=== PATIENT | male | born 1950 | race Caucasian/White ===

== ENCOUNTER 2016-11-28 13:10 | Outpatient (CLI) | payer BC ==
--- NOTE | 2016-11-28 19:12 | Ultrasound Report ---
RIGHT UPPER QUADRANT ULTRASOUND: 11/28/2016 CLINICAL INDICATION: Hepatic fibrosis. TECHNIQUE: Real-time scanning was performed with player services representative static images obtained. FINDINGS: The liver measures 15.4 cm. Hepatic echotexture appears unremarkable. No focal parenchym al lesion or intrahepatic biliary dilatation is seen. The common bile duct measures 4 mm. The gallb ladder is normal. The right kidney measures 10.1 cm, and demonstrates no hydronephrosis. No free fl uid is present. IMPRESSION: NORMAL RIGHT UPPER QUADRANT ULTRASOUND. JOB #: [id number] EXT JOB #:[id number]
== END 2016-11-28 13:11 | disposition home or self-care (01) ==
LOC: DI 13:10
PROVIDERS: ATTEND Internal Medicine
DX: K74.0 Hepatic fibrosis (principal)
CPT/HCPCS: 76705

== ENCOUNTER 2017-05-21 18:55 | Outpatient (CLI) | payer BC ==
--- NOTE | 2017-05-22 12:12 | Ultrasound Report ---
DATE OF SERVICE: 05/21/2017 COMPLETE ABDOMEN ULTRASOUND: 05/21/2017 COMPARISON: Abdomen ultrasound of 11/23/2015. INDICATION: Hepatic fibrosis. TECHNIQUE: Sonographic evaluation of the abdomen. FINDINGS: The liver has a coarse echotexture. There is a stable 1 cm left hepatic cyst. No parenchymal hepatic lesions are demonstrated: Normal contour. No abdominal ascites. Portal venous flow is directed toward the liver. The liver measures 15 cm. The gallbladder is unremarkable without stones, wall thickening or adjacent fluid. No ductal dilation. Common duct 4 mm. The pancreas is poorly evaluated due to overlying bowel gas. The kidneys appear unremarkable. The right measures 9.2 cm. The left measures 10.0 cm. There is an 1.4 cm simple appearing splenic cyst. The spleen appears otherwise unremarkable, measuring 10 cm. The aorta and IVC appear grossly unremarkable. IMPRESSION: STABLE FINDINGS. NO EVIDENCE OF HEPATIC LESIONS APART FROM A STABLE SIMPLE APPEARING CYST. TD: 05/22/2017 12:57 MTDD
== END 2017-05-21 18:56 | disposition home or self-care (01) ==
LOC: DI 18:55
PROVIDERS: ATTEND Internal Medicine
DX: K74.0 Hepatic fibrosis (principal); K76.89 Other specified diseases of liver
CPT/HCPCS: 76700

== ENCOUNTER 2017-06-25 16:23 | Outpatient (CLI) | payer BC ==
[2017-06-25] MEDS ORDERED: IOPAMIDOL-300 50 ML VIAL ONE (16:34)
[2017-06-25] MEDS ORDERED: IOPAMIDOL-300 100 ML VIAL ONE (16:34)
[2017-06-25 16:52] LABS: CREATININE 0.9 mg/dL (0.6-1.2)
[2017-06-25] MEDS ORDERED: IOPAMIDOL-300 50 ML VIAL PO ONE (18:02)
[2017-06-25] MEDS ORDERED: IOPAMIDOL-300 100 ML VIAL IVP ONE (18:03)
--- NOTE | 2017-06-26 12:18 | CT Report ---
CT OF THE ABDOMEN WITH CONTRAST: 06/25/2017 CLINICAL INDICATION: Abdominal pain. TECHNIQUE: Axial CT images of the abdomen were obtained with 100 mL Isovue 300 intravenously as well as oral contrast. COMPARISON: 05/17/2015. FINDINGS: Limited evaluation of the lung bases is unremarkable. ABDOMEN: There is a small cyst in the left lobe of the liver. The spleen, pancreas, kidneys and adrenal glands are unremarkable. The gallbladder is not dilated. No bowel dilatation, free gas, or free fluid is present. No abdominal adenopathy is seen. Osseous structures demonstrate mild degenerative changes. IMPRESSION: NO EVIDENT ETIOLOGY FOR THE PATIENT'S ABDOMINAL PAIN. NO SIGNIFICANT INTERVAL CHANGE FROM 05/17/2015. In accordance with CT protocol optimization, one or more of the following dose reduction techniques were utilized for this exam: automated exposure control, adjustment of mA and/or KV based on patient size, or use of iterative reconstructive technique. TD: 06/26/2017 12:17
== END 2017-06-25 16:24 | disposition home or self-care (01) ==
LOC: LAB 16:23
PROVIDERS: ATTEND Internal Medicine
DX: R10.9 Unspecified abdominal pain (principal); K74.0 Hepatic fibrosis
CPT/HCPCS: 36415; 74160; 82565; Q9967

== ENCOUNTER 2018-04-30 21:02 | Outpatient (CLI) | payer BC ==
--- NOTE | 2018-05-02 07:24 | Ultrasound Report ---
Reason: RIGHT UPPER QUADRANT ABDOMINAL PAIN Procedure Date: 04/30/2018 Accession Number: [id number] / [id number] Procedure: US - Abdomen Complete CPT Code: FULL RESULT: EXAM: ABDOMEN ULTRASOUND EXAM DATE: 04/30/2018 09:50 PM. CLINICAL HISTORY: Right upper quadrant abdominal pain. COMPARISON: ABDOMEN COMPLETE 05/21/2017 8:28 PM ABDOMEN W/ 06/25/2017 5:39 PM. TECHNIQUE: Real-time scanning was performed with static images obtained. FINDINGS: Liver: Mildly coarse and echogenic. No suspicious mass seen with incidental left liver 1 cm cyst again noted. 14.8 cm. Main portal vein flow: Hepatopetal. Gallbladder: Normal. No stones, wall thickening, or sonographic Lara's sign. Biliary System: Common bile duct measures 3 mm. No intrahepatic or extrahepatic ductal dilatation. Pancreas: Visualized portion is unremarkable. Kidneys: Right: 9.7 cm longitudinally. Normal. No contour-deforming mass, stones, or hydronephrosis. Left: 10.5 cm longitudinally. Normal. No contour-deforming mass, stones, or hydronephrosis. Spleen: 9.8 x 3.6 x 8.1 cm. Normal in size and echotexture. Aorta and Inferior Vena Cava: Unremarkable. Other: None. IMPRESSION: 1. No etiology for abdominal pain seen. 2. Mildly coarse echotexture to the liver, consistent with chronic liver disease. No focal solid mass identified. RADIA
== END 2018-04-30 21:03 | disposition home or self-care (01) ==
LOC: DI 21:02
PROVIDERS: ATTEND Internal Medicine
DX: R10.11 Right upper quadrant pain (principal)
CPT/HCPCS: 76700

== ENCOUNTER 2018-11-13 15:42 | Outpatient (CLI) | payer BC ==
--- NOTE | 2018-11-14 13:30 | Ultrasound Report ---
Reason: HISTORY OF HEPATITIS C Procedure Date: 11/13/2018 Accession Number: [id number] / [id number] Procedure: US - Abdomen Complete CPT Code: FULL RESULT: EXAM: ABDOMEN ULTRASOUND EXAM DATE: 11/13/2018 05:09 PM. CLINICAL HISTORY: Hepatitis C, follow-up. COMPARISON: ABDOMEN COMPLETE 04/30/2018 9:25 PM. TECHNIQUE: Real-time scanning was performed with static images obtained. FINDINGS: Liver: The liver parenchyma is moderately echogenic and possibly mildly coarsened diffusely as before. No focal solid masses or enlargement. A left hepatic simple cyst measures 1.2 cm. The right lobe measures 14.1 cm. Main portal vein flow: Hepatopetal. Gallbladder: Normal. No stones, wall thickening, or sonographic Lara's sign. Biliary System: Common bile duct measures 5 mm. No intrahepatic or extrahepatic ductal dilatation. Pancreas: Visualized portion is unremarkable. Kidneys: Right: 10.1 cm longitudinally. Normal. No contour-deforming mass, stones, or hydronephrosis. Left: 11.0 cm longitudinally. Normal. No contour-deforming mass, stones, or hydronephrosis. Spleen: 10.6 cm. Normal in size and echotexture. An accessory splenule is noted. Aorta and Inferior Vena Cava: Unremarkable. Other: None. IMPRESSION: 1. Moderately fatty infiltrated liver. 2. Possible early changes of liver cirrhosis unchanged. No solid mass lesion identified. RADIA
== END 2018-11-13 15:43 | disposition home or self-care (01) ==
LOC: DI 15:42
PROVIDERS: ATTEND Internal Medicine
DX: K76.0 Fatty (change of) liver, not elsewhere classified (principal); Z86.19 Personal history of other infectious and parasitic diseases
CPT/HCPCS: 76700

== ENCOUNTER 2018-11-19 17:00 | Outpatient (CLI) | payer BC ==
[2018-11-19 17:34] LABS: ALBUMIN 4.5 g/dL (3.2-5.5); ALBUMIN/GLOBULIN RATIO 1.3 (1.0-2.2); BILIRUBIN,TOTAL 0.9 mg/dL (0.2-1.0); CALCIUM 9.2 mg/dL (8.5-10.3); CREATININE 0.9 mg/dL (0.6-1.2); TOTAL PROTEIN 7.9 g/dL (6.7-8.2)
[2018-11-19 17:49] LABS: INR 1.2 (0.8-1.2); PT - PROTHROMBIN TIME 13.3 secs (9.9-12.6)
== END 2018-11-19 17:01 | disposition home or self-care (01) ==
LOC: LAB 17:00
PROVIDERS: ATTEND Internal Medicine
DX: K74.0 Hepatic fibrosis (principal)
CPT/HCPCS: 80053; 82105; 85610

== ENCOUNTER 2019-05-15 08:00 | Outpatient (CLI) | payer BC ==
[2019-05-15 10:14] LABS: ALBUMIN 4.2 g/dL (3.2-5.5); ALBUMIN/GLOBULIN RATIO 1.2 (1.0-2.2); BILIRUBIN,TOTAL 0.6 mg/dL (0.2-1.0); CREATININE 0.7 mg/dL (0.6-1.2); TOTAL PROTEIN 7.6 g/dL (6.7-8.2)
[2019-05-15 10:17] LABS: INR 1.1 (0.8-1.2); PT - PROTHROMBIN TIME 12.6 secs (9.9-12.6)
--- NOTE | 2019-05-15 12:07 | Ultrasound Report ---
Reason: ADVANCED FIBROSIS, RUQ ABD PAIN Procedure Date: 05/15/2019 Accession Number: [id number] / [id number] Procedure: US - Abdomen Complete CPT Code: Final Report FULL RESULT: EXAM: ABDOMEN ULTRASOUND EXAM DATE: 05/15/2019 11:12 AM. CLINICAL HISTORY: Advanced fibrosis, right upper quadrant abdominal pain. COMPARISON: ABDOMEN COMPLETE 11/13/2018 4:24 PM ABDOMEN W/ 06/25/2017 5:39 PM. TECHNIQUE: Real-time scanning was performed with static images obtained. FINDINGS: Liver: 1.1 x 0.9 x 1.2 cm anechoic left liver cyst. No mural nodules or thickened septation. Liver parenchyma is heterogeneous and mildly to moderately hyperechoic. No discrete liver masses or intrahepatic bile duct dilation. However, evaluation for masses is limited secondary to the echogenicity. Right liver measures 16.2 cm. Capsule is mildly irregular. Main portal vein flow: Hepatopetal. Gallbladder: Normal. No stones, wall thickening, or sonographic Lara's sign. Biliary System: Common bile duct measures 5 mm. No intrahepatic or extrahepatic ductal dilatation. Pancreas: Limited visualization and evaluations, overlying bowel gas and coarse heterogeneous liver parenchyma. Given the limitations, no acute abnormality is noted. Kidneys: Right: 9.9 cm longitudinally. Small avascular 0.4 cm mid right renal echogenic focus best seen on the transverse images. No right hydronephrosis or renal stones. Left: 11.1 cm longitudinally. Normal. No contour-deforming mass, stones, or hydronephrosis. Spleen: 9.6 x 3.1 x 9.9 cm. Normal in size and echotexture. Accessory spleen measures 1.2 cm. Aorta and Inferior Vena Cava: Atheromatous plaques noted in the non-aneurysmal abdominal aorta. Normal IVC. Other: None. IMPRESSION: 1. Coarse liver parenchyma consistent with fatty infiltration and with possible superimposed chronic liver parenchymal disease. No solid liver mass or intrahepatic bile duct dilation. 1.2 cm left liver cyst. No concerning features. Possible cirrhosis. 2. Normal gallbladder and common bile duct. Limited visualization of the pancreas due to overlying bowel gas. RADIA
== END 2019-05-15 08:01 | disposition home or self-care (01) ==
LOC: DI 08:00
PROVIDERS: ATTEND Internal Medicine
DX: R10.11 Right upper quadrant pain (principal); K74.0 Hepatic fibrosis; K76.89 Other specified diseases of liver
CPT/HCPCS: 36415; 76700; 80053; 82105; 85610

== ENCOUNTER 2019-11-30 11:40 | Outpatient (CLI) | payer MEDICARE ==
[2019-11-30 12:06] LABS: ALBUMIN 4.4 g/dL (3.2-5.5); ALBUMIN/GLOBULIN RATIO 1.3 (1.0-2.2); BILIRUBIN,TOTAL 0.8 mg/dL (0.2-1.0); CREATININE 0.9 mg/dL (0.6-1.2); TOTAL PROTEIN 7.7 g/dL (6.7-8.2)
== END 2019-11-30 11:41 | disposition home or self-care (01) ==
LOC: LAB 11:40
PROVIDERS: ATTEND Internal Medicine
DX: K74.0 Hepatic fibrosis (principal)
CPT/HCPCS: 36415; 80053; 82105

== ENCOUNTER 2019-12-04 14:43 | Outpatient (CLI) | payer MEDICARE ==
--- NOTE | 2019-12-04 16:29 | Ultrasound Report ---
PROCEDURE: Abdomen Complete INDICATIONS: LIVER FIBROSIS TECHNIQUE: Real-time scanning was performed of the abdominal and retroperitoneal organs, with image documentatio n. COMPARISON: Prior abdomen ultrasounds 05/15/2019, 11/13/2018, 04/30/2018. Correlation is also made wi abdomen CT 06/25/2017. FINDINGS: Liver: The liver demonstrates a coarse, heterogeneous echotexture and minimal increased echogenicity. No suspicious mass lesions are identified. There is a benign-appearing cyst seen on the left measuri ng up to 1 cm, as previously demonstrated. Gallbladder: No gallstones or significant sludge can be seen. The gallbladder wall does not appear t hickened. There is no specific pericholecystic fluid. The sonographic Lara's sign is negative. Biliary ducts: Intrahepatic bile ducts are non-dilated. Extrahepatic bile duct caliber measures 2 m m. Normal is 6-7 mm or less in diameter, or 10 mm or less post-cholecystectomy. Pancreas: Visualized portions of the pancreas are sonographically normal. Spleen: Spleen is normal in size and homogeneous in echotexture. Incidental note is made of partial ly seen presumed accessory splenules. Kidneys: Kidneys are normal in size and echotexture. Right kidney measures 9.9 cm long; left kidney measures 10.9 cm long. No hydronephrosis or nephrolithiasis. No solid masses. Aorta: Visualized aorta is normal in caliber at less than 3 cm. Iliacs: Proximal common iliac arteries are normal in caliber at less than 2.5 cm. IVC: Intrahepatic inferior vena cava is patent. Miscellaneous: No free abdominal fluid. IMPRESSION: Coarse liver echotexture with minimally increased liver echogenicity, which is consistent with the gi mery history of liver fibrosis. No suspicious mass lesions are seen by ultrasound. If there is strong clinical concern for a liver mass, then please consider a dedicated liver protocol MRI (without and with contrast) for further ev aluation (assuming that there is no contraindication). Incidental note is made of: Liver cyst Apparent accessory splenules Reviewed by: Rashawn Valenzuela MD on 12/04/2019 3:28 PM [facility] Approved by: Rashawn Valenzuela MD on 12/04/2019 3:28 PM [facility] Station ID: [id number]
== END 2019-12-04 14:44 | disposition home or self-care (01) ==
LOC: DI 14:43
PROVIDERS: ATTEND Internal Medicine
DX: K74.0 Hepatic fibrosis (principal)
CPT/HCPCS: 76700

== ENCOUNTER 2020-05-06 08:56 | Emergency (ER) | payer BC, MEDICARE ==
[2020-05-06 09:25] LABS: BASOPHILS # (AUTO) 0.1 10^3/uL (0.0-0.1); BASOPHILS % (AUTO) 0.7 %; EOSINOPHILS # (AUTO) 0.1 10^3/uL (0.0-0.7); EOSINOPHILS % (AUTO) 1.6 %; HGB - HEMOGLOBIN 15.3 g/dL (14.0-18.0); LYMPHOCYTES # (AUTO) 2.1 10^3/uL (1.5-3.5); LYMPHOCYTES % (AUTO) 23.5 %; MEAN CORPUSCULAR HEMOGLOBIN 30.4 pg (27.0-31.0); MEAN CORPUSCULAR HGB CONC 33.3 g/dL (32.0-36.0); MEAN CORPUSCULAR VOLUME 91.3 fL (80.0-94.0); MEAN PLATELET VOLUME 10.2 fL (7.4-11.4); MONOCYTES # (AUTO) 0.9 10^3/uL (0.0-1.0); MONOCYTES % (AUTO) 10.5 %; NEUTROPHILS # (AUTO) 5.7 10^3/uL (1.5-6.6); NEUTROPHILS % (AUTO) 63.3 %; PLT - PLATELET COUNT 260 10^3/uL (130-450); RED BLOOD COUNT 5.04 10^6/uL (4.70-6.10)
[2020-05-06 09:35] LABS: BILIRUBIN,URINE NEGATIVE (NEGATIVE); GLUCOSE, URINE (UA) NEGATIVE (NEGATIVE); KETONES,URINE (UA) NEGATIVE (NEGATIVE); LEUKOCYTE ESTERASE, URINE NEGATIVE (NEGATIVE); NITRITE,URINE NEGATIVE (NEGATIVE); OCCULT BLOOD,URINE TRACE-INTA (NEGATIVE); PH,URINE 5.5 PH (5.0-7.5); PROTEIN,URINE NEGATIVE (NEGATIVE); UROBILINOGEN,URINE 0.2 (NORMAL) E.U./dL (NORMAL)
[2020-05-06 09:38] LABS: CLARITY,URINE CLEAR (CLEAR)
[2020-05-06 09:39] LABS: ALBUMIN 4.3 g/dL (3.2-5.5); ALBUMIN/GLOBULIN RATIO 1.2 (1.0-2.2); CALCIUM 9.2 mg/dL (8.5-10.3); CREATININE 0.9 mg/dL (0.6-1.2)
[2020-05-06] MEDS ORDERED: LIDOCAINE VISCOUS 2% 15 ML UDC MM STA (09:49)
[2020-05-06] MEDS ORDERED: MAG HYDROX/AL HYDROX/SIMETH 30 ML UDC PO STA (09:49)
--- NOTE | 2020-05-06 09:52 | ED Physician Documentation ---
PD HPI ABD PAIN - Stated complaint Stated Complaint: ABD PAIN - Chief complaint Chief Complaint: Abd Pain - History obtained from History obtained from: Patient - History of Present Illness Timing - onset: How many years ago (10+) Timing - duration: Years Timing - details: Gradual onset, Still present, Waxing and waning Quality: Cramping, Aching, Pain Location: RUQ, LUQ, RLQ Improved by: Eating Associated symptoms: No: Nausea, Vomiting, Diarrhea, Constipation Similar symptoms before: No diagnosis, Work up / diagnostics (extensive) Recently seen: Not recently seen - Additional information Additional information: 69-year-old male presents to the emergency department today with abdominal pain that he has had for more than 10 years. He indicates a history that he had hepatitis C unsuccessfully treated with interferon and subsequently treated with an oral medication successfully. He states that during this entire time he has had continuous abdominal pain in the right upper quadrant left upper quadrant and right lower quadrant. He is periodically having exacerbation of his pain to where it is interfering with his life and he is being short with his family. He states that despite the treatment of the hepatitis C his pain never resolved and he has no specific explanation of why he has this pain. He is finally today become irritated with pain enough to come to the emergency department for evaluation. He has not tried to treat this with much of anything for pain other than occasionally taking Ibuprofen or Tylenol and having cannabis at night. Review of Systems Constitutional: denies: Fever, Chills, Myalgias Eyes: denies: Decreased vision Ears: denies: Ear pain Nose: denies: Rhinorrhea / runny nose, Congestion Throat: denies: Sore throat Cardiac: denies: Chest pain / pressure, Palpitations Respiratory: denies: Dyspnea, Cough GI: reports: Abdominal Pain. denies: Nausea, Vomiting, Constipation, Diarrhea : denies: Dysuria, Frequency Skin: denies: Rash Musculoskeletal: denies: Neck pain, Back pain, Extremity pain Neurologic: denies: Generalized weakness, Focal weakness, Numbness PD PAST MEDICAL HISTORY - Past Medical History Past Medical History: Yes GI: Hepatitis - Past Surgical History Past Surgical History: Yes Ortho: Arthroscopic surgery - Allergies Allergies/Adverse Reactions: Allergies Allergy/AdvReac Type Severity Reaction Status Date / Time No Known Drug Allergies Allergy Verified 05/06/20 09:00 - Social History Does the pt smoke?: No Smoking Status: Never smoker Does the pt drink ETOH?: No Does the pt have substance abuse?: No Substance Use and Type: Marijuana - Immunizations Immunizations are current?: Yes - POLST Patient has POLST: No PD ED PE NORMAL - Vitals Vital signs reviewed: Yes (hypertensive ) - General General: Alert and oriented X 3, No acute distress, Well developed/nourished - HEENT HEENT: Atraumatic, PERRL, EOMI - Neck Neck: Supple, no meningeal sign, No bony TTP - Cardiac Cardiac: RRR, No murmur - Respiratory Respiratory: No respiratory distress, Clear bilaterally - Abdomen Abdomen: Normal bowel sounds, Soft, Non distended, No organomegaly, Other (mild tenderness without garding or rebound tenderness ) - Back Back: No CVA TTP, No spinal TTP - Derm Derm: Normal color, Warm and dry, No rash - Extremities Extremities: No deformity, No edema - Neuro Neuro: Alert and oriented X 3, ecological modeler 2-12 intact, No motor deficit, No sensory deficit, Normal speech Eye Opening: Spontaneous Motor: Obeys Commands Verbal: Oriented GCS Score: 15 - Psych Psych: Normal mood, Normal affect Results - Vitals Vitals: Vital Signs - 24 hr 05/06/20 05/06/20 05/06/20 09:00 09:27 10:24 Temperature 36.9 C Heart Rate 87 78 73 Respiratory 18 16 16 Rate Blood Pressure 145/94 H 169/112 H 149/99 H O2 Saturation 98 99 96 05/06/20 05/06/20 05/06/20 11:17 13:23 14:31 Temperature 36.5 C Heart Rate 63 72 81 Respiratory 16 16 18 Rate Blood Pressure 150/96 H 142/97 H 197/109 H O2 Saturation 100 98 97 05/06/20 15:12 Temperature Heart Rate 90 Respiratory 15 Rate Blood Pressure 168/113 H O2 Saturation 97 Oxygen O2 Source Room air - Labs Labs: Laboratory Tests 05/06/20 05/06/20 05/06/20 09:15 09:20 09:20 WBC 9.0 RBC 5.04 Hgb 15.3 Hct 46.0 MCV 91.3 MCH 30.4 MCHC 33.3 RDW 12.0 Plt Count 260 MPV 10.2 Neut # (Auto) 5.7 Lymph # (Auto) 2.1 [place] # (Auto) 0.9 Eos # (Auto) 0.1 Baso # (Auto) 0.1 Absolute Nucleated RBC 0.00 Nucleated RBC % 0.0 Sodium 141 Potassium 3.5 Chloride 105 Carbon Dioxide 27 Anion Gap 9.0 BUN 18 Creatinine 0.9 Estimated GFR (MDRD) 84 L Glucose 63 L Calcium 9.2 Total Bilirubin 1.0 AST 19 ALT 19 Alkaline Phosphatase 72 Total Protein 8.0 Albumin 4.3 Globulin 3.7 Albumin/Globulin Ratio 1.2 Lipase 26 Urine Color DARK YELLOW Urine Clarity CLEAR Urine pH 5.5 Ur Specific [place] >=1.030 H Urine Protein NEGATIVE Urine Glucose (UA) NEGATIVE Urine Ketones NEGATIVE Urine Occult Blood TRACE-INTA Urine Nitrite NEGATIVE Urine Bilirubin NEGATIVE Urine Urobilinogen 0.2 (NORMAL) Ur Leukocyte Esterase NEGATIVE Ur Microscopic Review NOT INDICATED Urine Culture Comments NOT INDICATED - Rads (name of study) CT ab/pel w Radiology: Prelim report reviewed (Impression: 1. No acute inflammatory process is identified. No free fluid. 2. Diverticulosis without diverticulitis. Normal appendix. 3. Suspect small fat-containing left inguinal hernia.), EMP read indepedently, See rad report PD MEDICAL DECISION MAKING - ED course Complexity details: reviewed old records, reviewed results, re-evaluated patient, considered differential, d/w patient ED course: 69 y/o male with more than 10 years of abdominal pain has become irritated with the pain and it has caused some strife in his family life. I do not feel that I am likely to solve the problem with his abdominal pain but I was able to offer the patient the trial of a ketamine infusion which he readily accepted. He has asked the nurse about a social work consult and he would prefer not to do this in a public setting and would like referral to someone to talk to. He is given an infusion of ketamine 40mg over 40minutes. This is done in a room with another individual having sutures placed and was not an appropriate setting for this infusion. The patient did feel it may have some benefit. He did ask for resources for counselling. He indicates he has become passionate about the bill of rights and has done a 1st amendment audit --took his phone out and began filming in the lobby of the court house -- a public place-- and he was handcuffed for this. He is concerned that his passion is causing some trouble with his family and he requests resources for counselling. Departure - Departure Disposition: 01 Home, Self Care Clinical Impression: Adjustment reaction with anxiety Abdominal pain Qualifiers: Abdominal location: unspecified location Qualified Code(s): R10.9 - Unspecified abdominal pain Condition: Stable Instructions: ED Adjustment Disorder, ED Abdominal Pain Unkn Cause Male Follow-Up: [facility] [Provider Group] Comments: follow up with counselling resources as provided by social work. If you felt that the ketamine infusion helped there are clinics in [place] and [place]. The usual treatment requires a series of 12-13 treatments.
[2020-05-06] MEDS ORDERED: IOVERSOL 320 100 ML VIAL IVP ONE ×2 (10:02→10:30)
--- NOTE | 2020-05-06 11:13 | CT Report ---
PROCEDURE: Abdomen/Pelvis W INDICATIONS: 3 quadrant abdominal pain, chronic CONTRAST: IV CONTRAST: Optiray 320: 100 mL TECHNIQUE: After the administration of intravenous contrast, 5 mm thick sections acquired from the diaphragms to the symphysis. 5 mm thick coronal and sagittal reformats were acquired. For radiation dose reducti on, the following was used: automated exposure control, adjustment of mA and/or kV according to erna ent size. COMPARISON: Abdominal ultrasound 12/04/2019. CT abdomen 06/26/2017.. FINDINGS: Image quality: Excellent. ABDOMEN: Lung bases: Lung bases are clear. Heart size is normal. Solid organs: Liver is normal in size. Question of hepatic steatosis. Small cyst in the left lobe li kimber, unchanged. Gallbladder is unremarkable. Biliary system is non dilated. Pancreas enhances norm ally. No splenomegaly. Small splenule. No adrenal nodules. Kidneys demonstrate normal size and enhan cement, without hydronephrosis. Peritoneum and bowel: Bowel loops demonstrate normal wall thickness and caliber. A few colonic diver ticuli. No diverticulitis. Normal retrocecal appendix. No free fluid or air. Nodes and vessels: No retroperitoneal or mesenteric adenopathy by size criteria. Aorta and inferior vena cava are normal in size. Moderate calcified arthroscopic plaque. Miscellaneous: Small fat-containing periumbilical hernia. PELVIS: Genitourinary: Bladder is within normal limits. Suspect trace right hydrocele. No free fluid in the pelvis. Miscellaneous: Suspect fat-containing left inguinal hernia. No adenopathy. Bones: No suspicious bony lesions. No vertebral body compression fractures. IMPRESSION: 1. No acute inflammatory process is identified. No free fluid. 2. Diverticulosis without diverticulitis. Normal appendix. 3. Suspect small fat-containing left inguinal hernia. Reviewed by: Eliot Garcia MD on 05/06/2020 10:11 AM [facility] Approved by: Eliot Garcia MD on 05/06/2020 10:11 AM [facility] Station ID: [id number]
[2020-05-06] MEDS ORDERED: KETAMINE 40 MG in SODIUM CHLORIDE 0.9% 100ML 100 ML IVP STA (11:16)
[2020-05-06] MEDS ORDERED: SODIUM CHLORIDE 0.9% IVP STA (11:30)
[2020-05-06] MEDS ORDERED: KETAMINE IVP STA (11:30)
[2020-05-06 15:15] VITALS: BP 168/113
== END 2020-05-06 15:49 | disposition home or self-care (01) ==
LOC: ED 08:56
DX: R10.11 Right upper quadrant pain (principal); R10.12 Left upper quadrant pain; R10.31 Right lower quadrant pain; G89.29 Other chronic pain; F43.22 Adjustment disorder with anxiety; B19.20 Unspecified viral hepatitis C without hepatic coma
CPT/HCPCS: 36415; 74177; 80053; 81003; 83690; 85025; 96374; 99284; A9270; Q9967; 81001; 87086

== ENCOUNTER 2020-09-19 11:06 | Outpatient (CLI) | payer MEDICARE, OTHER ==
[2020-09-19 11:20] LABS: HCT - HEMATOCRIT 43.5 % (42.0-52.0); HGB - HEMOGLOBIN 14.6 g/dL (14.0-18.0); MEAN CORPUSCULAR HGB CONC 33.6 g/dL (32.0-36.0); MEAN CORPUSCULAR VOLUME 89.5 fL (80.0-94.0); MEAN PLATELET VOLUME 10.2 fL (7.4-11.4); RED BLOOD COUNT 4.86 10^6/uL (4.70-6.10); RED CELL DISTRIBUTION WIDTH 12.7 % (12.0-15.0)
[2020-09-19 11:40] LABS: ALBUMIN 4.3 g/dL (3.2-5.5); ALBUMIN/GLOBULIN RATIO 1.2 (1.0-2.2); BILIRUBIN,TOTAL 0.7 mg/dL (0.2-1.0); CALCIUM 9.2 mg/dL (8.5-10.3); POTASSIUM 4.1 mmol/L (3.5-5.0); TOTAL PROTEIN 7.8 g/dL (6.7-8.2)
== END 2020-09-19 11:07 | disposition home or self-care (01) ==
LOC: LAB 11:06
PROVIDERS: ATTEND Internal Medicine
DX: Z86.19 Personal history of other infectious and parasitic diseases (principal)
CPT/HCPCS: 36415; 80053; 82105; 85027

== ENCOUNTER 2020-09-23 09:21 | Outpatient (CLI) | payer MEDICARE, OTHER ==
--- NOTE | 2020-09-23 12:50 | Ultrasound Report ---
PROCEDURE: Abdomen Complete INDICATIONS: LIVER FIBROSIS TECHNIQUE: Real-time scanning was performed of the abdominal and retroperitoneal organs, with image documentatio n. COMPARISON: Prior ultrasounds, including 12/04/2019, 05/15/2019, and 11/13/2018. FINDINGS: Overall scan quality is limited, secondary to increased bowel gas and body habitus. Liver: The liver again demonstrates a coarse echotexture, with increased echogenicity. There is a 13 mm cyst within the left lobe of the liver. The liver demonstrates normal size. Gallbladder: No gallstones or significant sludge can be seen. The gallbladder wall does not appear th ickened. There is no specific pericholecystic fluid. The sonographic Lara's sign is negative. Biliary ducts: Intrahepatic bile ducts are non-dilated. Extrahepatic bile duct caliber measures 3 m m. Normal is 6-7 mm or less in diameter, or 10 mm or less post-cholecystectomy. Pancreas: Visualized portions of the pancreas are sonographically normal. Spleen: Spleen is normal in size and homogeneous in echotexture. An accessory splenule can be seen measuring up to 1.2 cm. Kidneys: Kidneys are normal in size and echotexture. Right kidney measures 10.6 cm long; left kidne y measures 10.1 cm long. No hydronephrosis or nephrolithiasis. No solid masses. Aorta: Visualized aorta is normal in caliber at less than 3 cm. Atherosclerotic plaque can be seen. Iliacs: Proximal common iliac arteries are normal in caliber at less than 2.5 cm. IVC: Intrahepatic inferior vena cava is patent. Miscellaneous: No free abdominal fluid. IMPRESSION: Coarse liver echotexture, without discrete masses. The imaging appearance is consistent with the give n clinical history of liver fibrosis. Incidental note is made of: Left liver cyst Accessory splenule Atherosclerotic plaque Reviewed by: Rashawn Valenzuela MD on 09/23/2020 11:49 AM [facility] Approved by: Rashawn Valenzuela MD on 09/23/2020 11:49 AM [facility] Station ID: [id number]
== END 2020-09-23 09:22 | disposition home or self-care (01) ==
LOC: DI 09:21
PROVIDERS: ATTEND Internal Medicine
DX: K74.00 Hepatic fibrosis, unspecified (principal)

== ENCOUNTER 2021-02-20 10:32 | Outpatient (CLI) | payer MEDICARE, OTHER ==
[2021-02-20] MEDS ORDERED: SINCALIDE 1.6 MCG in SODIUM CHLORIDE 0.9% 50 ML IV ONE (13:28)
--- NOTE | 2021-02-20 13:29 | Nuclear Medicine Report ---
PROCEDURE: Hepatobiliary HIDA w/ Rx INDICATIONS: CHRONIC ABDOMINAL PAIN RADIOPHARMACEUTICAL: 9.36 mCi Tc-99m meprofenin i.v. and 0.6 g sincalide i.v. TECHNIQUE: Following intravenous administration of Tc-99m meprofenin, sequential anterior abdominal images were obtained through 60 minutes. To evaluate the contractile response of the gallbladder in response to Cholecystokinin (CCK), 1.6 microgram sincalide (0.02 g/kg) was administered by slow intr avenous infusion approximately 60 minutes after the administration of the radiopharmaceutical. Seque ntial imaging was continued for 30 minutes after the start of CCK infusion. Gallbladder ejection fra ction was calculated. COMPARISON: None. FINDINGS: Biliary scan: There is normal tracer uptake and excretion by the liver. There is normal visualizati on of the intrahepatic ducts, common bile duct, and gallbladder. There is normal tracer transit into the duodenum. CCK stimulation: There is abnormally low contractile response of the gallbladder to CCK infusion. T he calculated gallbladder ejection fraction is 18%; normal values are above 35%. IMPRESSION: No findings of biliary tract obstruction. Abnormally low gallbladder ejection fraction of 18%. Normal greater than 35%). Findings are not entir miguel angel specific but are frequently seen in the setting of gallbladder hypokinesia/dyskinesia and represe nt a potential source of pain. Reviewed by: Herman Du MD on 02/20/2021 1:27 PM PDT Approved by: Herman Du MD on 02/20/2021 1:27 PM PDT Station ID: [id number]
== END 2021-02-20 10:33 | disposition home or self-care (01) ==
LOC: DI 10:32
PROVIDERS: ATTEND Physician Assistant Medical
DX: R10.9 Unspecified abdominal pain (principal); G89.29 Other chronic pain
CPT/HCPCS: 78227; J7040

== ENCOUNTER 2021-03-18 06:59 | Day surgery (SDC) | payer MEDICARE, OTHER ==
[2021-03-18] MEDS ORDERED: ONDANSETRON 4 MG/2 ML VIAL ONE (07:05)
[2021-03-18] MEDS ORDERED: SCOPOLAMINE PATCH TOP ONE (07:11)
--- NOTE | 2021-03-18 07:31 | ANESTHESIA ---
Pre-Anesthesia VS, & Labs - Diagnosis abdominal pain - Procedure colonoscopy, EGD Vital Signs: Temp Pulse Resp BP Pulse Ox 36.5 C 98 20 172/117 H 99 03/18/21 06:59 03/18/21 06:59 03/18/21 06:59 03/18/21 06:59 03/18/21 06:59 Height: 6 ft Weight (kg): 79.38 kg Body Mass Index: 23.7 BMI Classification: Healthy weight - NPO >8 hours - Lab Results Lab results reviewed: Yes Home Medications and Allergies Home Medications: Ambulatory Orders Gabapentin [Gralise] 300 mg PO TID 03/18/21 Hyoscyamine Sulfate 0.125 mg PO Q4HR 03/18/21 Active Medications Scopolamine HBr (Scopolamine Patch) 1 patch TOP Q3D BENI Stop: 03/18/21 08:01 Last Admin: 03/18/21 07:19 Dose: 1 patch Documented by: Gabapentin [Gralise] 300 mg PO TID 03/18/21 Hyoscyamine Sulfate 0.125 mg PO Q4HR 03/18/21 Allergies/Adverse Reactions: Allergies Allergy/AdvReac Type Severity Reaction Status Date / Time No Known Drug Allergies Allergy Verified 05/06/20 09:00 Anes History & Medical History - Anesthetic History Anesthesia Complications: reports: No previous complications Family history of Anesthesia Complications: Denies Family history of Malignant Hyperthermia: Denies - Medical History Cardiovascular: reports: None Pulmonary: reports: None Gastrointestinal: reports: Hepatitis Urinary: reports: None Musculoskeletal: reports: None Endocrine/Autoimmune: reports: None Skin: reports: None Smoking Status: Never smoker Other Past Medical History: chronic abdominal pain - Surgical History Orthopedic: reports: Arthroscopic surgery Exam General: Alert, Oriented x3, Cooperative, No acute distress Dental: WNL Mouth Openin Fingerbreadth Neck Mobility: Normal Mallampati classification: II Respiratory: Lungs clear, Normal breath sounds, No respiratory distress, No accessory muscle use Cardiovascular: Regular rate, Normal S1, Normal S2, No murmurs Plan Anesthesia Type: General, Total IV Consent for Procedure(s) Verified and Reviewed: Yes Code Status: Attempt Resuscitation ASA classification: 3-Severe systemic disease Is this case an emergency?: No
[2021-03-18] MEDS ORDERED: SCOPOLAMINE PATCH TOP SCH (08:00)
[2021-03-18] MEDS ORDERED: MIDAZOLAM 2 MG/2 ML VIAL ONE (09:21)
[2021-03-18] MEDS ORDERED: fentaNYL 100 MCG/2 ML VIAL ONE (09:21)
[2021-03-18] MEDS ORDERED: PROPOFOL 500 MG/50 ML 500 MG/50 ML VIAL ONE (09:21)
[2021-03-18] MEDS ORDERED: LACTATED RINGERS 1,000 ML IV ONE (10:09)
[2021-03-18 11:08] VITALS: BP 136/80
--- NOTE | 2021-03-18 15:06 | ANESTHESIA POST OP EVALUATION ---
Anesthesia Post Eval - Post Anesthesia Eval Vitals: Last Vital Signs Temp 36.4 C L 03/18/21 11:08 Pulse 74 03/18/21 11:08 Resp 15 03/18/21 11:08 BP 136/80 H 03/18/21 11:08 Pulse Ox 96 03/18/21 11:08 CV Function Including HR & BP: Stable Pain Control: Satisfactory Nausea & Vomiting: Negative Mental Status: Baseline Respiratory Status: Airway Patent Hydration Status: Satisfactory Anesthesia Complications: None
== END 2021-03-18 07:00 | disposition home or self-care (01) ==
LOC: SDS 06:59
PROVIDERS: ATTEND Surgery
PROC: 0DB98ZX Excision of Duodenum, Via Natural or Artificial Opening Endoscopic, Diagnostic (ICD-10-PCS; 2021-03-18)
PROC: 0DB68ZX Excision of Stomach, Via Natural or Artificial Opening Endoscopic, Diagnostic (ICD-10-PCS; 2021-03-18)
PROC: 0DB58ZX Excision of Esophagus, Via Natural or Artificial Opening Endoscopic, Diagnostic (ICD-10-PCS; 2021-03-18)
PROC: 0DBH8ZZ Excision of Cecum, Via Natural or Artificial Opening Endoscopic (ICD-10-PCS; principal; 2021-03-18 08:15)
PROC: 0DBL8ZZ Excision of Transverse Colon, Via Natural or Artificial Opening Endoscopic (ICD-10-PCS; 2021-03-18 08:15)
DX: R10.11 Right upper quadrant pain (principal); R10.31 Right lower quadrant pain; D12.3 Benign neoplasm of transverse colon; D12.0 Benign neoplasm of cecum; K57.30 Diverticulosis of large intestine without perforation or abscess without bleeding; K64.8 Other hemorrhoids; K64.4 Residual hemorrhoidal skin tags; F32.9 Major depressive disorder, single episode, unspecified; Z87.891 Personal history of nicotine dependence
CPT/HCPCS: 43239; 45380; 45385; 83630; 87015; 87177; 87209; 87272; 87329; 87493; J3490; J7120

== ENCOUNTER 2021-03-21 19:38 | Outpatient (CLI) | payer MEDICARE, OTHER | END 2021-03-21 19:39 | disposition critical access hospital (66) | LOC: EMS 19:38 | DX: R10.9 Unspecified abdominal pain (principal); R11.10 Vomiting, unspecified | CPT/HCPCS: A0425; A0427 ==

== ENCOUNTER 2021-03-21 20:02 | Emergency (ER) | payer MEDICARE, OTHER ==
[2021-03-21] MEDS ORDERED: HYDROmorphone 1 MG/ML CARPUJECT IVP STA ×2 (20:10→21:19)
[2021-03-21] MEDS ORDERED: SODIUM CHLORIDE 0.9% 1,000 ML IV STA ×2 (20:10)
[2021-03-21] MEDS ORDERED: KETOROLAC 15 MG/ML VIAL IVP STA (20:10)
[2021-03-21] MEDS ORDERED: DROPERIDOL 5 MG/2 ML VIAL IVP STA ×2 (20:10→21:21)
--- NOTE | 2021-03-21 20:14 | ED Physician Documentation ---
PD HPI ABD PAIN - Stated complaint Stated Complaint: ABD PAIN N/V - History obtained from History obtained from: Patient, EMS - History of Present Illness Timing - onset: How many days ago (has chronic recurrent abd pain episodes with workup previous, and had upper/lower endoscopies [address] Reese. Rx Flagyl for C.Diff. Patient having worse abd pain with oral prep for the scope and since the scope. Much worse pain with vomiting this evening (past 1-2 hours).) Timing - details: Gradual onset, Still present Quality: Cramping, Aching, Pain Location: Epigastric, Other (mostly upper abd.) Radiation: Upper back Improved by: No: Vomiting Worsened by: Eating, Moving, Palpation (of upper abdomen). No: Breathing Associated symptoms: Nausea, Vomiting, Loss of appetite. No: Fever, Hematemesis, Constipation Similar symptoms before: No diagnosis (has had workup with scopes and GI consults. Dr. Reese relates that the patient had an abnormal HIDA scan with symptoms during it, so she feels is biliary colic episodes. Patient not wanting gallbladder surgery as yet though, as he does not believe that is the cause.) Recently seen: Surgery (had upper and lower endoscopies 3 days ago with biopsies.) Review of Systems Constitutional: denies: Fever, Chills Nose: denies: Rhinorrhea / runny nose, Congestion Throat: denies: Sore throat Cardiac: denies: Chest pain / pressure Respiratory: denies: Cough GI: reports: Abdominal Pain, Nausea, Vomiting. denies: Constipation, Diarrhea, Bloody / black stool : denies: Dysuria, Frequency Skin: denies: Rash, Lesions Neurologic: denies: Near syncope, Headache PD PAST MEDICAL HISTORY - Past Medical History Cardiovascular: None Respiratory: None Endocrine/Autoimmune: None GI: Hepatitis : None HEENT: None Psych: Anxiety Musculoskeletal: None Derm: None - Past Surgical History Past Surgical History: Yes Ortho: Arthroscopic surgery - Present Medications Home Medications: Ambulatory Orders Medication Instructions Recorded Confirmed Gabapentin [Gralise] 300 mg PO TID 03/18/21 03/21/21 metroNIDAZOLE [Flagyl] 500 mg PO Q6H 14 Days #56 tablet 03/19/21 03/21/21 Ondansetron Odt [Zofran] 4 mg TL Q6H PRN #10 tablet 03/21/21 Oxycodone HCl/Acetaminophen 1 each PO Q6H PRN #14 tablet 03/21/21 [Percocet 5-325 mg Tablet] Vancomycin [Vancocin] 125 mg PO QID 10 Days #40 cap 03/21/21 - Allergies Allergies/Adverse Reactions: Allergies Allergy/AdvReac Type Severity Reaction Status Date / Time No Known Drug Allergies Allergy Verified 03/21/21 20:12 - Living Situation Living Situation: reports: With spouse/s.o. Living Arrangement: reports: At home - Social History Does the pt smoke?: No Smoking Status: Never smoker Does the pt drink ETOH?: No Does the pt have substance abuse?: No - Immunizations Immunizations are current?: Yes - POLST Patient has POLST: No PD ED PE NORMAL - Vitals Vital signs reviewed: Yes - General General: Alert and oriented X 3, Well developed/nourished, Other (appears in considerable pain. Moaning loudly. Repetitive dry heaving and holding emesis bag. ) - HEENT HEENT: PERRL (nonicteric), Pharynx benign - Neck Neck: Supple, no meningeal sign, No adenopathy - Cardiac Cardiac: RRR (mild tachycardic), No murmur - Respiratory Respiratory: No respiratory distress, Clear bilaterally - Abdomen Abdomen: Soft, Non distended, No organomegaly, Other (markedly tender in upper abdomen, mostly epigastric area with guarding, but also RUQ area. No percussion tenderness. Lower abd not tender. ). No: Normal bowel sounds (diminished) - Male Male : Deferred - Rectal Rectal: Deferred - Back Back: No CVA TTP - Derm Derm: Warm and dry. No: Normal color (somewhat pale and sweaty. ) - Extremities Extremities: No tenderness to palpate, Normal ROM s pain, No edema, No calf tenderness / cord - Neuro Neuro: Alert and oriented X 3, No motor deficit, Normal speech Results - Vitals Vitals: Vital Signs - 24 hr 03/21/21 03/21/21 03/21/21 20:12 20:32 21:45 Temperature 36.2 C L Heart Rate 103 H 71 Respiratory 27 H Rate Blood Pressure 213/165 H 169/97 H O2 Saturation 97 96 03/21/21 23:06 Temperature 36.7 C Heart Rate 81 Respiratory 12 Rate Blood Pressure 163/112 H O2 Saturation 98 Oxygen O2 Source Room air Oxygen Flow Rate 4 - Labs Labs: Laboratory Tests 03/21/21 03/21/21 03/21/21 20:15 20:15 20:15 WBC 17.9 H RBC 5.13 Hgb 15.2 Hct 45.1 MCV 87.9 MCH 29.6 MCHC 33.7 RDW 12.4 Plt Count 302 MPV 10.8 Neut # (Auto) 12.1 H Lymph # (Auto) 3.9 H Gaston # (Auto) 1.6 H Eos # (Auto) 0.2 Baso # (Auto) 0.1 Absolute Nucleated RBC 0.00 Band Neuts % (Manual) Not Reportable Abnorm Lymph % (Manual) Not Reportable Nucleated RBC % 0.0 Neutrophils # (Manual) Not Reportable Lymphocytes # (Manual) Not Reportable Monocytes # (Manual) Not Reportable Eosinophils # (Manual) Not Reportable Basophils # (Manual) Not Reportable Differential Comment MANUAL=AUTO DIFF Manual Slide Review Indicated Platelet Estimate NORMAL (130-450,000) Platelet Morphology NORMAL APPEARANCE RBC Morph Micro Appear NORMAL APPEARANCE Sodium 139 Potassium 3.3 L Chloride 103 Carbon Dioxide 19 L Anion Gap 17.0 H BUN 16 Creatinine 0.8 Estimated GFR (MDRD) 96 Glucose 168 H Lactic Acid 4.1 H* Calcium 9.4 Total Bilirubin 1.3 H AST 35 ALT 26 Alkaline Phosphatase 62 Total Protein 8.2 Albumin 4.9 Globulin 3.3 Albumin/Globulin Ratio 1.5 Lipase 50 Urine Color Urine Clarity Urine pH Ur Specific [place] Urine Protein Urine Glucose (UA) Urine Ketones Urine Occult Blood Urine Nitrite Urine Bilirubin Urine Urobilinogen Ur Leukocyte Esterase Ur Microscopic Review Urine Culture Comments Ethyl Alcohol < 5.0 03/21/21 03/21/21 21:52 22:00 WBC RBC Hgb Hct MCV MCH MCHC RDW Plt Count MPV Neut # (Auto) Lymph # (Auto) Gaston # (Auto) Eos # (Auto) Baso # (Auto) Absolute Nucleated RBC Band Neuts % (Manual) Abnorm Lymph % (Manual) Nucleated RBC % Neutrophils # (Manual) Lymphocytes # (Manual) Monocytes # (Manual) Eosinophils # (Manual) Basophils # (Manual) Differential Comment Manual Slide Review Platelet Estimate Platelet Morphology RBC Morph Micro Appear Sodium Potassium Chloride Carbon Dioxide Anion Gap BUN Creatinine Estimated GFR (MDRD) Glucose Lactic Acid 2.4 H Calcium Total Bilirubin AST ALT Alkaline Phosphatase Total Protein Albumin Globulin Albumin/Globulin Ratio Lipase Urine Color YELLOW Urine Clarity CLEAR Urine pH 5.5 Ur Specific [place] 1.010 Urine Protein NEGATIVE Urine Glucose (UA) NEGATIVE Urine Ketones 40 H Urine Occult Blood NEGATIVE Urine Nitrite NEGATIVE Urine Bilirubin NEGATIVE Urine Urobilinogen 0.2 (NORMAL) Ur Leukocyte Esterase NEGATIVE Ur Microscopic Review NOT INDICATED Urine Culture Comments NOT INDICATED Ethyl Alcohol - Rads (name of study) abd/pelvic CT Radiology: Prelim report reviewed (no signs of perforation/complication of the scopes. No acute process. ), See rad report PD MEDICAL DECISION MAKING - ED course Complexity details: reviewed results, re-evaluated patient (he is improved with IV meds for pain and nausea. Feeling okay now. With normal labs and CT, presume biliary colic. Reportedly some cannibis use. Rx for Flagyl for 3 days, so possible side effects of it. ), d/w public relations consultant (Dr. Reese, to update her on patient symptoms. No findings to suggest complication of scopes. She feels he has biliary colic and has had abnormal HIDA test, but has declined CCY thus far. Can change Flagyl to PO Vanco if possible GI side effects from that. ) Departure - Departure Disposition: 01 Home, Self Care Clinical Impression: Acute upper abdominal pain, Recurrent biliary colic, C. difficile enteritis Nausea and vomiting Qualifiers: Vomiting type: unspecified Vomiting Intractability: intractable Qualified Code(s): R11.2 - Nausea with vomiting, unspecified Condition: Stable Record reviewed to determine appropriate education?: Yes Follow-Up: Sherrie Ruiz ARNP [Primary Care Provider] - Vanessa Reese MD [Provider Admit Priv/Credential] - Prescriptions: Oxycodone HCl/Acetaminophen [Percocet 5-325 mg Tablet] 1 each PO Q6H PRN #14 tablet PRN Reason: pain Vancomycin [Vancocin] 125 mg PO QID 10 Days #40 cap Ondansetron Odt [Zofran] 4 mg TL Q6H PRN #10 tablet PRN Reason: Nausea / Vomiting Comments: Some of the stomach pains and nausea could relate to the metronidazole (Flagyl) antibiotic. It can cause irritation of the stomach. I talked with Dr. Reese and she did suggest we could switch to oral vancomycin to treat the C. difficile colitis. Stop the metronidazole and change to vancomycin. Add ondansetron if needed for nausea. The severity of your pain episode however is likely not just that and so would also consider likely gallbladder spasming. The CT scan did not show any complication related to the colonoscopy. I talked with Dr. Reese to update her on the episode. She still believes you are having gallbladder spasms and suggest you follow-up with her or Dr. Hartman in the surgery office (as Dr. Kelley will be out of town for a week or so) for gallbladder surgery if you decide on that. Use Tylenol or oxycodone if needed for pain episodes in the short-term. Return to the ER if needed for worse pain despite medication. I transmitted your prescriptions to [facility] in [place]. I am prescribing a short course of narcotic pain medication for you. These are potentially dangerous and addictive medications that should be used carefully. These medications may constipate you. Take an [id number] stool softener such as docusate twice daily with plenty of water while taking these medications. If you go 24 hours without a bowel movement, take [id number] MiraLAX, per package instructions. Do not drink or drive while taking these medications. If you received narcotic or sedating medications while in the emergency department do not drive for 24 hours. Store this medication in a safe, secure place and out of reach of children. It is a violation of federal law to give or sell this medication to another person or to use in a manner other than prescribed. The ED will not refill narcotic prescriptions, including prescriptions lost or stolen. You can dispose of unwanted medications at the [facility]'s office or at several pharmacies such as [facility]. Discharge Date/Time: 03/21/21 23:07
[2021-03-21 20:21] LABS: BASOPHILS # (AUTO) 0.1 10^3/uL (0.0-0.1); BASOPHILS % (AUTO) 0.6 %; EOSINOPHILS # (AUTO) 0.2 10^3/uL (0.0-0.7); EOSINOPHILS % (AUTO) 0.8 %; HCT - HEMATOCRIT 45.1 % (42.0-52.0); HGB - HEMOGLOBIN 15.2 g/dL (14.0-18.0); LYMPHOCYTES # (AUTO) 3.9 10^3/uL (1.5-3.5); LYMPHOCYTES % (AUTO) 21.9 %; MEAN CORPUSCULAR HEMOGLOBIN 29.6 pg (27.0-31.0); MEAN CORPUSCULAR HGB CONC 33.7 g/dL (32.0-36.0); MEAN CORPUSCULAR VOLUME 87.9 fL (80.0-94.0); MEAN PLATELET VOLUME 10.8 fL (7.4-11.4); MONOCYTES # (AUTO) 1.6 10^3/uL (0.0-1.0); MONOCYTES % (AUTO) 8.8 %; NEUTROPHILS # (AUTO) 12.1 10^3/uL (1.5-6.6); NEUTROPHILS % (AUTO) 67.3 %; PLT - PLATELET COUNT 302 10^3/uL (130-450); RED BLOOD COUNT 5.13 10^6/uL (4.70-6.10); RED CELL DISTRIBUTION WIDTH 12.4 % (12.0-15.0); WHITE BLOOD COUNT 17.9 x10^3/uL (4.8-10.8)
[2021-03-21 20:26] LABS: SLIDE REVIEW? Indicated
[2021-03-21 20:33] LABS: ALBUMIN 4.9 g/dL (3.2-5.5); ALBUMIN/GLOBULIN RATIO 1.5 (1.0-2.2); ALKALINE PHOSPHATASE 62 IU/L (42-121); ALT ALANINE AMINOTRANSFERASE 26 IU/L (10-60); AST ASPARTATE AMINOTRANSFERASE 35 IU/L (10-42); BILIRUBIN,TOTAL 1.3 mg/dL (0.2-1.0); BUN - BLOOD UREA NITROGEN 16 mg/dL (6-20); CALCIUM 9.4 mg/dL (8.5-10.3); CARBON DIOXIDE - CO2 19 mmol/L (21-32); CHLORIDE 103 mmol/L (101-111); CREATININE 0.8 mg/dL (0.6-1.2); ETOH - ETHANOL < 5.0 mg/dL; GFR - MDRD 96 (>89); GLUCOSE 168 mg/dL (70-100); LIPASE 50 U/L (22-51); POTASSIUM 3.3 mmol/L (3.5-5.0); SODIUM 139 mmol/L (135-145); TOTAL PROTEIN 8.2 g/dL (6.7-8.2)
[2021-03-21 20:42] LABS: PLATELET MORPHOLOGY NORMAL APPEARANCE (NORMAL); RBC MORPHOLOGY (MULTIPLE) NORMAL APPEARANCE (NORMAL)
[2021-03-21 20:43] LABS: DIFFERENTIAL COMMENT MANUAL=AUTO DIFF; PLATELET ESTIMATE, MANUAL NORMAL (130-450,000) (NORMAL)
[2021-03-21] MEDS ORDERED: PIPERACILLIN/TAZOBACTAM 3.375 GM in SODIUM CHLORIDE 0.9% MINIBAG 100 ML IV STA (20:50)
[2021-03-21] MEDS ORDERED: IOVERSOL 320 100 ML VIAL IVP ONE ×2 (21:07→21:33)
--- NOTE | 2021-03-21 21:45 | CT Report ---
PROCEDURE: Abdomen/Pelvis W INDICATIONS: Abdominal pain, acute, nonlocalized CONTRAST: IV CONTRAST: Optiray 320 ml: 100 PO CONTRAST: *NO PO CONTRAST TECHNIQUE: After the administration of intravenous contrast, 5 mm thick sections acquired from the diaphragms to the symphysis. 5 mm thick coronal and sagittal reformats were acquired. For radiation dose reducti on, the following was used: automated exposure control, adjustment of mA and/or kV according to erna ent size. COMPARISON: None. FINDINGS: Image quality: Excellent. ABDOMEN: Lung bases: Lung bases are clear. Heart size is normal. Solid organs: Liver and spleen are normal in size and enhancement. Gallbladder is unremarkable. Bi liary system is non dilated. Pancreas enhances normally. No adrenal nodules. Kidneys demonstrate n ormal size and enhancement, without hydronephrosis. Peritoneum and bowel: Bowel loops demonstrate normal wall thickness and caliber. No free fluid or a ir. Normal appendix. Mild colonic diverticulosis without evidence of diverticulitis. Nodes and vessels: No retroperitoneal or mesenteric adenopathy by size criteria. Aorta and inferior vena cava are normal in size. Miscellaneous: No ventral hernias. PELVIS: Genitourinary: Bladder wall thickness is normal. Miscellaneous: Small fat-containing left inguinal hernia. No inguinal adenopathy. Bones: No suspicious bony lesions. No vertebral body compression fractures. IMPRESSION: 1. No evidence of acute abdominal process. 2. Mild colonic diverticulosis. 3. Small fat-containing left inguinal hernia. Reviewed by: Carlos Neal MD on 03/21/2021 9:43 PM PDT Approved by: Carlos Neal MD on 03/21/2021 9:43 PM PDT Station ID: [id number]
[2021-03-21 22:31] LABS: BILIRUBIN,URINE NEGATIVE (NEGATIVE); GLUCOSE, URINE (UA) NEGATIVE (NEGATIVE); KETONES,URINE (UA) 40 mg/dL (NEGATIVE); LEUKOCYTE ESTERASE, URINE NEGATIVE (NEGATIVE); NITRITE,URINE NEGATIVE (NEGATIVE); OCCULT BLOOD,URINE NEGATIVE (NEGATIVE); PH,URINE 5.5 PH (5.0-7.5); PROTEIN,URINE NEGATIVE (NEGATIVE); UROBILINOGEN,URINE 0.2 (NORMAL) E.U./dL (NORMAL)
[2021-03-21 22:34] LABS: CLARITY,URINE CLEAR (CLEAR)
[2021-03-21] MEDS ORDERED: ONDANSETRON ODT 4 MG Prepack 2 TL PRN (22:41)
[2021-03-21] MEDS ORDERED: oxyCODONE/ACET 5/325 Prepack 4 PO STA (22:41)
[2021-03-21 23:06] VITALS: BP 163/112
== END 2021-03-21 23:07 | disposition home or self-care (01) ==
LOC: EDUNIT# → SUPCPDRO 20:02 → ED 20:02
DX: A04.72 Enterocolitis due to Clostridium difficile, not specified as recurrent (principal); R11.2 Nausea with vomiting, unspecified; K80.50 Calculus of bile duct without cholangitis or cholecystitis without obstruction; K40.90 Unilateral inguinal hernia, without obstruction or gangrene, not specified as recurrent
CPT/HCPCS: 36415; 74177; 80053; 81003; 83605; 83690; 85025; 96365; 96375; 96376; 99284; G0480; J1170; Q9967; 80320; 81001; 87086

== ENCOUNTER 2021-03-22 10:17 | Emergency (ER) | payer MEDICARE, OTHER ==
[2021-03-22] MEDS ORDERED: SODIUM CHLORIDE 0.9% 1,000 ML IV STA (10:56)
[2021-03-22] MEDS ORDERED: ONDANSETRON 4 MG/2 ML VIAL IVP STA (10:57)
--- NOTE | 2021-03-22 11:04 | ED Physician Documentation ---
PD HPI ABD PAIN - Stated complaint Stated Complaint: NAUSEA - Chief complaint Chief Complaint: Abd Pain - History obtained from History obtained from: Patient - History of Present Illness Timing - onset: How many days ago (5) Timing - duration: Days Timing - details: Abrupt onset, Still present, Waxing and waning Quality: Cramping, Sharp, Pain Location: All over / everywhere, RUQ, LUQ Radiation: Upper back Improved by: Meds Associated symptoms: Nausea, Vomiting Similar symptoms before: No diagnosis, Work up / diagnostics (extensive work up to include u/s, CT, endoscopy and HIDA scan. HIDA scan has EF of 18%) Recently seen: Clinic, Emergency Dept, Other (endoscopy) - Additional information Additional information: 70-year-old male with a 10-year history of abdominal pain that has been chronic and has periodically peaked has had extensive work-up and he has had more pain recently and he has been in to see Dr. Kelley in follow-up and he has had endoscopy both upper and lower about 5 days ago. He has had worsening of his symptoms of pain and vomiting since and he was evaluated here yesterday with CT and medications to evaluate potential injury related to his recent endoscopies. He had some improvement with medications given including pain medication and anti-nausea last night. Yesterday he was not interested in CCY and today he is reconsidering. He has developed pain and nausea again with nausea being the worst of his symptoms. He had some zofran from last night and he used it this morning and did not get relief until after arrival to the ED and he reports nausea is some better. He continues to have pain but he indicates the pain is not his main issue this morning. He has not been able to keep anything down since his endoscopies. He indicates that sometimes his pain is worse after eating but not always. Sometimes his pain is worse. He has pain all the time. He is not usually nauseated. He has been started on flagyl and this was changed to vancomycin. He indicates he has BM out this morning almost normal and formed. He denies diarrhea. Review of Systems Constitutional: denies: Fever Eyes: denies: Decreased vision Ears: denies: Ear pain Nose: denies: Rhinorrhea / runny nose, Congestion Throat: denies: Sore throat Cardiac: denies: Chest pain / pressure, Palpitations Respiratory: denies: Dyspnea GI: reports: Abdominal Pain, Nausea, Vomiting : denies: Dysuria, Frequency Skin: denies: Rash Musculoskeletal: reports: Back pain. denies: Neck pain, Extremity pain Neurologic: denies: Generalized weakness, Focal weakness, Numbness PD PAST MEDICAL HISTORY - Past Medical History Cardiovascular: None Respiratory: None Endocrine/Autoimmune: None GI: Hepatitis : None HEENT: None Psych: Anxiety Musculoskeletal: None Derm: None - Past Surgical History Past Surgical History: Yes Ortho: Arthroscopic surgery - Present Medications Home Medications: Ambulatory Orders Medication Instructions Recorded Confirmed Gabapentin [Gralise] 300 mg PO TID 03/18/21 03/21/21 metroNIDAZOLE [Flagyl] 500 mg PO Q6H 14 Days #56 tablet 03/19/21 03/21/21 Ondansetron Odt [Zofran] 4 mg TL Q6H PRN #10 tablet 03/21/21 Oxycodone HCl/Acetaminophen 1 each PO Q6H PRN #14 tablet 03/21/21 [Percocet 5-325 mg Tablet] Vancomycin [Vancocin] 125 mg PO QID 10 Days #40 cap 03/21/21 - Allergies Allergies/Adverse Reactions: Allergies Allergy/AdvReac Type Severity Reaction Status Date / Time No Known Drug Allergies Allergy Verified 03/22/21 10:37 - Social History Does the pt smoke?: No Smoking Status: Never smoker Does the pt drink ETOH?: No Does the pt have substance abuse?: No - Immunizations Immunizations are current?: Yes - POLST Patient has POLST: No PD ED PE NORMAL - Vitals Vital signs reviewed: Yes (tachy tachypneic and hypertensive ) - General General: Alert and oriented X 3, Well developed/nourished, Other (Appears to be in pain with keg varnisher tone and flattened affect the patient appears to have underlying anger.) - HEENT HEENT: Atraumatic, PERRL, EOMI - Neck Neck: Supple, no meningeal sign, No bony TTP - Cardiac Cardiac: RRR, No murmur - Respiratory Respiratory: No respiratory distress, Clear bilaterally - Abdomen Abdomen: Soft, Non distended, No organomegaly, Other (Mild generalized tenderness without guarding or reboundNo specific area of tenderness.) - Back Back: No CVA TTP, No spinal TTP - Derm Derm: Normal color, Warm and dry, No rash - Extremities Extremities: No deformity, No edema - Neuro Neuro: Alert and oriented X 3, informatics manager 2-12 intact, No motor deficit, No sensory deficit, Normal speech Eye Opening: Spontaneous Motor: Obeys Commands Verbal: Oriented GCS Score: 15 - Psych Psych: Other (The mood is grumpy the affect is flat) Results - Vitals Vitals: Vital Signs - 24 hr 03/22/21 03/22/21 10:32 12:00 Temperature 99.1 C H Heart Rate 101 H 84 Respiratory 25 H 15 Rate Blood Pressure 184/119 H 165/90 H O2 Saturation 100 97 Oxygen O2 Source Room air - Labs Labs: Laboratory Tests 03/22/21 03/22/21 03/22/21 11:10 11:10 11:10 WBC 12.9 H RBC 4.75 Hgb 14.3 Hct 42.4 MCV 89.3 MCH 30.1 MCHC 33.7 RDW 12.6 Plt Count 245 MPV 10.4 Neut # (Auto) 10.6 H Lymph # (Auto) 1.2 L [place] # (Auto) 0.9 Eos # (Auto) 0.1 Baso # (Auto) 0.1 Absolute Nucleated RBC 0.00 Nucleated RBC % 0.0 Sodium 141 Potassium 3.5 Chloride 106 Carbon Dioxide 24 Anion Gap 11.0 BUN 15 Creatinine 0.8 Estimated GFR (MDRD) 96 Glucose 127 H Lactic Acid 1.2 Calcium 8.8 Total Bilirubin 1.2 H AST 30 ALT 25 Alkaline Phosphatase 44 Total Protein 7.7 Albumin 4.4 Globulin 3.3 Albumin/Globulin Ratio 1.3 Lipase 30 PD MEDICAL DECISION MAKING - ED course Complexity details: reviewed results, re-evaluated patient, considered differential, d/w patient, d/w family ED course: 70-year-old male with chronic abdominal pain has been placed onto Flagyl for C. difficile he has been taken off the Flagyl and placed onto vancomycin which he has not started. I reviewed the patient's chart and history and I was concerned that there were no signs of inflammation on the colonoscopy or on the CAT scan. The patient has chronic pain I have seen him for this previously about 1 year ago. He does have a low ejection fraction for his gallbladder and this may be contributing to his pain. He wanted to have his gallbladder out today when he came into the emergency department and I turned my attention to alternative explanations for his pain. His symptoms at the time I evaluated him were improved and he declined pain medication he did state that he was nauseous he was given Zofran with some improvement he was given fluid as well. The patient appears frustrated at the lack of findings on work up. He describes his pain with both hands grabbing his flanks and moving his hands down around his abdomen. He has a non-focal exam today similar to prior. I am concerned that he may have pain referred from his back and have asked the patient to consult his PMD about an MRI of the back. He was improved at discharge and went home and began to have symptoms of nausea again. He called his primary who called me in the ED. She is concerned about his gallbladder as he has a low ejection fraction. He does have follow up with the surgeon. Departure - Departure Disposition: 01 Home, Self Care Clinical Impression: Nausea and vomiting Qualifiers: Vomiting type: unspecified Vomiting Intractability: non-intractable Qualified Code(s): R11.2 - Nausea with vomiting, unspecified Condition: Stable Instructions: ED Diet Vomiting Diarrhea, ED Abdominal Pain Unkn Cause Male Follow-Up: Elisabeth Sweeney PA-C [Primary Care Provider] - Comments: Phillip, today we did not find a reason specifically for your chronic abdominal pain. My recommendation is to have an MRI done of your back for the potential of referred pain. Follow-up with your primary doctor to schedule this test. Discharge Date/Time: 03/22/21 12:22
[2021-03-22 11:15] LABS: BASOPHILS # (AUTO) 0.1 10^3/uL (0.0-0.1); BASOPHILS % (AUTO) 0.4 %; EOSINOPHILS # (AUTO) 0.1 10^3/uL (0.0-0.7); EOSINOPHILS % (AUTO) 0.4 %; HCT - HEMATOCRIT 42.4 % (42.0-52.0); HGB - HEMOGLOBIN 14.3 g/dL (14.0-18.0); LYMPHOCYTES # (AUTO) 1.2 10^3/uL (1.5-3.5); LYMPHOCYTES % (AUTO) 9.5 %; MEAN CORPUSCULAR HEMOGLOBIN 30.1 pg (27.0-31.0); MEAN CORPUSCULAR HGB CONC 33.7 g/dL (32.0-36.0); MEAN CORPUSCULAR VOLUME 89.3 fL (80.0-94.0); MEAN PLATELET VOLUME 10.4 fL (7.4-11.4); MONOCYTES # (AUTO) 0.9 10^3/uL (0.0-1.0); MONOCYTES % (AUTO) 6.9 %; NEUTROPHILS # (AUTO) 10.6 10^3/uL (1.5-6.6); NEUTROPHILS % (AUTO) 82.3 %; PLT - PLATELET COUNT 245 10^3/uL (130-450); RED BLOOD COUNT 4.75 10^6/uL (4.70-6.10); RED CELL DISTRIBUTION WIDTH 12.6 % (12.0-15.0); WHITE BLOOD COUNT 12.9 x10^3/uL (4.8-10.8)
[2021-03-22 11:34] LABS: ALBUMIN 4.4 g/dL (3.2-5.5); ALBUMIN/GLOBULIN RATIO 1.3 (1.0-2.2); BILIRUBIN,TOTAL 1.2 mg/dL (0.2-1.0); CALCIUM 8.8 mg/dL (8.5-10.3); CREATININE 0.8 mg/dL (0.6-1.2); POTASSIUM 3.5 mmol/L (3.5-5.0); TOTAL PROTEIN 7.7 g/dL (6.7-8.2)
[2021-03-22 12:22] VITALS: BP 165/90
== END 2021-03-22 12:22 | disposition home or self-care (01) ==
LOC: ED 10:17
DX: R10.84 Generalized abdominal pain (principal); G89.29 Other chronic pain; R11.2 Nausea with vomiting, unspecified
CPT/HCPCS: 36415; 80053; 83605; 83690; 85025; 96374; 99284

== ENCOUNTER 2021-04-22 08:43 | Day surgery (SDC) | payer MEDICARE, OTHER ==
[~2021-04-22 08:43] MED LIST: BUPIVACAINE 0.5% PF 10 ML VIAL ONE; CEFAZOLIN SODIUM IN 0.9 % NACL 2 GM/100 ML BAG IV ONE; LIDOCAINE MPF 2%-EPI 1:200000 20 ML VIAL ONE
[2021-04-22] MEDS ORDERED: LACTATED RINGERS 1,000 ML IV ONE ×3 (08:52→12:20)
--- NOTE | 2021-04-22 09:56 | ANESTHESIA ---
Pre-Anesthesia VS, & Labs - Diagnosis chronic cholecystitis - Procedure laparoscopic cholecystectomy Vital Signs: Temp Pulse Resp BP Pulse Ox 36.0 C L 66 18 147/91 H 100 04/22/21 08:52 04/22/21 08:52 04/22/21 08:52 04/22/21 08:52 04/22/21 08:52 Height: 6 ft Weight (kg): 82.6 kg Body Mass Index: 24.7 BMI Classification: Healthy weight - NPO >8 hours - Lab Results Lab results reviewed: Yes Home Medications and Allergies No Known Home Medications 04/16/21 Allergies/Adverse Reactions: Allergies Allergy/AdvReac Type Severity Reaction Status Date / Time No Known Drug Allergies Allergy Verified 03/22/21 10:37 Anes History & Medical History - Anesthetic History Anesthesia Complications: reports: No previous complications Family history of Anesthesia Complications: Denies Family history of Malignant Hyperthermia: Denies - Medical History Cardiovascular: reports: None Pulmonary: reports: None Gastrointestinal: reports: C.difficile, Hepatitis Urinary: reports: None Musculoskeletal: reports: None Endocrine/Autoimmune: reports: None Skin: reports: None Smoking Status: Never smoker - Surgical History General: reports: Colonoscopy Orthopedic: reports: Arthroscopic surgery Exam General: Alert, Oriented x3, Cooperative Dental: WNL Mouth Opening: Greater than 4 Fingerbreadths Neck Mobility: Normal Mallampati classification: I Thyromental Distance: 4-6 cm Respiratory: Lungs clear, Normal breath sounds, No respiratory distress Cardiovascular: Regular rate Neurological: Normal speech Mental/Cognitive Status: Alert/Oriented X3, Normal for patient Cognitive Status: Within normal limits Plan Anesthesia Type: General Consent for Procedure(s) Verified and Reviewed: Yes Code Status: Attempt Resuscitation ASA classification: 2-Mild systemic disease Is this case an emergency?: No
[2021-04-22] MEDS ORDERED: METOCLOPRAMIDE 10 MG/2 ML VIAL IVP PRN (09:57)
[2021-04-22] MEDS ORDERED: ePHEDrine 50 MG/ML VIAL IVP PRN (09:57)
[2021-04-22] MEDS ORDERED: ONDANSETRON 4 MG/2 ML VIAL IVP PRN ×2 (09:57→12:08)
[2021-04-22] MEDS ORDERED: MORPHINE 2 MG/ML CARPUJECT IVP PRN (09:57)
[2021-04-22] MEDS ORDERED: ATROPINE ABBOJECT 1 MG/10 ML SYRINGE IVP PRN (09:57)
[2021-04-22] MEDS ORDERED: NALOXONE 0.4 MG/ML VIAL IVP PRN (09:57)
[2021-04-22] MEDS ORDERED: LACTATED RINGERS 1,000 ML IV SCH (10:00)
[2021-04-22] MEDS ORDERED: ONDANSETRON 4 MG/2 ML VIAL ONE (10:23)
[2021-04-22] MEDS ORDERED: LIDOCAINE-MPF 2% 5 ML VIAL ONE (10:23)
[2021-04-22] MEDS ORDERED: ROCURONIUM 50 MG/5 ML VIAL ONE (10:23)
[2021-04-22] MEDS ORDERED: PROPOFOL 200 MG/20 ML VIAL IVP ONE (10:23)
[2021-04-22] MEDS ORDERED: fentaNYL 100 MCG/2 ML VIAL ONE ×3 (10:23→12:05)
[2021-04-22] MEDS ORDERED: BUPIVACAINE 0.5% PF 10 ML VIAL SUBQ ONE (10:52)
[2021-04-22] MEDS ORDERED: LIDOCAINE MPF 2%-EPI 1:200000 20 ML VIAL SUBQ ONE (10:52)
[2021-04-22] MEDS ORDERED: IOTHALAMATE MEGLUMINE 50 ML VIAL ONE (11:02)
[2021-04-22] MEDS ORDERED: IOTHALAMATE MEGLUMINE 50 ML VIAL INTRADUCT ONE ×2 (11:05)
[2021-04-22] MEDS ORDERED: SUGAMMADEX 200 MG/2 ML VIAL IVP ONE (11:35)
--- NOTE | 2021-04-22 11:54 | OPERATIVE REPORT ---
Operative Report - General Procedure Date: 04/22/21 Planned Procedure: Laparoscopic cholecystectomy Pre-Op Diagnosis: Choronic cholecystitis with biliary dyskinesia Procedure Performed: Laparoscopic cholecystectomy with intraoperative cholangiogram Umbilical hernia repair Post Op Diagnosis: Chronic cholecystitis with dense intra-abdominal adhesive disease and herni - Procedure Note Primary Surgeon: Mary Ann Anesthesia Provider: Vincent Anesthesia Technique: General ET tube, Local Pathology: Gall bladder to pathology in formalin Estimated Blood Loss (mL): 25 Indications: Chronic, intermittent right upper quadrant pain Findings: 1. Thin walled gall bladder with dense adhesions to the colon, omentum, and duodenum 2. Large healed scar on the internal abdominal wall in the right upper quadrant 3. Incarcerated umbilical hernia Complications: None apparent - Other Other Information/Narrative: After obtaining informed consent the patient is brought to the operating room and placed in the supine position on the operating table. Following successful induction of general endotracheal anesthesia, appropriate padding of all bony prominences, and placement of appropriate monitors, the abdomen was prepped and draped in the standard surgical fashion. A timeout was held per scope protocol. All elements of the surgical safety checklist were followed before, during, and after the procedure. Following infiltration with local anesthetic to create a field block, an incision was created inferior to the umbilicus and carried down through the skin and subcutaneous tissue to reveal the fascia below. 2-0 Vicryl retention sutures were placed on either side of the midline and the abdomen was entered under direct vision using a 15 blade scalpel. A 10 mm blunt Abebe balloon trocar was placed in the abdominal cavity and it was insufflated to 15 mmHg pressure. The patient was placed in reverse Trendelenburg position with the left side rotated toward the floor. A second trocar, 5 mm, was placed in the midepigastrium under direct vision and after anesthetization of the surrounding skin.A third trocar, also 5 mm was placed in the right upper quadrant for retraction of the gallbladder and a fourth 1 just medial to that as a working port as well. We immediately noted a large scar on the internal surface of the abdominal wall in the right upper quadrant. This would be directly over the gallbladder. The gallbladder itself was noted to be grossly abnormal with dense adhesions to the colon, omentum, duodenum, and connective tissue as well as the structures of the dick hepatis. Very careful lysis of adhesions was undertaken to free the adhesions and preserve the structures of the dick. The fundus of the gallbladder was then grasped and elevated up over the liver revealing the cholecysto hepatoduodenal ligament. The neck of the gallbladder was retracted laterally and the cystic duct and artery were carefully identified. The common d uct was visualized but not skeletonized.Due to the extensive dissection and scarring, I elected to perform a cholangiogram. The duct was clipped distally and an opening created to admit a Taut cholangiocath. 10 mls of contrast was injected through the catheter revealing and intact ductal system with no leaks and no gross evidence of obstruction. The cystic duct was clipped 3 times proximally and once distally and divided, the cystic artery was clipped twice proximally, once distally, and divided. The gallbladder was then liberated from its bed in the liver using cautery. It was placed in an Endo Catch bag and removed via the umbilical port with a camera in the epigastric position. The camera was replaced in the umbilical position and the abdomen was checked for hemostasis. It was irrigated with warm saline solution and aspirated free of all fluid and particulate matter. The trochars were then removed under direct vision and the abdomen desufflated. The umbilical hernia hernia was addressed next. The sac was identified and the contents freed from their attachment to the overlying skin. This tissue was placed back into the abdominal cavity and the edges of the fascia cleared. The defect was closed primarly with interrupted 0 prolene suture and buttressed with retention sutures of 0 Vicryl. Monocryl was placed in all of the skin incisions. All sponge, needle, and instrument counts were correct at the conclusion of the case. The patient was allowed awaken from anesthesia without difficulty and taken to the postanesthesia care unit in good condition.
[2021-04-22] MEDS: fentaNYL 100 MCG/2 ML VIAL IVP PRN ×2 (12:01→12:20)
[2021-04-22] MEDS: HYDROmorphone 0.5 MG/0.5 ML SYRINGE IVP PRN ×2 (12:04→12:29)
[2021-04-22] MEDS ORDERED: IBUPROFEN 600 MG TABLET PO PRN (12:08)
[2021-04-22] MEDS ORDERED: oxyCODONE 5 MG TABLET PO PRN (12:08)
[2021-04-22] MEDS ORDERED: ACETAMINOPHEN 325 MG TABLET PO PRN (12:08)
[2021-04-22] MEDS ORDERED: HYDROmorphone 0.5 MG/0.5 ML SYRINGE ONE ×2 (12:10→12:29)
[2021-04-22] MEDS ORDERED: LORazepam 2 MG/ML VIAL IVP PRN (12:26)
--- NOTE | 2021-04-22 12:45 | XRAY Report ---
PROCEDURE: OR C-Arm Procedure INDICATIONS: LAP BESSIE WITH IOC COMPARISON: None. CONTRAST: CONTRAST: CONRAY FINDINGS: Biliary ducts: The surgeon injected contrast into the biliary ducts after cannulation of the cystic duct stump. Visualized intra- and extrahepatic bile ducts are normal in caliber, without strictures. No intraluminal filling defects to suggest retained ductal stones or sludge. No evidence for iatro genic ductal injury. Duodenum: Contrast flows promptly through the sphincter of Oddi into the duodenum, which appears nor mal in caliber. IMPRESSION: Normal intraoperative angiogram. Reviewed by: Esther Villalba MD on 04/22/2021 12:43 PM PST Approved by: Esther Villalba MD on 04/22/2021 12:43 PM PST Station ID: [id number]
[2021-04-22] MEDS ORDERED: IBUPROFEN 600 MG TABLET PO ONE (13:14)
[2021-04-22] MEDS ORDERED: oxyCODONE 5 MG TABLET ONE (13:14)
[2021-04-22 14:08] VITALS: BP 130/84
== END 2021-04-22 08:44 | disposition home or self-care (01) ==
LOC: SDS 08:43
PROVIDERS: ATTEND Surgery
PROC: BF100ZZ Fluoroscopy of Bile Ducts using High Osmolar Contrast (ICD-10-PCS; 2021-04-22)
PROC: 0FT44ZZ Resection of Gallbladder, Percutaneous Endoscopic Approach (ICD-10-PCS; principal; 2021-04-22 09:45)
DX: K81.1 Chronic cholecystitis (principal)
CPT/HCPCS: 47563; A9270; J0690; J1170; J2060; J7120; Q9961

== ENCOUNTER 2021-04-23 15:13 | Outpatient (CLI) | payer MEDICARE, OTHER | END 2021-04-23 15:14 | disposition critical access hospital (66) | LOC: EMS 15:13 | DX: R11.2 Nausea with vomiting, unspecified (principal); R10.9 Unspecified abdominal pain; Z98.890 Other specified postprocedural states | CPT/HCPCS: A0425; A0427 ==

== ENCOUNTER 2021-04-23 15:48 | Inpatient (IN) | payer MEDICARE, OTHER ==
[2021-04-23] MEDS ORDERED: HYDROmorphone 1 MG/ML CARPUJECT IVP STA ×2 (16:14→17:39)
[2021-04-23] MEDS ORDERED: ONDANSETRON 4 MG/2 ML VIAL IVP STA (16:14)
--- NOTE | 2021-04-23 16:20 | ED Physician Documentation ---
PD HPI ABD PAIN - Stated complaint Stated Complaint: ABD PX - Chief complaint Chief Complaint: General - History obtained from History obtained from: Patient - History of Present Illness Timing - onset: Today Timing - duration: Days (1) Pain level max: 9 Pain level now: 9 Quality: Aching, Pain Location: All over / everywhere Radiation: No: Chest, , Lower back, Left flank, Left shoulder, Right flank, Right shoulder, Upper back Improved by: No: Eating, Laying still, Vomiting, BM, Position, Meds Worsened by: Palpation Associated symptoms: Nausea, Vomiting. No: Fever, Hematemesis, Diarrhea, Constipation, Melena, Hematochezia, Dysuria, Hematuria - Treatment prior to arrival Treatment prior to arrival: 70-year-old male who is brought into the emergency department complaining of abdominal pain. He states that he had a laparoscopic cholecystectomy yesterday. States increasing pain and vomiting today. Contacted Dr. Kelley's office and was sent here for evaluation. The pain is diffuse, aching. Nothing seems to make it better. Worse with palpation. He is taking oxycodone at home. Review of Systems Constitutional: denies: Fever, Chills Cardiac: denies: Chest pain / pressure, Palpitations Respiratory: denies: Cough GI: denies: Vomiting, Diarrhea Skin: denies: Rash Musculoskeletal: denies: Neck pain, Back pain Neurologic: denies: Headache PD PAST MEDICAL HISTORY - Past Medical History Cardiovascular: None Respiratory: None Endocrine/Autoimmune: None GI: C.difficile, Hepatitis : None HEENT: None Psych: Anxiety Musculoskeletal: None Derm: None - Past Surgical History Past Surgical History: Yes General: Colonoscopy Ortho: Arthroscopic surgery - Present Medications Home Medications: Ambulatory Orders Medication Instructions Recorded Confirmed Ondansetron Odt [Zofran Odt] 4 mg TL Q6H PRN #10 tablet 04/22/21 oxyCODONE [Roxicodone] 5 mg PO Q4-6H PRN #20 tablet 04/22/21 - Allergies Allergies/Adverse Reactions: Allergies Allergy/AdvReac Type Severity Reaction Status Date / Time No Known Drug Allergies Allergy Verified 04/23/21 15:56 - Social History Does the pt smoke?: No Smoking Status: Never smoker Does the pt drink ETOH?: No Does the pt have substance abuse?: No - Immunizations Immunizations are current?: Yes - POLST Patient has POLST: No PD ED PE NORMAL - Vitals Vital signs reviewed: Yes - General General: Alert and oriented X 3, Well developed/nourished, Other (anxious, in pain) - HEENT HEENT: PERRL, Moist mucous membranes, Pharynx benign - Neck Neck: Supple, no meningeal sign - Cardiac Cardiac: RRR - Respiratory Respiratory: No respiratory distress, Clear bilaterally - Abdomen Abdomen: Soft, Non distended, Other (Incisions are clean, dry, intact. Diffusely tender to palpation on the abdomen) - Back Back: No CVA TTP, No spinal TTP - Derm Derm: Warm and dry - Extremities Extremities: No edema, No calf tenderness / cord - Neuro Neuro: Alert and oriented X 3 - Psych Psych: Normal mood, Normal affect Results - Vitals Vitals: Vital Signs - 24 hr 04/23/21 04/23/21 15:52 18:23 Temperature 36.4 C L Heart Rate 99 116 H Respiratory 16 18 Rate Blood Pressure 185/115 H 229/149 H O2 Saturation 94 95 Oxygen O2 Source Room air - Labs Labs: Laboratory Tests 04/23/21 04/23/21 16:23 16:23 WBC 15.1 H RBC 4.45 L Hgb 13.1 L Hct 40.4 L MCV 90.8 MCH 29.4 MCHC 32.4 RDW 12.8 Plt Count 225 MPV 10.4 Neut # (Auto) 13.5 H Lymph # (Auto) 0.5 L [place] # (Auto) 1.0 Eos # (Auto) 0.0 Baso # (Auto) 0.0 Absolute Nucleated RBC 0.00 Nucleated RBC % 0.0 Sodium 135 Potassium 4.0 Chloride 103 Carbon Dioxide 24 Anion Gap 8.0 BUN 13 Creatinine 0.7 Estimated GFR (MDRD) 111 Glucose 142 H Calcium 8.3 L Total Bilirubin 1.2 H AST 24 ALT 29 Alkaline Phosphatase 55 Total Protein 6.9 Albumin 3.7 Globulin 3.2 Albumin/Globulin Ratio 1.2 Lipase 20 L - Rads (name of study) CT abdomen and pelvis Radiology: Final report received, EMP read contemporaneously, See rad report PD MEDICAL DECISION MAKING - ED course Complexity details: reviewed results, re-evaluated patient, considered differential, d/w patient, d/w senior sales consultant ED course: 70 yo M with postoperative pain. Difficult to control and requires multiple doses of IV pain medication. Discussed the case with Dr. Hartman, general surgery on-call and we will place in observation overnight for pain control and reassessment. This document was made in part using voice recognition software. While efforts are made to proofread this document, sound alike and grammatical errors may occur. IMPRESSION: 1. Interval cholecystectomy with inflammatory changes seen in gallbladder fossa, most likely represent postsurgical changes. No discrete drainable abscess collection or biloma formation is seen. 2. Stable hypodensity involving left hepatic lobe and likely represent hepatic cyst. 3. Wall thickening involving hepatic flexure and first portion of duodenum in right upper quadrant adjacent to gallbladder fossa likely represent reactive inflammatory changes. No other area of abnormal bowel wall thickening. No bowel obstruction or peritoneal free fluid. Tiny pockets of free air seen in gallbladder fossa likely represent iatrogenic air. 4. Post surgical changes in anterior abdominal wall. 5. Dependent atelectasis/small infiltrates in posterior aspect of bilateral lung bases more prominent on the right side. No pleural effusion or pneumothorax. Departure - Departure Disposition: ED Place in Observation Clinical Impression: Postoperative abdominal pain Condition: Stable Discharge Date/Time: 04/23/21 20:48
[2021-04-23 16:27] LABS: BASOPHILS % (AUTO) 0.3 %; EOSINOPHILS % (AUTO) 0.1 %; HCT - HEMATOCRIT 40.4 % (42.0-52.0); HGB - HEMOGLOBIN 13.1 g/dL (14.0-18.0); LYMPHOCYTES # (AUTO) 0.5 10^3/uL (1.5-3.5); LYMPHOCYTES % (AUTO) 3.3 %; MEAN CORPUSCULAR HEMOGLOBIN 29.4 pg (27.0-31.0); MEAN CORPUSCULAR HGB CONC 32.4 g/dL (32.0-36.0); MEAN CORPUSCULAR VOLUME 90.8 fL (80.0-94.0); MEAN PLATELET VOLUME 10.4 fL (7.4-11.4); MONOCYTES % (AUTO) 6.3 %; NEUTROPHILS # (AUTO) 13.5 10^3/uL (1.5-6.6); NEUTROPHILS % (AUTO) 89.5 %; PLT - PLATELET COUNT 225 10^3/uL (130-450); RED BLOOD COUNT 4.45 10^6/uL (4.70-6.10); RED CELL DISTRIBUTION WIDTH 12.8 % (12.0-15.0); WHITE BLOOD COUNT 15.1 x10^3/uL (4.8-10.8)
[2021-04-23 16:40] LABS: ALBUMIN 3.7 g/dL (3.2-5.5); ALBUMIN/GLOBULIN RATIO 1.2 (1.0-2.2); BILIRUBIN,TOTAL 1.2 mg/dL (0.2-1.0); CALCIUM 8.3 mg/dL (8.5-10.3); CREATININE 0.7 mg/dL (0.6-1.2); TOTAL PROTEIN 6.9 g/dL (6.7-8.2)
[2021-04-23] MEDS ORDERED: IOPAMIDOL-300 100 ML VIAL ONE (16:43)
--- NOTE | 2021-04-23 18:01 | CT Report ---
PROCEDURE: Abdomen/Pelvis W INDICATIONS: diffuse abd pain s/p cholecystectomy CONTRAST: IV CONTRAST: Isovue 300 ml: 100 PO CONTRAST: *NO PO CONTRAST TECHNIQUE: After the administration of IV contrast, 5 mm thick sections acquired from the diaphragms to the symp hysis. 5 mm thick coronal and sagittal reformats were acquired. For radiation dose reduction, the f ollowing was used: automated exposure control, adjustment of mA and/or kV according to patient size. COMPARISON: 03/21/2021. FINDINGS: Image quality: Excellent. ABDOMEN: Lung bases: Dependent atelectasis/small infiltrates are seen in posterior aspect of bilateral lung ba ses slightly more prominent on the right side. No pneumothorax. Heart size is normal. Solid organs: Liver is normal in size and show normal contrast enhancement. 1 cm well-circumscribed hypodensity is again seen in left hepatic lobe lateral segment unchanged from prior study. Spleen promise w normal size and enhancement gallbladder is surgically absent with multiple surgical clips in gallbl adder fossa. Small amount of fluid and fat stranding is seen within gallbladder fossa most likely rep resent postsurgical changes. No discrete drainable fluid collection is identified. Biliary system is non dilated. Pancreas enhances normally. No adrenal nodules. Kidneys demonstrate normal size and e nhancement, without hydronephrosis. Peritoneum and bowel: There is mild wall thickening involving first portion of duodenum adjacent to g allbladder fossa. Similar wall thickening involving hepatic flexure is also seen. Mild mesenteric fat stranding in right upper quadrant is also noted. Finding most likely represent reactive inflammatory changes. No other area of abnormal bowel wall thickening or mesenteric fat stranding is seen. No abs cess collection. Mild colonic diverticulosis is seen, no evidence of acute diverticulitis. No periton eal free fluid. Tiny pocket of free air is noted within gallbladder fossa most consistent with postsu rgical iatrogenic air. Nodes and vessels: No retroperitoneal or mesenteric adenopathy by size criteria. Aorta and inferior vena cava are normal in size. Moderate atherosclerotic calcifications throughout abdominal aorta is noted. Miscellaneous: No ventral hernias. Subcutaneous emphysema along right upper abdominal wall is seen consistent with postsurgical changes. PELVIS: Genitourinary: Bladder wall thickness is normal. Miscellaneous: No inguinal hernias or adenopathy. Bones: No suspicious bony lesions. No vertebral body compression fractures. Degenerative disc dise ase throughout lower thoracic and lumbar spine is seen more prominent at L5-S1 level. IMPRESSION: 1. Interval cholecystectomy with inflammatory changes seen in gallbladder fossa, most likely represen t postsurgical changes. No discrete drainable abscess collection or biloma formation is seen. 2. Stable hypodensity involving left hepatic lobe and likely represent hepatic cyst. 3. Wall thickening involving hepatic flexure and first portion of duodenum in right upper quadrant ad jacent to gallbladder fossa likely represent reactive inflammatory changes. No other area of abnormal bowel wall thickening. No bowel obstruction or peritoneal free fluid. Tiny pockets of free air seen in gallbladder fossa likely represent iatrogenic air. 4. Post surgical changes in anterior abdominal wall. 5. Dependent atelectasis/small infiltrates in posterior aspect of bilateral lung bases more prominent on the right side. No pleural effusion or pneumothorax. Reviewed by: Claudio Silva MD on 04/23/2021 5:59 PM PST Approved by: Claudio Silva MD on 04/23/2021 5:59 PM PST Station ID: [id number]
[2021-04-23] MEDS ORDERED: SODIUM CHLORIDE 0.9% 1,000 ML IV STA (18:14)
[2021-04-23] MEDS ORDERED: LORazepam 2 MG/ML VIAL IVP STA (18:14)
[2021-04-23] MEDS ORDERED: IOPAMIDOL-300 100 ML VIAL IVP ONE (18:16)
[2021-04-23] MEDS ORDERED: KETOROLAC 30 MG/ML VIAL IVP STA (18:22)
[2021-04-23] MEDS ORDERED: oxyCODONE 5 MG TABLET PO PRN (20:17)
[2021-04-23] MEDS ORDERED: ONDANSETRON ODT 4 MG TABLET TL PRN (20:17)
[2021-04-23] MEDS ORDERED: PROCHLORPERAZINE 10 MG/2 ML VIAL IVP PRN (20:17)
[2021-04-23] MEDS ORDERED: MAG HYDROX/AL HYDROX/SIMETH 30 ML UDC PO PRN (20:23)
--- NOTE | 2021-04-23 20:26 | HISTORY & PHYSICAL EXAMINATION ---
Chief Complaint - Chief Complaint Chief Complaint: periumbilical pain and nausea History of Present Illness - Admitted From Admitted From:: ed - History Obtained From Records Reviewed: yes History obtained from: pt Exam Limitations: none - History of Present Illness HPI Comment/Other: lap ji and umbilical hernia repair yesterday. poor pain control and poor nausea control at home. History - Past Medical History Cardiovascular: reports: None Respiratory: reports: None Endocrine/Autoimmune: reports: None GI: reports: C.difficile, Hepatitis : reports: None HEENT: reports: None Psych: reports: Anxiety Musculoskeletal: reports: None Derm: reports: None MRSA Hx?: No - Past Surgical History General: reports: Colonoscopy Ortho: reports: Arthroscopic surgery - Family & Social History Living Situation: With spouse/s.o. - POLST Patient has POLST: No Meds/Allgy - Home Medications Home Medications: Ambulatory Orders Medication Instructions Recorded Confirmed Ondansetron Odt [Zofran Odt] 4 mg TL Q6H PRN #10 tablet 04/22/21 oxyCODONE [Roxicodone] 5 mg PO Q4-6H PRN #20 tablet 04/22/21 - Allergies Allergies/Adverse Reactions: Allergies Allergy/AdvReac Type Severity Reaction Status Date / Time No Known Drug Allergies Allergy Verified 04/23/21 15:56 Review of Systems - Other Findings Other Findings: 10 pt ros as above otherwise unremarkable Exam - Vital Signs Reviewed Vital Signs: Yes Vital Signs: Vital Signs x48h Temp Pulse Resp BP Pulse Ox 04/23/21 18:23 116 H 18 229/149 H 95 04/23/21 15:52 36.4 C L 99 16 185/115 H 94 - Physical Exam General Appearance: positive: No acute distress, Alert Eyes Bilateral: positive: PERRL, EOMI, No scleral icterus ENT: positive: No signs of dehydration Neck: positive: No JVD Respiratory: positive: No respiratory distress, Breath sounds nml Cardiovascular: positive: Regular rate & rhythm Abdomen: positive: Non-tender, No distention, Other (mild echymosis. no erythema benign abdomen) Neurologic/Psychiatric: positive: Oriented x3 Conclusion/Plan - Problem List (1) Postoperative abdominal pain Conclusion/Plan: He has a benign abdomen and normal work up. Plan admit observation and treatment pain and nausea - Lab Results Fish Bones: 04/23/21 16:23 04/23/21 16:23
[2021-04-23] MEDS: FAMOTIDINE 20 MG TABLET PO SCH (21:42)
[2021-04-23] MEDS: D5.45NS W/20 MEQ KCL 1,000 ML IV SCH (21:44)
[2021-04-23] MEDS: HEPARIN 5,000 UNIT/ML VIAL SUBQ SCH (21:44)
[2021-04-23 21:45] LABS: B. PARAPERTUSSIS- RESP PCR PAN NOT DETECTED; B. PERTUSSIS- RESP PCR PANEL NOT DETECTED; C. PNEUMONIAE- RESP PCR PANEL NOT DETECTED; CORONAVIRUS 229E-RESP PCR NOT DETECTED; CORONAVIRUS HKU1-RESP PCR NOT DETECTED; CORONAVIRUS NL63-RESP PCR NOT DETECTED; CORONAVIRUS OC43-RESP PCR NOT DETECTED; HUMAN METAPNEUMOVIRUS NOT DETECTED; INFLUENZA A- RESP PCR PANEL NOT DETECTED; INFLUENZA B - RESP PCR PANEL NOT DETECTED; M. PNEUMONIAE- RESP PCR PANEL NOT DETECTED; PARAINFLUENZA VIRUS 1 NOT DETECTED; PARAINFLUENZA VIRUS 2 NOT DETECTED; PARAINFLUENZA VIRUS 3 NOT DETECTED; PARAINFLUENZA VIRUS 4 NOT DETECTED; RHINOVIRUS/ENTEROVIRUS NOT DETECTED; RSV- RESP PCR PANEL NOT DETECTED; SARS-CoV-2 -RESP PCR PANEL NOT DETECTED
[2021-04-23] MEDS: SODIUM CHLORIDE FLUSH 0.9% 10 ML SYRINGE IVP PRN (21:46)
[2021-04-23] MEDS: KETOROLAC 15 MG/ML VIAL IVP SCH (23:43)
[2021-04-24] MEDS: SODIUM CHLORIDE FLUSH 0.9% 10 ML SYRINGE IVP SCH ×3 (01:06→16:47)
[2021-04-24] MEDS: D5.45NS W/20 MEQ KCL 1,000 ML IV SCH ×3 (05:42→20:46)
[2021-04-24] MEDS: ONDANSETRON 4 MG/2 ML VIAL IVP PRN (05:52)
[2021-04-24] MEDS: KETOROLAC 15 MG/ML VIAL IVP SCH ×2 (06:06→11:53)
[2021-04-24] MEDS: HEPARIN 5,000 UNIT/ML VIAL SUBQ SCH ×2 (09:11→20:43)
[2021-04-24] MEDS: FAMOTIDINE 20 MG TABLET PO SCH ×2 (09:12→20:44)
[2021-04-24] MEDS: HYDROmorphone 0.5 MG/0.5 ML SYRINGE IVP PRN ×2 (09:24→12:57)
[2021-04-24 10:43] LABS: ALBUMIN 3.6 g/dL (3.2-5.5); ALBUMIN/GLOBULIN RATIO 1.2 (1.0-2.2); CALCIUM 8.3 mg/dL (8.5-10.3); CREATININE 0.8 mg/dL (0.6-1.2); POTASSIUM 3.7 mmol/L (3.5-5.0); TOTAL PROTEIN 6.7 g/dL (6.7-8.2)
[2021-04-24 10:48] LABS: BASOPHILS % (AUTO) 0.4 %; EOSINOPHILS # (AUTO) 0.1 10^3/uL (0.0-0.7); EOSINOPHILS % (AUTO) 1.1 %; HCT - HEMATOCRIT 38.7 % (42.0-52.0); HGB - HEMOGLOBIN 12.9 g/dL (14.0-18.0); LYMPHOCYTES # (AUTO) 1.3 10^3/uL (1.5-3.5); LYMPHOCYTES % (AUTO) 11.3 %; MEAN CORPUSCULAR HEMOGLOBIN 30.5 pg (27.0-31.0); MEAN CORPUSCULAR HGB CONC 33.3 g/dL (32.0-36.0); MEAN CORPUSCULAR VOLUME 91.5 fL (80.0-94.0); MONOCYTES # (AUTO) 1.2 10^3/uL (0.0-1.0); MONOCYTES % (AUTO) 10.9 %; NEUTROPHILS # (AUTO) 8.6 10^3/uL (1.5-6.6); NEUTROPHILS % (AUTO) 75.9 %; PLT - PLATELET COUNT 215 10^3/uL (130-450); RED BLOOD COUNT 4.23 10^6/uL (4.70-6.10); RED CELL DISTRIBUTION WIDTH 12.8 % (12.0-15.0); WHITE BLOOD COUNT 11.3 x10^3/uL (4.8-10.8)
--- NOTE | 2021-04-24 13:41 | PROVIDER PROGRESS NOTE ---
Subjective - General Admit Date: 04/23/21 Procedure Date: 04/22/21 Post Op Days: 2 Procedure Performed: Laparoscopic cholecystectomy - Review of Systems Wound/Incisions: positive: Healing well General: positive: Fatigue HEENT: positive: No symptoms Pulmonary: positive: No symptoms Cardiovascular: positive: No symptoms Gastrointestinal: positive: Nausea Genitourinary: positive: No symptoms Musculoskeletal: positive: No symptoms Skin: positive: No symptoms - Other Other Information/Narrative: Phillip was admitted again overnight for intractable nausea associated with vomiting and right upper quadrant abdominal pain. He is postop day 2 following cholecystectomy with intraoperative cholangiogram. His work-up including CT has been negative. At admission, his white count was somewhat elevated as was his total bilirubin. This morning those things are normalizing he tells me that it is more the nausea than the pain that is bothering him. He is not currently nauseated but has been receiving nausea medication throughout the night and this morning. He has not vomited since admission. He has received only 0.5 mg of Dilaudid for pain since admission and has not taken any oxycodone. He has been getting acetaminophen and has Toradol ordered as well.He points to his umbilical region as the site of the greatest pain. He said it radiates over to the left side but it is not nearly as big of an issue as the nausea. Objective - Patient Data Reviewed Vital Signs: Yes Vital Signs: Vital Signs x48h Temp Pulse Resp BP Pulse Ox 04/24/21 11:15 36.8 C 81 16 157/87 H 94 04/24/21 07:36 37.1 C 72 16 143/84 H 96 Weight: Weight 04/22/21 04/23/21 04/24/21 23:59 23:59 23:59 Weight (kg) 86 kg Intake & Output: Intake and Output Totals x24h 04/22/21 04/23/21 04/24/21 23:59 23:59 23:59 Intake Total 50 2260.833 Output Total 500 Balance 50 1760.833 - Lab Results Lab Results: 04/24/21 10:25 04/24/21 10:25 Other Lab Results: Lab Results x24hrs 04/24/21 04/24/21 04/23/21 Range/Units 10:25 10:25 20:38 WBC 11.3 H (4.8-10.8) x10^3/uL RBC 4.23 L (4.70-6.10) 10^6/uL Hgb 12.9 L (14.0-18.0) g/dL Hct 38.7 L (42.0-52.0) % MCV 91.5 (80.0-94.0) fL MCH 30.5 (27.0-31.0) pg MCHC 33.3 (32.0-36.0) g/dL RDW 12.8 (12.0-15.0) % Plt Count 215 (130-450) 10^3/uL MPV 11.0 (7.4-11.4) fL Neut # (Auto) 8.6 H (1.5-6.6) 10^3/uL Lymph # (Auto) 1.3 L (1.5-3.5) 10^3/uL [place] # (Auto) 1.2 H (0.0-1.0) 10^3/uL Eos # (Auto) 0.1 (0.0-0.7) 10^3/uL Baso # (Auto) 0.0 (0.0-0.1) 10^3/uL Absolute Nucleated RBC 0.00 x10^3/uL Nucleated RBC % 0.0 /100WBC Sodium 139 (135-145) mmol/L Potassium 3.7 (3.5-5.0) mmol/L Chloride 105 (101-111) mmol/L Carbon Dioxide 27 (21-32) mmol/L Anion Gap 7.0 (6-13) BUN 11 (6-20) mg/dL Creatinine 0.8 (0.6-1.2) mg/dL Estimated GFR (MDRD) 96 (>89) Glucose 125 H (70-100) mg/dL Calcium 8.3 L (8.5-10.3) mg/dL Total Bilirubin 1.0 (0.2-1.0) mg/dL AST 23 (10-42) IU/L ALT 28 (10-60) IU/L Alkaline Phosphatase 53 (42-121) IU/L Total Protein 6.7 (6.7-8.2) g/dL Albumin 3.6 (3.2-5.5) g/dL Globulin 3.1 (2.1-4.2) g/dL Albumin/Globulin Ratio 1.2 (1.0-2.2) Lipase (22-51) U/L Nasal Adenovirus (PCR) NOT DETECTED Nasal B. parapertussis DNA (PCR) NOT DETECTED Nasal Coronavir 229E PCR NOT DETECTED Nasal Coronavir HKU1 PCR NOT DETECTED Nasal Coronavir NL63 PCR NOT DETECTED Nasal Coronavir OC43 PCR NOT DETECTED Nasal Enterovir/Rhinovir PCR NOT DETECTED Nasal Influenza B PCR NOT DETECTED Nasal Influenza A PCR NOT DETECTED Nasal Parainfluen 1 PCR NOT DETECTED Nasal Parainfluen 2 PCR NOT DETECTED Nasal Parainfluen 3 PCR NOT DETECTED Nasal Parainfluen 4 PCR NOT DETECTED Nasal RSV (PCR) NOT DETECTED Nasal B.pertussis DNA PCR NOT DETECTED Nasal C.pneumoniae (PCR) NOT DETECTED Isaac Human Metapneumo PCR NOT DETECTED Nasal M.pneumoniae (PCR) NOT DETECTED Nasal SARS-CoV-2 (PCR) NOT DETECTED 04/23/21 04/23/21 Range/Units 16:23 16:23 WBC 15.1 H (4.8-10.8) x10^3/uL RBC 4.45 L (4.70-6.10) 10^6/uL Hgb 13.1 L (14.0-18.0) g/dL Hct 40.4 L (42.0-52.0) % MCV 90.8 (80.0-94.0) fL MCH 29.4 (27.0-31.0) pg MCHC 32.4 (32.0-36.0) g/dL RDW 12.8 (12.0-15.0) % Plt Count 225 (130-450) 10^3/uL MPV 10.4 (7.4-11.4) fL Neut # (Auto) 13.5 H (1.5-6.6) 10^3/uL Lymph # (Auto) 0.5 L (1.5-3.5) 10^3/uL [place] # (Auto) 1.0 (0.0-1.0) 10^3/uL Eos # (Auto) 0.0 (0.0-0.7) 10^3/uL Baso # (Auto) 0.0 (0.0-0.1) 10^3/uL Absolute Nucleated RBC 0.00 x10^3/uL Nucleated RBC % 0.0 /100WBC Sodium 135 (135-145) mmol/L Potassium 4.0 (3.5-5.0) mmol/L Chloride 103 (101-111) mmol/L Carbon Dioxide 24 (21-32) mmol/L Anion Gap 8.0 (6-13) BUN 13 (6-20) mg/dL Creatinine 0.7 (0.6-1.2) mg/dL Estimated GFR (MDRD) 111 (>89) Glucose 142 H (70-100) mg/dL Calcium 8.3 L (8.5-10.3) mg/dL Total Bilirubin 1.2 H (0.2-1.0) mg/dL AST 24 (10-42) IU/L ALT 29 (10-60) IU/L Alkaline Phosphatase 55 (42-121) IU/L Total Protein 6.9 (6.7-8.2) g/dL Albumin 3.7 (3.2-5.5) g/dL Globulin 3.2 (2.1-4.2) g/dL Albumin/Globulin Ratio 1.2 (1.0-2.2) Lipase 20 L (22-51) U/L Nasal Adenovirus (PCR) Nasal B. parapertussis DNA (PCR) Nasal Coronavir 229E PCR Nasal Coronavir HKU1 PCR Nasal Coronavir NL63 PCR Nasal Coronavir OC43 PCR Nasal Enterovir/Rhinovir PCR Nasal Influenza B PCR Nasal Influenza A PCR Nasal Parainfluen 1 PCR Nasal Parainfluen 2 PCR Nasal Parainfluen 3 PCR Nasal Parainfluen 4 PCR Nasal RSV (PCR) Nasal B.pertussis DNA PCR Nasal C.pneumoniae (PCR) Isaac Human Metapneumo PCR Nasal M.pneumoniae (PCR) Nasal SARS-CoV-2 (PCR) - Imaging Results Radiology Imaging: positive: Final report received - Current Medications Current Medications: Current Medications Generic Name Dose Route Start Last Admin Trade Name Freq PRN Reason Stop Dose Admin Famotidine 20 mg 04/23/21 21:00 04/24/21 09:12 Famotidine 20 Mg Tablet PO 20 mg BID BENI Administration Heparin Sodium (Porcine) 5,000 unit 04/23/21 21:00 04/24/21 09:11 Heparin 5,000 Unit/Ml Vial SUBQ 5,000 unit BID BENI Administration Hydromorphone HCl 0.5 mg 04/23/21 20:17 04/24/21 12:57 Hydromorphone 0.5 Mg/0.5 Ml Syringe IVP 0.5 mg Q2H PRN Administration Pain 8 to 10 Potassium Chloride/Dextrose/Sod Cl 1,000 mls @ 125 mls/hr 04/23/21 21:00 04/24/21 13:30 D5.45ns W/20 Meq Kcl IV 125 mls/hr .Q8H BENI Administration Ketorolac Tromethamine 15 mg 04/24/21 00:00 04/24/21 11:53 Ketorolac 15 Mg/Ml Vial IVP 04/29/21 00:00 15 mg Q6HR BENI Administration Ondansetron HCl 4 mg 04/23/21 20:17 04/24/21 05:52 Ondansetron 4 Mg/2 Ml Vial IVP 4 mg Q6HR PRN Administration Nausea / Vomiting Prochlorperazine Edisylate 10 mg 04/23/21 20:17 04/24/21 09:56 Prochlorperazine 10 Mg/2 Ml Vial IVP 10 mg Q6HR PRN Administration Nausea / Vomiting Sodium Chloride 10 ml 04/23/21 20:17 04/23/21 21:46 Sodium Chloride Flush 0.9% 10 Ml Syringe IVP 10 ml PRN PRN Administration NEEDED PER PROVIDER ORDERS Sodium Chloride 10 ml 04/24/21 01:00 04/24/21 09:12 Sodium Chloride Flush 0.9% 10 Ml Syringe IVP Not Given 0100,0900,1700 REPLACED BY [facility] - Physical Exam Wound/Incisions: positive: Healing well, Other (Significant ecchymosis is noted around the umbilical incision.) General Appearance: positive: No acute distress, Alert Eyes Bilateral: positive: Normal inspection, PERRL, EOMI ENT: positive: ENT inspection nml, Pharynx nml, No signs of dehydration Neck: positive: Nml inspection Respiratory: positive: No respiratory distress Cardiovascular: positive: Regular rate & rhythm Abdomen: positive: Other (Abdomen is appropriately tender to palpation with active bowel sounds.Bruising is noted around each of the incisions but more significantly around the umbilical incision.) Back: positive: Nml inspection Extremities: positive: Non-tender Neurologic/Psychiatric: positive: Oriented x3 ABX Reporting Has patient been on IV antibiotics over the past 48 hours?: No Impression/Plan - Problem List Problem List: Improving with hydration. Nausea is her greatest problem. He has been tolerating clear liquids however. 1. Place a scopolamine patch to help with nausea. 2. Change from oxycodone to tramadol. 3. Try to hold all other narcotics. 4. Advance diet to soft mechanical. 5. He does not feel that he is ready for discharge today but we will plan for discharge in the morning if we are able to control his nausea and his pain ad equately.
[2021-04-24] MEDS: SCOPOLAMINE PATCH TOP SCH (14:13)
[2021-04-24] MEDS: traMADol 50 MG TABLET PO PRN (16:59)
[2021-04-24] MEDS: ACETAMINOPHEN 325 MG TABLET PO PRN (18:24)
[2021-04-25] MEDS: SODIUM CHLORIDE FLUSH 0.9% 10 ML SYRINGE IVP SCH ×4 (02:55→23:17)
[2021-04-25] MEDS: D5.45NS W/20 MEQ KCL 1,000 ML IV SCH ×3 (04:19→22:00)
[2021-04-25 06:11] LABS: BASOPHILS # (AUTO) 0.1 10^3/uL (0.0-0.1); BASOPHILS % (AUTO) 0.4 %; EOSINOPHILS # (AUTO) 0.1 10^3/uL (0.0-0.7); HCT - HEMATOCRIT 35.8 % (42.0-52.0); HGB - HEMOGLOBIN 11.8 g/dL (14.0-18.0); LYMPHOCYTES # (AUTO) 1.1 10^3/uL (1.5-3.5); LYMPHOCYTES % (AUTO) 8.2 %; MEAN CORPUSCULAR HEMOGLOBIN 29.6 pg (27.0-31.0); MEAN CORPUSCULAR VOLUME 89.7 fL (80.0-94.0); MEAN PLATELET VOLUME 11.2 fL (7.4-11.4); MONOCYTES # (AUTO) 1.2 10^3/uL (0.0-1.0); MONOCYTES % (AUTO) 8.9 %; NEUTROPHILS # (AUTO) 10.9 10^3/uL (1.5-6.6); NEUTROPHILS % (AUTO) 81.1 %; PLT - PLATELET COUNT 208 10^3/uL (130-450); RED BLOOD COUNT 3.99 10^6/uL (4.70-6.10); RED CELL DISTRIBUTION WIDTH 12.4 % (12.0-15.0); WHITE BLOOD COUNT 13.5 x10^3/uL (4.8-10.8)
[2021-04-25 06:21] LABS: ALBUMIN 3.1 g/dL (3.2-5.5); BILIRUBIN,TOTAL 1.1 mg/dL (0.2-1.0); CALCIUM 8.1 mg/dL (8.5-10.3); CREATININE 0.9 mg/dL (0.6-1.2); TOTAL PROTEIN 6.1 g/dL (6.7-8.2)
--- NOTE | 2021-04-25 08:55 | PHARMACY PROGRESS NOTE ---
- Best Possible Medication History Admit Date and Time: 04/24/21 1318 Processed by: Pharmacy Medication History completed: Yes Secondary Source(s): Physician records, Insurance records As the person ultimately responsible for medication therapy, providers are able to order a medication from an existing home medication list in [facility] via the "Reconcile Routine" prior to Confirmation of that medication by business support professional. Such practice is discouraged except when the physician, in their clinical judgment, deems that a medical need exists for a medication without regard to previous use.
--- NOTE | 2021-04-25 09:30 | PROVIDER PROGRESS NOTE ---
Subjective - General Admit Date: 04/24/21 Procedure Date: 04/22/21 Post Op Days: 3 Procedure Performed: Laparoscopic cholecystectomy - Review of Systems Wound/Incisions: positive: Healing well, Other (Significant ecchymosis is noted around the umbilical incision.) General: positive: Fatigue HEENT: positive: No symptoms Pulmonary: positive: No symptoms Cardiovascular: positive: No symptoms Gastrointestinal: positive: Nausea Genitourinary: positive: No symptoms Musculoskeletal: positive: No symptoms Skin: positive: No symptoms - Other Other Information/Narrative: The patient remains nauseated today. His pain seems well controlled and he is used very little pain medication but the nausea has been debilitating. He tells me he was only able to eat a few bites last night. He has not thrown up today.He is taking very little p.o. Definitely not enough to sustain him if he were discharged. Objective - Patient Data Vital Signs: Vital Signs x48h Temp Pulse Resp BP Pulse Ox 04/25/21 07:35 36.9 C 79 16 159/91 H 96 Weight: Weight 04/23/21 04/24/21 04/25/21 23:59 23:59 23:59 Weight (kg) 86 kg Intake & Output: Intake and Output Totals x24h 04/23/21 04/24/21 04/25/21 23:59 23:59 23:59 Intake Total 50 3509.166 1043.75 Output Total 650 550 Balance 50 2859.166 493.75 - Lab Results Lab Results: 04/25/21 05:34 04/25/21 05:34 Other Lab Results: Lab Results x24hrs 04/25/21 04/25/21 04/24/21 Range/Units 05:34 05:34 10:25 WBC 13.5 H (4.8-10.8) x10^3/uL RBC 3.99 L (4.70-6.10) 10^6/uL Hgb 11.8 L (14.0-18.0) g/dL Hct 35.8 L (42.0-52.0) % MCV 89.7 (80.0-94.0) fL MCH 29.6 (27.0-31.0) pg MCHC 33.0 (32.0-36.0) g/dL RDW 12.4 (12.0-15.0) % Plt Count 208 (130-450) 10^3/uL MPV 11.2 (7.4-11.4) fL Neut # (Auto) 10.9 H (1.5-6.6) 10^3/uL Lymph # (Auto) 1.1 L (1.5-3.5) 10^3/uL [place] # (Auto) 1.2 H (0.0-1.0) 10^3/uL Eos # (Auto) 0.1 (0.0-0.7) 10^3/uL Baso # (Auto) 0.1 (0.0-0.1) 10^3/uL Absolute Nucleated RBC 0.00 x10^3/uL Nucleated RBC % 0.0 /100WBC Sodium 135 139 (135-145) mmol/L Potassium 4.0 3.7 (3.5-5.0) mmol/L Chloride 102 105 (101-111) mmol/L Carbon Dioxide 24 27 (21-32) mmol/L Anion Gap 9.0 7.0 (6-13) BUN 9 11 (6-20) mg/dL Creatinine 0.9 0.8 (0.6-1.2) mg/dL Estimated GFR (MDRD) 83 L 96 (>89) Glucose 130 H 125 H (70-100) mg/dL Calcium 8.1 L 8.3 L (8.5-10.3) mg/dL Total Bilirubin 1.1 H 1.0 (0.2-1.0) mg/dL AST 15 23 (10-42) IU/L ALT 22 28 (10-60) IU/L Alkaline Phosphatase 50 53 (42-121) IU/L Total Protein 6.1 L 6.7 (6.7-8.2) g/dL Albumin 3.1 L 3.6 (3.2-5.5) g/dL Globulin 3.0 3.1 (2.1-4.2) g/dL Albumin/Globulin Ratio 1.0 1.2 (1.0-2.2) 04/24/21 Range/Units 10:25 WBC 11.3 H (4.8-10.8) x10^3/uL RBC 4.23 L (4.70-6.10) 10^6/uL Hgb 12.9 L (14.0-18.0) g/dL Hct 38.7 L (42.0-52.0) % MCV 91.5 (80.0-94.0) fL MCH 30.5 (27.0-31.0) pg MCHC 33.3 (32.0-36.0) g/dL RDW 12.8 (12.0-15.0) % Plt Count 215 (130-450) 10^3/uL MPV 11.0 (7.4-11.4) fL Neut # (Auto) 8.6 H (1.5-6.6) 10^3/uL Lymph # (Auto) 1.3 L (1.5-3.5) 10^3/uL [place] # (Auto) 1.2 H (0.0-1.0) 10^3/uL Eos # (Auto) 0.1 (0.0-0.7) 10^3/uL Baso # (Auto) 0.0 (0.0-0.1) 10^3/uL Absolute Nucleated RBC 0.00 x10^3/uL Nucleated RBC % 0.0 /100WBC Sodium (135-145) mmol/L Potassium (3.5-5.0) mmol/L Chloride (101-111) mmol/L Carbon Dioxide (21-32) mmol/L Anion Gap (6-13) BUN (6-20) mg/dL Creatinine (0.6-1.2) mg/dL Estimated GFR (MDRD) (>89) Glucose (70-100) mg/dL Calcium (8.5-10.3) mg/dL Total Bilirubin (0.2-1.0) mg/dL AST (10-42) IU/L ALT (10-60) IU/L Alkaline Phosphatase (42-121) IU/L Total Protein (6.7-8.2) g/dL Albumin (3.2-5.5) g/dL Globulin (2.1-4.2) g/dL Albumin/Globulin Ratio (1.0-2.2) - Current Medications Current Medications: Current Medications Generic Name Dose Route Start Last Admin Trade Name Freq PRN Reason Stop Dose Admin Acetaminophen 650 mg 04/23/21 20:17 04/24/21 18:24 Acetaminophen 325 Mg Tablet PO 650 mg Q4HR PRN Administration Pain 1 to 4 Heparin Sodium (Porcine) 5,000 unit 04/23/21 21:00 04/24/21 20:43 Heparin 5,000 Unit/Ml Vial SUBQ 5,000 unit BID BENI Administration Potassium Chloride/Dextrose/Sod Cl 1,000 mls @ 125 mls/hr 04/23/21 21:00 04/25/21 04:19 D5.45ns W/20 Meq Kcl IV 125 mls/hr .Q8H BENI Administration Ondansetron HCl 4 mg 04/23/21 20:17 04/24/21 05:52 Ondansetron 4 Mg/2 Ml Vial IVP 4 mg Q6HR PRN Administration Nausea / Vomiting Scopolamine HBr 1 patch 04/24/21 14:00 04/24/21 14:13 Scopolamine Patch TOP 1 patch Q3D BENI Administration Sodium Chloride 10 ml 04/23/21 20:17 04/23/21 21:46 Sodium Chloride Flush 0.9% 10 Ml Syringe IVP 10 ml PRN PRN Administration NEEDED PER PROVIDER ORDERS Sodium Chloride 10 ml 04/24/21 01:00 04/25/21 02:55 Sodium Chloride Flush 0.9% 10 Ml Syringe IVP Not Given 0100,0900,1700 BENI Tramadol HCl 50 mg 04/24/21 13:46 04/24/21 16:59 Tramadol 50 Mg Tablet PO 50 mg Q4HR PRN Administration PAIN - Physical Exam Wound/Incisions: positive: Healing well, Other (Bruise is evolving) General Appearance: positive: No acute distress, Alert Eyes Bilateral: positive: Normal inspection, PERRL, EOMI Neck: positive: Nml inspection Respiratory: positive: Chest non-tender Cardiovascular: positive: Regular rate & rhythm Abdomen: positive: Tenderness (Appropriately tender to palpation) Back: positive: Nml inspection Skin: positive: Color nml Extremities: positive: Non-tender Neurologic/Psychiatric: positive: Oriented x3 ABX Reporting Has patient been on IV antibiotics over the past 48 hours?: No Impression/Plan - Problem List Problem List: 1. Postop day 3 after laparoscopic cholecystectomy that with intraoperative cholangiogram. The operation was complicated by dense right upper quadrant adhesions. A cholangiogram revealed normal ductal anatomy. Postoperatively Mr. Coker developed significant nausea and vomiting with pain. That has improved today but the nausea is not going away.Reglan and take away prochlorperazine. 2. Labs today show a slight bump in his white count and his differential shows a slight left shift. I will add Zosyn. It is conceivable that he has intra- abdominal contamination though there was no obvious spillage during the procedure. 3. Warm packs to the abdominal wall and encourage ambulation.We will start the bowel protocol.Recheck labs in the morning.
[2021-04-25] MEDS: HEPARIN 5,000 UNIT/ML VIAL SUBQ SCH ×2 (09:34→21:22)
[2021-04-25] MEDS: ONDANSETRON 4 MG/2 ML VIAL IVP PRN ×2 (09:47→16:59)
[2021-04-25] MEDS: traMADol 50 MG TABLET PO PRN ×3 (09:47→21:23)
[2021-04-25] MEDS: PIPERACILLIN/TAZOBACTAM 3.375 GM in SODIUM CHLORIDE 0.9% MINIBAG 100 ML IV SCH ×3 (10:49→21:29)
[2021-04-25] MEDS: PANTOPRAZOLE 40 MG VIAL IVP SCH (10:49)
[2021-04-25] MEDS: ACETAMINOPHEN 325 MG TABLET PO PRN (16:59)
[2021-04-26] MEDS: traMADol 50 MG TABLET PO PRN ×3 (03:34→20:57)
[2021-04-26] MEDS: PIPERACILLIN/TAZOBACTAM 3.375 GM in SODIUM CHLORIDE 0.9% MINIBAG 100 ML IV SCH ×3 (03:34→15:40)
[2021-04-26] MEDS: SODIUM CHLORIDE FLUSH 0.9% 10 ML SYRINGE IVP PRN ×2 (03:34→20:54)
[2021-04-26] MEDS: ONDANSETRON 4 MG/2 ML VIAL IVP PRN ×2 (03:34→20:54)
[2021-04-26 06:14] LABS: BASOPHILS % (AUTO) 0.3 %; EOSINOPHILS % (AUTO) 0.2 %; HCT - HEMATOCRIT 34.6 % (42.0-52.0); HGB - HEMOGLOBIN 11.6 g/dL (14.0-18.0); LYMPHOCYTES % (AUTO) 4.5 %; MEAN CORPUSCULAR HEMOGLOBIN 29.7 pg (27.0-31.0); MEAN CORPUSCULAR HGB CONC 33.5 g/dL (32.0-36.0); MEAN CORPUSCULAR VOLUME 88.7 fL (80.0-94.0); MEAN PLATELET VOLUME 11.3 fL (7.4-11.4); MONOCYTES % (AUTO) 10.2 %; NEUTROPHILS % (AUTO) 84.4 %; PLT - PLATELET COUNT 229 10^3/uL (130-450); RED CELL DISTRIBUTION WIDTH 12.4 % (12.0-15.0); WHITE BLOOD COUNT 16.3 x10^3/uL (4.8-10.8)
[2021-04-26 06:19] LABS: ABNORMAL LYMPHS % (MANUAL) 0 %
[2021-04-26 06:28] LABS: ALBUMIN 2.9 g/dL (3.2-5.5); ALBUMIN/GLOBULIN RATIO 0.9 (1.0-2.2); BILIRUBIN,TOTAL 1.3 mg/dL (0.2-1.0); CALCIUM 8.2 mg/dL (8.5-10.3); CREATININE 0.9 mg/dL (0.6-1.2); POTASSIUM 3.7 mmol/L (3.5-5.0); TOTAL PROTEIN 6.1 g/dL (6.7-8.2)
[2021-04-26 06:35] LABS: BAND NEUTROPHILS % (MANUAL) 1 %; EOSINOPHILS # (MANUAL) 0.2 10^3/uL (0-0.7); LYMPHOCYTES # (MANUAL) 0.8 10^3/uL (1.5-3.5); LYMPHOCYTES % (MANUAL) 5 %; MONOCYTES # (MANUAL) 1.1 10^3/uL (0.0-1.0); NEUTROPHILS # (MANUAL) 14.2 10^3/uL (1.5-6.6)
[2021-04-26] MEDS: D5.45NS W/20 MEQ KCL 1,000 ML IV SCH ×3 (06:35→20:55)
[2021-04-26 06:36] LABS: DIFFERENTIAL COMMENT MANUAL DIFFERENTIAL; PLATELET ESTIMATE, MANUAL NORMAL (130-450,000) (NORMAL); PLATELET MORPHOLOGY NORMAL APPEARANCE (NORMAL); RBC MORPHOLOGY (MULTIPLE) NORMAL APPEARANCE (NORMAL); WBC MORPHOLOGY (MULTIPLE) NORMAL APPEARANCE (NORMAL)
[2021-04-26] MEDS: PANTOPRAZOLE 40 MG VIAL IVP SCH (06:43)
[2021-04-26] MEDS: METOCLOPRAMIDE 10 MG/2 ML VIAL IVP PRN ×2 (08:26→15:41)
[2021-04-26] MEDS: HEPARIN 5,000 UNIT/ML VIAL SUBQ SCH ×2 (08:27→20:59)
[2021-04-26] MEDS: SODIUM CHLORIDE FLUSH 0.9% 10 ML SYRINGE IVP SCH ×2 (08:27→15:40)
[2021-04-26] MEDS: VANCOMYCIN INJ 1 GM in SODIUM CHLORIDE 0.9% 250 ML IV SCH ×2 (12:13→13:56)
--- NOTE | 2021-04-26 13:48 | PROVIDER PROGRESS NOTE ---
Subjective - General Admit Date: 04/24/21 Procedure Date: 04/22/21 Post Op Days: 4 Procedure Performed: Laparoscopic cholecystectomy - Review of Systems Wound/Incisions: positive: Healing well, Other (Bruise is evolving) General: positive: Fatigue HEENT: positive: No symptoms Pulmonary: positive: No symptoms Cardiovascular: positive: No symptoms Gastrointestinal: positive: Nausea, Vomiting, Diarrhea Genitourinary: positive: No symptoms Musculoskeletal: positive: No symptoms Skin: positive: No symptoms All Other Systems: positive: Reviewed and negative - Other Other Information/Narrative: A little less nauseated today. Had diarrhea yesterday and again this AM. No appetite. Pain is well controlled. Objective - Patient Data Reviewed Vital Signs: Yes Vital Signs: Vital Signs x48h Temp Pulse Resp BP Pulse Ox 04/26/21 07:47 36.6 C 73 18 141/78 H 96 Intake & Output: Intake and Output Totals x24h 04/24/21 04/25/21 04/26/21 23:59 23:59 23:59 Intake Total 3509.166 3437.500 1341.666 Output Total 650 1550 300 Balance 2859.166 7661.404 2071.666 - Lab Results Lab Results: 04/26/21 05:42 04/26/21 05:42 Other Lab Results: Lab Results x24hrs 04/26/21 04/26/21 Range/Units 05:42 05:42 WBC 16.3 H (4.8-10.8) x10^3/uL RBC 3.90 L (4.70-6.10) 10^6/uL Hgb 11.6 L (14.0-18.0) g/dL Hct 34.6 L (42.0-52.0) % MCV 88.7 (80.0-94.0) fL MCH 29.7 (27.0-31.0) pg MCHC 33.5 (32.0-36.0) g/dL RDW 12.4 (12.0-15.0) % Plt Count 229 (130-450) 10^3/uL MPV 11.3 (7.4-11.4) fL Neut # (Auto) Not Reportable Lymph # (Auto) Not Reportable [place] # (Auto) Not Reportable Eos # (Auto) Not Reportable Baso # (Auto) Not Reportable Absolute Nucleated RBC Not Reportable Total Counted 100 Band Neuts % (Manual) 1 (0 - 10) % Abnorm Lymph % (Manual) 0 % Nucleated RBC % Not Reportable Neutrophils # (Manual) 14.2 H (1.5-6.6) 10^3/uL Lymphocytes # (Manual) 0.8 L (1.5-3.5) 10^3/uL Monocytes # (Manual) 1.1 H (0.0-1.0) 10^3/uL Eosinophils # (Manual) 0.2 (0-0.7) 10^3/uL Basophils # (Manual) 0.0 (0-0.1) 10^3/uL Differential Comment MANUAL DIFFERENTIAL WBC Morphology NORMAL APPEARANCE (NORMAL) Platelet Estimate NORMAL (130-450,000) (NORMAL) Platelet Morphology NORMAL APPEARANCE (NORMAL) RBC Morph Micro Appear NORMAL APPEARANCE (NORMAL) Sodium 136 (135-145) mmol/L Potassium 3.7 (3.5-5.0) mmol/L Chloride 104 (101-111) mmol/L Carbon Dioxide 23 (21-32) mmol/L Anion Gap 9.0 (6-13) BUN 9 (6-20) mg/dL Creatinine 0.9 (0.6-1.2) mg/dL Estimated GFR (MDRD) 83 L (>89) Glucose 146 H (70-100) mg/dL Calcium 8.2 L (8.5-10.3) mg/dL Total Bilirubin 1.3 H (0.2-1.0) mg/dL AST 16 (10-42) IU/L ALT 18 (10-60) IU/L Alkaline Phosphatase 54 (42-121) IU/L Total Protein 6.1 L (6.7-8.2) g/dL Albumin 2.9 L (3.2-5.5) g/dL Globulin 3.2 (2.1-4.2) g/dL Albumin/Globulin Ratio 0.9 L (1.0-2.2) - Current Medications Current Medications: Current Medications Generic Name Dose Route Start Last Admin Trade Name Freq PRN Reason Stop Dose Admin Acetaminophen 650 mg 04/23/21 20:17 04/25/21 16:59 Acetaminophen 325 Mg Tablet PO 650 mg Q4HR PRN Administration Pain 1 to 4 Heparin Sodium (Porcine) 5,000 unit 04/23/21 21:00 04/26/21 08:27 Heparin 5,000 Unit/Ml Vial SUBQ 5,000 unit BID BENI Administration Potassium Chloride/Dextrose/Sod Cl 1,000 mls @ 125 mls/hr 04/23/21 21:00 04/26/21 06:35 D5.45ns W/20 Meq Kcl IV 125 mls/hr .Q8H BENI Administration Piperacillin Sod/Tazobactam 100 mls @ 200 mls/hr 04/25/21 10:00 04/26/21 12:01 Sod 3.375 gm/ Sodium Chloride IV Infused Q6H BENI Infusion Vancomycin HCl 1 gm/ Sodium 250 mls @ 167 mls/hr 04/26/21 11:00 04/26/21 12:13 Chloride IV 04/26/21 14:30 167 mls/hr Q2H BENI Administration Metoclopramide HCl 5 mg 04/25/21 09:22 04/26/21 08:26 Metoclopramide 10 Mg/2 Ml Vial IVP 5 mg Q6HR PRN Administration Nausea / Vomiting Ondansetron HCl 4 mg 04/23/21 20:17 04/26/21 03:34 Ondansetron 4 Mg/2 Ml Vial IVP 4 mg Q6HR PRN Administration Nausea / Vomiting Pantoprazole Sodium 40 mg 04/25/21 10:00 04/26/21 06:43 Pantoprazole 40 Mg Vial IVP 40 mg QDAC BENI Administration Scopolamine HBr 1 patch 04/24/21 14:00 04/24/21 14:13 Scopolamine Patch TOP 1 patch Q3D BENI Administration Sodium Chloride 10 ml 04/23/21 20:17 04/26/21 03:34 Sodium Chloride Flush 0.9% 10 Ml Syringe IVP 10 ml PRN PRN Administration NEEDED PER PROVIDER ORDERS Sodium Chloride 10 ml 04/24/21 01:00 04/26/21 08:27 Sodium Chloride Flush 0.9% 10 Ml Syringe IVP 10 ml 0100,0900,1700 BENI Administration Tramadol HCl 50 mg 04/24/21 13:46 04/26/21 03:34 Tramadol 50 Mg Tablet PO 50 mg Q4HR PRN Administration PAIN - Physical Exam Wound/Incisions: positive: Healing well General Appearance: positive: No acute distress, Alert Eyes Bilateral: positive: Normal inspection Respiratory: positive: No respiratory distress Cardiovascular: positive: Regular rate & rhythm Abdomen: positive: Nml bowel sounds, Other (Appropriately tender) Back: positive: Nml inspection Skin: positive: Color nml Extremities: positive: Non-tender Neurologic/Psychiatric: positive: Oriented x3 ABX Reporting Has patient been on IV antibiotics over the past 48 hours?: Yes Impression/Plan - Problem List Problem List: Spoke with patient and his this AM concerning rising wbcs etc. Will check c.diff. Could also be enterococcus from chronically infected gall bladder though there was no spillage at surgery. Will start Vanc IV while awaiting results. Other labs are encouraging. Will need to increase po intake or start nutritional support in the next 48 hours.
[2021-04-26] MEDS: ACETAMINOPHEN 325 MG TABLET PO PRN (18:20)
[2021-04-26] MEDS: SACCHAROMYCES BOULARDII 250 MG CAPSULE PO SCH (18:21)
[2021-04-26] MEDS: VANCOMYCIN 125 MG CAPSULE PO SCH ×2 (18:21→20:56)
[2021-04-26] MEDS ORDERED: VANCOMYCIN INJ 1 GM in SODIUM CHLORIDE 0.9% 250 ML IV SCH (23:00)
[2021-04-27] MEDS: METOCLOPRAMIDE 10 MG/2 ML VIAL IVP PRN ×3 (00:59→16:07)
[2021-04-27] MEDS: SODIUM CHLORIDE FLUSH 0.9% 10 ML SYRINGE IVP SCH ×3 (01:02→16:08)
[2021-04-27] MEDS: ACETAMINOPHEN 325 MG TABLET PO PRN (02:23)
[2021-04-27] MEDS: traMADol 50 MG TABLET PO PRN (02:24)
[2021-04-27] MEDS: D5.45NS W/20 MEQ KCL 1,000 ML IV SCH ×3 (05:00→21:23)
[2021-04-27] MEDS: PANTOPRAZOLE 40 MG VIAL IVP SCH (05:03)
[2021-04-27 06:40] LABS: BASOPHILS # (AUTO) 0.1 10^3/uL (0.0-0.1); BASOPHILS % (AUTO) 0.5 %; EOSINOPHILS # (AUTO) 0.4 10^3/uL (0.0-0.7); EOSINOPHILS % (AUTO) 3.9 %; HCT - HEMATOCRIT 33.6 % (42.0-52.0); LYMPHOCYTES # (AUTO) 1.5 10^3/uL (1.5-3.5); LYMPHOCYTES % (AUTO) 12.7 %; MEAN CORPUSCULAR HEMOGLOBIN 29.6 pg (27.0-31.0); MEAN CORPUSCULAR HGB CONC 32.7 g/dL (32.0-36.0); MEAN CORPUSCULAR VOLUME 90.3 fL (80.0-94.0); MEAN PLATELET VOLUME 11.1 fL (7.4-11.4); MONOCYTES # (AUTO) 1.3 10^3/uL (0.0-1.0); MONOCYTES % (AUTO) 11.2 %; NEUTROPHILS # (AUTO) 8.1 10^3/uL (1.5-6.6); NEUTROPHILS % (AUTO) 71.1 %; PLT - PLATELET COUNT 224 10^3/uL (130-450); RED BLOOD COUNT 3.72 10^6/uL (4.70-6.10); RED CELL DISTRIBUTION WIDTH 12.6 % (12.0-15.0); WHITE BLOOD COUNT 11.4 x10^3/uL (4.8-10.8)
[2021-04-27 06:51] LABS: ALBUMIN 2.9 g/dL (3.2-5.5); ALBUMIN/GLOBULIN RATIO 0.9 (1.0-2.2); BILIRUBIN,TOTAL 0.8 mg/dL (0.2-1.0); CREATININE 1.8 mg/dL (0.6-1.2); POTASSIUM 3.8 mmol/L (3.5-5.0)
[2021-04-27] MEDS: HEPARIN 5,000 UNIT/ML VIAL SUBQ SCH ×2 (08:10→21:25)
[2021-04-27] MEDS: VANCOMYCIN 125 MG CAPSULE PO SCH (08:15)
[2021-04-27] MEDS: SACCHAROMYCES BOULARDII 250 MG CAPSULE PO SCH ×2 (08:15→17:50)
--- NOTE | 2021-04-27 09:59 | PROVIDER PROGRESS NOTE ---
Subjective - General Admit Date: 04/24/21 Procedure Date: 04/22/21 Post Op Days: 5 Procedure Performed: Laparoscopic cholecystectomy - Review of Systems Wound/Incisions: positive: Healing well General: positive: Fatigue HEENT: positive: No symptoms Pulmonary: positive: No symptoms Cardiovascular: positive: No symptoms Gastrointestinal: positive: Nausea, Vomiting, Diarrhea Genitourinary: positive: No symptoms Musculoskeletal: positive: No symptoms Skin: positive: No symptoms All Other Systems: positive: Reviewed and negative - Other Other Information/Narrative: Reports dark BM overnight. Not having frequent BMs, but when he has one it is diarrhea (believe has one ~daily). Pain constant 5/10 and in line with his chronic pain. Nausea and vomiting seem worse to him; has difficulty quantifying. Worried he is vomiting up his PO vanco. Reports relatively normal volume of urine and says it is not dark. Volumes have not been recorded lately. Cr did bump to 1.8 this am from 0.9 yesterday, likely related to dose of IV vanco he received. Objective - Patient Data Vital Signs: Vital Signs x48h Temp Pulse Resp BP Pulse Ox 04/27/21 07:48 36.6 C 64 20 145/78 H 96 Intake & Output: Intake and Output Totals x24h 04/25/21 04/26/21 04/27/21 23:59 23:59 23:59 Intake Total 3437.500 3676.666 1120 Output Total 1550 300 Balance 5372.728 0754.666 1120 - Lab Results Lab Results: 04/27/21 06:20 04/27/21 06:20 Other Lab Results: Lab Results x24hrs 04/27/21 04/27/21 04/26/21 Range/Units 06:20 06:20 13:22 WBC 11.4 H (4.8-10.8) x10^3/uL RBC 3.72 L (4.70-6.10) 10^6/uL Hgb 11.0 L (14.0-18.0) g/dL Hct 33.6 L (42.0-52.0) % MCV 90.3 (80.0-94.0) fL MCH 29.6 (27.0-31.0) pg MCHC 32.7 (32.0-36.0) g/dL RDW 12.6 (12.0-15.0) % Plt Count 224 (130-450) 10^3/uL MPV 11.1 (7.4-11.4) fL Neut # (Auto) 8.1 H (1.5-6.6) 10^3/uL Lymph # (Auto) 1.5 (1.5-3.5) 10^3/uL Saline # (Auto) 1.3 H (0.0-1.0) 10^3/uL Eos # (Auto) 0.4 (0.0-0.7) 10^3/uL Baso # (Auto) 0.1 (0.0-0.1) 10^3/uL Absolute Nucleated RBC 0.00 x10^3/uL Nucleated RBC % 0.0 /100WBC Sodium 136 (135-145) mmol/L Potassium 3.8 (3.5-5.0) mmol/L Chloride 104 (101-111) mmol/L Carbon Dioxide 25 (21-32) mmol/L Anion Gap 7.0 (6-13) BUN 12 (6-20) mg/dL Creatinine 1.8 H (0.6-1.2) mg/dL Estimated GFR (MDRD) 37 L (>89) Glucose 130 H (70-100) mg/dL Calcium 8.0 L (8.5-10.3) mg/dL Total Bilirubin 0.8 (0.2-1.0) mg/dL AST 16 (10-42) IU/L ALT 21 (10-60) IU/L Alkaline Phosphatase 53 (42-121) IU/L Total Protein 6.0 L (6.7-8.2) g/dL Albumin 2.9 L (3.2-5.5) g/dL Globulin 3.1 (2.1-4.2) g/dL Albumin/Globulin Ratio 0.9 L (1.0-2.2) Stl C. diff Tox B Gene POSITIVE A* (NEGATIVE) - Current Medications Current Medications: Current Medications Generic Name Dose Route Start Last Admin Trade Name Freq PRN Reason Stop Dose Admin Acetaminophen 650 mg 04/23/21 20:17 04/27/21 02:23 Acetaminophen 325 Mg Tablet PO 650 mg Q4HR PRN Administration Pain 1 to 4 Heparin Sodium (Porcine) 5,000 unit 04/23/21 21:00 04/27/21 08:10 Heparin 5,000 Unit/Ml Vial SUBQ 5,000 unit BID BENI Administration Potassium Chloride/Dextrose/Sod Cl 1,000 mls @ 125 mls/hr 04/23/21 21:00 04/27/21 05:00 D5.45ns W/20 Meq Kcl IV 125 mls/hr .Q8H BENI Administration Metoclopramide HCl 5 mg 04/25/21 09:22 04/27/21 08:06 Metoclopramide 10 Mg/2 Ml Vial IVP 5 mg Q6HR PRN Administration Nausea / Vomiting Ondansetron HCl 4 mg 04/23/21 20:17 04/26/21 20:54 Ondansetron 4 Mg/2 Ml Vial IVP 4 mg Q6HR PRN Administration Nausea / Vomiting Pantoprazole Sodium 40 mg 04/25/21 10:00 04/27/21 05:03 Pantoprazole 40 Mg Vial IVP 40 mg QDAC BENI Administration Saccharomyces Boulardii 500 mg 04/26/21 17:00 04/27/21 08:15 Saccharomyces Boulardii 250 Mg Capsule PO 500 mg BIDWM BENI Administration Scopolamine HBr 1 patch 04/24/21 14:00 04/24/21 14:13 Scopolamine Patch TOP 1 patch Q3D BENI Administration Sodium Chloride 10 ml 04/23/21 20:17 04/26/21 20:54 Sodium Chloride Flush 0.9% 10 Ml Syringe IVP 10 ml PRN PRN Administration NEEDED PER PROVIDER ORDERS Sodium Chloride 10 ml 04/24/21 01:00 04/27/21 08:06 Sodium Chloride Flush 0.9% 10 Ml Syringe IVP 10 ml 0100,0900,1700 BENI Administration Tramadol HCl 50 mg 04/24/21 13:46 04/27/21 02:24 Tramadol 50 Mg Tablet PO 50 mg Q4HR PRN Administration PAIN Vancomycin HCl 125 mg 04/26/21 17:00 04/27/21 08:15 Vancomycin 125 Mg Capsule PO 125 mg QID BENI Administration - Physical Exam Wound/Incisions: positive: Healing well, No drainage, Other (bruising around umbilicus) General Appearance: positive: Anxious Eyes Bilateral: positive: EOMI Respiratory: positive: No respiratory distress Cardiovascular: positive: Regular rate & rhythm Abdomen: positive: Non-tender, Other (soft, reports pain in LUQ, RUQ and RLQ which is chronic but not worse with palpation; no rebound or guarding; Dark green BM in toilet, NOT melena) Skin: positive: Color nml, Warm, Dry Neurologic/Psychiatric: positive: Oriented x3 Impression/Plan - Problem List Problem List: Pt is a 70 yo M with hx chronic abd pain, s/p cholecystectomy, now with c. diff. Patient finds it difficult to quantify his emesis/BMs/urine output. Pain in line with his chronic pain. Per pt and , has responded well to ativan in the past for anxiety related to his medical conditions. Also recently stopped reglan which may have caused his worsened nausea. Medically stable at this time, afebrile, abdominal exam reassuring, HDS, WBC downtrending, Hgb slightly drifting, likely related to volume resuscitation, Cr bumped likely 2/2 single dose of IV vanco which has been stopped. - continue volume resuscitation in light of his BOLIVAR - will re-check CBC abd chemistry in the am - switch to vanco enema - resume reglan and add prn ativan Patient and plan discussed with primary surgeon Dr. Reese. Reyes Albarran MD [phone]
[2021-04-27] MEDS: VANCOMYCIN INJ 500 MG in SODIUM CHLORIDE 0.9% MINIBAG 100 ML PR SCH ×2 (13:12→17:52)
[2021-04-27] MEDS: LORazepam 2 MG/ML VIAL IVP PRN ×2 (13:13→21:30)
[2021-04-27] MEDS: ONDANSETRON 4 MG/2 ML VIAL IVP PRN ×2 (13:13→21:27)
[2021-04-27] MEDS: SCOPOLAMINE PATCH TOP SCH (13:14)
[2021-04-28] MEDS: VANCOMYCIN INJ 500 MG in SODIUM CHLORIDE 0.9% MINIBAG 100 ML PR SCH ×2 (00:40→06:33)
[2021-04-28] MEDS: METOCLOPRAMIDE 10 MG/2 ML VIAL IVP PRN ×2 (00:40→19:21)
[2021-04-28] MEDS: traMADol 50 MG TABLET PO PRN ×3 (00:41→19:22)
[2021-04-28] MEDS: SODIUM CHLORIDE FLUSH 0.9% 10 ML SYRINGE IVP SCH ×3 (00:41→17:33)
[2021-04-28 05:52] LABS: BASOPHILS % (AUTO) 0.3 %; EOSINOPHILS # (AUTO) 0.1 10^3/uL (0.0-0.7); EOSINOPHILS % (AUTO) 0.6 %; HCT - HEMATOCRIT 36.2 % (42.0-52.0); LYMPHOCYTES # (AUTO) 0.8 10^3/uL (1.5-3.5); LYMPHOCYTES % (AUTO) 5.9 %; MEAN CORPUSCULAR HGB CONC 33.1 g/dL (32.0-36.0); MEAN CORPUSCULAR VOLUME 90.5 fL (80.0-94.0); MEAN PLATELET VOLUME 11.5 fL (7.4-11.4); MONOCYTES # (AUTO) 1.3 10^3/uL (0.0-1.0); MONOCYTES % (AUTO) 9.4 %; NEUTROPHILS # (AUTO) 11.3 10^3/uL (1.5-6.6); NEUTROPHILS % (AUTO) 83.4 %; PLT - PLATELET COUNT 253 10^3/uL (130-450); RED CELL DISTRIBUTION WIDTH 12.6 % (12.0-15.0); WHITE BLOOD COUNT 13.6 x10^3/uL (4.8-10.8)
[2021-04-28 06:07] LABS: ALBUMIN 3.2 g/dL (3.2-5.5); ALBUMIN/GLOBULIN RATIO 0.9 (1.0-2.2); BILIRUBIN,TOTAL 0.9 mg/dL (0.2-1.0); CALCIUM 8.4 mg/dL (8.5-10.3); CREATININE 2.2 mg/dL (0.6-1.2); POTASSIUM 3.5 mmol/L (3.5-5.0); TOTAL PROTEIN 6.6 g/dL (6.7-8.2)
[2021-04-28] MEDS: ACETAMINOPHEN 325 MG TABLET PO PRN (06:33)
[2021-04-28] MEDS: D5.45NS W/20 MEQ KCL 1,000 ML IV SCH (06:33)
[2021-04-28] MEDS: SODIUM CHLORIDE FLUSH 0.9% 10 ML SYRINGE IVP PRN ×3 (06:38→20:21)
[2021-04-28] MEDS: PANTOPRAZOLE 40 MG VIAL IVP SCH (06:38)
--- NOTE | 2021-04-28 06:48 | PROVIDER PROGRESS NOTE ---
Subjective - General Admit Date: 04/24/21 Procedure Date: 04/22/21 Post Op Days: 6 Procedure Performed: Laparoscopic cholecystectomy - Review of Systems Wound/Incisions: positive: Healing well, No drainage, Other (bruising around umbilicus) General: positive: Fatigue HEENT: positive: No symptoms Pulmonary: positive: No symptoms Cardiovascular: positive: No symptoms Gastrointestinal: positive: Nausea, Vomiting, Diarrhea Genitourinary: positive: No symptoms Musculoskeletal: positive: No symptoms Skin: positive: No symptoms All Other Systems: positive: Reviewed and negative - Other Other Information/Narrative: NAEO. Remains afebrile and HDS, though HR slightly up in 90s on am vitals. Feeling about the same today; pain ranges 3-8 and comes in waves. Ativan did help a little with his anxiety. Keeping a little down but having bilious emesis and overall poor PO intake. No BM charted yesterday. Reports voiding a normal amount though not always keeping urine for charting volumes. Objective - Patient Data Reviewed Vital Signs: Yes Vital Signs: Vital Signs x48h Temp Pulse Resp BP Pulse Ox 04/27/21 23:34 36.9 C 93 16 157/92 H 93 Intake & Output: Intake and Output Totals x24h 04/26/21 04/27/21 04/28/21 23:59 23:59 23:59 Intake Total 3676.666 4061.25 868.75 Output Total 300 450 25 Balance 3376.666 3611.25 843.75 - Lab Results Lab Results: 04/28/21 05:10 04/28/21 05:10 Other Lab Results: Lab Results x24hrs 04/28/21 04/28/21 04/27/21 Range/Units 05:10 05:10 06:20 WBC 13.6 H (4.8-10.8) x10^3/uL RBC 4.00 L (4.70-6.10) 10^6/uL Hgb 12.0 L (14.0-18.0) g/dL Hct 36.2 L (42.0-52.0) % MCV 90.5 (80.0-94.0) fL MCH 30.0 (27.0-31.0) pg MCHC 33.1 (32.0-36.0) g/dL RDW 12.6 (12.0-15.0) % Plt Count 253 (130-450) 10^3/uL MPV 11.5 H (7.4-11.4) fL Neut # (Auto) 11.3 H (1.5-6.6) 10^3/uL Lymph # (Auto) 0.8 L (1.5-3.5) 10^3/uL Hardy # (Auto) 1.3 H (0.0-1.0) 10^3/uL Eos # (Auto) 0.1 (0.0-0.7) 10^3/uL Baso # (Auto) 0.0 (0.0-0.1) 10^3/uL Absolute Nucleated RBC 0.00 x10^3/uL Nucleated RBC % 0.0 /100WBC Sodium 139 136 (135-145) mmol/L Potassium 3.5 3.8 (3.5-5.0) mmol/L Chloride 106 104 (101-111) mmol/L Carbon Dioxide 22 25 (21-32) mmol/L Anion Gap 11.0 7.0 (6-13) BUN 13 12 (6-20) mg/dL Creatinine 2.2 H 1.8 H (0.6-1.2) mg/dL Estimated GFR (MDRD) 30 L 37 L (>89) Glucose 142 H 130 H (70-100) mg/dL Calcium 8.4 L 8.0 L (8.5-10.3) mg/dL Total Bilirubin 0.9 0.8 (0.2-1.0) mg/dL AST 22 16 (10-42) IU/L ALT 21 21 (10-60) IU/L Alkaline Phosphatase 65 53 (42-121) IU/L Total Protein 6.6 L 6.0 L (6.7-8.2) g/dL Albumin 3.2 2.9 L (3.2-5.5) g/dL Globulin 3.4 3.1 (2.1-4.2) g/dL Albumin/Globulin Ratio 0.9 L 0.9 L (1.0-2.2) - Current Medications Current Medications: Current Medications Generic Name Dose Route Start Last Admin Trade Name Freq PRN Reason Stop Dose Admin Acetaminophen 650 mg 04/23/21 20:17 04/28/21 06:33 Acetaminophen 325 Mg Tablet PO 650 mg Q4HR PRN Administration Pain 1 to 4 Heparin Sodium (Porcine) 5,000 unit 04/23/21 21:00 04/27/21 21:25 Heparin 5,000 Unit/Ml Vial SUBQ 5,000 unit BID BENI Administration Potassium Chloride/Dextrose/Sod Cl 1,000 mls @ 125 mls/hr 04/23/21 21:00 04/28/21 06:33 D5.45ns W/20 Meq Kcl IV 125 mls/hr .Q8H BENI Administration Vancomycin HCl 500 mg/ Sodium 100 mls @ 100 mls/hr 04/27/21 12:00 04/28/21 06:33 Chloride TX 100 mls/hr Q6HR BENI Administration Lorazepam 0.5 mg 04/27/21 10:10 04/27/21 21:30 Lorazepam 2 Mg/Ml Vial IVP 0.5 mg Q8HR PRN Administration Anxiety Metoclopramide HCl 5 mg 04/25/21 09:22 04/28/21 00:40 Metoclopramide 10 Mg/2 Ml Vial IVP 5 mg Q6HR PRN Administration Nausea / Vomiting Ondansetron HCl 4 mg 04/23/21 20:17 04/28/21 06:33 Ondansetron Odt 4 Mg Tablet TL 4 mg Q6HR PRN Administration Nausea / Vomiting Ondansetron HCl 4 mg 04/23/21 20:17 04/27/21 21:27 Ondansetron 4 Mg/2 Ml Vial IVP 4 mg Q6HR PRN Administration Nausea / Vomiting Pantoprazole Sodium 40 mg 04/25/21 10:00 04/28/21 06:38 Pantoprazole 40 Mg Vial IVP 40 mg QDAC BENI Administration Saccharomyces Boulardii 500 mg 04/26/21 17:00 04/27/21 17:50 Saccharomyces Boulardii 250 Mg Capsule PO 500 mg BIDWM BENI Administration Scopolamine HBr 1 patch 04/24/21 14:00 04/27/21 13:14 Scopolamine Patch TOP 1 patch Q3D BENI Administration Sodium Chloride 10 ml 04/23/21 20:17 04/28/21 06:38 Sodium Chloride Flush 0.9% 10 Ml Syringe IVP 10 ml PRN PRN Administration NEEDED PER PROVIDER ORDERS Sodium Chloride 10 ml 04/24/21 01:00 04/28/21 00:41 Sodium Chloride Flush 0.9% 10 Ml Syringe IVP Not Given 0100,0900,1700 [facility] Tramadol HCl 50 mg 04/24/21 13:46 04/28/21 00:41 Tramadol 50 Mg Tablet PO 50 mg Q4HR PRN Administration PAIN - Physical Exam Wound/Incisions: positive: Healing well, Dressing dry and intact General Appearance: positive: No acute distress, Anxious Eyes Bilateral: positive: EOMI ENT: positive: Other (normocephalic, atraumatic) Respiratory: positive: No respiratory distress Cardiovascular: positive: Regular rate & rhythm Abdomen: positive: Other (soft, mildly distended, non-tender to palpation; bruising at port sites stable from yesterday; no rebound or guarding) Skin: positive: Warm, Dry Extremities: positive: No pedal edema Neurologic/Psychiatric: positive: Oriented x3 Impression/Plan - Problem List Problem List: Pt is a 70 yo M with chronic abd pain s/p cholecystectomy and now with c. diff. Overall, stable from yesterday. Still with n/v and abd pain. No BMs charted and pt reports last one overnight yesterday. Believes he is having normal UOP. HR slightly up this am at 93; normo/hypertensive, afebrile. Abdominal exam benign. Labs with Cr 2.2 from 1.8; hopefully peaking and will start to downtrend. WBC 13 from 11; Hgb and Plts similarly shanell, possibly related to hydration state. - continue prn tramadol for pain and ativan for anxiety - zofran/reglan for nausea - continue vanco enemas (switched Thursday04/27/21 due to concern for throwing up PO vanco for c. diff) - strict I/O's; this was discussed with the patient as well as nursing staff - IVF @ 125 mL/hr - daily labs - HSQ/SCDs; Protonix Reyes Albarran MD
[2021-04-28] MEDS: SACCHAROMYCES BOULARDII 250 MG CAPSULE PO SCH ×2 (08:25→17:36)
[2021-04-28] MEDS: HEPARIN 5,000 UNIT/ML VIAL SUBQ SCH (08:34)
[2021-04-28] MEDS ORDERED: SODIUM CHLORIDE 0.9% 1,000 ML IV ONE (08:42)
[2021-04-28] MEDS ORDERED: PIPERACILLIN/TAZOBACTAM 3.375 GM in SODIUM CHLORIDE 0.9% MINIBAG 100 ML IV SCH (10:00)
[2021-04-28] MEDS: VANCOMYCIN 125 MG CAPSULE PO SCH ×4 (10:56→20:14)
[2021-04-28] MEDS: LORazepam 2 MG/ML VIAL IVP PRN ×2 (12:54→20:21)
[2021-04-28] MEDS ORDERED: LORazepam 2 MG/ML VIAL ONE (13:25)
[2021-04-28] MEDS ORDERED: hydrALAZINE INJ 20 MG/ML VIAL IVP ONE (13:33)
--- NOTE | 2021-04-28 13:35 | CONSULTATION NOTE ---
Referring Provider Name of Referring Provider:: Eliana Reese MD Consult Date: 04/28/21 Chief Complaint - Chief Complaint Chief Complaint: sudden shortness of breath and chest tight History of Present Illness - Admitted From Admitted From:: Ashlee conley Lap ji - History Obtained From Records Reviewed: [facility] History obtained from: Dr. Reese and patient Exam Limitations: anxiety - History of Present Illness HPI Comment/Other: This is a brain 70-year-old white male who has a history of severe anxiety, he cannot even better look at colonoscopy or lap ji pictures without having a panic attack, and was readmitted April 23 after having a laparoscopic cho lecystectomy April 22. His past medical history significant for cirrhosis, hepatitis C and C. difficile colitis. He underwent an uneventful lap ji and umbilical hernia repair on April 22. Was discharged according to criteria and returned with postoperative abdominal pain, nausea, vomiting. With the encounter in the ER April 23, his temperature was 36.4, heart rate 99, respirations 16. Blood pressure 185/115 and he was saturating 94% on room air. He tells me that he does not have a history of heart disease or high blood pressure. He tells me that when he gets very, very anxious he will get high blood pressure but that is the only time. He leads a sedentary lifestyle and denies any new dyspnea on exertion, orthopnea, edema. Since he has been in the hospital he has had difficult to control abdominal pain, nausea, vomiting. He states that when he gets abdominal pain it is in the right upper quadrant, epigastrium and will wrap around him like "a belt" into the left upper quadrant and bilateral flanks. He gets occasional periumbilical and suprapubic pain as well. He has a constantly distended abdomen is uncomfortable and bloated for him. But he has had flatus and he has had bowel movements. Today, he had sudden shortness of breath while he was in the bathroom. It was overwhelming. He is very clear that he had no chest pain. 1 second he was standing there washing his hands, the next he is overwhelmed with a sensation of chest tightness, shortness of breath and he could not breathe. It was accompanied by nausea but no diaphoresis. No jaw pain, no palpitations, no near syncope. DVT prophylaxis is with heparin subcu 5000 units twice daily. That has been present since 9:00 on the evening of admission. In reviewing his work-up before I have seen him today: + he has had a CT of the abdomen and pelvis which showed a cholecystectomy with inflammatory changes seen in the gallbladder fossa that represented postsurgical changes. No abscess. Hepatic cyst in the left lobe. Wall thickening involving the hepatic flexure and first portion of the duodenum in the right upper quadrant. This is adjacent to the gallbladder fossa representing reactive inflammatory changes. No bowel obstruction or free air. Tiny pockets of free air was seen in the gallbladder fossa representing iatrogenic care. Dependent atelectasis or small infiltrates were seen then. +A chest x-ray was ordered by Dr. Kelley and that is pending. + Today's labs show him to have a CMP with a rising creatinine of 2.2. His baseline is 0.7 and has been gradually increasing to today. Yesterday he was 1.8. Glucose is mildly elevated in the 120s to the 140s. Total bilirubin has been intermittently elevated with the highest has been is 1.3. Today is 0.9. Liver enzymes have been normal. White cell count was 15.1 on admission and is 16.4 today. +Because he has a history of C. difficile colitis, he is on oral vancomycin but couldnt tolerate it and received retention enemas yesterday and today. Zosyn IV was started last night. with this. + His intake and output show a 2800 cc positive balance on April 24. A 1887 balance on April 25. April 26 he was +3376. Yesterday he was +3711. As of this afternoon at close to 2 PM he is +1794. Overall he is 10,768 Positive since admit. However, he doesn't always record his output with the RN and he flushes. He will tell her later and the output recorded is incorrect. With this his blood pressure was 187/108. Pulse was 125. He was 92% on room air and was requiring 2 L to maintain O2 sats at 93% History - Past Medical History Cardiovascular: reports: None Respiratory: reports: None Neuro: reports: None Endocrine/Autoimmune: reports: None GI: reports: GERD, C.difficile, Hepatitis : reports: None HEENT: reports: None Psych: reports: Anxiety Musculoskeletal: reports: None, Other Derm: reports: None MRSA Hx?: No Other Past Medical History: Dupuytren's contracture - Past Surgical History General: reports: Cholecystectomy, Colonoscopy, Other Ortho: reports: Arthroscopic surgery - Family & Social History Living Situation: With spouse/s.o. - POLST Patient has POLST: No Meds/Allgy - Home Medications Home Medications: Ambulatory Orders Medication Instructions Recorded Confirmed Ondansetron Odt [Zofran Odt] 4 mg TL Q6H PRN #10 tablet 04/22/21 04/25/21 oxyCODONE [Roxicodone] 5 mg PO Q4-6H PRN #20 tablet 04/22/21 04/25/21 Sildenafil Citrate 50 - 100 mg PO DAILY PRN 04/24/21 04/25/21 PROMETHAZINE SUPP Prepack 2 25 mg FL Q6H PRN 04/25/21 04/25/21 [PHENADOZ SUPP Prepack 2] - Allergies Allergies/Adverse Reactions: Allergies Allergy/AdvReac Type Severity Reaction Status Date / Time No Known Drug Allergies Allergy Verified 04/23/21 15:56 Review of Systems - Constitutional Constitutional: reports: Fatigue, Malaise, Poor appetite - Eyes Eyes: denies: Irritation, Amaurosis, Dipolpia - Ears, Nose & Throat Ears, Nose & Throat: reports: Hearing loss. denies: Hearing aids, Tinnitus, Sore throat, Hoarseness - Cardiovascular Cariovascular: reports: Exertional dyspnea. denies: Irregular heart rate, P alpitations, Chest pain, Syncope, Decr. exercise tolerance - Respiratory Respiratory: reports: SOB at rest. denies: Cough, Sputum production, Wheezing, SOB with exertion - Gastrointestinal Gastrointestinal: reports: Abdominal pain, Abdominal distention, Change in bowel habits, Nausea, Vomiting, Bloating, Poor appetite - Genitourinary Genitourinary: denies: Dysuria, Frequency, Urgency, Hematuria, Incontinence - Musculoskeletal Musculoskeletal: denies: Muscle pain, Back pain, Muscle aches, Gout, Joint pain - Integumentary Integumentary: denies: Rash - Neurological Neurological: reports: General weakness. denies: Focal weakness, Headache, Dizziness, Memory problems, Pre-existing deficit - Psychiatric Psychiatric: reports: Anxiety. denies: Depression, Suicidal, Delusions, Hallucinations - Endocrine Endocrine: denies: Polyuria, Polydypsia, Polyphagia - Hematologic/Lymphatic Hematologic/Lymphatic: reports: Anemia, Bruising. denies: Blood clots, Lymphadenopathy Exam - Vital Signs Reviewed Vital Signs: Yes Vital Signs: Vital Signs x48h Temp Pulse Resp BP Pulse Ox 04/28/21 08:07 36.9 C 91 18 137/92 H 92 - Physical Exam General Appearance: positive: Alert, Mild distress, Other (Pale, fatigued appearing elderly man who is slightly tachypneic, sitting up at about 30 degrees, Dr. Kelley and nurse at the bedside. Able to complete full sentences and has lucid speech, good historian) Eyes Bilateral: positive: PERRL, EOMI ENT: positive: No signs of dehydration Neck: positive: No JVD. negative: Stiff neck Respiratory: positive: Other (Slightly fast panting respiration that he doesn't seem to be aware of). negative: Wheezes, Rales, Rhonchi Cardiovascular: positive: Regular rate & rhythm, Tachycardia, JVD present, Other (Blood pressure came down to the 160s over 110. On the third check he was 167/89. This took about 7 minutes to occur.) Peripheral Pulses: positive: 1+ Abdomen: positive: Other (Distended, ecchymosis around periumbilical area due to lap ji trocar sites, and umbilical hernia repair. Some of the subcutaneous blood has drifted in the suprapubic area. He has mild right upper quadrant pain. Mild epigastric pain there is no rebound or guarding. He has normal bowel sounds.) Skin: positive: Warm, Dry, Pallor. negative: Diaphoresis Extremities: positive: Full ROM, Pedal edema Neurologic/Psychiatric: positive: Oriented x3, CN's nml (2-12), Motor nml, Sensation nml Conclusion/Plan - Problem List (1) Acute dyspnea Conclusion/Plan: The setting is that of a postoperative patient who is postop day 6. He is 10 L positive, has been relatively sedentary, with poor p.o. intake, C. difficile colitis, and has been appropriately prophylactically treated for DVT. Differential diagnosis still includes TX, arrhythmia, pulmonary embolus, visceral distention causing pain, panic attack, fluid overload, PRES I will order V/Q scan for tomorrow since CTA can't be done. Check EKG. Troponins. Lasix 40 mg IVP. Echo in the am. Ativan one dose. Hydralazine one dose. Revaluate in 1 hour. (2) BOLIVAR (acute kidney injury) Conclusion/Plan: due to zosyn and vanomycin or vancomycin alone? Doubt dehydration . Maybe hypertensive injury. Check UA for protein and casts. (3) Elevated WBC count Conclusion/Plan: check for infection with UA, CXR, and abd is not with peritoneal findings. Qualifiers: Leukocytosis type: unspecified Qualified Code(s): D72.829 - Elevated white blood cell count, unspecified (4) Adjustment reaction with anxiety Conclusion/Plan: ativan prn with one dose now. - Lab Results Lab results reviewed: Yes Fish Bones: 04/28/21 13:30 04/28/21 13:30
[2021-04-28 13:37] LABS: BASOPHILS # (AUTO) 0.1 10^3/uL (0.0-0.1); BASOPHILS % (AUTO) 0.3 %; EOSINOPHILS % (AUTO) 0.2 %; HCT - HEMATOCRIT 36.7 % (42.0-52.0); HGB - HEMOGLOBIN 12.2 g/dL (14.0-18.0); LYMPHOCYTES # (AUTO) 0.6 10^3/uL (1.5-3.5); LYMPHOCYTES % (AUTO) 3.6 %; MEAN CORPUSCULAR HEMOGLOBIN 29.7 pg (27.0-31.0); MEAN CORPUSCULAR HGB CONC 33.2 g/dL (32.0-36.0); MEAN CORPUSCULAR VOLUME 89.3 fL (80.0-94.0); MEAN PLATELET VOLUME 10.8 fL (7.4-11.4); MONOCYTES # (AUTO) 1.5 10^3/uL (0.0-1.0); MONOCYTES % (AUTO) 9.2 %; NEUTROPHILS # (AUTO) 14.1 10^3/uL (1.5-6.6); NEUTROPHILS % (AUTO) 86.1 %; PLT - PLATELET COUNT 260 10^3/uL (130-450); RED BLOOD COUNT 4.11 10^6/uL (4.70-6.10); RED CELL DISTRIBUTION WIDTH 12.6 % (12.0-15.0); WHITE BLOOD COUNT 16.4 x10^3/uL (4.8-10.8)
--- NOTE | 2021-04-28 13:38 | PROVIDER PROGRESS NOTE ---
Subjective - General Admit Date: 04/24/21 Procedure Date: 04/22/21 Post Op Days: 6 Procedure Performed: Laparoscopic cholecystectomy - Review of Systems Wound/Incisions: positive: Healing well, Dressing dry and intact General: positive: Fatigue HEENT: positive: No symptoms Pulmonary: positive: No symptoms Cardiovascular: positive: No symptoms Gastrointestinal: positive: Nausea, Vomiting, Diarrhea Genitourinary: positive: No symptoms Musculoskeletal: positive: No symptoms Skin: positive: No symptoms All Other Systems: positive: Reviewed and negative - Other Other Information/Narrative: Called to see patient emergently for hypertension and shortness of breath. He reports he has been walking around in his room and feeling better today. Eating more and says nausea is improved. Has had a bowel movement and urinated without difficulty. Says he has been having some disturbing visions of the long past this morning. Reports he was coming out of the bathroom when he suddenly felt very tired and short of breath. He denies any chest pain. Staff reports he was tachypneic and blood pressure was noted to be 160s/140s. He got back to bed and was started on 2 L of O2 with sat of 93%. Arrived to find patient in good spirits but tachypneic. Denying pain other than mild postoperative discomfort in his abdomen. Objective - Patient Data Vital Signs: Vital Signs x48h Temp Pulse Resp BP Pulse Ox 04/28/21 08:07 36.9 C 91 18 137/92 H 92 Intake & Output: Intake and Output Totals x24h 04/26/21 04/27/21 04/28/21 23:59 23:59 23:59 Intake Total 3676.666 4061.25 2519.167 Output Total 300 450 725 Balance 3376.666 3611.25 1794.167 - Lab Results Lab Results: 04/28/21 13:30 04/28/21 13:30 Other Lab Results: Lab Results x24hrs 04/28/21 04/28/21 Range/Units 05:10 05:10 WBC 13.6 H (4.8-10.8) x10^3/uL RBC 4.00 L (4.70-6.10) 10^6/uL Hgb 12.0 L (14.0-18.0) g/dL Hct 36.2 L (42.0-52.0) % MCV 90.5 (80.0-94.0) fL MCH 30.0 (27.0-31.0) pg MCHC 33.1 (32.0-36.0) g/dL RDW 12.6 (12.0-15.0) % Plt Count 253 (130-450) 10^3/uL MPV 11.5 H (7.4-11.4) fL Neut # (Auto) 11.3 H (1.5-6.6) 10^3/uL Lymph # (Auto) 0.8 L (1.5-3.5) 10^3/uL [place] # (Auto) 1.3 H (0.0-1.0) 10^3/uL Eos # (Auto) 0.1 (0.0-0.7) 10^3/uL Baso # (Auto) 0.0 (0.0-0.1) 10^3/uL Absolute Nucleated RBC 0.00 x10^3/uL Nucleated RBC % 0.0 /100WBC Sodium 139 (135-145) mmol/L Potassium 3.5 (3.5-5.0) mmol/L Chloride 106 (101-111) mmol/L Carbon Dioxide 22 (21-32) mmol/L Anion Gap 11.0 (6-13) BUN 13 (6-20) mg/dL Creatinine 2.2 H (0.6-1.2) mg/dL Estimated GFR (MDRD) 30 L (>89) Glucose 142 H (70-100) mg/dL Calcium 8.4 L (8.5-10.3) mg/dL Total Bilirubin 0.9 (0.2-1.0) mg/dL AST 22 (10-42) IU/L ALT 21 (10-60) IU/L Alkaline Phosphatase 65 (42-121) IU/L Total Protein 6.6 L (6.7-8.2) g/dL Albumin 3.2 (3.2-5.5) g/dL Globulin 3.4 (2.1-4.2) g/dL Albumin/Globulin Ratio 0.9 L (1.0-2.2) - Current Medications Current Medications: Current Medications Generic Name Dose Route Start Last Admin Trade Name Freq PRN Reason Stop Dose Admin Acetaminophen 650 mg 04/23/21 20:17 04/28/21 06:33 Acetaminophen 325 Mg Tablet PO 650 mg Q4HR PRN Administration Pain 1 to 4 Dronabinol 2.5 mg 04/28/21 09:00 04/28/21 10:08 Dronabinol 2.5 Mg Capsule PO 2.5 mg BIDAC BENI Administration Heparin Sodium (Porcine) 5,000 unit 04/23/21 21:00 04/28/21 08:34 Heparin 5,000 Unit/Ml Vial SUBQ 5,000 unit BID BENI Administration Potassium Chloride/Dextrose/Sod Cl 1,000 mls @ 125 mls/hr 04/23/21 21:00 04/17 07/08 11:51 D5.45ns W/20 Meq Kcl IV 125 mls/hr .Q8H BENI Infusion Lorazepam 0.5 mg 04/27/21 10:10 04/28/21 12:54 Lorazepam 2 Mg/Ml Vial IVP 0.5 mg Q8HR PRN Administration Anxiety Metoclopramide HCl 5 mg 04/25/21 09:22 04/28/21 00:40 Metoclopramide 10 Mg/2 Ml Vial IVP 5 mg Q6HR PRN Administration Nausea / Vomiting Ondansetron HCl 4 mg 04/23/21 20:17 04/27/21 21:27 Ondansetron 4 Mg/2 Ml Vial IVP 4 mg Q6HR PRN Administration Nausea / Vomiting Pantoprazole Sodium 40 mg 04/25/21 10:00 04/28/21 06:38 Pantoprazole 40 Mg Vial IVP 40 mg QDAC BENI Administration Saccharomyces Boulardii 500 mg 04/26/21 17:00 04/28/21 08:25 Saccharomyces Boulardii 250 Mg Capsule PO 500 mg BIDWM BENI Administration Scopolamine HBr 1 patch 04/24/21 14:00 04/27/21 13:14 Scopolamine Patch TOP 1 patch Q3D BENI Administration Sodium Chloride 10 ml 04/23/21 20:17 04/28/21 06:38 Sodium Chloride Flush 0.9% 10 Ml Syringe IVP 10 ml PRN PRN Administration NEEDED PER PROVIDER ORDERS Sodium Chloride 10 ml 04/24/21 01:00 04/28/21 08:35 Sodium Chloride Flush 0.9% 10 Ml Syringe IVP Not Given 0100,0900,1700 BENI Tramadol HCl 50 mg 04/24/21 13:46 04/28/21 11:02 Tramadol 50 Mg Tablet PO 50 mg Q4HR PRN Administration PAIN Vancomycin HCl 125 mg 04/28/21 10:00 04/28/21 10:56 Vancomycin 125 Mg Capsule PO 125 mg QID BENI Administration - Physical Exam Wound/Incisions: positive: Healing well, Other (bruising but resolving) General Appearance: positive: Moderate distress Eyes Bilateral: positive: Normal inspection ENT: positive: ENT inspection nml Neck: positive: Nml inspection Respiratory: positive: Breath sounds nml Cardiovascular: positive: Tachycardia Abdomen: positive: Non-tender, Nml bowel sounds. negative: Guarding, Rebound Extremities: positive: Non-tender Neurologic/Psychiatric: positive: Oriented x3 ABX Reporting Has patient been on IV antibiotics over the past 48 hours?: No Impression/Plan - Problem List Problem List: 1. CXR and EKG ordered 2. Repeat labs ordered. 3. Consulted Dr. Atkinson for wisdom and assistance. 4. Will touch base with .
[2021-04-28 13:50] LABS: ALBUMIN 3.1 g/dL (3.2-5.5); ALBUMIN/GLOBULIN RATIO 0.9 (1.0-2.2); BILIRUBIN,TOTAL 0.9 mg/dL (0.2-1.0); CALCIUM 8.2 mg/dL (8.5-10.3); CREATININE 2.1 mg/dL (0.6-1.2); POTASSIUM 3.9 mmol/L (3.5-5.0); TOTAL PROTEIN 6.6 g/dL (6.7-8.2)
[2021-04-28] MEDS ORDERED: LORazepam 2 MG/ML VIAL IVP ONE (14:00)
--- NOTE | 2021-04-28 14:12 | XRAY Report ---
PROCEDURE: Chest 1 View X-Ray INDICATIONS: SOB TECHNIQUE: One view of the chest was acquired. COMPARISON: None FINDINGS: Surgical changes and devices: None. Lungs and pleura: No pleural effusions or pneumothorax. Moderate diffuse reticulonodular pulmonary o pacity. Mediastinum: Mediastinal contours appear normal. Heart size is normal. Bones and chest wall: No suspicious bony lesions. Overlying soft tissues appear unremarkable. IMPRESSION: Moderate atypical pneumonia. Reviewed by: Kiersten Sy MD on 04/28/2021 1:11 PM [facility] Approved by: Kiersten Sy MD on 04/28/2021 1:11 PM [facility] Station ID: [id number]
--- NOTE | 2021-04-28 14:55 | CT Report ---
PROCEDURE: Abdomen/Pelvis WO INDICATIONS: post op leukocytosis TECHNIQUE: Noncontrast 5 mm thick sections acquired from the diaphragms to the symphysis. 5 mm coronal and sagi ttal reformats were then performed. For radiation dose reduction, the following was used: automated exposure control, adjustment of mA and/or kV according to patient size. COMPARISON: 04/23/2021 CT FINDINGS: Image quality: Excellent. ABDOMEN: Lung bases: Small bilateral pleural effusions. Moderate bibasilar reticulonodular pulmonary opacity. Heart size is normal. Calcification of the coronary vasculature Solid organs: Liver and spleen are normal in size. Gallbladder is surgically absent. Decreased, mil d fast rating within the gallbladder fossa. Pancreas is normal in contours. No adrenal nodules. Ki dneys are normal in size, without hydronephrosis or nephrolithiasis. Peritoneum and bowel: Unenhanced bowel loops demonstrate normal wall thickness and caliber. Diverti culosis of the descending colon. Normal appendix. No free fluid or air. There is new mild thickening of the left paracolic gutter fascia. Nodes and vessels: No retroperitoneal or mesenteric adenopathy by size criteria. Aorta and inferior vena cava are normal in caliber. Miscellaneous: No ventral hernias. PELVIS: Genitourinary: Bladder wall thickness is normal. Miscellaneous: No inguinal hernias or adenopathy. Bones: No suspicious bony lesions. No vertebral body compression fractures. IMPRESSION: 1. Bibasilar pneumonia and small bilateral pleural effusions. 2. Normal appendix. 3. Resolving postsurgical sequelae within the gallbladder fossa. 4. Findings which would be consistent with mild/early diverticulitis of the descending sigmoid colon in the appropriate clinical setting. No pericolonic abscess. 5. No evidence of urinary tract calcification, nor obstruction. Reviewed by: Kiersten Sy MD on 04/28/2021 1:53 PM [facility] Approved by: Kiersten Sy MD on 04/28/2021 1:53 PM [facility] Station ID: [id number]
[2021-04-28] MEDS ORDERED: FUROSEMIDE 40 MG/4 ML VIAL IVP STA (14:56)
[2021-04-28] MEDS ORDERED: NITROGLYCERIN 2% PASTE TOP ONE (14:56)
[2021-04-28] MEDS: PIPERACILLIN/TAZOBACTAM 3.375 GM in SODIUM CHLORIDE 0.9% MINIBAG 100 ML IV SCH ×2 (15:26→19:21)
[2021-04-28] MEDS: ONDANSETRON 4 MG/2 ML VIAL IVP PRN (17:36)
[2021-04-28] MEDS: ENOXAPARIN 80 MG/0.8 ML SYRINGE SUBQ SCH (20:14)
[2021-04-29] MEDS: PIPERACILLIN/TAZOBACTAM 3.375 GM in SODIUM CHLORIDE 0.9% MINIBAG 100 ML IV SCH ×4 (02:00→20:42)
[2021-04-29] MEDS: SODIUM CHLORIDE FLUSH 0.9% 10 ML SYRINGE IVP SCH ×3 (02:59→16:51)
[2021-04-29 05:56] LABS: BASOPHILS % (AUTO) 0.2 %; HCT - HEMATOCRIT 33.9 % (42.0-52.0); HGB - HEMOGLOBIN 11.7 g/dL (14.0-18.0); LYMPHOCYTES % (AUTO) 7.8 %; MEAN CORPUSCULAR HEMOGLOBIN 30.2 pg (27.0-31.0); MEAN CORPUSCULAR HGB CONC 34.5 g/dL (32.0-36.0); MEAN CORPUSCULAR VOLUME 87.4 fL (80.0-94.0); MEAN PLATELET VOLUME 11.1 fL (7.4-11.4); MONOCYTES % (AUTO) 11.4 %; NEUTROPHILS % (AUTO) 79.9 %; PLT - PLATELET COUNT 287 10^3/uL (130-450); RED BLOOD COUNT 3.88 10^6/uL (4.70-6.10); RED CELL DISTRIBUTION WIDTH 12.6 % (12.0-15.0); WHITE BLOOD COUNT 17.4 x10^3/uL (4.8-10.8)
[2021-04-29 06:02] LABS: ABNORMAL LYMPHS % (MANUAL) 0 %
[2021-04-29] MEDS: PANTOPRAZOLE 40 MG VIAL IVP SCH (06:07)
[2021-04-29] MEDS: SODIUM CHLORIDE FLUSH 0.9% 10 ML SYRINGE IVP PRN ×2 (06:07→20:43)
[2021-04-29 06:15] LABS: ALBUMIN 3.3 g/dL (3.2-5.5); ALBUMIN/GLOBULIN RATIO 0.9 (1.0-2.2); CALCIUM 8.6 mg/dL (8.5-10.3); CREATININE 2.5 mg/dL (0.6-1.2); POTASSIUM 3.7 mmol/L (3.5-5.0); TOTAL PROTEIN 6.8 g/dL (6.7-8.2)
[2021-04-29 06:23] LABS: BAND NEUTROPHILS % (MANUAL) 3 %; DIFFERENTIAL COMMENT MANUAL DIFFERENTIAL; LYMPHOCYTES # (MANUAL) 1.9 10^3/uL (1.5-3.5); LYMPHOCYTES % (MANUAL) 11 %; MONOCYTES # (MANUAL) 1.9 10^3/uL (0.0-1.0); NEUTROPHILS # (MANUAL) 13.6 10^3/uL (1.5-6.6); PLATELET ESTIMATE, MANUAL NORMAL (130-450,000) (NORMAL); PLATELET MORPHOLOGY NORMAL APPEARANCE (NORMAL); RBC MORPHOLOGY (MULTIPLE) NORMAL APPEARANCE (NORMAL); WBC MORPHOLOGY (MULTIPLE) NORMAL APPEARANCE (NORMAL)
--- NOTE | 2021-04-29 07:16 | PROVIDER PROGRESS NOTE ---
Assessment/Plan - Problem List (1) C. difficile colitis Assessment/Plan: Improving. Patient is on oral vancomycin. He has not had any episodes of diarrhea today. (2) Pneumonia Assessment/Plan: White blood cell count today was slightly increased from 16.4 to 17.4 Patient is on Zosyn. Azithromycin was added for atypical coverage. He is currently breathing comfortably on room air. With oxygen saturation at 92%. (3) Acute kidney injury Assessment/Plan: Renal function is slightly worse today. Creatinine is 2.5 with estimated GFR of 26. This could be due to hypertensive episode and possibly vancomycin/Zosyn. Vancomycin IV has been discontinued. Will reevaluate and de-escalate antibiotic accordingly tomorrow 04/30/2021. Gentle IV hydration with normal saline at 100 mL/h. We will continue to monitor renal function. (4) Dyspnea Assessment/Plan: Etiology undetermined. It was an acute episode which seems to have resolved. Patient is breathing comfortably on room air with oxygen saturation 93%. VQ study has been ordered and will be done tomorrow 04/30/2021 to rule out PE. This could also be related to anxiety. (5) Nausea and vomiting Qualifiers: Vomiting type: unspecified Qualified Code(s): R11.2 - Nausea with vomiting, unspecified Assessment/Plan: Improved/resolved. Patient tolerated his diet today with no difficulties. Reglan and Zofran ordered as needed. (6) Elevated troponin Assessment/Plan: This was likely demand ischemia related to significantly elevated blood pressure and dyspnea Systolic blood pressure was as high as 197. (7) Hypertension Assessment/Plan: Currently under control. Blood pressure is 133/91. We will continue monitoring - Current Meds Current Meds: Current Medications Generic Name Dose Route Start Last Admin Trade Name Freq PRN Reason Stop Dose Admin Acetaminophen 650 mg 04/23/21 20:17 04/28/21 06:33 Acetaminophen 325 Mg Tablet PO 650 mg Q4HR PRN Administration Pain 1 to 4 Dronabinol 2.5 mg 04/28/21 18:37 04/29/21 06:07 Dronabinol 2.5 Mg Capsule AR 2.5 mg BIDAC BENI Administration Enoxaparin Sodium 80 mg 04/28/21 21:00 04/28/21 20:14 Enoxaparin 80 Mg/0.8 Ml Syringe SUBQ 80 mg BID BENI Administration Piperacillin Sod/Tazobactam 100 mls @ 200 mls/hr 04/28/21 14:00 04/29/21 03:00 Sod 3.375 gm/ Sodium Chloride IV Infused Q6H BENI Infusion Lorazepam 0.5 mg 04/27/21 10:10 04/28/21 20:21 Lorazepam 2 Mg/Ml Vial IVP 0.5 mg Q8HR PRN Administration Anxiety Metoclopramide HCl 5 mg 04/25/21 09:22 04/28/21 19:21 Metoclopramide 10 Mg/2 Ml Vial IVP 5 mg Q6HR PRN Administration Nausea / Vomiting Ondansetron HCl 4 mg 04/23/21 20:17 04/28/21 17:36 Ondansetron 4 Mg/2 Ml Vial IVP 4 mg Q6HR PRN Administration Nausea / Vomiting Pantoprazole Sodium 40 mg 04/25/21 10:00 04/29/21 06:07 Pantoprazole 40 Mg Vial IVP 40 mg QDAC BENI Administration Saccharomyces Boulardii 500 mg 04/26/21 17:00 04/28/21 17:36 Saccharomyces Boulardii 250 Mg Capsule PO 500 mg BIDWM BENI Administration Scopolamine HBr 1 patch 04/24/21 14:00 04/27/21 13:14 Scopolamine Patch TOP 1 patch Q3D BENI Administration Sodium Chloride 10 ml 04/23/21 20:17 04/29/21 06:07 Sodium Chloride Flush 0.9% 10 Ml Syringe IVP 10 ml PRN PRN Administration NEEDED PER PROVIDER ORDERS Sodium Chloride 10 ml 04/24/21 01:00 04/29/21 02:59 Sodium Chloride Flush 0.9% 10 Ml Syringe IVP 10 ml 0100,0900,1700 EBNI Administration Tramadol HCl 50 mg 04/24/21 13:46 04/28/21 19:22 Tramadol 50 Mg Tablet PO 50 mg Q4HR PRN Administration PAIN Vancomycin HCl 125 mg 04/28/21 10:00 04/28/21 20:14 Vancomycin 125 Mg Capsule PO 125 mg QID BENI Administration - Lab Result Fish Bone Diagrams: 04/29/21 05:37 04/29/21 05:37 Subjective - Subjective Patient Reports: Other (Seated at bedside at time of exam. His was present during the visit as well. He denied chest pain, dyspnea, abdominal pain, nausea, vomiting, fever or chills. He was ambulating around the room with no difficulties.) Objective Vital Signs: Vital Signs - 24 hr 04/28/21 04/28/21 04/28/21 08:07 13:00 13:05 Temperature 36.9 C Heart Rate [ 91 125 H 97 Brachial] Respiratory 18 20 18 Rate Blood Pressure 137/92 H 187/108 H 163/105 H [Right Brachial artery] O2 Saturation 92 93 92 04/28/21 04/28/21 04/28/21 13:10 13:20 13:25 Temperature Heart Rate [ 102 H 102 H 99 Brachial] Respiratory 18 19 18 Rate Blood Pressure 166/147 H 169/110 H 169/97 H [Right Brachial artery] O2 Saturation 92 93 92 04/28/21 04/28/21 04/28/21 13:35 13:40 13:45 Temperature Heart Rate [ 102 H 110 H Brachial] Respiratory 18 19 Rate Blood Pressure 181/102 H 169/112 H 158/98 H [Right Brachial artery] O2 Saturation 92 92 04/28/21 04/28/21 04/28/21 13:55 14:00 14:05 Temperature Heart Rate [ 112 H 127 H 106 H Brachial] Respiratory 18 19 18 Rate Blood Pressure 174/99 H 127/100 H 137/99 H [Right Brachial artery] O2 Saturation 93 93 91 L 04/28/21 04/28/21 04/28/21 14:10 14:15 14:20 Temperature Heart Rate [ 111 H 120 H 112 H Brachial] Respiratory 19 19 19 Rate Blood Pressure 181/117 H 197/102 H 183/107 H [Right Brachial artery] O2 Saturation 93 93 94 04/28/21 04/28/21 04/28/21 16:14 19:04 22:05 Temperature 36.8 C 36.7 C Heart Rate [ 112 H Brachial] Respiratory 24 18 Rate Blood Pressure 163/97 H [Right Brachial artery] O2 Saturation 94 95 04/29/21 00:46 Temperature 36.8 C Heart Rate [ 104 H Brachial] Respiratory 18 Rate Blood Pressure 147/90 H [Right Brachial artery] O2 Saturation 95 Oxygen O2 Source Room air I&O (Last 24 Hrs): Intake and Output Totals x24h 12/11/21 12/12/21 12/13/21 23:59 23:59 23:59 Intake Total 4061.25 3558.750 600 Output Total 450 2125 200 Balance 3611.25 1433.750 400 General: Alert, Oriented x3, No acute distress HEENT: PERRLA, EOMI Neck: Supple, No JVD Neuro: Alert, Non Focal, Oriented Times 3 Cardiovascular: Regular rate, Normal S1, Normal S2 Respiratory: Chest non-tender, No respiratory distress, Other (Mild crackles in lung bases.) Abdomen: Normal bowel sounds, Soft, No tenderness, No masses Extremities: No clubbing, No cyanosis, No edema, No tenderness/swelling Skin: No rashes, No breakdown, No significant lesion - Results Results: Laboratory Results WBC 17.4 x10^3/uL (4.8-10.8) H 04/29/21 05:37 RBC 3.88 10^6/uL (4.70-6.10) L 04/29/21 05:37 Hgb 11.7 g/dL (14.0-18.0) L 04/29/21 05:37 Hct 33.9 % (42.0-52.0) L 04/29/21 05:37 MCV 87.4 fL (80.0-94.0) 04/29/21 05:37 MCH 30.2 pg (27.0-31.0) 04/29/21 05:37 MCHC 34.5 g/dL (32.0-36.0) 04/29/21 05:37 RDW 12.6 % (12.0-15.0) 04/29/21 05:37 Plt Count 287 10^3/uL (130-450) 04/29/21 05:37 MPV 11.1 fL (7.4-11.4) 04/29/21 05:37 Neut # (Auto) Not Reportable 04/29/21 05:37 Lymph # (Auto) Not Reportable 04/29/21 05:37 [place] # (Auto) Not Reportable 04/29/21 05:37 Eos # (Auto) Not Reportable 04/29/21 05:37 Baso # (Auto) Not Reportable 04/29/21 05:37 Absolute Nucleated RBC Not Reportable 04/29/21 05:37 Total Counted 100 04/29/21 05:37 Band Neuts % (Manual) 3 % (0-10) 04/29/21 05:37 Abnorm Lymph % (Manual) 0 % 04/29/21 05:37 Nucleated RBC % Not Reportable 04/29/21 05:37 Neutrophils # (Manual) 13.6 10^3/uL (1.5-6.6) H 04/29/21 05:37 Lymphocytes # (Manual) 1.9 10^3/uL (1.5-3.5) 04/29/21 05:37 Monocytes # (Manual) 1.9 10^3/uL (0.0-1.0) H 04/29/21 05:37 Eosinophils # (Manual) 0.0 10^3/uL (0-0.7) 04/29/21 05:37 Basophils # (Manual) 0.0 10^3/uL (0-0.1) 04/29/21 05:37 Differential Comment MANUAL DIFFERENTIAL 04/29/21 05:37 WBC Morphology NORMAL APPEARANCE (NORMAL) 04/29/21 05:37 Platelet Estimate NORMAL (130-450,000) (NORMAL) 04/29/21 05:37 Platelet Morphology NORMAL APPEARANCE (NORMAL) 04/29/21 05:37 RBC Morph Micro Appear NORMAL APPEARANCE (NORMAL) 04/29/21 05:37 Sodium 141 mmol/L (135-145) 04/29/21 05:37 Potassium 3.7 mmol/L (3.5-5.0) 04/29/21 05:37 Chloride 107 mmol/L (101-111) 04/29/21 05:37 Carbon Dioxide 21 mmol/L (21-32) 04/29/21 05:37 Anion Gap 13.0 (6-13) 04/29/21 05:37 BUN 22 mg/dL (6-20) H 04/29/21 05:37 Creatinine 2.5 mg/dL (0.6-1.2) H 04/29/21 05:37 Estimated GFR (MDRD) 26 (>89) L 04/29/21 05:37 Glucose 122 mg/dL (70-100) H 04/29/21 05:37 Calcium 8.6 mg/dL (8.5-10.3) 04/29/21 05:37 Total Bilirubin 1.0 mg/dL (0.2-1.0) 04/29/21 05:37 AST 30 IU/L (10-42) 04/29/21 05:37 ALT 26 IU/L (10-60) 04/29/21 05:37 Alkaline Phosphatase 65 IU/L (42-121) 04/29/21 05:37 Troponin I High Sens 160.8 ng/L (2.3-19.7) H* 04/28/21 16:10 Total Protein 6.8 g/dL (6.7-8.2) 04/29/21 05:37 Albumin 3.3 g/dL (3.2-5.5) 04/29/21 05:37 Globulin 3.5 g/dL (2.1-4.2) 04/29/21 05:37 Albumin/Globulin Ratio 0.9 (1.0-2.2) L 04/29/21 05:37 Lipase 20 U/L (22-51) L 04/23/21 16:23 Nasal Adenovirus (PCR) NOT DETECTED 04/23/21 20:38 Nasal B. parapertussis DNA (PCR) NOT DETECTED 04/23/21 20:38 Nasal Coronavir 229E PCR NOT DETECTED 04/23/21 20:38 Nasal Coronavir HKU1 PCR NOT DETECTED 04/23/21 20:38 Nasal Coronavir NL63 PCR NOT DETECTED 04/23/21 20:38 Nasal Coronavir OC43 PCR NOT DETECTED 04/23/21 20:38 Nasal Enterovir/Rhinovir PCR NOT DETECTED 04/23/21 20:38 Nasal Influenza B PCR NOT DETECTED 04/23/21 20:38 Nasal Influenza A PCR NOT DETECTED 04/23/21 20:38 Nasal Parainfluen 1 PCR NOT DETECTED 04/23/21 20:38 Nasal Parainfluen 2 PCR NOT DETECTED 04/23/21 20:38 Nasal Parainfluen 3 PCR NOT DETECTED 04/23/21 20:38 Nasal Parainfluen 4 PCR NOT DETECTED 04/23/21 20:38 Nasal RSV (PCR) NOT DETECTED 04/23/21 20:38 Nasal B.pertussis DNA PCR NOT DETECTED 04/23/21 20:38 Nasal C.pneumoniae (PCR) NOT DETECTED 04/23/21 20:38 Isaac Human Metapneumo PCR NOT DETECTED 04/23/21 20:38 Nasal M.pneumoniae (PCR) NOT DETECTED 04/23/21 20:38 Nasal SARS-CoV-2 (PCR) NOT DETECTED 04/23/21 20:38 Stl C. diff Tox B Gene POSITIVE (NEGATIVE) A* 04/26/21 13:22 - Procedures Procedures: Procedures EXCISION OF CECUM, ENDO (03/18/21) EXCISION OF DUODENUM, ENDO, DIAGN (03/18/21) EXCISION OF ESOPHAGUS, ENDO, DIAGN (03/18/21) EXCISION OF STOMACH, ENDO, DIAGN (03/18/21) EXCISION OF TRANSVERSE COLON, ENDO (03/18/21) FLUOROSCOPY OF BILE DUCTS USING HIGH OSMOLAR CONTRAST (04/22/21) RESECTION OF GALLBLADDER, PERCUTANEOUS ENDOSCOPIC APPROACH (04/22/21) ABX Reporting Has patient been on IV antibiotics over the past 48 hours?: Yes
[2021-04-29] MEDS: ENOXAPARIN 80 MG/0.8 ML SYRINGE SUBQ SCH ×2 (07:44→20:43)
[2021-04-29] MEDS: SACCHAROMYCES BOULARDII 250 MG CAPSULE PO SCH ×2 (07:44→16:50)
[2021-04-29] MEDS: VANCOMYCIN 125 MG CAPSULE PO SCH ×4 (07:45→20:48)
[2021-04-29] MEDS: AZITHROMYCIN INJ 500 MG in SODIUM CHLORIDE 0.9% 250 ML IV SCH (09:55)
--- NOTE | 2021-04-29 15:06 | PROVIDER PROGRESS NOTE ---
Subjective - General Admit Date: 04/24/21 Procedure Date: 04/22/21 Post Op Days: 7 Procedure Performed: Laparoscopic cholecystectomy - Review of Systems Wound/Incisions: positive: Healing well, Other (bruising but resolving) General: positive: Fatigue HEENT: positive: No symptoms Pulmonary: positive: No symptoms Cardiovascular: positive: No symptoms Gastrointestinal: positive: Nausea, Vomiting, Diarrhea Genitourinary: positive: No symptoms Musculoskeletal: positive: No symptoms Skin: positive: No symptoms All Other Systems: positive: Reviewed and negative - Other Other Information/Narrative: Phillip is in much better spirits today. He reports that today for the first time in 12 years he does not have any abdominal pain. He denies any nausea at all. He is hungry and feeling well. Objective - Patient Data Reviewed Vital Signs: Yes Vital Signs: Vital Signs x48h Temp Pulse Resp BP Pulse Ox 04/29/21 08:30 37.0 C 81 20 133/91 H 92 Weight: Weight 04/27/21 04/28/21 04/29/21 23:59 23:59 23:59 Weight (kg) 86 kg Intake & Output: Intake and Output Totals x24h 04/27/21 04/28/21 04/29/21 23:59 23:59 23:59 Intake Total 4061.25 3558.750 2090 Output Total 450 2125 200 Balance 3611.25 2083.218 8010 - Lab Results Lab Results: 04/29/21 05:37 04/29/21 05:37 Other Lab Results: Lab Results x24hrs 04/29/21 04/29/21 04/28/21 Range/Units 05:37 05:37 16:10 WBC 17.4 H (4.8-10.8) x10^3/uL RBC 3.88 L (4.70-6.10) 10^6/uL Hgb 11.7 L (14.0-18.0) g/dL Hct 33.9 L (42.0-52.0) % MCV 87.4 (80.0-94.0) fL MCH 30.2 (27.0-31.0) pg MCHC 34.5 (32.0-36.0) g/dL RDW 12.6 (12.0-15.0) % Plt Count 287 (130-450) 10^3/uL MPV 11.1 (7.4-11.4) fL Neut # (Auto) Not Reportable Lymph # (Auto) Not Reportable [place] # (Auto) Not Reportable Eos # (Auto) Not Reportable Baso # (Auto) Not Reportable Absolute Nucleated RBC Not Reportable Total Counted 100 Band Neuts % (Manual) 3 (0 - 10) % Abnorm Lymph % (Manual) 0 % Nucleated RBC % Not Reportable Neutrophils # (Manual) 13.6 H (1.5-6.6) 10^3/uL Lymphocytes # (Manual) 1.9 (1.5-3.5) 10^3/uL Monocytes # (Manual) 1.9 H (0.0-1.0) 10^3/uL Eosinophils # (Manual) 0.0 (0-0.7) 10^3/uL Basophils # (Manual) 0.0 (0-0.1) 10^3/uL Differential Comment MANUAL DIFFERENTIAL WBC Morphology NORMAL APPEARANCE (NORMAL) Platelet Estimate NORMAL (130-450,000) (NORMAL) Platelet Morphology NORMAL APPEARANCE (NORMAL) RBC Morph Micro Appear NORMAL APPEARANCE (NORMAL) Sodium 141 (135-145) mmol/L Potassium 3.7 (3.5-5.0) mmol/L Chloride 107 (101-111) mmol/L Carbon Dioxide 21 (21-32) mmol/L Anion Gap 13.0 (6-13) BUN 22 H (6-20) mg/dL Creatinine 2.5 H (0.6-1.2) mg/dL Estimated GFR (MDRD) 26 L (>89) Glucose 122 H (70-100) mg/dL Calcium 8.6 (8.5-10.3) mg/dL Total Bilirubin 1.0 (0.2-1.0) mg/dL AST 30 (10-42) IU/L ALT 26 (10-60) IU/L Alkaline Phosphatase 65 (42-121) IU/L Troponin I High Sens 160.8 H* (2.3-19.7) ng/L Total Protein 6.8 (6.7-8.2) g/dL Albumin 3.3 (3.2-5.5) g/dL Globulin 3.5 (2.1-4.2) g/dL Albumin/Globulin Ratio 0.9 L (1.0-2.2) - Imaging Results Radiology Imaging: positive: Final report received (Postoperative changes in the abdomen only. Chest x-ray consistent with pneumonia.Pneumonia also visible on CT of the abdomen pelvis.) - Current Medications Current Medications: Current Medications Generic Name Dose Route Start Last Admin Trade Name Freq PRN Reason Stop Dose Admin Acetaminophen 650 mg 04/23/21 20:17 04/28/21 06:33 Acetaminophen 325 Mg Tablet PO 650 mg Q4HR PRN Administration Pain 1 to 4 Dronabinol 2.5 mg 04/28/21 18:37 04/29/21 06:07 Dronabinol 2.5 Mg Capsule UT 2.5 mg BIDAC BENI Administration Enoxaparin Sodium 80 mg 04/28/21 21:00 04/29/21 07:44 Enoxaparin 80 Mg/0.8 Ml Syringe SUBQ 80 mg BID BENI Administration Piperacillin Sod/Tazobactam 100 mls @ 200 mls/hr 04/28/21 14:00 04/29/21 14:39 Sod 3.375 gm/ Sodium Chloride IV Infused Q6H BENI Infusion Azithromycin 500 mg/ Sodium 250 mls @ 250 mls/hr 04/29/21 09:00 04/29/21 11:29 Chloride IV 05/01/21 09:59 Infused DAILY BENI Infusion Lorazepam 0.5 mg 04/27/21 10:10 04/28/21 20:21 Lorazepam 2 Mg/Ml Vial IVP 0.5 mg Q8HR PRN Administration Anxiety Metoclopramide HCl 5 mg 04/25/21 09:22 04/28/21 19:21 Metoclopramide 10 Mg/2 Ml Vial IVP 5 mg Q6HR PRN Administration Nausea / Vomiting Ondansetron HCl 4 mg 04/23/21 20:17 04/28/21 17:36 Ondansetron 4 Mg/2 Ml Vial IVP 4 mg Q6HR PRN Administration Nausea / Vomiting Pantoprazole Sodium 40 mg 04/25/21 10:00 04/29/21 06:07 Pantoprazole 40 Mg Vial IVP 40 mg QDAC BENI Administration Saccharomyces Boulardii 500 mg 04/26/21 17:00 04/29/21 07:44 Saccharomyces Boulardii 250 Mg Capsule PO 500 mg BIDWM BENI Administration Scopolamine HBr 1 patch 04/24/21 14:00 04/27/21 13:14 Scopolamine Patch TOP 1 patch Q3D BENI Administration Sodium Chloride 10 ml 04/23/21 20:17 04/29/21 06:07 Sodium Chloride Flush 0.9% 10 Ml Syringe IVP 10 ml PRN PRN Administration NEEDED PER PROVIDER ORDERS Sodium Chloride 10 ml 04/24/21 01:00 04/29/21 07:45 Sodium Chloride Flush 0.9% 10 Ml Syringe IVP 10 ml 0100,0900,1700 BENI Administration Tramadol HCl 50 mg 04/24/21 13:46 04/28/21 19:22 Tramadol 50 Mg Tablet PO 50 mg Q4HR PRN Administration PAIN Vancomycin HCl 125 mg 04/28/21 10:00 04/29/21 13:19 Vancomycin 125 Mg Capsule PO 125 mg QID BENI Administration - Physical Exam Wound/Incisions: positive: Healing well, Other (Bruising is resolving) General Appearance: positive: No acute distress, Alert Eyes Bilateral: positive: PERRL, EOMI ENT: positive: ENT inspection nml, Pharynx nml Neck: positive: Nml inspection, No JVD Respiratory: positive: No respiratory distress. negative: Wheezes Cardiovascular: positive: Regular rate & rhythm, Other (Tachycardia resolved) Abdomen: positive: Nml bowel sounds Back: negative: CVA tenderness (R), CVA tenderness (L) Skin: positive: Color nml Extremities: positive: Non-tender Neurologic/Psychiatric: positive: Oriented x3 ABX Reporting Has patient been on IV antibiotics over the past 48 hours?: Yes Impression/Plan - Problem List Problem List: 1. C. difficile colitis-seems to be improving on oral vancomycin 2. Intractable nausea and vomiting-much improved after the addition of dronabinol. Will back off on Reglan. 3. Pneumonia.Being managed by the hospitalist. On Zosyn and Azithromycin 4. Acute kidney injury due to a loading dose of vancomycin.This should resolve with time.Will avoid other nephrotoxins. 5.VQ scan to rule out pulmonary embolus scheduled for tomorrow.He is currently on therapeutic Lovenox.
[2021-04-29] MEDS: SODIUM CHLORIDE 0.9% 1,000 ML IV SCH (20:42)
--- NOTE | 2021-04-30 02:21 | PROVIDER PROGRESS NOTE ---
Clinical Laboratory Science Professor Note - Clinical Laboratory Science Professor Note Clinical Laboratory Science Professor Note: I was speaking with the patient's nurse regarding another patient when this patient walked out of his room and immediately out of the hospital. He was followed in the parking lot and he was asked to return to the hospital but he refused stating that we were trying to harm him. He pulled out his IV as he was walking in the parking lot. He ultimately walked to [facility] on [facility]. The police were notified and EMS arrived with the plan to bring him back to our [facility]. After discussion with his , the patient apparently decided to go home. I then spoke with his to discuss with her the importance of hospitalization including the fact that we are treating him for C. difficile with oral vancomycin and with IV antibiotics for suspected pneumonia. He has also had worsening renal function each day and we are planning to obtain a VQ scan tomorrow. I informed her that his condition can decline if he were to remain at home without antibiotics. She expressed concern about medical condition but she was worried that he would not do well from a delirium perspective at her hospital. She stated the patient was willing to go to [facility] in [place] and that he would consider this in the morning. She then asked if she could stay here overnight with him if he were to come back to our facility and I spoke with the warehouse order filler who stated this could be allowed. I told the that if he were to come back to our facility now that he could go straight back to his room but if he were to wait a few hours then he would have to go back through the emergency department. She stated that she would discuss this with him and her daughters before deciding how they would proceed as they were still considering staying at home overnight and then potentially going to [facility] in [place].
[2021-04-30] MEDS: PIPERACILLIN/TAZOBACTAM 3.375 GM in SODIUM CHLORIDE 0.9% MINIBAG 100 ML IV SCH (02:43)
[2021-04-30] MEDS: SODIUM CHLORIDE FLUSH 0.9% 10 ML SYRINGE IVP SCH ×3 (02:43→19:42)
[2021-04-30] MEDS: traMADol 50 MG TABLET PO PRN ×3 (04:00→17:14)
[2021-04-30] MEDS ORDERED: HALOPERIDOL 5 MG/ML VIAL IM ONE (05:57)
[2021-04-30] MEDS: ONDANSETRON ODT 4 MG TABLET TL PRN (06:34)
[2021-04-30 06:43] LABS: BASOPHILS # (AUTO) 0.1 10^3/uL (0.0-0.1); BASOPHILS % (AUTO) 0.4 %; EOSINOPHILS # (AUTO) 0.1 10^3/uL (0.0-0.7); EOSINOPHILS % (AUTO) 0.5 %; HCT - HEMATOCRIT 31.3 % (42.0-52.0); HGB - HEMOGLOBIN 10.8 g/dL (14.0-18.0); LYMPHOCYTES # (AUTO) 1.3 10^3/uL (1.5-3.5); LYMPHOCYTES % (AUTO) 8.9 %; MEAN CORPUSCULAR HEMOGLOBIN 30.3 pg (27.0-31.0); MEAN CORPUSCULAR HGB CONC 34.5 g/dL (32.0-36.0); MEAN CORPUSCULAR VOLUME 87.9 fL (80.0-94.0); MEAN PLATELET VOLUME 11.4 fL (7.4-11.4); MONOCYTES # (AUTO) 1.7 10^3/uL (0.0-1.0); MONOCYTES % (AUTO) 11.6 %; NEUTROPHILS # (AUTO) 11.5 10^3/uL (1.5-6.6); NEUTROPHILS % (AUTO) 77.9 %; PLT - PLATELET COUNT 261 10^3/uL (130-450); RED BLOOD COUNT 3.56 10^6/uL (4.70-6.10); RED CELL DISTRIBUTION WIDTH 12.8 % (12.0-15.0); WHITE BLOOD COUNT 14.8 x10^3/uL (4.8-10.8)
[2021-04-30 06:54] LABS: ALBUMIN 3.1 g/dL (3.2-5.5); BILIRUBIN,TOTAL 0.9 mg/dL (0.2-1.0); CALCIUM 8.4 mg/dL (8.5-10.3); CREATININE 2.4 mg/dL (0.6-1.2); POTASSIUM 3.2 mmol/L (3.5-5.0); TOTAL PROTEIN 6.2 g/dL (6.7-8.2)
[2021-04-30] MEDS: PANTOPRAZOLE 40 MG VIAL IVP SCH ×2 (07:44→10:22)
[2021-04-30] MEDS: SODIUM CHLORIDE 0.9% 1,000 ML IV SCH ×2 (07:45→18:17)
[2021-04-30] MEDS: SODIUM CHLORIDE FLUSH 0.9% 10 ML SYRINGE IVP PRN (07:45)
[2021-04-30 08:01] LABS: DIFFERENTIAL COMMENT MANUAL=AUTO DIFF; PLATELET ESTIMATE, MANUAL NORMAL (130-450,000) (NORMAL); PLATELET MORPHOLOGY NORMAL APPEARANCE (NORMAL); RBC MORPHOLOGY (MULTIPLE) NORMAL APPEARANCE (NORMAL); WBC MORPHOLOGY (MULTIPLE) NORMAL APPEARANCE (NORMAL)
--- NOTE | 2021-04-30 08:12 | PROVIDER PROGRESS NOTE ---
Assessment/Plan - Problem List (1) C. difficile colitis Assessment/Plan: No diarrhea. Patient is on vancomycin day 3/. Anticipating discharge tomorrow. (2) Pneumonia Assessment/Plan: White blood cell count improved from 17.4 to 14.8 Zosyn discontinued. Augmentin bid po intiated. Will maintain for 7 days total. Azithromycin day 2/3 for atypical coverage. He is currently breathing comfortably on room air. With oxygen saturation at 95%. VQ perfusion study of the lungs Probability for PE was low probability (3) Acute kidney injury Assessment/Plan: No significant change in renal function. Creatinine is 2.4 with estimated GFR of 27. This could be due to hypertensive episode and possibly vancomycin/Zosyn. Vancomycin IV and Zosyn discontinued. Gentle IV hydration with normal saline at 100 mL/h. We will continue to monitor renal function. (4) Dyspnea Assessment/Plan: Lung perfusion scan was low probability for PE. Patient is currently breathing comfortably on room air with oxygen saturation at 95%. There could be a component of anxiety as well. (5) Nausea and vomiting Qualifiers: Vomiting type: unspecified Assessment/Plan: Zofran, Reglan and Phenergan as needed (6) Elevated troponin Assessment/Plan: This was likely demand ischemia related to significantly elevated blood pressure and dyspnea Systolic blood pressure was as high as 197. (7) Hypertension Assessment/Plan: Fairly controlled. - Current Meds Current Meds: Current Medications Generic Name Dose Route Start Last Admin Trade Name Freq PRN Reason Stop Dose Admin Acetaminophen 650 mg 04/23/21 20:17 04/28/21 06:33 Acetaminophen 325 Mg Tablet PO 650 mg Q4HR PRN Administration Pain 1 to 4 Dronabinol 2.5 mg 04/28/21 18:37 04/30/21 05:55 Dronabinol 2.5 Mg Capsule VA Not Given BIDAC BENI Enoxaparin Sodium 80 mg 04/28/21 21:00 04/29/21 20:43 Enoxaparin 80 Mg/0.8 Ml Syringe SUBQ 80 mg BID BENI Administration Piperacillin Sod/Tazobactam 100 mls @ 200 mls/hr 04/28/21 14:00 04/30/21 02:43 Sod 3.375 gm/ Sodium Chloride IV Not Given Q6H BENI Azithromycin 500 mg/ Sodium 250 mls @ 250 mls/hr 04/29/21 09:00 04/29/21 1 1:29 Chloride IV 05/01/21 09:59 Infused DAILY BENI Infusion Sodium Chloride 1,000 mls @ 100 mls/hr 04/29/21 19:00 04/30/21 07:51 Normal Saline 0.9% IV 0 mls/hr .Q10H BENI Infusion Lorazepam 0.5 mg 04/27/21 10:10 04/28/21 20:21 Lorazepam 2 Mg/Ml Vial IVP 0.5 mg Q8HR PRN Administration Anxiety Metoclopramide HCl 5 mg 04/25/21 09:22 04/28/21 19:21 Metoclopramide 10 Mg/2 Ml Vial IVP 5 mg Q6HR PRN Administration Nausea / Vomiting Ondansetron HCl 4 mg 04/23/21 20:17 04/28/21 17:36 Ondansetron 4 Mg/2 Ml Vial IVP 4 mg Q6HR PRN Administration Nausea / Vomiting Ondansetron HCl 4 mg 04/30/21 05:57 04/30/21 06:34 Ondansetron Odt 4 Mg Tablet TL 4 mg Q4HR PRN Administration Nausea / Vomiting Pantoprazole Sodium 40 mg 04/25/21 10:00 04/29/21 06:07 Pantoprazole 40 Mg Vial IVP 40 mg QDAC BENI Administration Saccharomyces Boulardii 500 mg 04/26/21 17:00 04/29/21 16:50 Saccharomyces Boulardii 250 Mg Capsule PO 500 mg BIDWM BENI Administration Scopolamine HBr 1 patch 04/24/21 14:00 04/27/21 13:14 Scopolamine Patch TOP 1 patch Q3D EBNI Administration Sodium Chloride 10 ml 04/23/21 20:17 04/30/21 07:45 Sodium Chloride Flush 0.9% 10 Ml Syringe IVP 30 ml PRN PRN Administration NEEDED PER PROVIDER ORDERS Sodium Chloride 10 ml 04/24/21 01:00 04/30/21 02:43 Sodium Chloride Flush 0.9% 10 Ml Syringe IVP Not Given 0100,0900,1700 BENI Tramadol HCl 50 mg 04/24/21 13:46 04/30/21 04:00 Tramadol 50 Mg Tablet PO 50 mg Q4HR PRN Administration PAIN Vancomycin HCl 125 mg 04/28/21 10:00 04/29/21 20:48 Vancomycin 125 Mg Capsule PO 125 mg QID BENI Administration - Lab Result Fish Bone Diagrams: 04/30/21 06:12 04/30/21 06:12 - Additional Planning My Orders: My Active Orders 04/29/21 09:00 Azithromycin Inj [Zithromax Inj] 500 mg Sodium Chloride 0.9% [Normal Saline 0.9%] 250 ml IV DAILY 04/29/21 19:00 Sodium Chloride 0.9% [Normal Saline 0.9%] 1,000 ml IV 100 mls/hr 04/30/21 08:09 Promethazine [Phenergan] 25 mg PO Q6HR PRN 04/30/21 09:00 Potassium Chloride/Water 10 mEq/100 mL q1h (Enter # of bags) Potassium Chlor 10 Meq/100 ml [Potassium Chloride] 10 meq in 100 ml IV Q1H Subjective - Subjective Patient Reports: Other (Patient is resting comfortably in bed. He complains of feeling slightly drowsy. Also reports mild abdominal pain. He denies chest pain or dyspnea. He has mild crackles on auscultation. Overnight it was reported that the patient attempted to elope) Objective Vital Signs: Vital Signs - 24 hr 04/29/21 04/29/21 04/29/21 08:30 18:00 23:57 Temperature 37.0 C 36.8 C 36.9 C Heart Rate [ 81 100 106 H Brachial] Respiratory 20 16 20 Rate Blood Pressure 133/91 H 137/90 H 144/91 H [Right Brachial artery] O2 Saturation 92 93 94 04/30/21 03:17 Temperature 37.1 C Heart Rate [ 91 Brachial] Respiratory 16 Rate Blood Pressure 147/87 H [Right Brachial artery] O2 Saturation 97 Oxygen O2 Source Room air I&O (Last 24 Hrs): Intake and Output Totals x24h 04/28/21 04/29/21 04/30/21 23:59 23:59 23:59 Intake Total 3558.750 2830 340 Output Total 2125 200 125 Balance 9962.244 5580 215 General: Alert, Oriented x3, Mild distress HEENT: PERRLA, EOMI Neck: Supple, No JVD Neuro: Alert, Non Focal, Oriented Times 3 Cardiovascular: Regular rate, No murmurs Respiratory: Chest non-tender, No respiratory distress, Other (Mild crackle in lung bases bilaterally) Abdomen: Normal bowel sounds, Soft Extremities: No clubbing, No cyanosis, No edema, No tenderness/swelling Skin: No rashes, No breakdown, No significant lesion - Results Results: Laboratory Results WBC 14.8 x10^3/uL (4.8-10.8) H 04/30/21 06:12 RBC 3.56 10^6/uL (4.70-6.10) L 04/30/21 06:12 Hgb 10.8 g/dL (14.0-18.0) L 04/30/21 06:12 Hct 31.3 % (42.0-52.0) L 04/30/21 06:12 MCV 87.9 fL (80.0-94.0) 04/30/21 06:12 MCH 30.3 pg (27.0-31.0) 04/30/21 06:12 MCHC 34.5 g/dL (32.0-36.0) 04/30/21 06:12 RDW 12.8 % (12.0-15.0) 04/30/21 06:12 Plt Count 261 10^3/uL (130-450) 04/30/21 06:12 MPV 11.4 fL (7.4-11.4) 04/30/21 06:12 Neut # (Auto) 11.5 10^3/uL (1.5-6.6) H 04/30/21 06:12 Lymph # (Auto) 1.3 10^3/uL (1.5-3.5) L 04/30/21 06:12 [place] # (Auto) 1.7 10^3/uL (0.0-1.0) H 04/30/21 06:12 Eos # (Auto) 0.1 10^3/uL (0.0-0.7) 04/30/21 06:12 Baso # (Auto) 0.1 10^3/uL (0.0-0.1) 04/30/21 06:12 Absolute Nucleated RBC 0.00 x10^3/uL 04/30/21 06:12 Total Counted 100 04/29/21 05:37 Band Neuts % (Manual) Not Reportable 04/30/21 06:12 Abnorm Lymph % (Manual) Not Reportable 04/30/21 06:12 Nucleated RBC % 0.0 /100WBC 04/30/21 06:12 Neutrophils # (Manual) Not Reportable 04/30/21 06:12 Lymphocytes # (Manual) Not Reportable 04/30/21 06:12 Monocytes # (Manual) Not Reportable 04/30/21 06:12 Eosinophils # (Manual) Not Reportable 04/30/21 06:12 Basophils # (Manual) Not Reportable 04/30/21 06:12 Differential Comment MANUAL=AUTO DIFF 04/30/21 06:12 WBC Morphology NORMAL APPEARANCE (NORMAL) 04/30/21 06:12 Platelet Estimate NORMAL (130-450,000) (NORMAL) 04/30/21 06:12 Platelet Morphology NORMAL APPEARANCE (NORMAL) 04/30/21 06:12 RBC Morph Micro Appear NORMAL APPEARANCE (NORMAL) 04/30/21 06:12 Sodium 140 mmol/L (135-145) 04/30/21 06:12 Potassium 3.2 mmol/L (3.5-5.0) L 04/30/21 06:12 Chloride 106 mmol/L (101-111) 04/30/21 06:12 Carbon Dioxide 22 mmol/L (21-32) 04/30/21 06:12 Anion Gap 12.0 (6-13) 04/30/21 06:12 BUN 34 mg/dL (6-20) H 04/30/21 06:12 Creatinine 2.4 mg/dL (0.6-1.2) H 04/30/21 06:12 Estimated GFR (MDRD) 27 (>89) L 04/30/21 06:12 Glucose 117 mg/dL (70-100) H 04/30/21 06:12 Calcium 8.4 mg/dL (8.5-10.3) L 04/30/21 06:12 Total Bilirubin 0.9 mg/dL (0.2-1.0) 04/30/21 06:12 AST 23 IU/L (10-42) 04/30/21 06:12 ALT 25 IU/L (10-60) 04/30/21 06:12 Alkaline Phosphatase 58 IU/L (42-121) 04/30/21 06:12 Troponin I High Sens 160.8 ng/L (2.3-19.7) H* 04/28/21 16:10 Total Protein 6.2 g/dL (6.7-8.2) L 04/30/21 06:12 Albumin 3.1 g/dL (3.2-5.5) L 04/30/21 06:12 Globulin 3.1 g/dL (2.1-4.2) 04/30/21 06:12 Albumin/Globulin Ratio 1.0 (1.0-2.2) 04/30/21 06:12 Lipase 20 U/L (22-51) L 04/23/21 16:23 Nasal Adenovirus (PCR) NOT DETECTED 04/23/21 20:38 Nasal B. parapertussis DNA (PCR) NOT DETECTED 04/23/21 20:38 Nasal Coronavir 229E PCR NOT DETECTED 04/23/21 20:38 Nasal Coronavir HKU1 PCR NOT DETECTED 04/23/21 20:38 Nasal Coronavir NL63 PCR NOT DETECTED 04/23/21 20:38 Nasal Coronavir OC43 PCR NOT DETECTED 04/23/21 20:38 Nasal Enterovir/Rhinovir PCR NOT DETECTED 04/23/21 20:38 Nasal Influenza B PCR NOT DETECTED 04/23/21 20:38 Nasal Influenza A PCR NOT DETECTED 04/23/21 20:38 Nasal Parainfluen 1 PCR NOT DETECTED 04/23/21 20:38 Nasal Parainfluen 2 PCR NOT DETECTED 04/23/21 20:38 Nasal Parainfluen 3 PCR NOT DETECTED 04/23/21 20:38 Nasal Parainfluen 4 PCR NOT DETECTED 04/23/21 20:38 Nasal RSV (PCR) NOT DETECTED 04/23/21 20:38 Nasal B.pertussis DNA PCR NOT DETECTED 04/23/21 20:38 Nasal C.pneumoniae (PCR) NOT DETECTED 04/23/21 20:38 Isaac Human Metapneumo PCR NOT DETECTED 04/23/21 20:38 Nasal M.pneumoniae (PCR) NOT DETECTED 04/23/21 20:38 Nasal SARS-CoV-2 (PCR) NOT DETECTED 04/23/21 20:38 Stl C. diff Tox B Gene POSITIVE (NEGATIVE) A* 04/26/21 13:22 - Procedures Procedures: Procedures EXCISION OF CECUM, ENDO (03/18/21) EXCISION OF DUODENUM, ENDO, DIAGN (03/18/21) EXCISION OF ESOPHAGUS, ENDO, DIAGN (03/18/21) EXCISION OF STOMACH, ENDO, DIAGN (03/18/21) EXCISION OF TRANSVERSE COLON, ENDO (03/18/21) FLUOROSCOPY OF BILE DUCTS USING HIGH OSMOLAR CONTRAST (04/22/21) RESECTION OF GALLBLADDER, PERCUTANEOUS ENDOSCOPIC APPROACH (04/22/21) ABX Reporting Has patient been on IV antibiotics over the past 48 hours?: Yes
[2021-04-30] MEDS: VANCOMYCIN 125 MG CAPSULE PO SCH ×4 (10:11→21:17)
[2021-04-30] MEDS: ACETAMINOPHEN 325 MG TABLET PO PRN ×2 (10:12→18:27)
[2021-04-30] MEDS: AMOX/CLAV 875 MG/125 MG TABLET PO SCH ×2 (10:12→21:17)
[2021-04-30] MEDS: PROMETHAZINE 25 MG TABLET PO PRN (10:12)
[2021-04-30] MEDS: SACCHAROMYCES BOULARDII 250 MG CAPSULE PO SCH ×2 (10:12→17:14)
[2021-04-30] MEDS: ENOXAPARIN 80 MG/0.8 ML SYRINGE SUBQ SCH (10:16)
[2021-04-30] MEDS: AZITHROMYCIN INJ 500 MG in SODIUM CHLORIDE 0.9% 250 ML IV SCH (10:17)
--- NOTE | 2021-04-30 10:53 | PROVIDER PROGRESS NOTE ---
Subjective - General Admit Date: 04/24/21 Procedure Date: 04/22/21 Post Op Days: 8 Procedure Performed: Laparoscopic cholecystectomy - Review of Systems Wound/Incisions: positive: Healing well, Other (Bruising is resolving) General: positive: Fatigue HEENT: positive: No symptoms Pulmonary: positive: No symptoms Cardiovascular: positive: No symptoms Gastrointestinal: positive: Nausea, Vomiting, Diarrhea Genitourinary: positive: No symptoms Musculoskeletal: positive: No symptoms Skin: positive: No symptoms All Other Systems: positive: Reviewed and negative - Other Other Information/Narrative: Sore after the events of last night and having some difficulty relaxing. Says his nausea is not bad this morning but he is very anxious. is at the bedside and seems to orient and calm him significantly. Objective - Patient Data Reviewed Vital Signs: Yes Vital Signs: Vital Signs x48h Temp Pulse Resp BP Pulse Ox 04/30/21 08:21 36.4 C L 89 18 147/74 H 95 04/30/21 03:17 37.1 C 91 16 147/87 H 97 Weight: Weight 04/28/21 04/29/21 04/30/21 23:59 23:59 23:59 Weight (kg) 86 kg Intake & Output: Intake and Output Totals x24h 04/28/21 04/29/21 04/30/21 23:59 23:59 23:59 Intake Total 3558.750 2830 340 Output Total 2125 200 125 Balance 4809.764 4458 215 - Lab Results Lab Results: 04/30/21 06:12 04/30/21 06:12 Other Lab Results: Lab Results x24hrs 04/30/21 04/30/21 Range/Units 06:12 06:12 WBC 14.8 H (4.8-10.8) x10^3/uL RBC 3.56 L (4.70-6.10) 10^6/uL Hgb 10.8 L (14.0-18.0) g/dL Hct 31.3 L (42.0-52.0) % MCV 87.9 (80.0-94.0) fL MCH 30.3 (27.0-31.0) pg MCHC 34.5 (32.0-36.0) g/dL RDW 12.8 (12.0-15.0) % Plt Count 261 (130-450) 10^3/uL MPV 11.4 (7.4-11.4) fL Neut # (Auto) 11.5 H (1.5-6.6) 10^3/uL Lymph # (Auto) 1.3 L (1.5-3.5) 10^3/uL Pershing # (Auto) 1.7 H (0.0-1.0) 10^3/uL Eos # (Auto) 0.1 (0.0-0.7) 10^3/uL Baso # (Auto) 0.1 (0.0-0.1) 10^3/uL Absolute Nucleated RBC 0.00 x10^3/uL Band Neuts % (Manual) Not Reportable Abnorm Lymph % (Manual) Not Reportable Nucleated RBC % 0.0 /100WBC Neutrophils # (Manual) Not Reportable Lymphocytes # (Manual) Not Reportable Monocytes # (Manual) Not Reportable Eosinophils # (Manual) Not Reportable Basophils # (Manual) Not Reportable Differential Comment MANUAL=AUTO DIFF WBC Morphology NORMAL APPEARANCE (NORMAL) Platelet Estimate NORMAL (130-450,000) (NORMAL) Platelet Morphology NORMAL APPEARANCE (NORMAL) RBC Morph Micro Appear NORMAL APPEARANCE (NORMAL) Sodium 140 (135-145) mmol/L Potassium 3.2 L (3.5-5.0) mmol/L Chloride 106 (101-111) mmol/L Carbon Dioxide 22 (21-32) mmol/L Anion Gap 12.0 (6-13) BUN 34 H (6-20) mg/dL Creatinine 2.4 H (0.6-1.2) mg/dL Estimated GFR (MDRD) 27 L (>89) Glucose 117 H (70-100) mg/dL Calcium 8.4 L (8.5-10.3) mg/dL Total Bilirubin 0.9 (0.2-1.0) mg/dL AST 23 (10-42) IU/L ALT 25 (10-60) IU/L Alkaline Phosphatase 58 (42-121) IU/L Total Protein 6.2 L (6.7-8.2) g/dL Albumin 3.1 L (3.2-5.5) g/dL Globulin 3.1 (2.1-4.2) g/dL Albumin/Globulin Ratio 1.0 (1.0-2.2) - Imaging Results Imaging Results Comments: Nothing new to review but V/Q scan ordered for today - Current Medications Current Medications: Current Medications Generic Name Dose Route Start Last Admin Trade Name Freq PRN Reason Stop Dose Admin Acetaminophen 650 mg 04/23/21 20:17 04/30/21 10:12 Acetaminophen 325 Mg Tablet PO 650 mg Q4HR PRN Administration Pain 1 to 4 Amoxicillin/Clavulanate Potassium 1 tab 04/30/21 09:00 04/30/21 10:12 Amox/Clav 875 Mg/125 Mg Tablet PO 1 tab BID BENI Administration Enoxaparin Sodium 80 mg 04/28/21 21:00 04/30/21 10:16 Enoxaparin 80 Mg/0.8 Ml Syringe SUBQ 80 mg BID BENI Administration Azithromycin 500 mg/ Sodium 250 mls @ 250 mls/hr 04/29/21 09:00 04/30/21 10:17 Chloride IV 05/01/21 09:59 250 mls/hr DAILY BENI Administration Sodium Chloride 1,000 mls @ 100 mls/hr 04/29/21 19:00 04/30/21 07:51 Normal Saline 0.9% IV 0 mls/hr .Q10H BENI Infusion Lorazepam 0.5 mg 04/27/21 10:10 04/28/21 20:21 Lorazepam 2 Mg/Ml Vial IVP 0.5 mg Q8HR PRN Administration Anxiety Metoclopramide HCl 5 mg 04/25/21 09:22 04/28/21 19:21 Metoclopramide 10 Mg/2 Ml Vial IVP 5 mg Q6HR PRN Administration Nausea / Vomiting Ondansetron HCl 4 mg 04/23/21 20:17 04/28/21 17:36 Ondansetron 4 Mg/2 Ml Vial IVP 4 mg Q6HR PRN Administration Nausea / Vomiting Ondansetron HCl 4 mg 04/30/21 05:57 04/30/21 06:34 Ondansetron Odt 4 Mg Tablet TL 4 mg Q4HR PRN Administration Nausea / Vomiting Pantoprazole Sodium 40 mg 04/25/21 10:00 04/30/21 10:22 Pantoprazole 40 Mg Vial IVP 40 mg QDAC BENI Administration Promethazine HCl 25 mg 04/30/21 08:09 04/30/21 10:12 Promethazine 25 Mg Tablet PO 25 mg Q6HR PRN Administration Nausea / Vomiting Saccharomyces Boulardii 500 mg 04/26/21 17:00 04/30/21 10:12 Saccharomyces Boulardii 250 Mg Capsule PO 500 mg BIDWM BENI Administration Scopolamine HBr 1 patch 04/24/21 14:00 04/27/21 13:14 Scopolamine Patch TOP 1 patch Q3D BENI Administration Sodium Chloride 10 ml 04/23/21 20:17 04/30/21 07:45 Sodium Chloride Flush 0.9% 10 Ml Syringe IVP 30 ml PRN PRN Administration NEEDED PER PROVIDER ORDERS Sodium Chloride 10 ml 04/24/21 01:00 04/30/21 10:22 Sodium Chloride Flush 0.9% 10 Ml Syringe IVP 10 ml 0100,0900,1700 BENI Administration Tramadol HCl 50 mg 04/24/21 13:46 04/30/21 10:13 Tramadol 50 Mg Tablet PO 50 mg Q4HR PRN Administration PAIN Vancomycin HCl 125 mg 04/28/21 10:00 04/30/21 10:11 Vancomycin 125 Mg Capsule PO 125 mg QID BENI Administration - Physical Exam Wound/Incisions: positive: Healing well, Other (Ecchymosis resolving) General Appearance: positive: Anxious Eyes Bilateral: positive: Normal inspection ENT: positive: ENT inspection nml Respiratory: positive: No respiratory distress Cardiovascular: positive: Regular rate & rhythm Abdomen: positive: Nml bowel sounds, Tenderness Skin: positive: Color nml Extremities: positive: Non-tender, Other (multiple superficial scrapes and bruises) Neurologic/Psychiatric: positive: Oriented x3 ABX Reporting Has patient been on IV antibiotics over the past 48 hours?: Yes Impression/Plan - Problem List Problem List: 1. Nausea - appears to be significantly improved. Considering the events of last night, will stop dronabinol. Patient uses marijuana daily and I believe it is unlikely to be the cause of the issue but will hold for now. Stop reglan and continue zofran 2. Delerium - has a history of anxiety and we have seen similar behavior after colonoscopy. Agree with Haldol. Will benefit from discharge as soon as he is safe. 3. Pneumonia - improving on zosyn and Azythromycin. Will finish the Azythromycin course today and change to po Augmentin. If he is able to tolerate, can consider discharge tomorrow. 4. C.diff colitis - continues on po vanc and tolerating it reasonably well. Will need to continue while on antibiotic and for 10 days beyond. Only 2-3 stools per day. 5. PE question? - remains on therapeutic lovenox with V/Q scan scheduled for today. No CTA due to BOLIVAR 6. BOLIVAR - Creat is stable. Expect gradual normalization of creatinine. UOP appears adequate but difficult to quantify as patient is independent to the bathroom and often flushes with no measurement.
--- NOTE | 2021-04-30 11:45 | Nuclear Medicine Report ---
PROCEDURE: Lung Vent/Perf V/Q INDICATIONS: suspect pe RADIOPHARMACEUTICAL: <2 mCi Tc-99m DTPA aerosol by inhalation and 5.4 mCi Tc-99m MAA intravenously. TECHNIQUE: Ventilation images were obtained first with Tc-99m DTPA aerosol. Subsequently, perfusion images were acquired after intravenous injection of Tc-99m MAA. Anterior, posterior, VALENTINE, COLOMBIAN, RPO, LPO, left and right lateral views were obtained. COMPARISON: Chest x-ray AP, 04/28/2021. FINDINGS: The comparison chest x-ray demonstrates bilateral interstitial infiltrates. No focal conso lidation or pleural effusion. Cardiac silhouette is normal. Technetium 99m DTPA aerosol ventilation images demonstrate central airway deposition of aerosol. Ther e is otherwise normal diffusion of activity. Perfusion images demonstrate minor perfusion irregularities. No pleural-based, segmental or subsegmen adrianna ventilation/perfusion mismatches. IMPRESSION: 1. Very low probability for pulmonary embolism. 2. Central airway deposition of aerosol compatible with reactive airway disease. Reviewed by: Quinn Steen MD on 04/30/2021 11:44 AM PST Approved by: Quinn Steen MD on 04/30/2021 11:44 AM PST Station ID: [id number]
[2021-04-30] MEDS: SCOPOLAMINE PATCH TOP SCH (12:22)
[2021-04-30] MEDS: POTASSIUM CHLOR 10 MEQ/100 ML 10 MEQ/100 ML BAG IV SCH ×4 (12:25→18:17)
[2021-04-30] MEDS ORDERED: POTASSIUM CHLOR 10 MEQ/100 ML 10 MEQ/100 ML BAG IV ONE (17:12)
[2021-05-01] MEDS: SODIUM CHLORIDE 0.9% 1,000 ML IV SCH (03:42)
[2021-05-01] MEDS: SODIUM CHLORIDE FLUSH 0.9% 10 ML SYRINGE IVP SCH (03:42)
[2021-05-01] MEDS: ONDANSETRON ODT 4 MG TABLET TL PRN (04:49)
[2021-05-01] MEDS: traMADol 50 MG TABLET PO PRN (04:49)
[2021-05-01] MEDS: PROMETHAZINE 25 MG TABLET PO PRN (06:28)
[2021-05-01] MEDS: PANTOPRAZOLE 40 MG VIAL IVP SCH (06:28)
[2021-05-01 07:35] LABS: BASOPHILS # (AUTO) 0.1 10^3/uL (0.0-0.1); BASOPHILS % (AUTO) 0.4 %; EOSINOPHILS # (AUTO) 0.3 10^3/uL (0.0-0.7); EOSINOPHILS % (AUTO) 2.3 %; HCT - HEMATOCRIT 31.3 % (42.0-52.0); HGB - HEMOGLOBIN 10.5 g/dL (14.0-18.0); LYMPHOCYTES # (AUTO) 0.9 10^3/uL (1.5-3.5); LYMPHOCYTES % (AUTO) 6.7 %; MEAN CORPUSCULAR HGB CONC 33.5 g/dL (32.0-36.0); MEAN CORPUSCULAR VOLUME 89.4 fL (80.0-94.0); MEAN PLATELET VOLUME 11.4 fL (7.4-11.4); MONOCYTES # (AUTO) 1.4 10^3/uL (0.0-1.0); MONOCYTES % (AUTO) 10.4 %; NEUTROPHILS # (AUTO) 10.9 10^3/uL (1.5-6.6); NEUTROPHILS % (AUTO) 79.3 %; PLT - PLATELET COUNT 275 10^3/uL (130-450); RED CELL DISTRIBUTION WIDTH 13.2 % (12.0-15.0); WHITE BLOOD COUNT 13.7 x10^3/uL (4.8-10.8)
[2021-05-01 07:52] LABS: ALBUMIN 2.8 g/dL (3.2-5.5); ALBUMIN/GLOBULIN RATIO 0.8 (1.0-2.2); BILIRUBIN,TOTAL 0.5 mg/dL (0.2-1.0); CREATININE 1.9 mg/dL (0.6-1.2); POTASSIUM 3.6 mmol/L (3.5-5.0); TOTAL PROTEIN 6.1 g/dL (6.7-8.2)
[2021-05-01 07:57] VITALS: BP 145/96
--- NOTE | 2021-05-01 08:28 | PROVIDER PROGRESS NOTE ---
Assessment/Plan - Problem List (1) C. difficile colitis Assessment/Plan: No diarrhea. Patient is on vancomycin day 4. Discharged today 05/01/2021 (2) Pneumonia Assessment/Plan: WBC today was 13.7. There is an improvement from yesterday when it was 14.8. Patient completed azithromycin today. He was sent home with a prescription of Augmentin 875/125 mg tablets p.o. twice daily x5 more days. (3) Acute kidney injury Assessment/Plan: Renal function continues to improve. Creatinine today was 1.9, BUN 32 estimated GFR 35. Anticipate continued/further improvement. (5) Nausea and vomiting Qualifiers: Vomiting type: unspecified Assessment/Plan: Promethazine and Zofran ordered as needed during discharge. - Current Meds Current Meds: Current Medications Generic Name Dose Route Start Last Admin Trade Name Freq PRN Reason Stop Dose Admin Acetaminophen 650 mg 04/23/21 20:17 04/30/21 18:27 Acetaminophen 325 Mg Tablet PO 650 mg Q4HR PRN Administration Pain 1 to 4 Amoxicillin/Clavulanate Potassium 1 tab 04/30/21 09:00 04/30/21 21:17 Amox/Clav 875 Mg/125 Mg Tablet PO 1 tab BID BENI Administration Azithromycin 500 mg/ Sodium 250 mls @ 250 mls/hr 04/29/21 09:00 04/30/21 11:25 Chloride IV 05/01/21 09:59 Infused DAILY BENI Infusion Sodium Chloride 1,000 mls @ 100 mls/hr 04/29/21 19:00 05/01/21 03:42 Normal Saline 0.9% IV 100 mls/hr .Q10H BENI Administration Lorazepam 0.5 mg 04/27/21 10:10 04/28/21 20:21 Lorazepam 2 Mg/Ml Vial IVP 0.5 mg Q8HR PRN Administration Anxiety Metoclopramide HCl 5 mg 04/25/21 09:22 04/28/21 19:21 Metoclopramide 10 Mg/2 Ml Vial IVP 5 mg Q6HR PRN Administration Nausea / Vomiting Ondansetron HCl 4 mg 04/23/21 20:17 04/28/21 17:36 Ondansetron 4 Mg/2 Ml Vial IVP 4 mg Q6HR PRN Administration Nausea / Vomiting Ondansetron HCl 4 mg 04/30/21 05:57 05/01/21 04:49 Ondansetron Odt 4 Mg Tablet TL 4 mg Q4HR PRN Administration Nausea / Vomiting Pantoprazole Sodium 40 mg 04/25/21 10:00 05/01/21 06:28 Pantoprazole 40 Mg Vial IVP 40 mg QDAC BENI Administration Promethazine HCl 25 mg 04/30/21 08:09 05/01/21 06:28 Promethazine 25 Mg Tablet PO 25 mg Q6HR PRN Administration Nausea / Vomiting Saccharomyces Boulardii 500 mg 04/26/21 17:00 04/30/21 17:14 Saccharomyces Boulardii 250 Mg Capsule PO 500 mg BIDWM BENI Administration Scopolamine HBr 1 patch 04/24/21 14:00 04/30/21 12:22 Scopolamine Patch TOP 1 patch Q3D BENI Administration Sodium Chloride 10 ml 04/23/21 20:17 04/30/21 07:45 Sodium Chloride Flush 0.9% 10 Ml Syringe IVP 30 ml PRN PRN Administration NEEDED PER PROVIDER ORDERS Sodium Chloride 10 ml 04/24/21 01:00 05/01/21 03:42 Sodium Chloride Flush 0.9% 10 Ml Syringe IVP Not Given 0100,0900,1700 BENI Tramadol HCl 50 mg 04/24/21 13:46 05/01/21 04:49 Tramadol 50 Mg Tablet PO 50 mg Q4HR PRN Administration PAIN Vancomycin HCl 125 mg 04/28/21 10:00 04/30/21 21:17 Vancomycin 125 Mg Capsule PO 125 mg QID BENI Administration - Lab Result Fish Bone Diagrams: 05/01/21 07:11 05/01/21 07:11 - Additional Planning My Orders: My Active Orders 04/30/21 08:09 Promethazine [Phenergan] 25 mg PO Q6HR PRN 04/30/21 09:00 Amox/Clav 875/125 [Augmentin 875/125 Tab] 1 tab PO BID 05/01/21 09:00 Enoxaparin [Lovenox] 40 mg SUBQ DAILY Subjective - Subjective Patient Reports: Other (Patient was resting comfortably in bed at time of exam. Complaint of nausea and abdominal pain. Tolerated his breakfast well. Breathing comfortably.) Objective Vital Signs: Vital Signs - 24 hr 04/30/21 04/30/21 05/01/21 16:21 23:45 07:40 Temperature 36.5 C 36.5 C 36.7 C Heart Rate [ 90 88 78 Brachial] Respiratory 18 18 18 Rate Blood Pressure 115/80 125/83 H 145/96 H [Right Brachial artery] O2 Saturation 92 92 93 Oxygen O2 Source Room air I&O (Last 24 Hrs): Intake and Output Totals x24h 04/29/21 04/30/21 05/01/21 23:59 23:59 23:59 Intake Total 2830 2438.333 923.333 Output Total 200 575 575 Balance 2630 1863.333 348.333 General: Alert, Oriented x3, Mild distress HEENT: PERRLA, EOMI Neck: Supple, No JVD Neuro: Alert, Non Focal, Oriented Times 3 Cardiovascular: Regular rate Respiratory: Chest non-tender, No respiratory distress, Other (Mild crackles in lung bases) Abdomen: Normal bowel sounds, Soft Extremities: No clubbing, No cyanosis, No edema - Results Results: Laboratory Results WBC 13.7 x10^3/uL (4.8-10.8) H 05/01/21 07:11 RBC 3.50 10^6/uL (4.70-6.10) L 05/01/21 07:11 Hgb 10.5 g/dL (14.0-18.0) L 05/01/21 07:11 Hct 31.3 % (42.0-52.0) L 05/01/21 07:11 MCV 89.4 fL (80.0-94.0) 05/01/21 07:11 MCH 30.0 pg (27.0-31.0) 05/01/21 07:11 MCHC 33.5 g/dL (32.0-36.0) 05/01/21 07:11 RDW 13.2 % (12.0-15.0) 05/01/21 07:11 Plt Count 275 10^3/uL (130-450) 05/01/21 07:11 MPV 11.4 fL (7.4-11.4) 05/01/21 07:11 Neut # (Auto) 10.9 10^3/uL (1.5-6.6) H 05/01/21 07:11 Lymph # (Auto) 0.9 10^3/uL (1.5-3.5) L 05/01/21 07:11 Mifflin # (Auto) 1.4 10^3/uL (0.0-1.0) H 05/01/21 07:11 Eos # (Auto) 0.3 10^3/uL (0.0-0.7) 05/01/21 07:11 Baso # (Auto) 0.1 10^3/uL (0.0-0.1) 05/01/21 07:11 Absolute Nucleated RBC 0.00 x10^3/uL 05/01/21 07:11 Total Counted 100 04/29/21 05:37 Band Neuts % (Manual) Not Reportable 04/30/21 06:12 Abnorm Lymph % (Manual) Not Reportable 04/30/21 06:12 Nucleated RBC % 0.0 /100WBC 05/01/21 07:11 Neutrophils # (Manual) Not Reportable 04/30/21 06:12 Lymphocytes # (Manual) Not Reportable 04/30/21 06:12 Monocytes # (Manual) Not Reportable 04/30/21 06:12 Eosinophils # (Manual) Not Reportable 04/30/21 06:12 Basophils # (Manual) Not Reportable 04/30/21 06:12 Differential Comment MANUAL=AUTO DIFF 04/30/21 06:12 WBC Morphology NORMAL APPEARANCE (NORMAL) 04/30/21 06:12 Platelet Estimate NORMAL (130-450,000) (NORMAL) 04/30/21 06:12 Platelet Morphology NORMAL APPEARANCE (NORMAL) 04/30/21 06:12 RBC Morph Micro Appear NORMAL APPEARANCE (NORMAL) 04/30/21 06:12 Sodium 140 mmol/L (135-145) 05/01/21 07:11 Potassium 3.6 mmol/L (3.5-5.0) 05/01/21 07:11 Chloride 108 mmol/L (101-111) 05/01/21 07:11 Carbon Dioxide 21 mmol/L (21-32) 05/01/21 07:11 Anion Gap 11.0 (6-13) 05/01/21 07:11 BUN 32 mg/dL (6-20) H 05/01/21 07:11 Creatinine 1.9 mg/dL (0.6-1.2) H 05/01/21 07:11 Estimated GFR (MDRD) 35 (>89) L 05/01/21 07:11 Glucose 148 mg/dL (70-100) H 05/01/21 07:11 Calcium 8.0 mg/dL (8.5-10.3) L 05/01/21 07:11 Total Bilirubin 0.5 mg/dL (0.2-1.0) 05/01/21 07:11 AST 13 IU/L (10-42) 05/01/21 07:11 ALT 20 IU/L (10-60) 05/01/21 07:11 Alkaline Phosphatase 64 IU/L (42-121) 05/01/21 07:11 Troponin I High Sens 160.8 ng/L (2.3-19.7) H* 04/28/21 16:10 Total Protein 6.1 g/dL (6.7-8.2) L 05/01/21 07:11 Albumin 2.8 g/dL (3.2-5.5) L 05/01/21 07:11 Globulin 3.3 g/dL (2.1-4.2) 05/01/21 07:11 Albumin/Globulin Ratio 0.8 (1.0-2.2) L 05/01/21 07:11 Lipase 20 U/L (22-51) L 04/23/21 16:23 Nasal Adenovirus (PCR) NOT DETECTED 04/23/21 20:38 Nasal B. parapertussis DNA (PCR) NOT DETECTED 04/23/21 20:38 Nasal Coronavir 229E PCR NOT DETECTED 04/23/21 20:38 Nasal Coronavir HKU1 PCR NOT DETECTED 04/23/21 20:38 Nasal Coronavir NL63 PCR NOT DETECTED 04/23/21 20:38 Nasal Coronavir OC43 PCR NOT DETECTED 04/23/21 20:38 Nasal Enterovir/Rhinovir PCR NOT DETECTED 04/23/21 20:38 Nasal Influenza B PCR NOT DETECTED 04/23/21 20:38 Nasal Influenza A PCR NOT DETECTED 04/23/21 20:38 Nasal Parainfluen 1 PCR NOT DETECTED 04/23/21 20:38 Nasal Parainfluen 2 PCR NOT DETECTED 04/23/21 20:38 Nasal Parainfluen 3 PCR NOT DETECTED 04/23/21 20:38 Nasal Parainfluen 4 PCR NOT DETECTED 04/23/21 20:38 Nasal RSV (PCR) NOT DETECTED 04/23/21 20:38 Nasal B.pertussis DNA PCR NOT DETECTED 04/23/21 20:38 Nasal C.pneumoniae (PCR) NOT DETECTED 04/23/21 20:38 Isaac Human Metapneumo PCR NOT DETECTED 04/23/21 20:38 Nasal M.pneumoniae (PCR) NOT DETECTED 04/23/21 20:38 Nasal SARS-CoV-2 (PCR) NOT DETECTED 04/23/21 20:38 Stl C. diff Tox B Gene POSITIVE (NEGATIVE) A* 04/26/21 13:22 - Procedures Procedures: Procedures EXCISION OF CECUM, ENDO (03/18/21) EXCISION OF DUODENUM, ENDO, DIAGN (03/18/21) EXCISION OF ESOPHAGUS, ENDO, DIAGN (03/18/21) EXCISION OF STOMACH, ENDO, DIAGN (03/18/21) EXCISION OF TRANSVERSE COLON, ENDO (03/18/21) FLUOROSCOPY OF BILE DUCTS USING HIGH OSMOLAR CONTRAST (04/22/21) RESECTION OF GALLBLADDER, PERCUTANEOUS ENDOSCOPIC APPROACH (04/22/21) ABX Reporting Has patient been on IV antibiotics over the past 48 hours?: Yes
[2021-05-01] MEDS ORDERED: ENOXAPARIN 40 MG/0.4 ML SYRINGE SUBQ SCH (09:00)
[2021-05-01] MEDS: AMOX/CLAV 875 MG/125 MG TABLET PO SCH (09:26)
[2021-05-01] MEDS: SACCHAROMYCES BOULARDII 250 MG CAPSULE PO SCH (09:27)
[2021-05-01] MEDS: VANCOMYCIN 125 MG CAPSULE PO SCH (09:27)
[2021-05-01] MEDS: AZITHROMYCIN INJ 500 MG in SODIUM CHLORIDE 0.9% 250 ML IV SCH (09:29)
--- NOTE | 2021-05-01 11:57 | Discharge Plan ---
Discharge Plan Problem Reviewed?: Yes Disposition: Home, Self Care Condition: Stable Prescriptions: traMADol [Ultram] 50 mg PO Q4HR PRN #20 tablet PRN Reason: Pain Amox/Clav 875/125 [Augmentin 875/125 Tab] 1 tablet PO Q12H 5 Days #10 tablet Saccharomyces Boulardii [Florastor] 500 mg PO BIDWM #60 cap Vancomycin [Vancocin] 125 mg PO QID 15 Days #60 cap Diet: Regular Activity Restrictions: 10 pound lifting limit Shower Restrictions: No Driving Restrictions: Yes (No while needing any pain medication) Assessment: Recurrent biliary colic status post lap ji with intractable nausea and vomiting and pneumonia complicated by acute kidney injury secondary to vancomycin toxicity- all improved and resolving No Smoking: If you smoke, Please STOP! Call for help. Follow-up with: Vanessa Reese MD [Provider Admit Priv/Credential] -
--- NOTE | 2021-05-01 12:02 | DISCHARGE SUMMARY ---
"Discharge Summary Admit Date: 04/23/21 Discharge Date: 05/01/21 Discharging Provider: Mary Ann Primary Care Provider: MATA Ruiz Code Status: Attempt Resuscitation Condition at Discharge: Stable Discharge Disposition: 01 Home, Self Care - DIAGNOSES Admission Diagnoses: Intractable nausea and vomiting Intractable pain Discharge Diagnoses with Status of Each Condition: 1. Intractable nausea and vomiting - resolved 2. Intractable pain - resolved 3. Acute kidney injury - improved 4. Pneumonia- improving - HPI History of Present Illness: lap ji and umbilical hernia repair yesterday. poor pain control and poor nausea control at home. - CONSULTS | PROCEDURES Consultations: Hosptialist Service, PT Procedures: None - HOSPITAL COURSE Hospital Course: Mr. Moya was admitted from the emergency room and taken to the [facility] floor where he received nausea medicine and pain control. Nausea and vomiting continued to be a significant issue over the ensuing 5 days. He had a few ep isodes of delirium and one significant episode of hypertensive crisis.The medicine service was consulted and started him on Lasix. A CT scan of the abdomen was unrevealing for intra-abdominal issues but did show bilateral lower lobe pneumonias. This was confirmed with a chest x-ray and the patient was started on azithromycin in addition to Zosyn.He was also notably C. difficile positive during his admission. He has been getting oral vancomycin and is no longer having diarrhea.He has additionally been receiving probiotic which has helped significantly.2 evenings ago, he had a significant episode of delirium and eloped from the hospital. His was able to reorient him and he came back willingly. Since that time, he has continued to be oriented and his nausea has not been an issue.He was changed to oral antibiotics yesterday in an effort to be sure that he was going to be able to tolerate them and keep them down and he was able to do so. He has also been able to walk around his room and he is tolerating a regular diet again.His labs are normalizing and overall he is much improved.He is discharged to his home in the care of his . He will have a 10 pound lifting limit for the next 6 weeks. He must also not drive a car while he is requiring any pain medication.He can have a general diet as tolerated. - ALLERGIES Allergies/Adverse Reactions: Allergies Allergy/AdvReac Type Severity Reaction Status Date / Time No Known Drug Allergies Allergy Verified 04/23/21 15:56 - MEDICATIONS Home Medications: Ambulatory Orders Medication Instructions Recorded Confirmed Ondansetron Odt [Zofran Odt] 4 mg TL Q6H PRN #10 tablet 04/22/21 04/25/21 Sildenafil Citrate 50 - 100 mg PO DAILY PRN 04/24/21 04/25/21 PROMETHAZINE SUPP Prepack 2 25 mg DE Q6H PRN 04/25/21 04/25/21 [PHENADOZ SUPP Prepack 2] Acetaminophen [Tylenol] 650 mg PO Q4HR PRN tablet 05/01/21 Amox/Clav 875/125 [Augmentin 1 tablet PO Q12H 5 Days #10 tablet 05/01/21 875/125 Tab] Saccharomyces Boulardii [Florastor] 500 mg PO BIDWM #60 cap 05/01/21 Vancomycin [Vancocin] 125 mg PO QID 15 Days #60 cap 05/01/21 traMADol [Ultram] 50 mg PO Q4HR PRN #20 tablet 05/01/21 - PHYSICAL EXAM AT DISCHARGE General Appearance: positive: No acute distress, Alert Eyes Bilateral: positive: Normal inspection, PERRL, EOMI ENT: positive: ENT inspection nml, Pharynx nml, No signs of dehydration Neck: positive: Nml inspection Respiratory: positive: Chest non-tender, No respiratory distress, Breath sounds nml Cardiovascular: positive: Regular rate & rhythm, No murmur Peripheral Pulses: positive: 0 Abdomen: positive: Nml bowel sounds, Tenderness Skin: positive: Color nml Extremities: positive: Full ROM, Other (Superficial abrasions and bruising) Neurologic/Psychiatric: positive: Oriented x3 - LABS Result Diagrams: 05/01/21 07:11 05/01/21 07:11 - QUALITY (Female Hip Fx Only) Was patient sent home on osteoporosis medication?: No - FOLLOW UP Follow Up: [address] Reese at [facility] 1 month with MATA Ruiz - HTN follow up"
== END 2021-05-01 13:12 | disposition home or self-care (01) | DRG 391 ==
LOC: EDUNIT# → ED 15:48 → MS2 20:17 → OBSVTOIN 04-24 13:18
PROVIDERS: ADMIT Surgery; ATTEND Surgery
DX: R11.2 Nausea with vomiting, unspecified (principal); J18.9 Pneumonia, unspecified organism; N17.9 Acute kidney failure, unspecified; Z20.822 Contact with and (suspected) exposure to COVID-19; I16.9 Hypertensive crisis, unspecified; A04.72 Enterocolitis due to Clostridium difficile, not specified as recurrent; G89.18 Other acute postprocedural pain; R10.33 Periumbilical pain; R10.11 Right upper quadrant pain; G89.29 Other chronic pain; R10.12 Left upper quadrant pain; R10.13 Epigastric pain; R10.31 Right lower quadrant pain; F43.22 Adjustment disorder with anxiety; R06.00 Dyspnea, unspecified; R14.0 Abdominal distension (gaseous); R41.0 Disorientation, unspecified; R73.09 Other abnormal glucose; R77.8 Other specified abnormalities of plasma proteins; D72.829 Elevated white blood cell count, unspecified; T36.8X5A Adverse effect of other systemic antibiotics, initial encounter; Y92.239 Unspecified place in hospital as the place of occurrence of the external cause; K21.9 Gastro-esophageal reflux disease without esophagitis; Z90.49 Acquired absence of other specified parts of digestive tract; Z98.890 Other specified postprocedural states
CPT/HCPCS: 36415; 71045; 74176; 74177; 78582; 80053; 83690; 84484; 85025; 87493; 87631; 93005; 96372; 96374; 96375; 96376; 97161; 99284; 99285; A9270; J1170; J1650; J2060; J2765; J3370; J3490; J8499; Q0162; Q0167; Q0169; Q9967; 0202U

== ENCOUNTER 2021-05-04 20:30 | Inpatient (IN) | payer MEDICARE, OTHER ==
[2021-05-04] MEDS ORDERED: SODIUM CHLORIDE 0.9% 1,000 ML IV STA (20:58)
[2021-05-04] MEDS ORDERED: ONDANSETRON 4 MG/2 ML VIAL IVP STA (20:58)
[2021-05-04 21:08] LABS: BASOPHILS # (AUTO) 0.1 10^3/uL (0.0-0.1); BASOPHILS % (AUTO) 0.3 %; EOSINOPHILS # (AUTO) 0.1 10^3/uL (0.0-0.7); EOSINOPHILS % (AUTO) 0.4 %; HCT - HEMATOCRIT 36.8 % (42.0-52.0); HGB - HEMOGLOBIN 12.3 g/dL (14.0-18.0); LYMPHOCYTES # (AUTO) 1.2 10^3/uL (1.5-3.5); LYMPHOCYTES % (AUTO) 7.2 %; MEAN CORPUSCULAR HEMOGLOBIN 30.3 pg (27.0-31.0); MEAN CORPUSCULAR HGB CONC 33.4 g/dL (32.0-36.0); MEAN CORPUSCULAR VOLUME 90.6 fL (80.0-94.0); MONOCYTES # (AUTO) 1.2 10^3/uL (0.0-1.0); MONOCYTES % (AUTO) 6.7 %; NEUTROPHILS # (AUTO) 14.5 10^3/uL (1.5-6.6); NEUTROPHILS % (AUTO) 84.4 %; PLT - PLATELET COUNT 425 10^3/uL (130-450); RED BLOOD COUNT 4.06 10^6/uL (4.70-6.10); RED CELL DISTRIBUTION WIDTH 13.1 % (12.0-15.0); WHITE BLOOD COUNT 17.2 x10^3/uL (4.8-10.8)
[2021-05-04 21:21] LABS: ALBUMIN 3.2 g/dL (3.2-5.5); ALBUMIN/GLOBULIN RATIO 0.8 (1.0-2.2); ALKALINE PHOSPHATASE 86 IU/L (42-121); ALT ALANINE AMINOTRANSFERASE 28 IU/L (10-60); AST ASPARTATE AMINOTRANSFERASE 25 IU/L (10-42); BILIRUBIN,TOTAL 0.8 mg/dL (0.2-1.0); BUN - BLOOD UREA NITROGEN 17 mg/dL (6-20); CALCIUM 8.8 mg/dL (8.5-10.3); CARBON DIOXIDE - CO2 29 mmol/L (21-32); CHLORIDE 102 mmol/L (101-111); CREATININE 1.6 mg/dL (0.6-1.2); ETOH - ETHANOL < 5.0 mg/dL; GFR - MDRD 43 (>89); GLUCOSE 132 mg/dL (70-100); LIPASE 29 U/L (22-51); POTASSIUM 3.1 mmol/L (3.5-5.0); SODIUM 142 mmol/L (135-145); TOTAL PROTEIN 7.2 g/dL (6.7-8.2)
[2021-05-04] MEDS ORDERED: IOPAMIDOL-300 100 ML VIAL ONE (21:33)
[2021-05-04 21:44] LABS: INR 1.5 (0.8-1.2); PT - PROTHROMBIN TIME 16.2 secs (9.9-12.6)
[2021-05-04 22:17] LABS: MUDS CUTOFF CONCENTRATIONS CUTOFF CONC BELOW:
[2021-05-04 22:19] LABS: BILIRUBIN,URINE NEGATIVE (NEGATIVE); GLUCOSE, URINE (UA) NEGATIVE (NEGATIVE); KETONES,URINE (UA) NEGATIVE (NEGATIVE); LEUKOCYTE ESTERASE, URINE NEGATIVE (NEGATIVE); NITRITE,URINE NEGATIVE (NEGATIVE); OCCULT BLOOD,URINE SMALL (NEGATIVE); PROTEIN,URINE NEGATIVE (NEGATIVE); UROBILINOGEN,URINE 0.2 (NORMAL) E.U./dL (NORMAL)
[2021-05-04] MEDS ORDERED: IOPAMIDOL-300 100 ML VIAL IVP ONE (22:22)
[2021-05-04 22:25] LABS: CLARITY,URINE HAZY (CLEAR)
[2021-05-04 22:30] LABS: AMPHETAMINE SCREEN,URINE NEGATIVE (NEGATIVE); BARBITURATE SCREEN,UR NEGATIVE (NEGATIVE); BENZODIAZEPINES SCREEN, URINE NEGATIVE (NEGATIVE); COCAINE SCREEN URINE NEGATIVE (NEGATIVE); METHADONE SCREEN, URINE NEGATIVE (NEGATIVE); METHAMPHETAMINES SCREEN, URINE NEGATIVE (NEGATIVE); OPIATE SCREEN, URINE NEGATIVE (NEGATIVE); OXYCODONE SCREEN, URINE NEGATIVE (NEGATIVE); PROPOXYPHENE SCREEN, URINE NEGATIVE (NEGATIVE); THC CANNABINOID SCREEN, URINE POSITIVE (NEGATIVE); TRICYCLIC ANTIDEPRESSANT,URINE NEGATIVE (NEGATIVE)
[2021-05-04 22:34] LABS: BACTERIA,URINE Few /HPF (None Seen); SQUAMOUS EPITHELIAL CELL,UR MOD Squamous (<= Few); WBC,URINE 0-3 /HPF (0-3)
--- NOTE | 2021-05-04 22:50 | CT Report ---
PROCEDURE: Abdomen/Pelvis W INDICATIONS: ABD pain CONTRAST: IV CONTRAST: Isovue 300 ml: 100 PO CONTRAST: *NO PO CONTRAST TECHNIQUE: After the administration of intravenous contrast, 5 mm thick sections acquired from the diaphragms to the symphysis. 5 mm thick coronal and sagittal reformats were acquired. For radiation dose reducti on, the following was used: automated exposure control, adjustment of mA and/or kV according to erna ent size. COMPARISON: 04/23/2021, 04/28/2021. FINDINGS: Image quality: Excellent. ABDOMEN: Lung bases: Question enlarged infrahilar lymph nodes on the right on image 1 of series 3. Moderate bi lateral pleural effusions with associated compressive bibasilar atelectasis. Heart size is normal. Solid organs: Liver and spleen are normal in size and enhancement. Gallbladder is surgically absent . No significant gallbladder fossa collection. Biliary system is non dilated. Pancreas enhances nor jaqueline. No adrenal nodules. Kidneys demonstrate normal size and enhancement, without hydronephrosis. Peritoneum and bowel: Bowel loops demonstrate normal wall thickness and caliber. No free fluid or a ir. Mild diverticulosis without evidence of diverticulitis. Nodes and vessels: No retroperitoneal or mesenteric adenopathy by size criteria. Aorta is ectatic bu t not frankly aneurysmal. Inferior vena cava is normal in caliber. Miscellaneous: No ventral hernias. PELVIS: Genitourinary: Bladder wall thickness is normal. Miscellaneous: Small fat-containing left inguinal hernia. No inguinal adenopathy. Bones: No lytic or blastic bony lesions. No acute compression fractures. Lumbar degenerative change. IMPRESSION: 1. Question enlarged right infrahilar lymph node, seen on superiormost image. 2. Moderate bilateral pleural effusions and associated bibasilar atelectasis. 3. Diverticulosis without evidence of diverticulitis. 4. Small left inguinal hernia. 5. Recent cholecystectomy with no evidence of complications. Reviewed by: Carlos Neal MD on 05/04/2021 10:49 PM PST Approved by: Carlos Neal MD on 05/04/2021 10:49 PM PST Station ID: [id number]
[2021-05-04 23:09] LABS: CORONAVIRUS 229E-RESP PCR NOT DETECTED; CORONAVIRUS HKU1-RESP PCR NOT DETECTED; CORONAVIRUS NL63-RESP PCR NOT DETECTED; CORONAVIRUS OC43-RESP PCR NOT DETECTED; HUMAN METAPNEUMOVIRUS NOT DETECTED; RHINOVIRUS/ENTEROVIRUS NOT DETECTED; SARS-CoV-2 -RESP PCR PANEL NOT DETECTED
[2021-05-04 23:10] LABS: B. PARAPERTUSSIS- RESP PCR PAN NOT DETECTED; B. PERTUSSIS- RESP PCR PANEL NOT DETECTED; C. PNEUMONIAE- RESP PCR PANEL NOT DETECTED; INFLUENZA A- RESP PCR PANEL NOT DETECTED; INFLUENZA B - RESP PCR PANEL NOT DETECTED; M. PNEUMONIAE- RESP PCR PANEL NOT DETECTED; PARAINFLUENZA VIRUS 1 NOT DETECTED; PARAINFLUENZA VIRUS 2 NOT DETECTED; PARAINFLUENZA VIRUS 3 NOT DETECTED; PARAINFLUENZA VIRUS 4 NOT DETECTED; RSV- RESP PCR PANEL NOT DETECTED
--- NOTE | 2021-05-05 00:09 | HISTORY & PHYSICAL EXAMINATION ---
Chief Complaint - Chief Complaint Chief Complaint: N/V History of Present Illness - Admitted From Admitted From:: ED - History Obtained From History obtained from: ED roninfader and the patient - History of Present Illness HPI Comment/Other: This is a 70-year-old white male with a history of hypertension, Hepatitis C, and chronic abdominal pain for 12 years. He recently had GB surgery here and was discharged but required readmission the next day (04/23/21) for over a week, for intractable N/V and abdominal pain and also had BOLIVAR, pneumonia, delirium (and obsconded from the hospital but returned voluntarily) and C.diff diarrhea. He was sent home 3 days ago to finish taking oral Vanco, probiotics and Augmentin for the pneumonia. His diarrhea stopped. He redeveloped intractable N/V and mild abdominal pain again and presented to the ER. He was found to be dehydrated and his WBC was rising (17, compared to 13 at discharge). His creat is normal but troponin is elevated at 153. He was given antiemetics and continues to have N/V. He is being placed in Observation status to manage dehydration and intractable N/V. Of note, his tox screen today is (+) for marijuana. Also, he desaturated in the ED to 91% on r.a. and was placed on sipplemental O2 via n.c. History - Past Medical History Cardiovascular: reports: None Respiratory: reports: None Neuro: reports: None Endocrine/Autoimmune: reports: None GI: reports: GERD, C.difficile, Hepatitis : reports: None HEENT: reports: None Psych: reports: Anxiety Musculoskeletal: reports: None, Other Derm: reports: None MRSA Hx?: No - Past Surgical History General: reports: Cholecystectomy, Colonoscopy, Other Ortho: reports: Arthroscopic surgery - Family & Social History Living arrangement: At home Living Situation: With spouse/s.o. - POLST Patient has POLST: No Meds/Allgy - Home Medications Home Medications: Ambulatory Orders Medication Instructions Recorded Confirmed Ondansetron Odt [Zofran Odt] 4 mg TL Q6H PRN #10 tablet 04/22/21 04/25/21 Sildenafil Citrate 50 - 100 mg PO DAILY PRN 04/24/21 04/25/21 PROMETHAZINE SUPP Prepack 2 25 mg [place] Q6H PRN 04/25/21 04/25/21 [PHENADOZ SUPP Prepack 2] Acetaminophen [Tylenol] 650 mg PO Q4HR PRN tablet 05/01/21 Amox/Clav 875/125 [Augmentin 1 tablet PO Q12H 5 Days #10 tablet 05/01/21 875/125 Tab] Saccharomyces Boulardii [Florastor] 500 mg PO BIDWM #60 cap 05/01/21 Vancomycin [Vancocin] 125 mg PO QID 15 Days #60 cap 05/01/21 traMADol [Ultram] 50 mg PO Q4HR PRN #20 tablet 05/01/21 dronabinoL [Marinol] 2.5 mg [place] BIDAC PRN #14 cap 05/02/21 - Allergies Allergies/Adverse Reactions: Allergies Allergy/AdvReac Type Severity Reaction Status Date / Time No Known Drug Allergies Allergy Verified 04/23/21 15:56 Review of Systems - Gastrointestinal Gastrointestinal: reports: Abdominal pain, Nausea, Vomiting Exam - Vital Signs Reviewed Vital Signs: Yes Vital Signs: Vital Signs x48h Temp Pulse Resp BP Pulse Ox 05/05/21 00:00 108 H 175/115 H 91 L 05/04/21 21:30 94 177/112 H 94 05/04/21 20:34 36.6 C 111 H 26 H 151/114 H 95 - Physical Exam General Appearance: positive: Mild distress Eyes Bilateral: positive: Normal inspection ENT: positive: Dry mucous membranes Neck: positive: Nml inspection, No JVD Respiratory: positive: No respiratory distress Cardiovascular: positive: Regular rate & rhythm, No murmur Abdomen: positive: No distention Skin: positive: Warm, Dry Extremities: positive: Non-tender, No pedal edema Neurologic/Psychiatric: positive: Oriented x3 (Non-focal) Conclusion/Plan - Problem List (1) Intractable nausea and vomiting Conclusion/Plan: Will order n.p.o. except chips and sips, for bowel rest. Start iv fluids. Will order IV antiemetics for symptom control. There is concern that he may have hyperemesis from marijuana use or the (+) tox for marijuana may be from his taking marinol (which is a cannibis) (2) Elevated WBC count Conclusion/Plan: Etiology unclear. CT of the abdomen did not show any source for potential infection. The bases of the lungs were also seen and no longer report any infiltrate (even with his recent pneumonia). Possibly this is from stress of persistent nausea vomiting. Will monitor CBC daily Qualifiers: Leukocytosis type: unspecified Qualified Code(s): D72.829 - Elevated white blood cell count, unspecified (3) Hypertension Conclusion/Plan: He had marked hypertension during the last hospitalization. Will use IV meds for blood pressure control now and resume any home BP meds when he is able to tolerate a diet and when med list reconciled. (4) Elevated troponin Conclusion/Plan: He has moderate elevation of troponin at 153, and this was similar during the last hospitalization when he had troponins in the 160 range however they were flat. EKG is unremarkable. Will place on telemetry and monitor serial troponins. We will consider obtaining an Echo if it was not done at the last hospitalization (5) Hypokalemia Conclusion/Plan: Likely related to GI losses. We will replace with IV K riders. Follow BMP and magnesium daily (6) Pleural effusion Conclusion/Plan: He is desaturating mildly, down to 91% on room air and is mildly tachypneic. His lung bases by CT of the abdomen were read as having moderate bilateral pleural effusions. These may be parapneumonic or from iv fluids given at the last hospitalization and he did require Lasix during that last hospitalization for fluid overload. Howvwem he currently needs IV fluid replacement, therefore will not start Lasix. Will order incentive spirometry (7) History of Clostridium difficile colitis Conclusion/Plan: He was sent home 3 days ago to finish a 7-day course of vancomycin, and it is unclear if he has finished this or whether he even took any since he was vomiting. No stool will be sent for sample since he has no diarrhea. We will continue empirically with his probiotics when he can take a diet - Lab Results Fish Bones: 05/04/21 21:03 05/04/21 21:03 - Diagnostic Imaging Results Diagnostic Imaging Results: positive: Final report reviewed
[2021-05-05] MEDS ORDERED: MORPHINE 2 MG/ML CARPUJECT IVP STA (00:22)
[2021-05-05] MEDS: hydrALAZINE INJ 20 MG/ML VIAL IVP PRN (00:57)
[2021-05-05] MEDS: PROCHLORPERAZINE 10 MG/2 ML VIAL IVP PRN (00:57)
[2021-05-05] MEDS: D5NS W/20 MEQ KCL 1,000 ML IV SCH ×3 (01:00→22:12)
[2021-05-05] MEDS: POTASSIUM CHLOR 10 MEQ/100 ML 10 MEQ/100 ML BAG IV SCH ×4 (01:00→04:41)
[2021-05-05] MEDS: SODIUM CHLORIDE FLUSH 0.9% 10 ML SYRINGE IVP SCH ×4 (01:00→23:26)
--- NOTE | 2021-05-05 01:04 | XRAY Report ---
PROCEDURE: Chest 1 View X-Ray INDICATIONS: chest pain TECHNIQUE: One view of the chest was acquired. COMPARISON: 04/28/2021 FINDINGS: Surgical changes and devices: None. Lungs and pleura: No pleural effusions or pneumothorax. Interstitial pulmonary edema. Consider super imposed pneumonia, right greater than left. Cannot exclude a suprahilar right lung mass. Mediastinum: Mediastinal contours appear normal. Heart size is normal. Bones and chest wall: No suspicious bony lesions. Overlying soft tissues appear unremarkable. IMPRESSION: 1. Interstitial pulmonary edema. 2. Question superimposed pneumonia. 3. Cannot exclude a suprahilar right lung mass. Reviewed by: Cralos Neal MD on 05/05/2021 1:02 AM [facility] Approved by: Carlos Neal MD on 05/05/2021 1:02 AM [facility] Station ID: [id number]
[2021-05-05] MEDS: HYDROmorphone 0.5 MG/0.5 ML SYRINGE IVP PRN ×4 (01:17→17:35)
[2021-05-05] MEDS ORDERED: METOPROLOL 5 MG/5 ML VIAL IVP STA (01:58)
--- NOTE | 2021-05-05 02:08 | ED Physician Documentation ---
PD HPI ABD PAIN - Stated complaint Stated Complaint: ABDOMINAL PX, NAUSEA, VOM - Chief complaint Chief Complaint: General - History obtained from History obtained from: Patient - Additional information Additional information: Patient is 70-year-old male presenting to the emergency department with abdominal pain, nausea, vomiting. Patient reports a history 12 years of left- sided abdominal pain as well as history hepatitis C. Was hospitalized at our facility 04/22 for cholecystectomy for chronic cholecystitis. Subsequently returned 04/23 for intractable nausea, vomiting and was hospitalized at our facility until 05/01. Hospitalization was complicated by C. difficile colitis, pneumonia and a reported episode of acute delirium. Patient returns today reporting ongoing abdominal pain, nausea, vomiting, inability to tolerate p.o. intake at home. Denies any ongoing diarrhea. Denies any chest pain or shortness of breath. Review of Systems Ten Systems: 10 systems reviewed and negative Constitutional: denies: Fever Cardiac: denies: Chest pain / pressure, Palpitations Respiratory: denies: Dyspnea, Cough GI: reports: Abdominal Pain, Nausea, Vomiting. denies: Diarrhea : denies: Dysuria Skin: denies: Rash PD PAST MEDICAL HISTORY - Past Medical History Cardiovascular: None Respiratory: None Neuro: None Endocrine/Autoimmune: None GI: GERD, C.difficile, Hepatitis : None HEENT: None Psych: Anxiety Musculoskeletal: None, Other Derm: None - Past Surgical History Past Surgical History: Yes General: Cholecystectomy, Colonoscopy, Other Ortho: Arthroscopic surgery - Present Medications Home Medications: Ambulatory Orders Medication Instructions Recorded Confirmed Ondansetron Odt [Zofran Odt] 4 mg TL Q6H PRN #10 tablet 04/22/21 04/25/21 Sildenafil Citrate 50 - 100 mg PO DAILY PRN 04/24/21 04/25/21 PROMETHAZINE SUPP Prepack 2 25 mg [place] Q6H PRN 04/25/21 04/25/21 [PHENADOZ SUPP Prepack 2] Acetaminophen [Tylenol] 650 mg PO Q4HR PRN tablet 05/01/21 Amox/Clav 875/125 [Augmentin 1 tablet PO Q12H 5 Days #10 tablet 05/01/21 875/125 Tab] Saccharomyces Boulardii [Florastor] 500 mg PO BIDWM #60 cap 05/01/21 Vancomycin [Vancocin] 125 mg PO QID 15 Days #60 cap 05/01/21 traMADol [Ultram] 50 mg PO Q4HR PRN #20 tablet 05/01/21 dronabinoL [Marinol] 2.5 mg [place] BIDAC PRN #14 cap 05/02/21 - Allergies Allergies/Adverse Reactions: Allergies Allergy/AdvReac Type Severity Reaction Status Date / Time No Known Drug Allergies Allergy Verified 04/23/21 15:56 - Social History Does the pt smoke?: No Smoking Status: Former smoker Does the pt drink ETOH?: No Does the pt have substance abuse?: No - Immunizations Immunizations are current?: Yes - POLST Patient has POLST: No PD ED PE EXPANDED - General General: Disheveled, poorly kept, In Pain, In distress - HEENT HEENT: Dry mucous membranes - Abdomen Abdomen: Normal Bowel sounds, Tender to palpation, Surgical scars (For trochanter sites identified, clean, dry, no indications of infection.). No: Distended, Rebound, Guarding, Mass Results - Vitals Vitals: Vital Signs - 24 hr 05/04/21 05/04/21 20:34 21:30 Temperature 36.6 C Heart Rate 111 H 94 Respiratory 26 H Rate Blood Pressure 151/114 H 177/112 H O2 Saturation 95 94 Oxygen O2 Source Room air - EKG (time done) 2119 Rate: Rate (enter#) (99) Rhythm: NSR [place]: Normal Intervals: Normal TX, QRS normal. No: Prolonged QT QRS: Normal Ischemia: Non specific changes Other comments: Other comments (Sinus rhythm with rate 99 bpm. Normal axis. Normal TX, QRS, QTc intervals. Nonspecific ST changes. Significant motion artifact throughout.) 2212 Other comments: Other comments (Sinus rhythm with rate 106 bpm. Normal axis. Normal TX, QRS, QTc intervals. No ST segment elevations. Some ST depressions noted in the precordial leads, most prominently V4-V5. Again persistent motion artifact. No significant change from previous.) - Labs Labs: Laboratory Tests 05/04/21 05/04/21 05/04/21 00:07 21:03 21:03 WBC 17.2 H RBC 4.06 L Hgb 12.3 L Hct 36.8 L MCV 90.6 MCH 30.3 MCHC 33.4 RDW 13.1 Plt Count 425 MPV 11.0 Neut # (Auto) 14.5 H Lymph # (Auto) 1.2 L [place] # (Auto) 1.2 H Eos # (Auto) 0.1 Baso # (Auto) 0.1 Absolute Nucleated RBC 0.00 Nucleated RBC % 0.0 PT INR Sodium 142 Potassium 3.1 L Chloride 102 Carbon Dioxide 29 Anion Gap 11.0 BUN 17 Creatinine 1.6 H Estimated GFR (MDRD) 43 L Glucose 132 H Lactic Acid Calcium 8.8 Total Bilirubin 0.8 AST 25 ALT 28 Alkaline Phosphatase 86 Troponin I High Sens 145.8 H* Total Protein 7.2 Albumin 3.2 Globulin 4.0 Albumin/Globulin Ratio 0.8 L Lipase 29 Urine Color Urine Clarity Urine pH Ur Specific [place] Urine Protein Urine Glucose (UA) Urine Ketones Urine Occult Blood Urine Nitrite Urine Bilirubin Urine Urobilinogen Ur Leukocyte Esterase Urine RBC Urine WBC Ur Squamous Epith Cells Urine Bacteria Ur Microscopic Review Urine Culture Comments Nasal Adenovirus (PCR) Nasal B. parapertussis DNA (PCR) Nasal Coronavir 229E PCR Nasal Coronavir HKU1 PCR Nasal Coronavir NL63 PCR Nasal Coronavir OC43 PCR Nasal Enterovir/Rhinovir PCR Nasal Influenza B PCR Nasal Influenza A PCR Nasal Parainfluen 1 PCR Nasal Parainfluen 2 PCR Nasal Parainfluen 3 PCR Nasal Parainfluen 4 PCR Nasal RSV (PCR) Nasal B.pertussis DNA PCR Nasal C.pneumoniae (PCR) Isaac Human Metapneumo PCR Nasal M.pneumoniae (PCR) Nasal SARS-CoV-2 (PCR) Urine Opiates Screen Ur Oxycodone Screen Urine Methadone Screen Ur Propoxyphene Screen Ur Barbiturates Screen Ur Tricyclics Screen Ur Phencyclidine Scrn Ur Amphetamine Screen U Methamphetamines Scrn U Benzodiazepines Scrn Urine Cocaine Screen U Cannabinoids Screen Ethyl Alcohol < 5.0 05/04/21 05/04/21 05/04/21 21:03 21:29 21:29 WBC RBC Hgb Hct MCV MCH MCHC RDW Plt Count MPV Neut # (Auto) Lymph # (Auto) [place] # (Auto) Eos # (Auto) Baso # (Auto) Absolute Nucleated RBC Nucleated RBC % PT 16.2 H INR 1.5 H Sodium Potassium Chloride Carbon Dioxide Anion Gap BUN Creatinine Estimated GFR (MDRD) Glucose Lactic Acid 1.0 Calcium Total Bilirubin AST ALT Alkaline Phosphatase Troponin I High Sens 153.6 H* Total Protein Albumin Globulin Albumin/Globulin Ratio Lipase Urine Color Urine Clarity Urine pH Ur Specific [place] Urine Protein Urine Glucose (UA) Urine Ketones Urine Occult Blood Urine Nitrite Urine Bilirubin Urine Urobilinogen Ur Leukocyte Esterase Urine RBC Urine WBC Ur Squamous Epith Cells Urine Bacteria Ur Microscopic Review Urine Culture Comments Nasal Adenovirus (PCR) Nasal B. parapertussis DNA (PCR) Nasal Coronavir 229E PCR Nasal Coronavir HKU1 PCR Nasal Coronavir NL63 PCR Nasal Coronavir OC43 PCR Nasal Enterovir/Rhinovir PCR Nasal Influenza B PCR Nasal Influenza A PCR Nasal Parainfluen 1 PCR Nasal Parainfluen 2 PCR Nasal Parainfluen 3 PCR Nasal Parainfluen 4 PCR Nasal RSV (PCR) Nasal B.pertussis DNA PCR Nasal C.pneumoniae (PCR) Isaac Human Metapneumo PCR Nasal M.pneumoniae (PCR) Nasal SARS-CoV-2 (PCR) Urine Opiates Screen Ur Oxycodone Screen Urine Methadone Screen Ur Propoxyphene Screen Ur Barbiturates Screen Ur Tricyclics Screen Ur Phencyclidine Scrn Ur Amphetamine Screen U Methamphetamines Scrn U Benzodiazepines Scrn Urine Cocaine Screen U Cannabinoids Screen Ethyl Alcohol 05/04/21 05/04/21 22:10 22:10 WBC RBC Hgb Hct MCV MCH MCHC RDW Plt Count MPV Neut # (Auto) Lymph # (Auto) [place] # (Auto) Eos # (Auto) Baso # (Auto) Absolute Nucleated RBC Nucleated RBC % PT INR Sodium Potassium Chloride Carbon Dioxide Anion Gap BUN Creatinine Estimated GFR (MDRD) Glucose Lactic Acid Calcium Total Bilirubin AST ALT Alkaline Phosphatase Troponin I High Sens Total Protein Albumin Globulin Albumin/Globulin Ratio Lipase Urine Color YELLOW Urine Clarity HAZY Urine pH 7.0 Ur Specific [place] 1.015 Urine Protein NEGATIVE Urine Glucose (UA) NEGATIVE Urine Ketones NEGATIVE Urine Occult Blood SMALL H Urine Nitrite NEGATIVE Urine Bilirubin NEGATIVE Urine Urobilinogen 0.2 (NORMAL) Ur Leukocyte Esterase NEGATIVE Urine RBC 6-10 H Urine WBC 0-3 Ur Squamous Epith Cells MOD Squamous H Urine Bacteria Few Ur Microscopic Review INDICATED Urine Culture Comments NOT INDICATED Nasal Adenovirus (PCR) NOT DETECTED Nasal B. parapertussis DNA (PCR) NOT DETECTED Nasal Coronavir 229E PCR NOT DETECTED Nasal Coronavir HKU1 PCR NOT DETECTED Nasal Coronavir NL63 PCR NOT DETECTED Nasal Coronavir OC43 PCR NOT DETECTED Nasal Enterovir/Rhinovir PCR NOT DETECTED Nasal Influenza B PCR NOT DETECTED Nasal Influenza A PCR NOT DETECTED Nasal Parainfluen 1 PCR NOT DETECTED Nasal Parainfluen 2 PCR NOT DETECTED Nasal Parainfluen 3 PCR NOT DETECTED Nasal Parainfluen 4 PCR NOT DETECTED Nasal RSV (PCR) NOT DETECTED Nasal B.pertussis DNA PCR NOT DETECTED Nasal C.pneumoniae (PCR) NOT DETECTED Isaac Human Metapneumo PCR NOT DETECTED Nasal M.pneumoniae (PCR) NOT DETECTED Nasal SARS-CoV-2 (PCR) NOT DETECTED Urine Opiates Screen NEGATIVE Ur Oxycodone Screen NEGATIVE Urine Methadone Screen NEGATIVE Ur Propoxyphene Screen NEGATIVE Ur Barbiturates Screen NEGATIVE Ur Tricyclics Screen NEGATIVE Ur Phencyclidine Scrn NEGATIVE Ur Amphetamine Screen NEGATIVE U Methamphetamines Scrn NEGATIVE U Benzodiazepines Scrn NEGATIVE Urine Cocaine Screen NEGATIVE U Cannabinoids Screen POSITIVE H Ethyl Alcohol PD MEDICAL DECISION MAKING - ED course Complexity details: reviewed old records, reviewed results, re-evaluated patient, d/w patient, d/w residential solar consultant ED course: Patient is a 70-year-old male presenting to the emergency department with chief complaints of abdominal pain, nausea and vomiting that have been persistent for the last 2 days. Patient has a somewhat complicated medical history. Known history of hepatitis C. He also endorsed for history of 12 years of chronic abdominal pain. Recently underwent cholecystectomy 04/22 at our facility. Was subsequently hospitalized the next day for intractable abdominal pain, nausea and vomiting. Hospitalization was also complicated by C. difficile colitis and pneumonia. On arrival to the emergency department today patient was tachycardic and mildly tachypneic but was initially maintaining adequate oxygen saturations on room air. Physical exam did demonstrate some mild abdominal tenderness without guarding, rebound, rigidity or indications of peritoneal irritation. He did have 4 identifiable previous trochanter insertion sites at all. Clean, dry without indications of infection. Comprehensive labs were obtained which demonstrated a significant uptrending leukocytosis as well as a mild elevation in high-sensitivity troponin. Initial and repeat EKGs did have significant motion artifact but no clear indication of cardiac ischemia and patient denied chest pain or shortness of breath. He was given medication for pain and nausea as well as IV hydration in the emergency department. His electrolytes were generally within normal limits and his renal function did appear improved from his previous measurement approximately 2 days ago. However his abdominal pain and nausea remained intractable. I did discuss his case with the hospitalist service who agreed to hospitalize the patient for further evaluation and treatment. On reevaluation however I did find that the patient was newly hypoxic, with oxygen saturations in the low to mid 80s. He was placed on 4 L nasal cannula. I did obtain a chest x-ray which is pending at this time. At this time he will be hospitalized for further evaluation and treatment. Departure - Departure Disposition: 66 [facility] DC/Jordi Clinical Impression: Intractable nausea and vomiting Condition: Fair
[2021-05-05] MEDS: SODIUM CHLORIDE FLUSH 0.9% 10 ML SYRINGE IVP PRN ×3 (04:03→13:26)
[2021-05-05 06:34] LABS: BASOPHILS # (AUTO) 0.1 10^3/uL (0.0-0.1); BASOPHILS % (AUTO) 0.4 %; EOSINOPHILS # (AUTO) 0.1 10^3/uL (0.0-0.7); EOSINOPHILS % (AUTO) 0.3 %; HCT - HEMATOCRIT 32.9 % (42.0-52.0); HGB - HEMOGLOBIN 10.7 g/dL (14.0-18.0); LYMPHOCYTES # (AUTO) 1.4 10^3/uL (1.5-3.5); LYMPHOCYTES % (AUTO) 7.6 %; MEAN CORPUSCULAR HEMOGLOBIN 29.4 pg (27.0-31.0); MEAN CORPUSCULAR HGB CONC 32.5 g/dL (32.0-36.0); MEAN CORPUSCULAR VOLUME 90.4 fL (80.0-94.0); MEAN PLATELET VOLUME 10.8 fL (7.4-11.4); MONOCYTES # (AUTO) 1.5 10^3/uL (0.0-1.0); MONOCYTES % (AUTO) 7.7 %; NEUTROPHILS # (AUTO) 15.8 10^3/uL (1.5-6.6); NEUTROPHILS % (AUTO) 83.1 %; PLT - PLATELET COUNT 380 10^3/uL (130-450); RED BLOOD COUNT 3.64 10^6/uL (4.70-6.10); RED CELL DISTRIBUTION WIDTH 13.2 % (12.0-15.0)
[2021-05-05 06:45] LABS: CALCIUM 8.4 mg/dL (8.5-10.3); CREATININE 1.4 mg/dL (0.6-1.2); MAGNESIUM 2.3 mg/dL (1.7-2.8); POTASSIUM 3.9 mmol/L (3.5-5.0)
--- NOTE | 2021-05-05 07:41 | PROVIDER PROGRESS NOTE ---
Assessment/Plan - Problem List (1) Intractable nausea and vomiting Assessment/Plan: Etiology undetermined. However patient recently underwent a cholecystectomy. Zofran, Phenergan and Reglan have been ordered as needed. Patient's toxicology was positive for marijuana however he maintains that he has not used any since last discharge. (2) Elevated WBC count Qualifiers: Leukocytosis type: unspecified Qualified Code(s): D72.829 - Elevated white blood cell count, unspecified Assessment/Plan: White blood cell count on admission was 17.2. Today white blood cell count is 19. Patient was treated for C. difficile colitis and possible pneumonia during last admission. He was discharged with 5 days worth of vancomycin 125 mg p.o. 4 times daily and Augmentin 875/125 mg p.o. twice daily. It is possible that patient has not been able to keep this antibiotics down due to nausea and vomiting. We will resume the above antibiotics while administering IV antiemetics. Blood cultures obtained. (3) Hypokalemia Assessment/Plan: Resolved. Patient was administered 40 mEq of potassium chloride IV over 4 hours. Potassium level is 3.9 currently. (4) History of Clostridium difficile colitis Assessment/Plan: Patient is to complete 5 days worth of vancomycin 125 mg p.o. 4 times daily. This has been resumed. (5) Pleural effusion Assessment/Plan: Grade bilateral pleural effusions noted on CT of abdomen pelvis which was done at the ED. This may be parapneumonic or secondary to IV fluids. Will consider IR consult for thoracentesis tomorrow 05/06/2021. (6) Elevated troponin Assessment/Plan: Troponin was 168.4. This usually correlates with very high blood pressures. 2D echocardiogram ordered for the morning. (7) Hypertension Assessment/Plan: Hydralazine 10 mg IV every 6 hours as needed for systolic blood pressure greater than 160 - Current Meds Current Meds: Current Medications Generic Name Dose Route Start Last Admin Trade Name Freq PRN Reason Stop Dose Admin Hydralazine HCl 10 mg 05/05/21 00:30 05/05/21 00:57 Hydralazine Inj 20 Mg/Ml Vial IVP 10 mg Q6H PRN Administration Hypertensive Emergency Hydromorphone HCl 0.5 mg 05/05/21 00:35 05/05/21 04:02 Hydromorphone 0.5 Mg/0.5 Ml Syringe IVP 0.5 mg Q3H PRN Administration PAIN 5-7 Potassium Chloride/Dextrose/Sod Cl 1,000 mls @ 100 mls/hr 05/05/21 01:00 05/05/21 06:09 D5ns W/20 Meq Kcl IV 100 mls/hr .Q10H BENI Infusion Prochlorperazine Edisylate 10 mg 05/05/21 00:01 05/05/21 00:57 Prochlorperazine 10 Mg/2 Ml Vial IVP 10 mg Q6HR PRN Administration Nausea / Vomiting Sodium Chloride 10 ml 05/05/21 00:01 05/05/21 04:03 Sodium Chloride Flush 0.9% 10 Ml Syringe IVP 10 ml PRN PRN Administration NEEDED PER PROVIDER ORDERS Sodium Chloride 10 ml 05/05/21 01:00 05/05/21 01:00 Sodium Chloride Flush 0.9% 10 Ml Syringe IVP 10 ml 0100,0900,1700 BENI Administration - Lab Result Fish Bone Diagrams: 05/05/21 06:11 05/05/21 06:11 - Additional Planning My Orders: My Active Orders 05/05/21 07:39 CULTURE, BLOOD #1 [RM] Routine CULTURE, BLOOD #2 [RM] Routine Promethazine [Phenergan] 25 mg PO Q6HR PRN Subjective - Subjective Patient Reports: Other (He was resting comfortably in bed at time of exam however he appeared exhausted. He reported slight improvement in nausea. Denied any vomiting since admission. He rated his abdominal pain 5 out of 10. Denied dyspnea or chest pain. WBC this morning was 19. Denied marijuana use since discharge) Objective Vital Signs: Vital Signs - 24 hr 05/04/21 05/04/21 05/05/21 20:34 21:30 00:00 Temperature 36.6 C Heart Rate 111 H 94 108 H Heart Rate [ Brachial] Respiratory 26 H Rate Blood Pressure 151/114 H 177/112 H 175/115 H Blood Pressure [Right Brachial artery] O2 Saturation 95 94 91 L 05/05/21 05/05/21 05/05/21 00:30 00:57 01:00 Temperature 36.9 C 37.2 C Heart Rate 103 H Heart Rate [ 109 H Brachial] Respiratory 18 25 H Rate Blood Pressure 180/111 H 179/113 H Blood Pressure 179/113 H [Right Brachial artery] O2 Saturation 99 95 05/05/21 05/05/21 05/05/21 01:05 01:10 01:15 Temperature Heart Rate Heart Rate [ 121 H 126 H 133 H Brachial] Respiratory Rate Blood Pressure Blood Pressure 187/101 H 180/107 H 172/111 H [Right Brachial artery] O2 Saturation 05/05/21 05/05/21 05/05/21 01:27 01:30 01:45 Temperature Heart Rate Heart Rate [ 124 H 109 H Brachial] Respiratory Rate Blood Pressure 179/109 H Blood Pressure 177/115 H 179/109 H [Right Brachial artery] O2 Saturation 05/05/21 05/05/21 05/05/21 02:06 02:10 02:15 Temperature Heart Rate Heart Rate [ 85 86 Brachial] Respiratory Rate Blood Pressure 169/108 H Blood Pressure 152/104 H 156/101 H [Right Brachial artery] O2 Saturation 05/05/21 05/05/21 05/05/21 02:20 02:35 02:50 Temperature Heart Rate Heart Rate [ 89 85 85 Brachial] Respiratory Rate Blood Pressure Blood Pressure 147/105 H 148/103 H 148/97 H [Right Brachial artery] O2 Saturation 05/05/21 05/05/21 03:05 03:59 Temperature 37.1 C Heart Rate Heart Rate [ 83 95 Brachial] Respiratory 24 Rate Blood Pressure Blood Pressure 146/95 H 154/96 H [Right Brachial artery] O2 Saturation 93 Oxygen O2 Source Nasal cannula I&O (Last 24 Hrs): Intake and Output Totals x24h 05/03/21 05/04/21 05/05/21 23:59 23:59 23:59 Intake Total 1703.334 Output Total 350 Balance 1353.334 General: Alert, Oriented x3, Mild distress, Moderate distress HEENT: PERRLA, EOMI Neck: Supple, No JVD Neuro: Alert, Non Focal, Oriented Times 3 Cardiovascular: Regular rate, No murmurs Respiratory: Chest non-tender, No respiratory distress, Breath sounds nml Abdomen: Normal bowel sounds, Soft, Other (Mild tenderness) Extremities: No clubbing, No cyanosis, No edema, No tenderness/swelling Skin: No rashes, No breakdown, No significant lesion - Results Results: Laboratory Results WBC 19.0 x10^3/uL (4.8-10.8) H 05/05/21 06:11 RBC 3.64 10^6/uL (4.70-6.10) L 05/05/21 06:11 Hgb 10.7 g/dL (14.0-18.0) L 05/05/21 06:11 Hct 32.9 % (42.0-52.0) L 05/05/21 06:11 MCV 90.4 fL (80.0-94.0) 05/05/21 06:11 MCH 29.4 pg (27.0-31.0) 05/05/21 06:11 MCHC 32.5 g/dL (32.0-36.0) 05/05/21 06:11 RDW 13.2 % (12.0-15.0) 05/05/21 06:11 Plt Count 380 10^3/uL (130-450) 05/05/21 06:11 MPV 10.8 fL (7.4-11.4) 05/05/21 06:11 Neut # (Auto) 15.8 10^3/uL (1.5-6.6) H 05/05/21 06:11 Lymph # (Auto) 1.4 10^3/uL (1.5-3.5) L 05/05/21 06:11 [place] # (Auto) 1.5 10^3/uL (0.0-1.0) H 05/05/21 06:11 Eos # (Auto) 0.1 10^3/uL (0.0-0.7) 05/05/21 06:11 Baso # (Auto) 0.1 10^3/uL (0.0-0.1) 05/05/21 06:11 Absolute Nucleated RBC 0.00 x10^3/uL 05/05/21 06:11 Nucleated RBC % 0.0 /100WBC 05/05/21 06:11 PT 16.2 secs (9.9-12.6) H 05/04/21 21:29 INR 1.5 (0.8-1.2) H 05/04/21 21:29 Sodium 145 mmol/L (135-145) 05/05/21 06:11 Potassium 3.9 mmol/L (3.5-5.0) 05/05/21 06:11 Chloride 107 mmol/L (101-111) 05/05/21 06:11 Carbon Dioxide 29 mmol/L (21-32) 05/05/21 06:11 Anion Gap 9.0 (6-13) 05/05/21 06:11 BUN 17 mg/dL (6-20) 05/05/21 06:11 Creatinine 1.4 mg/dL (0.6-1.2) H 05/05/21 06:11 Estimated GFR (MDRD) 50 (>89) L 05/05/21 06:11 Glucose 123 mg/dL (70-100) H 05/05/21 06:11 Lactic Acid 1.0 mmol/L (0.5-2.2) 05/04/21 21:29 Calcium 8.4 mg/dL (8.5-10.3) L 05/05/21 06:11 Magnesium 2.3 mg/dL (1.7-2.8) 05/05/21 06:11 Total Bilirubin 0.8 mg/dL (0.2-1.0) 05/04/21 21:03 AST 25 IU/L (10-42) 05/04/21 21:03 ALT 28 IU/L (10-60) 05/04/21 21:03 Alkaline Phosphatase 86 IU/L (42-121) 05/04/21 21:03 Troponin I High Sens 168.4 ng/L (2.3-19.7) H* 05/05/21 06:11 Total Protein 7.2 g/dL (6.7-8.2) 05/04/21 21:03 Albumin 3.2 g/dL (3.2-5.5) 05/04/21 21:03 Globulin 4.0 g/dL (2.1-4.2) 05/04/21 21:03 Albumin/Globulin Ratio 0.8 (1.0-2.2) L 05/04/21 21:03 Lipase 29 U/L (22-51) 05/04/21 21:03 Urine Color YELLOW 05/04/21 22:10 Urine Clarity HAZY (CLEAR) 05/04/21 22:10 Urine pH 7.0 PH (5.0-7.5) 05/04/21 22:10 Ur Specific [place] 1.015 (1.002-1.030) 05/04/21 22:10 Urine Protein NEGATIVE mg/dL (NEGATIVE) 05/04/21 22:10 Urine Glucose (UA) NEGATIVE mg/dL (NEGATIVE) 05/04/21 22:10 Urine Ketones NEGATIVE mg/dL (NEGATIVE) 05/04/21 22:10 Urine Occult Blood SMALL (NEGATIVE) H 05/04/21 22:10 Urine Nitrite NEGATIVE (NEGATIVE) 05/04/21 22:10 Urine Bilirubin NEGATIVE (NEGATIVE) 05/04/21 22:10 Urine Urobilinogen 0.2 (NORMAL) E.U./dL (NORMAL) 05/04/21 22:10 Ur Leukocyte Esterase NEGATIVE (NEGATIVE) 05/04/21 22:10 Urine RBC 6-10 /HPF (0-5) H 05/04/21 22:10 Urine WBC 0-3 /HPF (0-3) 05/04/21 22:10 Ur Squamous Epith Cells MOD Squamous (<= Few) H 05/04/21 22:10 Urine Bacteria Few /HPF (None Seen) 05/04/21 22:10 Ur Microscopic Review INDICATED 05/04/21 22:10 Urine Culture Comments NOT INDICATED 05/04/21 22:10 Nasal Adenovirus (PCR) NOT DETECTED 05/04/21 22:10 Nasal B. parapertussis DNA (PCR) NOT DETECTED 05/04/21 22:10 Nasal Coronavir 229E PCR NOT DETECTED 05/04/21 22:10 Nasal Coronavir HKU1 PCR NOT DETECTED 05/04/21 22:10 Nasal Coronavir NL63 PCR NOT DETECTED 05/04/21 22:10 Nasal Coronavir OC43 PCR NOT DETECTED 05/04/21 22:10 Nasal Enterovir/Rhinovir PCR NOT DETECTED 05/04/21 22:10 Nasal Influenza B PCR NOT DETECTED 05/04/21 22:10 Nasal Influenza A PCR NOT DETECTED 05/04/21 22:10 Nasal Parainfluen 1 PCR NOT DETECTED 05/04/21 22:10 Nasal Parainfluen 2 PCR NOT DETECTED 05/04/21 22:10 Nasal Parainfluen 3 PCR NOT DETECTED 05/04/21 22:10 Nasal Parainfluen 4 PCR NOT DETECTED 05/04/21 22:10 Nasal RSV (PCR) NOT DETECTED 05/04/21 22:10 Nasal B.pertussis DNA PCR NOT DETECTED 05/04/21 22:10 Nasal C.pneumoniae (PCR) NOT DETECTED 05/04/21 22:10 Isaac Human Metapneumo PCR NOT DETECTED 05/04/21 22:10 Nasal M.pneumoniae (PCR) NOT DETECTED 05/04/21 22:10 Nasal SARS-CoV-2 (PCR) NOT DETECTED 05/04/21 22:10 Urine Opiates Screen NEGATIVE (NEGATIVE) 05/04/21 22:10 Ur Oxycodone Screen NEGATIVE (NEGATIVE) 05/04/21 22:10 Urine Methadone Screen NEGATIVE (NEGATIVE) 05/04/21 22:10 Ur Propoxyphene Screen NEGATIVE (NEGATIVE) 05/04/21 22:10 Ur Barbiturates Screen NEGATIVE (NEGATIVE) 05/04/21 22:10 Ur Tricyclics Screen NEGATIVE (NEGATIVE) 05/04/21 22:10 Ur Phencyclidine Scrn NEGATIVE (NEGATIVE) 05/04/21 22:10 Ur Amphetamine Screen NEGATIVE (NEGATIVE) 05/04/21 22:10 U Methamphetamines Scrn NEGATIVE (NEGATIVE) 05/04/21 22:10 U Benzodiazepines Scrn NEGATIVE (NEGATIVE) 05/04/21 22:10 Urine Cocaine Screen NEGATIVE (NEGATIVE) 05/04/21 22:10 U Cannabinoids Screen POSITIVE (NEGATIVE) H 05/04/21 22:10 Ethyl Alcohol < 5.0 mg/dL 05/04/21 21:03 - Procedures Procedures: Procedures EXCISION OF CECUM, ENDO (03/18/21) EXCISION OF DUODENUM, ENDO, DIAGN (03/18/21) EXCISION OF ESOPHAGUS, ENDO, DIAGN (03/18/21) EXCISION OF STOMACH, ENDO, DIAGN (03/18/21) EXCISION OF TRANSVERSE COLON, ENDO (03/18/21) FLUOROSCOPY OF BILE DUCTS USING HIGH OSMOLAR CONTRAST (04/22/21) RESECTION OF GALLBLADDER, PERCUTANEOUS ENDOSCOPIC APPROACH (04/22/21)
[2021-05-05] MEDS: METOCLOPRAMIDE 10 MG/2 ML VIAL IVP PRN ×2 (11:15→17:28)
[2021-05-05] MEDS: traMADol 50 MG TABLET PO PRN ×2 (11:16→23:32)
[2021-05-05] MEDS: AMOX/CLAV 875 MG/125 MG TABLET PO SCH ×2 (11:52→23:25)
--- NOTE | 2021-05-05 12:08 | PHARMACY PROGRESS NOTE ---
- Best Possible Medication History Admit Date and Time: 05/04/21 1441 Processed by: Pharmacy Secondary Source(s): Physician records, Insurance records, Previous admit records As the person ultimately responsible for medication therapy, providers are able to order a medication from an existing home medication list in [facility] via the "Reconcile Routine" prior to Confirmation of that medication by wan support specialist. Such practice is discouraged except when the physician, in their clinical judgment, deems that a medical need exists for a medication without regard to previous use.
[2021-05-05] MEDS: ONDANSETRON 4 MG/2 ML VIAL IVP PRN (13:19)
[2021-05-05] MEDS: VANCOMYCIN 125 MG CAPSULE PO SCH ×3 (13:19→22:10)
[2021-05-05] MEDS: SACCHAROMYCES BOULARDII 250 MG CAPSULE PO SCH (17:29)
[2021-05-06] MEDS: METOCLOPRAMIDE 10 MG/2 ML VIAL IVP PRN ×2 (07:50→16:12)
[2021-05-06] MEDS: HYDROmorphone 0.5 MG/0.5 ML SYRINGE IVP PRN ×2 (07:51→18:11)
[2021-05-06] MEDS: SODIUM CHLORIDE FLUSH 0.9% 10 ML SYRINGE IVP PRN ×4 (07:51→18:11)
[2021-05-06] MEDS: SACCHAROMYCES BOULARDII 250 MG CAPSULE PO SCH ×2 (07:51→17:33)
[2021-05-06 08:17] LABS: BASOPHILS # (AUTO) 0.1 10^3/uL (0.0-0.1); BASOPHILS % (AUTO) 0.4 %; EOSINOPHILS # (AUTO) 0.4 10^3/uL (0.0-0.7); EOSINOPHILS % (AUTO) 2.4 %; HCT - HEMATOCRIT 37.2 % (42.0-52.0); HGB - HEMOGLOBIN 11.9 g/dL (14.0-18.0); LYMPHOCYTES # (AUTO) 1.3 10^3/uL (1.5-3.5); LYMPHOCYTES % (AUTO) 7.2 %; MEAN CORPUSCULAR HEMOGLOBIN 30.1 pg (27.0-31.0); MEAN CORPUSCULAR VOLUME 93.9 fL (80.0-94.0); MEAN PLATELET VOLUME 10.7 fL (7.4-11.4); MONOCYTES # (AUTO) 1.4 10^3/uL (0.0-1.0); MONOCYTES % (AUTO) 7.3 %; NEUTROPHILS # (AUTO) 15.3 10^3/uL (1.5-6.6); PLT - PLATELET COUNT 459 10^3/uL (130-450); RED BLOOD COUNT 3.96 10^6/uL (4.70-6.10); RED CELL DISTRIBUTION WIDTH 13.5 % (12.0-15.0); WHITE BLOOD COUNT 18.7 x10^3/uL (4.8-10.8)
[2021-05-06 08:27] LABS: CALCIUM 8.3 mg/dL (8.5-10.3); CREATININE 1.6 mg/dL (0.6-1.2); POTASSIUM 3.7 mmol/L (3.5-5.0)
[2021-05-06] MEDS: D5NS W/20 MEQ KCL 1,000 ML IV SCH (08:41)
[2021-05-06] MEDS: SODIUM CHLORIDE FLUSH 0.9% 10 ML SYRINGE IVP SCH ×2 (08:41→17:33)
[2021-05-06] MEDS: VANCOMYCIN 125 MG CAPSULE PO SCH ×4 (09:13→21:47)
[2021-05-06] MEDS ORDERED: AMOX/CLAV 875 MG/125 MG TABLET PO SCH (10:15)
[2021-05-06] MEDS: ONDANSETRON 4 MG/2 ML VIAL IVP PRN ×2 (10:46→21:47)
[2021-05-06] MEDS ORDERED: FUROSEMIDE 40 MG/4 ML VIAL IVP STA (12:23)
[2021-05-06 12:44] LABS: INR 1.5 (0.8-1.2); PT - PROTHROMBIN TIME 16.4 secs (9.9-12.6)
[2021-05-06] MEDS ORDERED: PIPERACILLIN/TAZOBACTAM 3.375 GM in SODIUM CHLORIDE 0.9% MINIBAG 100 ML IV ONE (13:00)
--- NOTE | 2021-05-06 13:50 | XRAY Report ---
PROCEDURE: Chest 1 View X-Ray INDICATIONS: hypoxia, dyspnea TECHNIQUE: One view of the chest was acquired. COMPARISON: CXR 05/05/2021. Lung bases on CT abdomen and pelvis 05/04/2021. FINDINGS: Surgical changes and devices: None. Lungs and pleura: Small pleural effusions. No pneumothorax. Moderate fluid overload/CHF, slightly imp roved. Mediastinum: Mediastinal contours appear unchanged. Heart size is within normal limits and unchange d. Bones and chest wall: No suspicious bony lesions. Overlying soft tissues appear unremarkable. IMPRESSION: Moderate fluid overload/CHF is stable to slightly improved. Small bilateral pleural effusions. Reviewed by: Eliot Garcia MD on 05/06/2021 1:48 PM PST Approved by: Eliot Garcia MD on 05/06/2021 1:48 PM [facility] Station ID: [id number]
[2021-05-06] MEDS: traMADol 50 MG TABLET PO PRN ×2 (16:11→20:43)
--- NOTE | 2021-05-06 16:12 | PROVIDER PROGRESS NOTE ---
Assessment/Plan - Problem List (1) NSTEMI (non-ST elevated myocardial infarction) Assessment/Plan: Troponin was 168.4 on 05/06/21. Will recheck Trop level. 2D echocardiogram done on 05/06/2021 showed an ejection fraction of 50 to 55%. There was severe hypokinesis of the mid septal and mid inferior wall segments. No evidence of aortic stenosis or regurgitation. There was moderate to severe mitral regurgitation. Large sized left pleural effusion noted. Myocardial perfusion study was ordered for 05/07/2021. Patient given a full dose aspirin x1. We will continue baby aspirin daily starting 05/07/2021. (2) CHF (congestive heart failure) Assessment/Plan: Likely secondary to NSTEMI. 2D echocardiogram done on 05/06/2021 showed an ejection fraction of 50 to 55%.. There was severe hypokinesis of the mid septal and mid inferior wall segments. No evidence of aortic stenosis or regurgitation. There was moderate to severe mitral regurgitation. Large sized left pleural effusion noted. IV fluids discontinued. Checking BNP. Patient given Lasix 40 mg IV twice daily today 05/06/2021. Will continue Lasix 40 mg IV daily starting 05/07/2021. (3) Pneumonia Assessment/Plan: Chest x-ray done 05/05/2021 suggested pneumonia. Patient was treated for possible pneumonia during his last hospital stay and discharged on Augmentin. Augmentin was with resumed when he returned 2 days after discharge. White blood cell count 05/06/21 was 18.7. On 05/05/21 it was 19 Seen 3.375 g every 6 hours IV initiated. Blood cultures are no growth to date. (4) Pleural effusion Assessment/Plan: Likely cardiac cause. Pneumonia could potentially be contributing. Chest x-ray of 05/05/2021 could not exclude suprahilar right lung mass. We will consider CT of the chest when patient's renal function is improved. VQ lung scan done during the last admission showed low probability for PE Treating pneumonia with Zosyn. Patient given Lasix 40 mg IV twice daily on 05/06/2021. We will continue Lasix 40 mg IV daily starting 05/07/2021. We will hold off on thoracentesis (5) Intractable nausea and vomiting Assessment/Plan: Etiology undetermined. However patient recently underwent a cholecystectomy. Zofran, Phenergan and Reglan have been ordered as needed. Patient's toxicology was positive for marijuana however he maintains that he has not used any since last discharge. (6) Hypertension Assessment/Plan: Hydralazine 10 mg IV every 6 hours as needed for systolic blood pressure greater than 160 Lasix 40 mg IV daily ordered. (7) Hypokalemia Assessment/Plan: Resolved. Patient was administered 40 mEq of potassium chloride IV over 4 hours shortly after admission. Potassium level is 3.7 currently. (8) History of Clostridium difficile colitis Assessment/Plan: On vancomycin 125 mg p.o. 4 times daily This was prescribed at time of last discharge and resumed at this admission. He was to complete 5 days worth. - Current Meds Current Meds: Current Medications Generic Name Dose Route Start Last Admin Trade Name Freq PRN Reason Stop Dose Admin Hydralazine HCl 10 mg 05/05/21 00:30 05/05/21 00:57 Hydralazine Inj 20 Mg/Ml Vial IVP 10 mg Q6H PRN Administration Hypertensive Emergency Hydromorphone HCl 0.5 mg 05/05/21 00:35 05/06/21 07:51 Hydromorphone 0.5 Mg/0.5 Ml Syringe IVP 0.5 mg Q3H PRN Administration PAIN 5-7 Metoclopramide HCl 5 mg 05/05/21 10:51 05/06/21 07:50 Metoclopramide 10 Mg/2 Ml Vial IVP 5 mg Q6HR PRN Administration Nausea / Vomiting Ondansetron HCl 4 mg 05/05/21 00:01 05/06/21 10:46 Ondansetron 4 Mg/2 Ml Vial IVP 4 mg Q6HR PRN Administration Nausea / Vomiting Prochlorperazine Edisylate 10 mg 05/05/21 00:01 05/05/21 00:57 Prochlorperazine 10 Mg/2 Ml Vial IVP 10 mg Q6HR PRN Administration Nausea / Vomiting Saccharomyces Boulardii 500 mg 05/05/21 17:00 05/06/21 07:51 Saccharomyces Boulardii 250 Mg Capsule PO 500 mg BIDWM BENI Administration Sodium Chloride 10 ml 05/05/21 00:01 05/06/21 13:10 Sodium Chloride Flush 0.9% 10 Ml Syringe IVP 10 ml PRN PRN Administration NEEDED PER PROVIDER ORDERS Sodium Chloride 10 ml 05/05/21 01:00 05/06/21 08:41 Sodium Chloride Flush 0.9% 10 Ml Syringe IVP Not Given 0100,0900,1700 BENI Tramadol HCl 50 mg 05/05/21 10:52 05/06/21 16:11 Tramadol 50 Mg Tablet PO 50 mg Q4HR PRN Administration PAIN Vancomycin HCl 125 mg 05/05/21 13:00 05/06/21 13:08 Vancomycin 125 Mg Capsule PO 125 mg QID BENI Administration - Lab Result Fish Bone Diagrams: 05/06/21 08:10 05/06/21 08:10 - Additional Planning My Orders: My Active Orders 05/05/21 17:00 Saccharomyces Boulardii [Florastor] 500 mg PO BIDWM 05/06/21 08:00 Echo Transthoracic Complete [ECHO] Routine 05/06/21 12:16 Thoracentesis Puncture [US] Routine 05/06/21 12:33 Stress Test Prep [RC] .ONCE 05/06/21 17:00 Piperacillin/Tazobactam [Zosyn] 3.375 gm Sodium Chloride 0.9% Minibag [Normal Saline 0.9% Minibag] 100 ml IV Q8H 05/06/21 18:30 FUROSEMIDE INJ 40mg VIAL [LASIX INJ 40 mg VIAL] 40 mg IVP ONCE ONE 05/07/21 00:01 NPO except Meds at Midnight [DIET] 05/07/21 05:00 BMP - BASIC METABOLIC PANEL [CHEM] DAILYLAB CBC - COMP BLD CT W/AUTO DIFF [HEME] DAILYLAB 05/07/21 09:00 Myocardial Perfusion STR/RST [NM] Routine 05/08/21 05:00 BMP - BASIC METABOLIC PANEL [CHEM] DAILYLAB CBC - COMP BLD CT W/AUTO DIFF [HEME] DAILYLAB 05/09/21 05:00 BMP - BASIC METABOLIC PANEL [CHEM] DAILYLAB CBC - COMP BLD CT W/AUTO DIFF [HEME] DAILYLAB 05/10/21 05:00 BMP - BASIC METABOLIC PANEL [CHEM] DAILYLAB CBC - COMP BLD CT W/AUTO DIFF [HEME] DAILYLAB 05/11/21 05:00 BMP - BASIC METABOLIC PANEL [CHEM] DAILYLAB CBC - COMP BLD CT W/AUTO DIFF [HEME] DAILYLAB Subjective - Subjective Patient Reports: Other (He was resting in bed. Reported 5 out of 10 abdominal pain.Denied vomiting but still feeling slightly nauseous. Is able to tolerate clear liquids. Was mildly hypoxic with ambulation on room air.) Objective Vital Signs: Vital Signs - 24 hr 05/05/21 05/05/21 05/06/21 20:20 23:26 05:34 Temperature 36.7 C 37.1 C 37.0 C Heart Rate [ 92 99 93 Brachial] Respiratory 20 18 16 Rate Blood Pressure 139/88 H 143/89 H 156/95 H [Right Brachial artery] O2 Saturation 96 97 97 05/06/21 05/06/21 08:02 13:00 Temperature 37 C 37.1 C Heart Rate [ 90 101 H Brachial] Respiratory 20 20 Rate Blood Pressure 154/95 H 178/96 H [Right Brachial artery] O2 Saturation 96 97 Oxygen O2 Source Nasal cannula I&O (Last 24 Hrs): Intake and Output Totals x24h 05/04/21 05/05/21 05/06/21 23:59 23:59 23:59 Intake Total 4062.333 2241.660 Output Total 1350 2120 Balance 2712.333 121.660 Comments/Notes: General: Alert, Oriented x3, Mild-Moderate distress HEENT: PERRLA, EOMI Neck: Supple, No JVD Neuro: Alert, Non Focal, Oriented Times 3 Cardiovascular: Regular rate, No murmurs Respiratory: Chest non-tender, No respiratory distress, Diminished breath sounds. No w/r/c Abdomen: Normal bowel sounds, Soft, Other (Mild tenderness) Extremities: No clubbing, No cyanosis, No edema, No tenderness/swelling Skin: No rashes, No breakdown, No significant lesion - Results Results: Laboratory Results WBC 18.7 x10^3/uL (4.8-10.8) H 05/06/21 08:10 RBC 3.96 10^6/uL (4.70-6.10) L 05/06/21 08:10 Hgb 11.9 g/dL (14.0-18.0) L 05/06/21 08:10 Hct 37.2 % (42.0-52.0) L 05/06/21 08:10 MCV 93.9 fL (80.0-94.0) 05/06/21 08:10 MCH 30.1 pg (27.0-31.0) 05/06/21 08:10 MCHC 32.0 g/dL (32.0-36.0) 05/06/21 08:10 RDW 13.5 % (12.0-15.0) 05/06/21 08:10 Plt Count 459 10^3/uL (130-450) H 05/06/21 08:10 MPV 10.7 fL (7.4-11.4) 05/06/21 08:10 Neut # (Auto) 15.3 10^3/uL (1.5-6.6) H 05/06/21 08:10 Lymph # (Auto) 1.3 10^3/uL (1.5-3.5) L 05/06/21 08:10 Stokes # (Auto) 1.4 10^3/uL (0.0-1.0) H 05/06/21 08:10 Eos # (Auto) 0.4 10^3/uL (0.0-0.7) 05/06/21 08:10 Baso # (Auto) 0.1 10^3/uL (0.0-0.1) 05/06/21 08:10 Absolute Nucleated RBC 0.00 x10^3/uL 05/06/21 08:10 Nucleated RBC % 0.0 /100WBC 05/06/21 08:10 PT 16.4 secs (9.9-12.6) H 05/06/21 12:24 INR 1.5 (0.8-1.2) H 05/06/21 12:24 Sodium 146 mmol/L (135-145) H 05/06/21 08:10 Potassium 3.7 mmol/L (3.5-5.0) 05/06/21 08:10 Chloride 108 mmol/L (101-111) 05/06/21 08:10 Carbon Dioxide 28 mmol/L (21-32) 05/06/21 08:10 Anion Gap 10.0 (6-13) 05/06/21 08:10 BUN 16 mg/dL (6-20) 05/06/21 08:10 Creatinine 1.6 mg/dL (0.6-1.2) H 05/06/21 08:10 Estimated GFR (MDRD) 43 (>89) L 05/06/21 08:10 Glucose 145 mg/dL (70-100) H 05/06/21 08:10 Lactic Acid 1.0 mmol/L (0.5-2.2) 05/04/21 21:29 Calcium 8.3 mg/dL (8.5-10.3) L 05/06/21 08:10 Magnesium 2.3 mg/dL (1.7-2.8) 05/05/21 06:11 Total Bilirubin 0.8 mg/dL (0.2-1.0) 05/04/21 21:03 AST 25 IU/L (10-42) 05/04/21 21:03 ALT 28 IU/L (10-60) 05/04/21 21:03 Alkaline Phosphatase 86 IU/L (42-121) 05/04/21 21:03 Troponin I High Sens 168.4 ng/L (2.3-19.7) H* 05/05/21 06:11 Total Protein 7.2 g/dL (6.7-8.2) 05/04/21 21:03 Albumin 3.2 g/dL (3.2-5.5) 05/04/21 21:03 Globulin 4.0 g/dL (2.1-4.2) 05/04/21 21:03 Albumin/Globulin Ratio 0.8 (1.0-2.2) L 05/04/21 21:03 Lipase 29 U/L (22-51) 05/04/21 21:03 Urine Color YELLOW 05/04/21 22:10 Urine Clarity HAZY (CLEAR) 05/04/21 22:10 Urine pH 7.0 PH (5.0-7.5) 05/04/21 22:10 Ur Specific [place] 1.015 (1.002-1.030) 05/04/21 22:10 Urine Protein NEGATIVE mg/dL (NEGATIVE) 05/04/21 22:10 Urine Glucose (UA) NEGATIVE mg/dL (NEGATIVE) 05/04/21 22:10 Urine Ketones NEGATIVE mg/dL (NEGATIVE) 05/04/21 22:10 Urine Occult Blood SMALL (NEGATIVE) H 05/04/21 22:10 Urine Nitrite NEGATIVE (NEGATIVE) 05/04/21 22:10 Urine Bilirubin NEGATIVE (NEGATIVE) 05/04/21 22:10 Urine Urobilinogen 0.2 (NORMAL) E.U./dL (NORMAL) 05/04/21 22:10 Ur Leukocyte Esterase NEGATIVE (NEGATIVE) 05/04/21 22:10 Urine RBC 6-10 /HPF (0-5) H 05/04/21 22:10 Urine WBC 0-3 /HPF (0-3) 05/04/21 22:10 Ur Squamous Epith Cells MOD Squamous (<= Few) H 05/04/21 22:10 Urine Bacteria Few /HPF (None Seen) 05/04/21 22:10 Ur Microscopic Review INDICATED 05/04/21 22:10 Urine Culture Comments NOT INDICATED 05/04/21 22:10 Nasal Adenovirus (PCR) NOT DETECTED 05/04/21 22:10 Nasal B. parapertussis DNA (PCR) NOT DETECTED 05/04/21 22:10 Nasal Coronavir 229E PCR NOT DETECTED 05/04/21 22:10 Nasal Coronavir HKU1 PCR NOT DETECTED 05/04/21 22:10 Nasal Coronavir NL63 PCR NOT DETECTED 05/04/21 22:10 Nasal Coronavir OC43 PCR NOT DETECTED 05/04/21 22:10 Nasal Enterovir/Rhinovir PCR NOT DETECTED 05/04/21 22:10 Nasal Influenza B PCR NOT DETECTED 05/04/21 22:10 Nasal Influenza A PCR NOT DETECTED 05/04/21 22:10 Nasal Parainfluen 1 PCR NOT DETECTED 05/04/21 22:10 Nasal Parainfluen 2 PCR NOT DETECTED 05/04/21 22:10 Nasal Parainfluen 3 PCR NOT DETECTED 05/04/21 22:10 Nasal Parainfluen 4 PCR NOT DETECTED 05/04/21 22:10 Nasal RSV (PCR) NOT DETECTED 05/04/21 22:10 Nasal B.pertussis DNA PCR NOT DETECTED 05/04/21 22:10 Nasal C.pneumoniae (PCR) NOT DETECTED 05/04/21 22:10 Isaac Human Metapneumo PCR NOT DETECTED 05/04/21 22:10 Nasal M.pneumoniae (PCR) NOT DETECTED 05/04/21 22:10 Nasal SARS-CoV-2 (PCR) NOT DETECTED 05/04/21 22:10 Urine Opiates Screen NEGATIVE (NEGATIVE) 05/04/21 22:10 Ur Oxycodone Screen NEGATIVE (NEGATIVE) 05/04/21 22:10 Urine Methadone Screen NEGATIVE (NEGATIVE) 05/04/21 22:10 Ur Propoxyphene Screen NEGATIVE (NEGATIVE) 05/04/21 22:10 Ur Barbiturates Screen NEGATIVE (NEGATIVE) 05/04/21 22:10 Ur Tricyclics Screen NEGATIVE (NEGATIVE) 05/04/21 22:10 Ur Phencyclidine Scrn NEGATIVE (NEGATIVE) 05/04/21 22:10 Ur Amphetamine Screen NEGATIVE (NEGATIVE) 05/04/21 22:10 U Methamphetamines Scrn NEGATIVE (NEGATIVE) 05/04/21 22:10 U Benzodiazepines Scrn NEGATIVE (NEGATIVE) 05/04/21 22:10 Urine Cocaine Screen NEGATIVE (NEGATIVE) 05/04/21 22:10 U Cannabinoids Screen POSITIVE (NEGATIVE) H 05/04/21 22:10 Ethyl Alcohol < 5.0 mg/dL 05/04/21 21:03 - Procedures Procedures: Procedures EXCISION OF CECUM, ENDO (03/18/21) EXCISION OF DUODENUM, ENDO, DIAGN (03/18/21) EXCISION OF ESOPHAGUS, ENDO, DIAGN (03/18/21) EXCISION OF STOMACH, ENDO, DIAGN (03/18/21) EXCISION OF TRANSVERSE COLON, ENDO (03/18/21) FLUOROSCOPY OF BILE DUCTS USING HIGH OSMOLAR CONTRAST (04/22/21) RESECTION OF GALLBLADDER, PERCUTANEOUS ENDOSCOPIC APPROACH (04/22/21) ABX Reporting Has patient been on IV antibiotics over the past 48 hours?: No
[2021-05-06] MEDS ORDERED: ASPIRIN CHEW 81 MG TABLET PO STA (16:22)
[2021-05-06] MEDS: hydrALAZINE INJ 20 MG/ML VIAL IVP PRN (16:34)
[2021-05-06] MEDS: PIPERACILLIN/TAZOBACTAM 3.375 GM in SODIUM CHLORIDE 0.9% MINIBAG 100 ML IV SCH (17:32)
[2021-05-06] MEDS ORDERED: FUROSEMIDE 40 MG/4 ML VIAL IVP ONE (18:30)
[2021-05-07] MEDS: HYDROmorphone 0.5 MG/0.5 ML SYRINGE IVP PRN (00:30)
[2021-05-07] MEDS: PIPERACILLIN/TAZOBACTAM 3.375 GM in SODIUM CHLORIDE 0.9% MINIBAG 100 ML IV SCH (01:10)
[2021-05-07] MEDS: SODIUM CHLORIDE FLUSH 0.9% 10 ML SYRINGE IVP SCH ×3 (01:16→17:45)
[2021-05-07] MEDS: SODIUM CHLORIDE FLUSH 0.9% 10 ML SYRINGE IVP PRN ×2 (05:44→12:54)
[2021-05-07 06:11] LABS: BASOPHILS # (AUTO) 0.1 10^3/uL (0.0-0.1); BASOPHILS % (AUTO) 0.6 %; EOSINOPHILS # (AUTO) 0.2 10^3/uL (0.0-0.7); EOSINOPHILS % (AUTO) 1.2 %; HCT - HEMATOCRIT 36.9 % (42.0-52.0); HGB - HEMOGLOBIN 11.9 g/dL (14.0-18.0); LYMPHOCYTES # (AUTO) 1.2 10^3/uL (1.5-3.5); LYMPHOCYTES % (AUTO) 7.3 %; MEAN CORPUSCULAR HEMOGLOBIN 29.8 pg (27.0-31.0); MEAN CORPUSCULAR HGB CONC 32.2 g/dL (32.0-36.0); MEAN CORPUSCULAR VOLUME 92.3 fL (80.0-94.0); MEAN PLATELET VOLUME 10.8 fL (7.4-11.4); MONOCYTES # (AUTO) 1.2 10^3/uL (0.0-1.0); MONOCYTES % (AUTO) 7.6 %; NEUTROPHILS # (AUTO) 13.2 10^3/uL (1.5-6.6); NEUTROPHILS % (AUTO) 82.7 %; PLT - PLATELET COUNT 481 10^3/uL (130-450); RED CELL DISTRIBUTION WIDTH 13.2 % (12.0-15.0)
[2021-05-07 06:21] LABS: CALCIUM 8.6 mg/dL (8.5-10.3); CREATININE 1.7 mg/dL (0.6-1.2); POTASSIUM 3.2 mmol/L (3.5-5.0)
[2021-05-07] MEDS ORDERED: FUROSEMIDE 40 MG/4 ML VIAL IVP SCH (09:00)
[2021-05-07] MEDS: ASPIRIN CHEW 81 MG TABLET PO SCH (09:52)
[2021-05-07] MEDS: VANCOMYCIN 125 MG CAPSULE PO SCH ×4 (09:52→21:25)
[2021-05-07] MEDS: SACCHAROMYCES BOULARDII 250 MG CAPSULE PO SCH ×2 (09:52→17:44)
[2021-05-07] MEDS: METOCLOPRAMIDE 10 MG/2 ML VIAL IVP PRN (12:51)
--- NOTE | 2021-05-07 14:10 | CARDIAC PROCEDURE NOTE ---
Stress Test Report Service Date: 05/07/21 Service Time: 09:30 Ordering Provider: Kobe Joe MD Indication for Test: Assess for prior infarct and inducible cardiac ischemia in a patient with complex medical illness, found to have low-grade positive troponin elevation and regional hypokinesis on diagnostic echocardiogram. Significant Medical History: -Rafi has suffered from chronic epigastric discomfort for nearly a decade, for which he recently underwent a laparoscopic cholecystectomy (about 1 month ago) which he says did not especially reduce his pain. He was subsequently found to be C. difficile positive. He was admitted earlier this week with worsening abdominal pain and was found to have low level troponin elevation, with an abnormal echocardiogram, showing hypokinesis of the mid anteroseptal and mid inferior tello with low normal LV ejection fraction. -He also reports a significant decrease in his exercise tolerance over the past 6-8 weeks, manifested by exertional dyspnea with moderate activity that is new, and which preceded his undergoing the cholecystectomy. He denies resting dyspnea, lower extremity edema and weight gain, as well as any chest discomfort whatsoever. Cardiac Risk Factors: Known family history of CAD in his mother (CABG in early 70's) and maternal grandfather (coronary stent in his 70's); he denies known history of hypertension, hyperlipidemia, diabetes and has only a very mild and remote tobacco smoking history (quit in his 20s). Type of Stress Test: ETT with Myocardial Perfusion Imaging Procedure: -Exercise Treadmill Test- After signing informed consent, the patient underwent resting 99Tc-Myoview imaging and then performed treadmill exercise using a Modified Kirt protocol. The patient exercised for 6 minutes 43 seconds and achieved a peak heart rate of 150 (100 percent predicted maximum heart rate for age), and an estimated workload of 3.9 METS. The test was terminated due to achieving fatigue/shortness of breath, having achieved his target heart rate. Resting heart rate: 94 Peak heart rate: 150 Normal response to exercise. Resting BP: 185/96 Peak BP: 177/97 Hypertensive at rest with abnormal BP DECREASE with exercise. Rhythm during exercise: Sinus rhythm throughout. Symptoms: He experienced his usual epigastric discomfort throughout, though with modest worsening at peak of exercise; he denied experiencing any chest discomfort whatsoever. EKG at rest showed normal sinus rhythm with resting primary T-wave abnormality (aVF). EKG at peak stress showed nonspecific changes, including development of likely right ventricular conduction delay, resulting in terminal S wave in the lateral leads. There was also some J-point depression associated with upsloping ST segments, NOT meeting criteria for ischemia. In Recovery both heart rate and blood pressure remained elevated above resting levels through 5 minutes of recovery (abnormal). Nuclear imaging performed at rest and with stress and will be reported separately. I, Ezequiel Rooney MD, was present throughout this treadmill stress study and supervised it in its entirety. Summary: 1) Moderate limitation of exercise tolerance as evidenced by attainment of only 3.9 METS, though with estimated GARRETT of 2%. 2) Normal resting EKG. 3) Adequate level of exercise was achieved on this treadmill stress test. 4) Abnormal BP response to exercise, with gradual decrease from abnormally elevated resting level, rather than physiologic increase. 5) No ischemic changes by EKG criteria were seen at peak stress. 6) Per my interpretation, SPECT image analysis reveals a moderate-sized inferior wall defect and small anteroseptal defect at rest; with stress both areas are larger/more evident. 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 7) Per interpretation of the over-reading radiologist, there is a moderate-sized inferior-apical infarct with no inducible ischemia. CONCLUSIONS: 1) Abnormal blood pressure response to exercise, though no EKG evidence of inducible ischemia at adequate workload achieved. 2) See varying interpretations of SPECT imaging above. In my experience, the totality of the findings, namely poor exercise capacity, flat to decreasing BP response to exercise and suggestion of two vessel CAD, warrant further evaluation with cardiac catheterization, at such time as patient has been medically stabilized and the study can be arranged. 3) I discussed these findings and recommendations with referring Hospitalist, Dr Joe, on 05/08/21.
--- NOTE | 2021-05-07 14:42 | PROVIDER PROGRESS NOTE ---
Subjective - Prog Note Date Prog Note Date: 05/07/21 - Subjective Subjective: He feels pretty good overall. His nausea is controlled and he has had no vomiting. Did have one loose bowel movement today. Still has abdominal pain predominantly over the left flank. Denies chest pain or dyspnea. Current Medications - Current Medications Current Medications: Active Medications Aspirin (Aspirin Chew 81 Mg Tablet) 81 mg PO DAILY [facility] Last Admin: 05/07/21 09:52 Dose: 81 mg Documented by: Furosemide (Furosemide 40 Mg/4 Ml Vial) 40 mg IVP DAILY [facility] Last Admin: 05/07/21 14:48 Dose: 40 mg Documented by: Hydralazine HCl (Hydralazine Inj 20 Mg/Ml Vial) 10 mg IVP Q6H PRN PRN Reason: Hypertensive Emergency Last Admin: 05/06/21 16:34 Dose: 10 mg Documented by: Hydromorphone HCl (Hydromorphone 0.5 Mg/0.5 Ml Syringe) 0.5 mg IVP Q3H PRN PRN Reason: PAIN 5-7 Last Admin: 05/07/21 00:30 Dose: 0.5 mg Documented by: Metoclopramide HCl (Metoclopramide 10 Mg/2 Ml Vial) 5 mg IVP Q6HR PRN PRN Reason: Nausea / Vomiting Last Admin: 05/07/21 12:51 Dose: 5 mg Documented by: Ondansetron HCl (Ondansetron 4 Mg/2 Ml Vial) 4 mg IVP Q6HR PRN PRN Reason: Nausea / Vomiting Last Admin: 05/06/21 21:47 Dose: 4 mg Documented by: Prochlorperazine Edisylate (Prochlorperazine 10 Mg/2 Ml Vial) 10 mg IVP Q6HR PRN PRN Reason: Nausea / Vomiting Last Admin: 05/05/21 00:57 Dose: 10 mg Documented by: Promethazine HCl (Promethazine 25 Mg Tablet) 25 mg PO Q6HR PRN PRN Reason: Nausea / Vomiting Saccharomyces Boulardii (Saccharomyces Boulardii 250 Mg Capsule) 500 mg PO BIDWM [facility] Last Admin: 05/07/21 17:44 Dose: 500 mg Documented by: Sodium Chloride (Sodium Chloride Flush 0.9% 10 Ml Syringe) 10 ml IVP PRN PRN PRN Reason: NEEDED PER PROVIDER ORDERS Last Admin: 05/07/21 12:54 Dose: 10 ml Documented by: Sodium Chloride (Sodium Chloride Flush 0.9% 10 Ml Syringe) 10 ml IVP 0100,0900,1700 [facility] Last Admin: 05/07/21 17:45 Dose: 10 ml Documented by: Tramadol HCl (Tramadol 50 Mg Tablet) 50 mg PO Q4HR PRN PRN Reason: PAIN Last Admin: 05/06/21 20:43 Dose: 50 mg Documented by: Vancomycin HCl (Vancomycin 125 Mg Capsule) 125 mg PO QID [facility] Last Admin: 05/07/21 17:45 Dose: 125 mg Documented by: Sildenafil Citrate 50 - 100 mg PO DAILY PRN 04/24/21 PROMETHAZINE SUPP Prepack 2 [PHENADOZ SUPP Prepack 2] 25 mg [place] Q6H PRN 04/25/21 Objective - Vital Signs/Intake & Output Reviewed Vital Signs: Yes Vital Signs: Vital Signs x48h Temp Pulse Resp BP Pulse Ox 05/07/21 07:49 37.0 C 79 18 152/87 H 94 Intake & Output: Intake & Output 05/04/21 05/05/21 05/06/21 05/07/21 23:59 23:59 23:59 23:59 Intake Total 4062.333 2641.660 160 Output Total 1350 3970 1650 Balance 2712.333 -1328.340 -1490 - Objective General Appearance: positive: No acute distress, Alert Eyes Bilateral: positive: Normal inspection, Conjunctivae nml ENT: positive: ENT inspection nml Neck: positive: Nml inspection Respiratory: positive: No respiratory distress. negative: Wheezes, Rales Cardiovascular: positive: Regular rate & rhythm, No murmur. negative: Tachyc ardia Abdomen: positive: Non-tender, Nml bowel sounds, No distention. negative: Tenderness, Guarding, Rebound Back: negative: CVA tenderness (R), CVA tenderness (L) Skin: positive: Warm, Dry Extremities: positive: No pedal edema Neurologic/Psychiatric: positive: Motor nml. negative: Disoriented to person, Disoriented to place, Disoriented to time - Lab Results Fish Bones: 05/07/21 05:50 05/07/21 05:50 Other Labs: Lab Results x24hrs 05/07/21 05/07/21 05/07/21 Range/Units 05:50 05:50 05:50 WBC 16.0 H (4.8-10.8) x10^3/uL RBC 4.00 L (4.70-6.10) 10^6/uL Hgb 11.9 L (14.0-18.0) g/dL Hct 36.9 L (42.0-52.0) % MCV 92.3 (80.0-94.0) fL MCH 29.8 (27.0-31.0) pg MCHC 32.2 (32.0-36.0) g/dL RDW 13.2 (12.0-15.0) % Plt Count 481 H (130-450) 10^3/uL MPV 10.8 (7.4-11.4) fL Neut # (Auto) 13.2 H (1.5-6.6) 10^3/uL Lymph # (Auto) 1.2 L (1.5-3.5) 10^3/uL [place] # (Auto) 1.2 H (0.0-1.0) 10^3/uL Eos # (Auto) 0.2 (0.0-0.7) 10^3/uL Baso # (Auto) 0.1 (0.0-0.1) 10^3/uL Absolute Nucleated RBC 0.00 x10^3/uL Nucleated RBC % 0.0 /100WBC Sodium 147 H (135-145) mmol/L Potassium 3.2 L (3.5-5.0) mmol/L Chloride 104 (101-111) mmol/L Carbon Dioxide 31 (21-32) mmol/L Anion Gap 12.0 (6-13) BUN 19 (6-20) mg/dL Creatinine 1.7 H (0.6-1.2) mg/dL Estimated GFR (MDRD) 40 L (>89) Glucose 118 H (70-100) mg/dL Calcium 8.6 (8.5-10.3) mg/dL Troponin I High Sens (2.3-19.7) ng/L B-Natriuretic Peptide 402 H (5-100) pg/mL 05/06/21 05/06/21 Range/Units 16:38 08:10 WBC (4.8-10.8) x10^3/uL RBC (4.70-6.10) 10^6/uL Hgb (14.0-18.0) g/dL Hct (42.0-52.0) % MCV (80.0-94.0) fL MCH (27.0-31.0) pg MCHC (32.0-36.0) g/dL RDW (12.0-15.0) % Plt Count (130-450) 10^3/uL MPV (7.4-11.4) fL Neut # (Auto) (1.5-6.6) 10^3/uL Lymph # (Auto) (1.5-3.5) 10^3/uL [place] # (Auto) (0.0-1.0) 10^3/uL Eos # (Auto) (0.0-0.7) 10^3/uL Baso # (Auto) (0.0-0.1) 10^3/uL Absolute Nucleated RBC x10^3/uL Nucleated RBC % /100WBC Sodium (135-145) mmol/L Potassium (3.5-5.0) mmol/L Chloride (101-111) mmol/L Carbon Dioxide (21-32) mmol/L Anion Gap (6-13) BUN (6-20) mg/dL Creatinine (0.6-1.2) mg/dL Estimated GFR (MDRD) (>89) Glucose (70-100) mg/dL Calcium (8.5-10.3) mg/dL Troponin I High Sens 77.2 H* (2.3-19.7) ng/L B-Natriuretic Peptide 567 H (5-100) pg/mL Assessment/Plan - Problem List (1) NSTEMI (non-ST elevated myocardial infarction) Impression: Initial concern was for NSTEMI given elevated troponin and the fact echocardiogram revealed wall motion abnormalities with an EF of 50%. A stress test was obtained today and he did well on the exercise portion but myocardial perfusion imaging did reveal a fixed infarct but no evidence of acute ischemia. I did discuss this with the patient and the plan will be to contact cardiology first thing in the morning to discuss potential need for transfer risk medical management and outpatient follow-up.We will continue him on aspirin and we will start statin today. I have also added a beta-georgie today given he is hypertensive. No lisinopril due to acute kidney injury. (2) CHF (congestive heart failure) Impression: His echocardiogram revealed an EF of 50%. Concern was for CHF given imaging revealed pulmonary edema. He is being diuresed with IV Lasix and clinically he appears quite improved with an improving BNP. We will switch him to oral Lasix tomorrow. Qualifiers: Heart failure type: diastolic Heart failure chronicity: chronic Qualified Code(s): I50.32 - Chronic diastolic (congestive) heart failure (3) Intractable nausea and vomiting Impression: It is improved and he is tolerating a clear liquid diet. He still has abdominal pain but CT on admission showed no acute abnormalities. We will look to advance his diet. Continue with Zofran and antiemetics as needed. (4) Elevated WBC count Impression: His white count remains elevated. He had been receiving Zosyn IV for suspected pneumonia but clinically does not appear to have pneumonia so will discontinue IV Zosyn. I do note that his platelet count is slowly increasing and the obvious concern with this would be for potential occult infection such as an abscess. CT on admission did not reveal this. We will continue to trend his CBC to monitor his white count and platelet count. If he begins to spike a fever or his white count and platelet count continues to rise we may need to repeat imaging. Qualifiers: Leukocytosis type: unspecified Qualified Code(s): D72.829 - Elevated white blood cell count, unspecified (5) History of Clostridium difficile colitis Impression: We are continuing oral vancomycin. He will need to complete 10 days of therapy. (6) BOLIVAR (acute kidney injury) Impression: He had acute kidney injury during his previous hospitalization and his creatinine is remained stable around 1.5-1.7. The etiology of this is not clear. Imaging revealed no evidence of obstruction. He is not currently rec eiving any obvious nephrotoxins. He is receiving diuretics so urine sodium would not be of much use except if it was low. We will check a urine sodium, urine urea and creatinine. (7) Hypertension Impression: He is hypertensive with systolics in the 150s to 160s. We will start him on carvedilol today. We will add amlodipine as well if necessary.
--- NOTE | 2021-05-07 16:59 | Nuclear Medicine Report ---
PROCEDURE: Rest and exercise myocardial perfusion SPECT with gated imaging and ejection fraction INDICATIONS: elevated trop, regional wall abnormality on echo RADIOPHARMACEUTICAL: 12.4 mCi Tc-99m Myoview IV at rest and 34.0 mCi Tc-99m Myoview IV at peak exerc ise. [id number] was performed. TECHNIQUE: Radiopharmaceutical was injected at peak stress test, and also at rest. SPECT images wer e obtained. SPECT myocardial perfusion images were displayed in short axis, horizontal long axis, an d vertical long axis views. Gated images were reviewed using Auto[employer] software. COMPARISON: None available. FINDINGS: Raw data: There is good myocardial labeling by radiotracer. No significant motion artifacts. Lung- to-heart ratio is 0.37 (normal is less than 0.46 for tetrafosmin tracer). Left ventricle function: Gated images demonstrate normal left ventricle wall thickening. There is mi ld inferior wall hypokinesia. No transient ischemic dilation; TID is 0.96 (normal less than 1.30). The left ventricle resting end-diastolic volume is 102 mL. Left ventricle stress ejection fraction i s 66%; normal values are above 45%. Myocardial perfusion: There is a large, severe, fixed perfusion defect involving the inferior wall a nd inferior apex, consistent with myocardial infarction. There is no reversible perfusion defects to suggest myocardial ischemia. IMPRESSION: 1. Abnormal myocardial perfusion images. 2. There is a large, severe, fixed perfusion defect in the inferior wall and inferior apex compatible with myocardial infarct. 3. No reversible perfusion defect to suggest gerhard-infarct ischemia. 4. Normal left ventricular volume. There is mild hypokinesia in the inferior wall. The left ventricul ar ejection fraction is within normal limits at 66%. 5. Please correlate with stress EKG report. The result was discussed with Dr. Back. PQRS ATTESTATIONS: Measure 322 - Is this imaging test primarily performed on a low-risk surgery patient for preoperative evaluation within 30 days preceding their low-risk non-cardiac surgery? Low-risk surgery is defined as cardiac or myocardial infarction less than 1%, including (but not limited to) endoscopic pr ocedures, superficial procedures, cataract surgery, and excisional breast surgery: Answer: No Measure 323 - Is this imaging test performed primarily for the monitoring of an asymptomatic patient who had percutaneous coronary intervention on the visit date or within 2 years of the visit date? An swer: No Measure 324 - Is this imaging test performed primarily for the initial detection and risk assessment on an asymptomatic, low coronary heart disease patient? Low CHD risk definition = clinicians should consider the maximum number of available patient factors used to estimate risk based on [place] (A TP III criteria), typically age, gender, diabetes, smoking status, and use of blood pressure medicati on, and integrate age appropriate estimates for missing elements, such as LDL or standard blood press ure. Answer: No Reviewed by: Quinn Steen MD on 05/07/2021 4:57 PM PST Approved by: Quinn Steen MD on 05/07/2021 4:57 PM PST Station ID: [id number]
[2021-05-07 18:22] LABS: CALCIUM 8.9 mg/dL (8.5-10.3); CREATININE 1.8 mg/dL (0.6-1.2); POTASSIUM 2.9 mmol/L (3.5-5.0)
[2021-05-07] MEDS ORDERED: POTASSIUM CHLORIDE 20 MEQ/15 ML UDC PO SCH (19:00)
[2021-05-07] MEDS: traMADol 50 MG TABLET PO PRN (19:14)
[2021-05-07] MEDS: DEXTROSE 5%-0.45% NACL 1,000 ML IV SCH (19:15)
[2021-05-07] MEDS: carvediloL 12.5 MG TABLET PO SCH (21:25)
[2021-05-07] MEDS: ATORVASTATIN 40 MG TABLET PO SCH (21:27)
[2021-05-08] MEDS: SODIUM CHLORIDE FLUSH 0.9% 10 ML SYRINGE IVP SCH ×4 (01:15→23:34)
[2021-05-08] MEDS: traMADol 50 MG TABLET PO PRN (01:20)
[2021-05-08] MEDS: METOCLOPRAMIDE 10 MG/2 ML VIAL IVP PRN ×2 (01:21→07:33)
[2021-05-08 06:41] LABS: BASOPHILS # (AUTO) 0.1 10^3/uL (0.0-0.1); BASOPHILS % (AUTO) 0.4 %; EOSINOPHILS # (AUTO) 0.1 10^3/uL (0.0-0.7); EOSINOPHILS % (AUTO) 0.7 %; HCT - HEMATOCRIT 33.6 % (42.0-52.0); HGB - HEMOGLOBIN 10.6 g/dL (14.0-18.0); LYMPHOCYTES # (AUTO) 1.7 10^3/uL (1.5-3.5); LYMPHOCYTES % (AUTO) 10.6 %; MEAN CORPUSCULAR HEMOGLOBIN 29.1 pg (27.0-31.0); MEAN CORPUSCULAR HGB CONC 31.5 g/dL (32.0-36.0); MEAN CORPUSCULAR VOLUME 92.3 fL (80.0-94.0); MEAN PLATELET VOLUME 11.3 fL (7.4-11.4); MONOCYTES # (AUTO) 1.2 10^3/uL (0.0-1.0); MONOCYTES % (AUTO) 7.6 %; NEUTROPHILS % (AUTO) 80.1 %; PLT - PLATELET COUNT 474 10^3/uL (130-450); RED BLOOD COUNT 3.64 10^6/uL (4.70-6.10); RED CELL DISTRIBUTION WIDTH 13.2 % (12.0-15.0); WHITE BLOOD COUNT 16.2 x10^3/uL (4.8-10.8)
[2021-05-08] MEDS: DEXTROSE 5%-0.45% NACL 1,000 ML IV SCH (07:32)
[2021-05-08 07:42] LABS: CALCIUM 8.3 mg/dL (8.5-10.3); CREATININE 1.6 mg/dL (0.6-1.2); POTASSIUM 3.1 mmol/L (3.5-5.0)
[2021-05-08] MEDS: SACCHAROMYCES BOULARDII 250 MG CAPSULE PO SCH ×2 (09:02→17:05)
[2021-05-08] MEDS: carvediloL 12.5 MG TABLET PO SCH ×2 (09:02→21:09)
[2021-05-08] MEDS: VANCOMYCIN 125 MG CAPSULE PO SCH ×4 (09:02→21:09)
[2021-05-08] MEDS: ASPIRIN CHEW 81 MG TABLET PO SCH (09:02)
[2021-05-08] MEDS: PROMETHAZINE 25 MG TABLET PO PRN (11:35)
--- NOTE | 2021-05-08 16:26 | PROVIDER PROGRESS NOTE ---
Subjective - Prog Note Date Prog Note Date: 05/08/21 - Subjective Subjective: He feels like his appetite is improving. Denies any chest pain or dyspnea. He is feeling better each day. Current Medications - Current Medications Current Medications: Active Medications Aspirin (Aspirin Chew 81 Mg Tablet) 81 mg PO DAILY [facility] Last Admin: 05/08/21 09:02 Dose: 81 mg Documented by: Atorvastatin Calcium (Atorvastatin 40 Mg Tablet) 40 mg PO QPM [facility] Last Admin: 05/07/21 21:27 Dose: Not Given Documented by: Carvedilol (Carvedilol 12.5 Mg Tablet) 12.5 mg PO BID [facility] Last Admin: 05/08/21 09:02 Dose: 12.5 mg Documented by: Hydromorphone HCl (Hydromorphone 0.5 Mg/0.5 Ml Syringe) 0.5 mg IVP Q3H PRN PRN Reason: PAIN 5-7 Last Admin: 05/07/21 00:30 Dose: 0.5 mg Documented by: Metoclopramide HCl (Metoclopramide 10 Mg/2 Ml Vial) 5 mg IVP Q6HR PRN PRN Reason: Nausea / Vomiting Last Admin: 05/08/21 07:33 Dose: 5 mg Documented by: Ondansetron HCl (Ondansetron 4 Mg/2 Ml Vial) 4 mg IVP Q6HR PRN PRN Reason: Nausea / Vomiting Last Admin: 05/06/21 21:47 Dose: 4 mg Documented by: Prochlorperazine Edisylate (Prochlorperazine 10 Mg/2 Ml Vial) 10 mg IVP Q6HR PRN PRN Reason: Nausea / Vomiting Last Admin: 05/05/21 00:57 Dose: 10 mg Documented by: Promethazine HCl (Promethazine 25 Mg Tablet) 25 mg PO Q6HR PRN PRN Reason: Nausea / Vomiting Last Admin: 05/08/21 11:35 Dose: 25 mg Documented by: Saccharomyces Boulardii (Saccharomyces Boulardii 250 Mg Capsule) 500 mg PO BIDWM [facility] Last Admin: 05/08/21 09:02 Dose: 500 mg Documented by: Sodium Chloride (Sodium Chloride Flush 0.9% 10 Ml Syringe) 10 ml IVP PRN PRN PRN Reason: NEEDED PER PROVIDER ORDERS Last Admin: 05/07/21 12:54 Dose: 10 ml Documented by: Sodium Chloride (Sodium Chloride Flush 0.9% 10 Ml Syringe) 10 ml IVP 0100,0900,1700 [facility] Last Admin: 05/08/21 07:33 Dose: 10 ml Documented by: Tramadol HCl (Tramadol 50 Mg Tablet) 50 mg PO Q4HR PRN PRN Reason: PAIN Last Admin: 05/08/21 01:20 Dose: 50 mg Documented by: Vancomycin HCl (Vancomycin 125 Mg Capsule) 125 mg PO QID [facility] Last Admin: 05/08/21 12:52 Dose: 125 mg Documented by: Sildenafil Citrate 50 - 100 mg PO DAILY PRN 04/24/21 PROMETHAZINE SUPP Prepack 2 [PHENADOZ SUPP Prepack 2] 25 mg [place] Q6H PRN 04/25/21 Objective - Vital Signs/Intake & Output Reviewed Vital Signs: Yes Vital Signs: Vital Signs x48h Temp Pulse Resp BP Pulse Ox 05/08/21 13:00 37.0 C 69 18 115/70 97 05/08/21 09:01 79 158/90 H Intake & Output: Intake & Output 05/05/21 05/06/21 05/07/21 05/08/21 23:59 23:59 23:59 23:59 Intake Total 4062.333 2641.660 604.916 2245.779 Output Total 1350 3970 3000 525 Balance 2712.333 -1328.340 -2232.779 1384.779 - Objective General Appearance: positive: No acute distress, Alert Eyes Bilateral: positive: Normal inspection, Conjunctivae nml ENT: positive: ENT inspection nml Neck: positive: Nml inspection Respiratory: positive: No respiratory distress. negative: Wheezes, Rales Cardiovascular: negative: Tachycardia, Systolic murmur Abdomen: positive: Non-tender, No distention. negative: Tenderness Skin: positive: Warm, Dry Extremities: positive: No pedal edema Neurologic/Psychiatric: negative: Disoriented to person, Disoriented to place - Lab Results Fish Bones: 05/08/21 05:37 05/08/21 05:37 Other Labs: Lab Results x24hrs 05/08/21 05/08/21 05/08/21 Range/Units 05:37 05:37 05:37 WBC 16.2 H (4.8-10.8) x10^3/uL RBC 3.64 L (4.70-6.10) 10^6/uL Hgb 10.6 L (14.0-18.0) g/dL Hct 33.6 L (42.0-52.0) % MCV 92.3 (80.0-94.0) fL MCH 29.1 (27.0-31.0) pg MCHC 31.5 L (32.0-36.0) g/dL RDW 13.2 (12.0-15.0) % Plt Count 474 H (130-450) 10^3/uL MPV 11.3 (7.4-11.4) fL Neut # (Auto) 13.0 H (1.5-6.6) 10^3/uL Lymph # (Auto) 1.7 (1.5-3.5) 10^3/uL [place] # (Auto) 1.2 H (0.0-1.0) 10^3/uL Eos # (Auto) 0.1 (0.0-0.7) 10^3/uL Baso # (Auto) 0.1 (0.0-0.1) 10^3/uL Absolute Nucleated RBC 0.00 x10^3/uL Nucleated RBC % 0.0 /100WBC Sodium 144 (135-145) mmol/L Potassium 3.1 L (3.5-5.0) mmol/L Chloride 104 (101-111) mmol/L Carbon Dioxide 32 (21-32) mmol/L Anion Gap 8.0 (6-13) BUN 20 (6-20) mg/dL Creatinine 1.6 H (0.6-1.2) mg/dL Estimated GFR (MDRD) 43 L (>89) Glucose 137 H (70-100) mg/dL Calcium 8.3 L (8.5-10.3) mg/dL B-Natriuretic Peptide 408 H (5-100) pg/mL 05/07/21 Range/Units 18:04 WBC (4.8-10.8) x10^3/uL RBC (4.70-6.10) 10^6/uL Hgb (14.0-18.0) g/dL Hct (42.0-52.0) % MCV (80.0-94.0) fL MCH (27.0-31.0) pg MCHC (32.0-36.0) g/dL RDW (12.0-15.0) % Plt Count (130-450) 10^3/uL MPV (7.4-11.4) fL Neut # (Auto) (1.5-6.6) 10^3/uL Lymph # (Auto) (1.5-3.5) 10^3/uL [place] # (Auto) (0.0-1.0) 10^3/uL Eos # (Auto) (0.0-0.7) 10^3/uL Baso # (Auto) (0.0-0.1) 10^3/uL Absolute Nucleated RBC x10^3/uL Nucleated RBC % /100WBC Sodium 148 H (135-145) mmol/L Potassium 2.9 L (3.5-5.0) mmol/L Chloride 101 (101-111) mmol/L Carbon Dioxide 31 (21-32) mmol/L Anion Gap 16.0 H (6-13) BUN 21 H (6-20) mg/dL Creatinine 1.8 H (0.6-1.2) mg/dL Estimated GFR (MDRD) 37 L (>89) Glucose 128 H (70-100) mg/dL Calcium 8.9 (8.5-10.3) mg/dL B-Natriuretic Peptide (5-100) pg/mL Assessment/Plan - Problem List (1) Abnormal stress test Impression: Myocardial perfusion imaging revealed a fixed infarct. I reviewed this with Dr. Rooney of cardiology who felt that a cardiac catheterization would be necessary. He spoke with Dr. Merida of cardiology at [facility] to attempt to initiate transfer. Dr. Merida contacted me and informed me that there are no beds available at this time at [place]. I informed him that I spoke with [place] transfer center and I placed the patient on a waiting list there. Dr. Merida is here at our facility tomorrow for clinic and he will stop by and see the patient. The plan at this time will hopefully be to transfer him to [facility] for cardiac catheterization but if this is delayed due to bed availability and we can potentially discharge him on the appropriate medical therapy and have him obtain an angiogram on outpatient basis. For the time nanda wu, we will continue aspirin, Lipitor, carvedilol. Lovenox has been discontinued. (2) CHF (congestive heart failure) Impression: He does not appear to be in heart failure exacerbation at this time. He is on carvedilol but we are holding diuresis given his limited p.o. intake and he appears euvolemic. Qualifiers: Heart failure type: diastolic Heart failure chronicity: chronic Qualified Code(s): I50.32 - Chronic diastolic (congestive) heart failure (3) Intractable nausea and vomiting Impression: The etiology of this was not clear. CT on admission revealed no acute abnormalities. He is not tolerating a diet. Continue with Zofran as needed for nausea. (4) Elevated WBC count Impression: Suspect is likely reactive. This is improving. He continues to be on oral vancomycin for the C. difficile. Qualifiers: Leukocytosis type: unspecified Qualified Code(s): D72.829 - Elevated white blood cell count, unspecified (5) History of Clostridium difficile colitis Impression: Continue oral vancomycin for a total of 10 days of therapy. (6) BOLIVAR (acute kidney injury) Impression: His creatinine is improved today but still have at 1.6. The etiology of his acute kidney injury is not clear but he did improve with some IV hydration. I have ordered for urine sodium and creatinine although he has been receiving diuretics previously. Do not have urine urea available here. We will continue to monitor his renal function avoid nephrotoxins (7) Hypertension Impression: His blood pressure is better controlled after initiating carvedilol. We will continue to monitor and we can consider increasing the dose of carvedilol if necessary.
[2021-05-08] MEDS: ATORVASTATIN 40 MG TABLET PO SCH (21:07)
[2021-05-09] MEDS: METOCLOPRAMIDE 10 MG/2 ML VIAL IVP PRN (04:47)
[2021-05-09 05:32] LABS: BASOPHILS # (AUTO) 0.1 10^3/uL (0.0-0.1); BASOPHILS % (AUTO) 0.6 %; EOSINOPHILS # (AUTO) 0.2 10^3/uL (0.0-0.7); EOSINOPHILS % (AUTO) 1.4 %; HCT - HEMATOCRIT 34.7 % (42.0-52.0); HGB - HEMOGLOBIN 11.2 g/dL (14.0-18.0); LYMPHOCYTES # (AUTO) 1.7 10^3/uL (1.5-3.5); LYMPHOCYTES % (AUTO) 10.6 %; MEAN CORPUSCULAR HEMOGLOBIN 29.7 pg (27.0-31.0); MEAN CORPUSCULAR HGB CONC 32.3 g/dL (32.0-36.0); MEAN PLATELET VOLUME 11.5 fL (7.4-11.4); MONOCYTES # (AUTO) 1.3 10^3/uL (0.0-1.0); MONOCYTES % (AUTO) 7.7 %; NEUTROPHILS % (AUTO) 79.2 %; PLT - PLATELET COUNT 521 10^3/uL (130-450); RED BLOOD COUNT 3.77 10^6/uL (4.70-6.10); RED CELL DISTRIBUTION WIDTH 13.1 % (12.0-15.0); WHITE BLOOD COUNT 16.5 x10^3/uL (4.8-10.8)
[2021-05-09 05:36] LABS: CALCIUM 8.5 mg/dL (8.5-10.3); CREATININE 1.5 mg/dL (0.6-1.2); POTASSIUM 3.4 mmol/L (3.5-5.0)
[2021-05-09 07:53] LABS: ALBUMIN 2.9 g/dL (3.2-5.5); BILIRUBIN,DIRECT 0.1 mg/dL (0.1-0.5); BILIRUBIN,TOTAL 0.7 mg/dL (0.2-1.0); TOTAL PROTEIN 6.6 g/dL (6.7-8.2)
[2021-05-09] MEDS: PROMETHAZINE 25 MG TABLET PO PRN (07:54)
[2021-05-09] MEDS: ONDANSETRON 4 MG/2 ML VIAL IVP PRN (08:33)
[2021-05-09] MEDS: SODIUM CHLORIDE FLUSH 0.9% 10 ML SYRINGE IVP SCH ×2 (08:33→17:05)
[2021-05-09 08:37] LABS: % IRON SATURATION 35 % (20-50); IRON 78 ug/dL (45-182); TOTAL IRON BINDING CAPACITY 225 ug/dL (250-450); TRANSFERRIN 161 mg/dL (180-329)
[2021-05-09] MEDS: carvediloL 12.5 MG TABLET PO SCH ×2 (09:02→20:36)
[2021-05-09] MEDS: ASPIRIN CHEW 81 MG TABLET PO SCH (09:02)
[2021-05-09] MEDS: SACCHAROMYCES BOULARDII 250 MG CAPSULE PO SCH ×2 (09:02→17:05)
[2021-05-09] MEDS: VANCOMYCIN 125 MG CAPSULE PO SCH ×2 (09:02→12:15)
[2021-05-09] MEDS: amLODIPine 5 MG TABLET PO SCH (11:49)
[2021-05-09] MEDS ORDERED: LACTATED RINGERS 1,000 ML IV SCH (13:00)
[2021-05-09] MEDS: POTASSIUM CHLORIDE 20 MEQ TABLET PO SCH (13:23)
--- NOTE | 2021-05-09 13:30 | PROVIDER PROGRESS NOTE ---
Subjective - Prog Note Date Prog Note Date: 05/09/21 - Subjective Subjective: He still feels nauseous but has had no vomiting. Still feels like his abdomen is distended and feels discomfort at times. He is having bowel movements. Denies any chest pain or dyspnea. Current Medications - Current Medications Current Medications: Active Medications Amlodipine Besylate (Amlodipine 5 Mg Tablet) 5 mg PO DAILY [facility] Last Admin: 05/09/21 11:49 Dose: 5 mg Documented by: Aspirin (Aspirin Chew 81 Mg Tablet) 81 mg PO DAILY [facility] Last Admin: 05/09/21 09:02 Dose: 81 mg Documented by: Atorvastatin Calcium (Atorvastatin 40 Mg Tablet) 40 mg PO QPM [facility] Last Admin: 05/08/21 21:07 Dose: 40 mg Documented by: Carvedilol (Carvedilol 12.5 Mg Tablet) 12.5 mg PO BID [facility] Last Admin: 05/09/21 09:02 Dose: 12.5 mg Documented by: Hydromorphone HCl (Hydromorphone 0.5 Mg/0.5 Ml Syringe) 0.5 mg IVP Q3H PRN PRN Reason: PAIN 5-7 Last Admin: 05/07/21 00:30 Dose: 0.5 mg Documented by: Lactated Ringer's (Lr) 1,000 mls @ 83.333 mls/hr IV .Q12H [facility] Stop: 05/10/21 00:59 Last Admin: 05/09/21 13:23 Dose: 83.3 mls/hr Documented by: Metoclopramide HCl (Metoclopramide 10 Mg/2 Ml Vial) 5 mg IVP Q6HR PRN PRN Reason: Nausea / Vomiting Last Admin: 05/09/21 04:47 Dose: 5 mg Documented by: Ondansetron HCl (Ondansetron 4 Mg/2 Ml Vial) 4 mg IVP Q6HR PRN PRN Reason: Nausea / Vomiting Last Admin: 05/09/21 08:33 Dose: 4 mg Documented by: Potassium Chloride (Potassium Chloride 20 Meq Tablet) 20 meq PO DAILYWM [facility] Last Admin: 05/09/21 13:23 Dose: 20 meq Documented by: Prochlorperazine Edisylate (Prochlorperazine 10 Mg/2 Ml Vial) 10 mg IVP Q6HR PRN PRN Reason: Nausea / Vomiting Last Admin: 05/05/21 00:57 Dose: 10 mg Documented by: Saccharomyces Boulardii (Saccharomyces Boulardii 250 Mg Capsule) 500 mg PO BIDWM [facility] Last Admin: 05/09/21 09:02 Dose: 500 mg Documented by: Sodium Chloride (Sodium Chloride Flush 0.9% 10 Ml Syringe) 10 ml IVP PRN PRN PRN Reason: NEEDED PER PROVIDER ORDERS Last Admin: 05/07/21 12:54 Dose: 10 ml Documented by: Sodium Chloride (Sodium Chloride Flush 0.9% 10 Ml Syringe) 10 ml IVP 0100,0900,1700 [facility] Last Admin: 05/09/21 08:33 Dose: 10 ml Documented by: Tramadol HCl (Tramadol 50 Mg Tablet) 50 mg PO Q4HR PRN PRN Reason: PAIN Last Admin: 05/08/21 01:20 Dose: 50 mg Documented by: Sildenafil Citrate 50 - 100 mg PO DAILY PRN 04/24/21 PROMETHAZINE SUPP Prepack 2 [PHENADOZ SUPP Prepack 2] 25 mg LA Q6H PRN 04/25/21 Objective - Vital Signs/Intake & Output Reviewed Vital Signs: Yes Vital Signs: Vital Signs x48h Temp Pulse Resp BP BP Pulse Ox 05/09/21 11:48 69 17 120/82 H 96 05/09/21 09:01 83 162/94 H 05/09/21 07:50 37 C 65 17 165/94 H 169/98 H 97 Intake & Output: Intake & Output 05/06/21 05/07/21 05/08/21 05/09/21 23:59 23:59 23:59 23:59 Intake Total 2641.660 043.392 4425.779 1010 Output Total 3970 3000 825 550 Balance -1328.340 -2232.779 1814.779 460 - Objective General Appearance: positive: No acute distress, Alert Eyes Bilateral: positive: Normal inspection, Conjunctivae nml ENT: positive: ENT inspection nml Neck: positive: Nml inspection Respiratory: positive: No respiratory distress. negative: Wheezes, Rales Cardiovascular: positive: Regular rate & rhythm. negative: Irregularly irregular, Tachycardia Abdomen: positive: Nml bowel sounds, No distention, Tenderness (Mild tenderness in right upper quadrant.). negative: Guarding, Rebound Skin: positive: Warm, Dry Extremities: positive: No pedal edema Neurologic/Psychiatric: positive: Motor nml. negative: Disoriented to person, Disoriented to place - Lab Results Fish Bones: 05/09/21 04:40 05/09/21 04:40 Other Labs: Lab Results x24hrs 05/09/21 05/09/21 05/09/21 Range/Units 05:24 05:24 04:40 WBC (4.8-10.8) x10^3/uL RBC (4.70-6.10) 10^6/uL Hgb (14.0-18.0) g/dL Hct (42.0-52.0) % MCV (80.0-94.0) fL MCH (27.0-31.0) pg MCHC (32.0-36.0) g/dL RDW (12.0-15.0) % Plt Count (130-450) 10^3/uL MPV (7.4-11.4) fL Neut # (Auto) (1.5-6.6) 10^3/uL Lymph # (Auto) (1.5-3.5) 10^3/uL [place] # (Auto) (0.0-1.0) 10^3/uL Eos # (Auto) (0.0-0.7) 10^3/uL Baso # (Auto) (0.0-0.1) 10^3/uL Absolute Nucleated RBC x10^3/uL Nucleated RBC % /100WBC Sodium (135-145) mmol/L Potassium (3.5-5.0) mmol/L Chloride (101-111) mmol/L Carbon Dioxide (21-32) mmol/L Anion Gap (6-13) BUN (6-20) mg/dL Creatinine (0.6-1.2) mg/dL Estimated GFR (MDRD) (>89) Glucose (70-100) mg/dL Calcium (8.5-10.3) mg/dL Iron 78 (45-182) ug/dL TIBC 225 L (250-450) ug/dL % Saturation 35 (20-50) % Transferrin 161 L (180-329) mg/dL Ferritin 294.2 (23.9-336.2) ng/mL Total Bilirubin 0.7 (0.2-1.0) mg/dL Direct Bilirubin 0.1 (0.1-0.5) mg/dL AST 18 (10-42) IU/L ALT 24 (10-60) IU/L Alkaline Phosphatase 82 (42-121) IU/L B-Natriuretic Peptide (5-100) pg/mL Total Protein 6.6 L (6.7-8.2) g/dL Albumin 2.9 L (3.2-5.5) g/dL Globulin 3.7 (2.1-4.2) g/dL 05/09/21 05/09/21 05/09/21 Range/Units 04:40 04:40 04:40 WBC 16.5 H (4.8-10.8) x10^3/uL RBC 3.77 L (4.70-6.10) 10^6/uL Hgb 11.2 L (14.0-18.0) g/dL Hct 34.7 L (42.0-52.0) % MCV 92.0 (80.0-94.0) fL MCH 29.7 (27.0-31.0) pg MCHC 32.3 (32.0-36.0) g/dL RDW 13.1 (12.0-15.0) % Plt Count 521 H (130-450) 10^3/uL MPV 11.5 H (7.4-11.4) fL Neut # (Auto) 13.0 H (1.5-6.6) 10^3/uL Lymph # (Auto) 1.7 (1.5-3.5) 10^3/uL [place] # (Auto) 1.3 H (0.0-1.0) 10^3/uL Eos # (Auto) 0.2 (0.0-0.7) 10^3/uL Baso # (Auto) 0.1 (0.0-0.1) 10^3/uL Absolute Nucleated RBC 0.00 x10^3/uL Nucleated RBC % 0.0 /100WBC Sodium 142 (135-145) mmol/L Potassium 3.4 L (3.5-5.0) mmol/L Chloride 102 (101-111) mmol/L Carbon Dioxide 31 (21-32) mmol/L Anion Gap 9.0 (6-13) BUN 22 H (6-20) mg/dL Creatinine 1.5 H (0.6-1.2) mg/dL Estimated GFR (MDRD) 46 L (>89) Glucose 120 H (70-100) mg/dL Calcium 8.5 (8.5-10.3) mg/dL Iron (45-182) ug/dL TIBC (250-450) ug/dL % Saturation (20-50) % Transferrin (180-329) mg/dL Ferritin (23.9-336.2) ng/mL Total Bilirubin (0.2-1.0) mg/dL Direct Bilirubin (0.1-0.5) mg/dL AST (10-42) IU/L ALT (10-60) IU/L Alkaline Phosphatase (42-121) IU/L B-Natriuretic Peptide 366 H (5-100) pg/mL Total Protein (6.7-8.2) g/dL Albumin (3.2-5.5) g/dL Globulin (2.1-4.2) g/dL Assessment/Plan - Problem List (1) Abnormal stress test Impression: Myocardial perfusion imaging revealed a fixed defect. Dr. Rooney spoke with Dr. Merida of cardiology at [facility] in [place] and the plan is to transfer the patient for a cardiac catheterization this can be done in a timely fashion. Unfortunately, [facility] has no beds available for the time being. If we cannot get a bed in a timely fashion we will medically manage him and have him follow-up on an outpatient basis for a cardiac catheterization. I spoke with Dr. Merida today and I will update him based off of the CT scan results. If the CT shows no evidence of infection and there is no bed available by tomorrow then we will likely discharge the patient but I will keep him in touch. (2) Intractable nausea and vomiting Impression: He continues to have nausea but no more emesis. Given his persistent elevated white count and now that his platelet count is increasing, I am concerned for an abdominal infection such as an abscess and so we will proceed with obtaining a CT of the abdomen pelvis with IV and oral contrast. We will continue with Zofran as needed. Diet as tolerated. (3) Elevated WBC count Impression: His white blood cell count remains elevated. He has not been off antibiotics more than 48 hours. There has been no obvious source of infection. There is previous concern for pneumonia but he was already treated for that and he has now completed oral vancomycin for the C. difficile. Given his persistently elevated white count and increasing platelet count, we will pursue a CT of the abdomen pelvis to ensure there is no development of an abscess. Qualifiers: Leukocytosis type: unspecified Qualified Code(s): D72.829 - Elevated white blood cell count, unspecified (4) BOLIVAR (acute kidney injury) Impression: His creatinine is slowly improving and today is 1.5. We will be obtaining a CT with IV contrast to look for abscess and so we will hydrate him with lactated Ringer's. Continue to monitor his renal function and urine output. (5) CHF (congestive heart failure) Impression: This is not an exacerbation. His BNP is decreasing and he has no edema or dyspnea. We are holding his home Lasix as I still believe he appears slightly hypovolemic and he will be receiving contrast today for the CT she will start him on gentle IV hydration. Qualifiers: Heart failure type: diastolic Heart failure chronicity: chronic Qualified Code(s): I50.32 - Chronic diastolic (congestive) heart failure (6) Hypertension Impression: He is hypertensive today with systolics in the 150s and so we will add amlodipine to the carvedilol. (7) History of Clostridium difficile colitis Impression: He completed 10 days of oral vancomycin and this has been discontinued.
[2021-05-09] MEDS ORDERED: IOPAMIDOL-300 100 ML VIAL ONE (13:38)
[2021-05-09] MEDS ORDERED: IOPAMIDOL-300 50 ML VIAL ONE (13:38)
--- NOTE | 2021-05-09 15:52 | CT Report ---
PROCEDURE: Abdomen/Pelvis W INDICATIONS: Postop cholecystectomy. Nausea. Pain. High WBC. CONTRAST: IV CONTRAST: Isovue 300 ml: 100 PO CONTRAST: Isovue 300 ml50 TECHNIQUE: After the administration of intravenous contrast, 5 mm thick sections acquired from the diaphragms to the symphysis. 5 mm thick coronal and sagittal reformats were acquired. For radiation dose reducti on, the following was used: automated exposure control, adjustment of mA and/or kV according to erna ent size. COMPARISON: None. FINDINGS: Image quality: There is motion artifact limits evaluation. ABDOMEN: Lung bases: There are small to moderate bilateral pleural effusions. Patchy indistinct groundglass op acities are demonstrated within the lung bases bilaterally with small areas of consolidation posterio rly. Heart size is normal. Solid organs: There is a cyst in the left hepatic lobe measuring up to 1.0 cm. Gallbladder is surgica lly absent. There is trace fluid in the gallbladder fossa without a discrete lobulated fluid collecti on. Biliary system is non dilated. The spleen is normal in size. Pancreas enhances normally without peripancreatic fat stranding or fluid collections. No adrenal nodules. Kidneys demonstrate no hydro nephrosis. Peritoneum and bowel: Bowel loops demonstrate normal wall thickness and caliber. The appendix is nor mal in appearance. There is colonic diverticulosis without acute diverticulitis. There are scattered air-fluid levels within the colon suggestive of a gastroenteritis. No evidence of bowel obstruction. No free fluid or air. Nodes and vessels: No retroperitoneal or mesenteric adenopathy by size criteria. Aorta and inferior vena cava are normal in size. Miscellaneous: No ventral hernias. PELVIS: Genitourinary: Bladder wall thickness is normal. Miscellaneous: There is a small fat-containing left inguinal hernia. No inguinal adenopathy. Bones: No suspicious bony lesions. No vertebral body compression fractures. IMPRESSION: 1. Bilateral small to moderate pleural effusions with patchy indistinct airspace opacities in the rachael g bases small areas of posterior consolidation. The findings are suggestive of pneumonia and possible aspiration. 2. No evidence of intra-abdominal abscess. 3. No loculated fluid collections in the gallbladder fossa. 4. Colonic diverticulosis without acute diverticulitis. 5. Scattered air-fluid levels throughout the colon suggestive of a gastroenteritis or ileus. Reviewed by: Ruddy Bermeo MD on 05/09/2021 3:51 PM PST Approved by: Ruddy Bermeo MD on 05/09/2021 3:51 PM PST Station ID: [id number]
[2021-05-09] MEDS ORDERED: IOPAMIDOL-300 100 ML VIAL IVP ONE (18:58)
[2021-05-09] MEDS ORDERED: IOPAMIDOL-300 50 ML VIAL PO ONE (18:59)
[2021-05-09] MEDS: ATORVASTATIN 40 MG TABLET PO SCH (20:36)
[2021-05-10] MEDS: SODIUM CHLORIDE FLUSH 0.9% 10 ML SYRINGE IVP SCH ×3 (01:00→16:03)
[2021-05-10 05:42] LABS: BASOPHILS # (AUTO) 0.1 10^3/uL (0.0-0.1); BASOPHILS % (AUTO) 0.6 %; EOSINOPHILS # (AUTO) 0.2 10^3/uL (0.0-0.7); EOSINOPHILS % (AUTO) 1.2 %; HCT - HEMATOCRIT 34.5 % (42.0-52.0); LYMPHOCYTES # (AUTO) 1.9 10^3/uL (1.5-3.5); LYMPHOCYTES % (AUTO) 12.9 %; MEAN CORPUSCULAR HEMOGLOBIN 29.2 pg (27.0-31.0); MEAN CORPUSCULAR HGB CONC 31.9 g/dL (32.0-36.0); MEAN CORPUSCULAR VOLUME 91.5 fL (80.0-94.0); MEAN PLATELET VOLUME 11.4 fL (7.4-11.4); MONOCYTES # (AUTO) 1.5 10^3/uL (0.0-1.0); MONOCYTES % (AUTO) 10.2 %; NEUTROPHILS # (AUTO) 10.8 10^3/uL (1.5-6.6); NEUTROPHILS % (AUTO) 74.5 %; PLT - PLATELET COUNT 475 10^3/uL (130-450); RED BLOOD COUNT 3.77 10^6/uL (4.70-6.10); WHITE BLOOD COUNT 14.5 x10^3/uL (4.8-10.8)
[2021-05-10 05:48] LABS: CALCIUM 8.3 mg/dL (8.5-10.3); CREATININE 1.4 mg/dL (0.6-1.2); POTASSIUM 3.5 mmol/L (3.5-5.0)
[2021-05-10] MEDS: carvediloL 12.5 MG TABLET PO SCH ×2 (08:52→20:54)
[2021-05-10] MEDS: POTASSIUM CHLORIDE 20 MEQ TABLET PO SCH (08:52)
[2021-05-10] MEDS: SACCHAROMYCES BOULARDII 250 MG CAPSULE PO SCH ×2 (08:52→16:03)
[2021-05-10] MEDS: ASPIRIN CHEW 81 MG TABLET PO SCH (08:52)
[2021-05-10] MEDS: amLODIPine 5 MG TABLET PO SCH (08:52)
[2021-05-10] MEDS: ONDANSETRON 4 MG/2 ML VIAL IVP PRN (16:02)
--- NOTE | 2021-05-10 17:58 | PROVIDER PROGRESS NOTE ---
Subjective - Prog Note Date Prog Note Date: 05/10/21 - Subjective Subjective: Feels much better overall. Denies chest pain or dyspnea. Still has very mild abdominal pain but his nausea has resolved. He has not required Zofran today. Current Medications - Current Medications Current Medications: Active Medications Amlodipine Besylate (Amlodipine 5 Mg Tablet) 5 mg PO DAILY [facility] Last Admin: 05/10/21 08:52 Dose: 5 mg Documented by: Aspirin (Aspirin Chew 81 Mg Tablet) 81 mg PO DAILY [facility] Last Admin: 05/10/21 08:52 Dose: 81 mg Documented by: Atorvastatin Calcium (Atorvastatin 40 Mg Tablet) 40 mg PO QPM [facility] Last Admin: 05/09/21 20:36 Dose: 40 mg Documented by: Carvedilol (Carvedilol 12.5 Mg Tablet) 12.5 mg PO BID [facility] Last Admin: 05/10/21 08:52 Dose: 12.5 mg Documented by: Hydromorphone HCl (Hydromorphone 0.5 Mg/0.5 Ml Syringe) 0.5 mg IVP Q3H PRN PRN Reason: PAIN 5-7 Last Admin: 05/07/21 00:30 Dose: 0.5 mg Documented by: Metoclopramide HCl (Metoclopramide 10 Mg/2 Ml Vial) 5 mg IVP Q6HR PRN PRN Reason: Nausea / Vomiting Last Admin: 05/09/21 04:47 Dose: 5 mg Documented by: Ondansetron HCl (Ondansetron 4 Mg/2 Ml Vial) 4 mg IVP Q6HR PRN PRN Reason: Nausea / Vomiting Last Admin: 05/10/21 16:02 Dose: 4 mg Documented by: Potassium Chloride (Potassium Chloride 20 Meq Tablet) 20 meq PO DAILYWM [facility] Last Admin: 05/10/21 08:52 Dose: 20 meq Documented by: Prochlorperazine Edisylate (Prochlorperazine 10 Mg/2 Ml Vial) 10 mg IVP Q6HR PRN PRN Reason: Nausea / Vomiting Last Admin: 05/05/21 00:57 Dose: 10 mg Documented by: Saccharomyces Boulardii (Saccharomyces Boulardii 250 Mg Capsule) 500 mg PO BIDWM [facility] Last Admin: 05/10/21 16:03 Dose: 500 mg Documented by: Sodium Chloride (Sodium Chloride Flush 0.9% 10 Ml Syringe) 10 ml IVP PRN PRN PRN Reason: NEEDED PER PROVIDER ORDERS Last Admin: 05/07/21 12:54 Dose: 10 ml Documented by: Sodium Chloride (Sodium Chloride Flush 0.9% 10 Ml Syringe) 10 ml IVP 0100,0900,1700 [facility] Last Admin: 05/10/21 16:03 Dose: 10 ml Documented by: Tramadol HCl (Tramadol 50 Mg Tablet) 50 mg PO Q4HR PRN PRN Reason: PAIN Last Admin: 05/08/21 01:20 Dose: 50 mg Documented by: Objective - Vital Signs/Intake & Output Reviewed Vital Signs: Yes Intake & Output: Intake & Output 05/07/21 05/08/21 05/09/21 05/10/21 23:59 23:59 23:59 23:59 Intake Total 151.495 2828.779 9907.954 2928.497 Output Total 3000 825 1300 1150 Balance -2232.779 1814.779 280.503 439.497 - Objective General Appearance: positive: No acute distress, Alert Eyes Bilateral: positive: Normal inspection, Conjunctivae nml ENT: positive: ENT inspection nml Neck: positive: Nml inspection Respiratory: positive: No respiratory distress Abdomen: positive: Non-tender, No distention. negative: Tenderness Skin: positive: Warm, Dry Extremities: positive: No pedal edema Neurologic/Psychiatric: positive: Motor nml. negative: Disoriented to person, Disoriented to place - Lab Results Fish Bones: 05/10/21 04:27 05/10/21 04:27 Other Labs: Lab Results x24hrs 05/10/21 05/10/21 Range/Units 04:27 04:27 WBC 14.5 H (4.8-10.8) x10^3/uL RBC 3.77 L (4.70-6.10) 10^6/uL Hgb 11.0 L (14.0-18.0) g/dL Hct 34.5 L (42.0-52.0) % MCV 91.5 (80.0-94.0) fL MCH 29.2 (27.0-31.0) pg MCHC 31.9 L (32.0-36.0) g/dL RDW 13.0 (12.0-15.0) % Plt Count 475 H (130-450) 10^3/uL MPV 11.4 (7.4-11.4) fL Neut # (Auto) 10.8 H (1.5-6.6) 10^3/uL Lymph # (Auto) 1.9 (1.5-3.5) 10^3/uL [place] # (Auto) 1.5 H (0.0-1.0) 10^3/uL Eos # (Auto) 0.2 (0.0-0.7) 10^3/uL Baso # (Auto) 0.1 (0.0-0.1) 10^3/uL Absolute Nucleated RBC 0.00 x10^3/uL Nucleated RBC % 0.0 /100WBC Sodium 142 (135-145) mmol/L Potassium 3.5 (3.5-5.0) mmol/L Chloride 105 (101-111) mmol/L Carbon Dioxide 29 (21-32) mmol/L Anion Gap 8.0 (6-13) BUN 22 H (6-20) mg/dL Creatinine 1.4 H (0.6-1.2) mg/dL Estimated GFR (MDRD) 50 L (>89) Glucose 108 H (70-100) mg/dL Calcium 8.3 L (8.5-10.3) mg/dL ABX Reporting Has patient been on IV antibiotics over the past 48 hours?: No Assessment/Plan - Problem List (1) Abnormal stress test Impression: Myocardial perfusion imaging revealed a fixed defect. The plan was to transfer him to [facility] for cardiac catheterization that can be done in a timely fas hion. Unfortunately I spoke to [facility] this morning and they still do not have beds available but they thought there might be one this afternoon. I have attempted to reach them again to discuss transfer but I have not received a call back. At this point in the day, it is too late to discharge the patient home as all of the pharmacies are closed tomorrow so he would not be able to obtain his medications. We will keep him hospitalized overnight so he can receive his cardiac medications. I will await further information from [facility] overnight regarding potential transfer. If there is no bed available by tomorrow morning then the plan will be to discharge him home after he receives his morning medications and then he can follow-up on outpatient basis with cardiology. The patient is in agreement with this. (2) Intractable nausea and vomiting Impression: Now resolved. CT revealed no acute abnormalities. There was evidence of mild enteritis but he is improved from a nausea standpoint. (3) Elevated WBC count Impression: This continues to improve. CT showed no evidence of an abscess. It did reveal enteritis but I do not suspect this is the cause of his elevated white blood cell count. He is also completed therapy with oral vancomycin for the C. difficile. We will continue to monitor off of antibiotics. Qualifiers: Leukocytosis type: unspecified Qualified Code(s): D72.829 - Elevated white blood cell count, unspecified (4) BOLIVAR (acute kidney injury) Impression: His creatinine continues to improve and today it is down to 1.4. We will continue to avoid nephrotoxins and have him follow-up on an outpatient basis once discharged. (5) CHF (congestive heart failure) Impression: This is not an exacerbation. He is euvolemic and we will continue to hold Lasix. Qualifiers: Heart failure type: diastolic Heart failure chronicity: chronic Qualified Code(s): I50.32 - Chronic diastolic (congestive) heart failure (6) Hypertension Impression: His blood pressure is improved after adding amlodipine to the carvedilol. We will continue to monitor and if remains elevated we can increase the carvedilol or the amlodipine. (7) History of Clostridium difficile colitis Impression: He completed 10 days of therapy with vancomycin.
[2021-05-10] MEDS: PROCHLORPERAZINE 10 MG/2 ML VIAL IVP PRN (20:54)
[2021-05-10] MEDS: ATORVASTATIN 40 MG TABLET PO SCH (20:54)
[2021-05-10] MEDS: SODIUM CHLORIDE FLUSH 0.9% 10 ML SYRINGE IVP PRN (20:54)
[2021-05-11] MEDS: SODIUM CHLORIDE FLUSH 0.9% 10 ML SYRINGE IVP SCH ×2 (00:02→08:01)
[2021-05-11 06:25] LABS: BASOPHILS # (AUTO) 0.1 10^3/uL (0.0-0.1); BASOPHILS % (AUTO) 0.7 %; EOSINOPHILS # (AUTO) 0.3 10^3/uL (0.0-0.7); EOSINOPHILS % (AUTO) 1.7 %; LYMPHOCYTES % (AUTO) 13.2 %; MEAN CORPUSCULAR HEMOGLOBIN 29.3 pg (27.0-31.0); MEAN CORPUSCULAR HGB CONC 32.4 g/dL (32.0-36.0); MEAN CORPUSCULAR VOLUME 90.7 fL (80.0-94.0); MEAN PLATELET VOLUME 11.6 fL (7.4-11.4); MONOCYTES # (AUTO) 1.2 10^3/uL (0.0-1.0); MONOCYTES % (AUTO) 7.9 %; NEUTROPHILS # (AUTO) 11.2 10^3/uL (1.5-6.6); PLT - PLATELET COUNT 467 10^3/uL (130-450); RED BLOOD COUNT 3.75 10^6/uL (4.70-6.10); RED CELL DISTRIBUTION WIDTH 13.1 % (12.0-15.0); WHITE BLOOD COUNT 14.8 x10^3/uL (4.8-10.8)
[2021-05-11 06:30] LABS: CALCIUM 8.6 mg/dL (8.5-10.3); CREATININE 1.4 mg/dL (0.6-1.2); POTASSIUM 4.2 mmol/L (3.5-5.0)
[2021-05-11] MEDS: carvediloL 12.5 MG TABLET PO SCH (08:00)
[2021-05-11] MEDS: POTASSIUM CHLORIDE 20 MEQ TABLET PO SCH (08:00)
[2021-05-11] MEDS: amLODIPine 5 MG TABLET PO SCH (08:00)
[2021-05-11] MEDS: ASPIRIN CHEW 81 MG TABLET PO SCH (08:00)
[2021-05-11] MEDS: SACCHAROMYCES BOULARDII 250 MG CAPSULE PO SCH (08:01)
[2021-05-11 08:06] VITALS: BP 155/79
--- NOTE | 2021-05-11 08:27 | Discharge Plan ---
Discharge Plan Problem Reviewed?: Yes Disposition: Home, Self Care Condition: Stable Prescriptions: carvediloL [Coreg] 12.5 mg PO BID #60 tablet Potassium Chloride [K-Dur] 20 meq PO DAILYWM #30 tablet Atorvastatin [Lipitor] 40 mg PO QPM #30 tablet amLODIPine [Norvasc] 5 mg PO DAILY #30 tablet Aspirin Chewable [[place] Aspirin] 81 mg PO DAILY #30 tablet Ondansetron Odt [Zofran Odt] 4 mg TL Q6H PRN #10 tablet PRN Reason: Nausea / Vomiting Diet: Cardiac Activity Restrictions: Activity as Tolerated Instruction Topics: Atorvastatin tablets, Carvedilol tablets Health Concerns: You were admitted to the hospital because of nausea and vomiting. We did a CT scan of your abdomen twice which showed no evidence of infection. Your nausea and vomiting improved during this hospitalization and you have since been tolerating a diet. We did note that your heart numbers were elevated during this stay and so we obtained a stress test which did show evidence of likely an old heart attack. This was discussed with the bindery machine operator at [facility] who feel that you will need follow-up for a cardiac catheterization to better evaluate your heart vessels. Unfortunately [place] does not have any beds at this time so we are unable to transfer you. It will be important to take the cardiac meds prescribed until you follow-up with the bindery machine operator next week. Plan of Treatment: Please begin to take carvedilol 12.5 mg twice daily and amlodipine 5 mg daily. Both of these are to help control your blood pressure. Please also begin to take aspirin 81 mg daily and Lipitor 40 mg in the evening. This can help prevent blockage of your heart vessels. I have also prescribed you potassium to take once a day as your potassium has be en a little low at times. I have also provided you with a prescription for Zofran which is a nausea medication which you can take as needed. You no longer need to take any antibiotics as you finished treatment for the C. difficile infection. Please take your evening dose of medications at 9 PM. Care Goals: The goal is to have a follow-up with cardiology to obtain an angiogram to better evaluate for potential heart disease. Assessment: The patient expressed understanding of the treatment plan. Additional Instructions or Follow Up instructions: Please follow-up with lEisabeth Sweeney and cardiology at [facility]. Dr. Merida is aware and has been notified that you will be going home today. You should be expecting a phone call from their office to set up outpatient follow-up. You should follow-up with either cardiology or Elisabeth Sweeney at minimum next week. No Smoking: If you smoke, Please STOP! Call for help. Follow-up with: Elisabeth Sweeney PA-C [Primary Care Provider] -
--- NOTE | 2021-05-11 08:27 | DISCHARGE SUMMARY ---
"Discharge Summary Admit Date: 05/04/21 Discharge Date: 05/11/21 Discharging Provider: Kobe Joe Primary Care Provider: Elisabeth Sweeney Code Status: Attempt Resuscitation Condition at Discharge: Stable Discharge Disposition: 01 Home, Self Care - DIAGNOSES Admission Diagnoses: Intractable nausea and vomiting Elevated white blood cell count Hypertension Elevated troponin Hypokalemia Pleural effusion History of C. difficile colitis Discharge Diagnoses with Status of Each Condition: Abnormal stress test - stable. Intractable nausea and vomiting - resolved. Elevated white blood cell count - improved but on going. BOLIVAR - improved but ongoing. Chronic diastolic heart failure - stable. Hypertension - stable History of C. difficile colitis - resolved. - HPI History of Present Illness: H&P per Dr. Nguyen: This is a 70-year-old white male with a history of hypertension, Hepatitis C, and chronic abdominal pain for 12 years. He recently had GB surgery here and was discharged but required readmission the next day (04/23/21) for over a week, for intractable N/V and abdominal pain and also had BOLIVAR, pneumonia, delirium (and obsconded from the hospital but returned voluntarily) and C.diff diarrhea. He was sent home 3 days ago to finish taking oral Vanco, probiotics and Augmentin for the pneumonia. His diarrhea stopped. He redeveloped intractable N/V and mild abdominal pain again and presented to the ER. He was found to be dehydrated and his WBC was rising (17, compared to 13 at discharge). His creat is normal but troponin is elevated at 153. He was given antiemetics and continues to have N/V. He is being placed in Observation status to manage dehydration and intractable N/V. Of note, his tox screen today is (+) for marijuana. Also, he desaturated in the ED to 91% on r.a. and was placed on sipplemental O2 via n.c. - CONSULTS | PROCEDURES Procedures: He underwent an exercise treadmill stress test on May 07. There was no EKG evidence of inducible ischemia. Myocardial perfusion imaging suggested a fixed infarct without obvious ischemia. Cardiology felt that given the myocardial perfusion imaging and the fact to decreasing blood pressure spots exercise was suggestive of two-vessel coronary artery disease requiring further evaluation with cardiac catheterization. - HOSPITAL COURSE Hospital Course: He was admitted for intractable nausea and vomiting of unclear cause. CT of the abdomen pelvis showed no obvious acute abnormalities. He was tried on IV Zosyn given there was concern for pneumonia although he was previously treated with Augmentin from previous discharge for pneumonia during that hospitalization which was just a few days prior. Imaging also suggested a pleural effusion and this was discussed with radiology for potential thoracentesis but it was felt the effusion was too small to perform thoracentesis. There was concern he was in heart failure and so he was diuresed with IV Lasix. He was continued on oral vancomycin for the C. difficile that was diagnosed during the prior admission. His nausea and vomiting improved with Zofran and Compazine. A repeat ech ocardiogram was obtained given his troponin was noted to be elevated in the 160s. This showed an EF of 50% with hypokinesis of the mid septal and mid inferior wall segments. Therefore a stress test was ordered and obtained which suggested a fixed infarct with no obvious ischemia. This was discussed with Dr. Rooney of cardiology who felt that the patient would benefit from a cardiac catheterization and he spoke with Dr. Merida of cardiology at [facility] in [place]. The plan was to transfer the patient for cardiac catheterization but there were no beds available at [facility] or [facility]. The patient was started on carvedilol, aspirin, Lipitor in the interim. It was also noted during this time that his white count remained elevated and his platelet count began to increase. Lasix was discontinued as it was felt he was somewhat hypovolemic at this point. He was treated with gentle IV hydration and a repeat CT of the abdomen pelvis was obtained to look for potential abscess that may have developed. There was no evidence of abscess but there was evidence of mild enteritis. The Zosyn was ultimately discontinued given there was no evidence of infection. It was felt the residual pneumonia on imaging was likely from the infection from last week and pneumonia can persist for up to a few weeks after diagnosis. He was also saturating well on room air. His creatinine did improve during his hospitalization but remained elevated at 1.4. His white count remained stable at 14,000. Ultimately, given there was no bed available at [facility] or [facility] for transfer for cardiac catheterization, the patient was discharged home on appropriate medical therapy. This was discussed with Dr. Merida of cardiology and he will be contacting the patient on Thursday to schedule outpatient follow-up for a cardiac catheterization. The patient was discharged on aspirin, Lipitor, carvedilol, amlodipine as well as Zofran as needed for nausea. He completed his course of vancomycin during this hospitalization. - ALLERGIES Allergies/Adverse Reactions: Allergies Allergy/AdvReac Type Severity Reaction Status Date / Time No Known Drug Allergies Allergy Verified 04/23/21 15:56 - MEDICATIONS Home Medications: Ambulatory Orders Medication Instructions Recorded Confirmed Acetaminophen [Tylenol] 650 mg PO Q4HR PRN tablet 05/01/21 05/05/21 traMADol [Ultram] 50 mg PO Q4HR PRN #20 tablet 05/01/21 05/05/21 Aspirin Chewable [St Ángel 81 mg PO DAILY #30 tablet 05/10/21 Aspirin] Atorvastatin [Lipitor] 40 mg PO QPM #30 tablet 05/10/21 Ondansetron Odt [Zofran Odt] 4 mg TL Q6H PRN #10 tablet 05/10/21 Potassium Chloride [K-Dur] 20 meq PO DAILYWM #30 tablet 05/10/21 amLODIPine [Norvasc] 5 mg PO DAILY #30 tablet 05/10/21 carvediloL [Coreg] 12.5 mg PO BID #60 tablet 05/10/21 - PHYSICAL EXAM AT DISCHARGE General Appearance: positive: No acute distress, Alert Eyes Bilateral: positive: Normal inspection, Conjunctivae nml ENT: positive: ENT inspection nml Neck: positive: Nml inspection Respiratory: positive: No respiratory distress. negative: Wheezes, Rales Cardiovascular: positive: Regular rate & rhythm, No murmur. negative: Tachycardia Abdomen: positive: Non-tender, No distention. negative: Tenderness Skin: positive: Warm, Dry Extremities: positive: No pedal edema Neurologic/Psychiatric: positive: Motor nml. negative: Disoriented to person, Disoriented to place Physical Exam Other/Comments: Vital Signs - 24 hr 05/10/21 05/11/21 23:40 08:06 Temperature 36.9 C Heart Rate [ 86 66 Brachial] Respiratory 16 Rate Blood Pressure 134/90 H 155/79 H [Right Brachial artery] O2 Saturation 92 Oxygen O2 Source Room air - LABS Result Diagrams: 05/11/21 05:29 05/11/21 05:29 - DIAGNOSTIC IMAGING Diagnostic Imaging Results: Final report reviewed - FOLLOW UP Follow Up: He will be following up with cardiology next week to discuss an outpatient cardiac catheterization. He was also asked to follow-up with his primary care physician within 1 to 2 weeks. - TIME SPENT Time Spent in Discharge (Minutes): 38"
[2021-05-11] MEDS ORDERED: ATORVASTATIN 40 MG TABLET PO ONE (10:00)
[2021-05-11] MEDS ORDERED: carvediloL 12.5 MG TABLET PO ONE (10:00)
== END 2021-05-11 11:57 | disposition home or self-care (01) | DRG 392 ==
LOC: ED 20:30 → MS2 23:59 → OBSVTOIN 05-05 16:29
PROVIDERS: ADMIT Internal Medicine; ATTEND Internal Medicine
DX: R11.2 Nausea with vomiting, unspecified (principal); R10.9 Unspecified abdominal pain; R94.31 Abnormal electrocardiogram [ECG] [EKG]; R09.02 Hypoxemia; N17.9 Acute kidney failure, unspecified; I50.32 Chronic diastolic (congestive) heart failure; J90 Pleural effusion, not elsewhere classified; I10 Essential (primary) hypertension; D72.829 Elevated white blood cell count, unspecified; I11.0 Hypertensive heart disease with heart failure; K21.9 Gastro-esophageal reflux disease without esophagitis; B19.20 Unspecified viral hepatitis C without hepatic coma; K40.90 Unilateral inguinal hernia, without obstruction or gangrene, not specified as recurrent; K57.30 Diverticulosis of large intestine without perforation or abscess without bleeding; Z20.822 Contact with and (suspected) exposure to COVID-19; G89.29 Other chronic pain; Z87.891 Personal history of nicotine dependence; Z90.49 Acquired absence of other specified parts of digestive tract; E86.0 Dehydration; E87.6 Hypokalemia; R77.8 Other specified abnormalities of plasma proteins; R94.39 Abnormal result of other cardiovascular function study; Z86.19 Personal history of other infectious and parasitic diseases
CPT/HCPCS: 36415; 71045; 74177; 78452; 80048; 80053; 80076; 80306; 81001; 82728; 83540; 83605; 83690; 83735; 83880; 84466; 84484; 85025; 85610; 87040; 87631; 93005; 93017; 93306; 94761; 96361; 96374; 96375; 96376; 99283; 99285; A9270; A9500; G0480; J1170; J2765; J7120; J8499; Q0169; Q9967; 0202U; 80320; 81003; 87086

== ENCOUNTER 2021-05-16 12:35 | Outpatient (CLI) | payer MEDICARE, OTHER ==
--- NOTE | 2021-05-16 15:21 | XRAY Report ---
PROCEDURE: Lumbar Spine 2 View INDICATIONS: ABDOMINAL PAIN TECHNIQUE: 3 views of the lumbar spine were acquired. COMPARISON: None. FINDINGS: Bones: 5 [id number] vertebrae are present. There is normal bony alignment. No vertebral body compression fractures. No suspicious bony lesions. Mild multilevel endplate osteophyte formation. F acet hypertrophy throughout the mid and lower lumbar spine. Soft tissues: Overlying bowel gas pattern is normal. No suspicious soft tissue calcifications. IMPRESSION: Multilevel degenerative disc and facet disease. No acute fracture. No osseous lesion. If symptoms and/or clinical suspicion for pathology continue, further assessment with repeat plain film s, or advanced imaging (e.g., CT, MRI, or bone scan) is recommended for further assessment. Reviewed by: Kiersten Sy MD on 05/16/2021 3:20 PM PST Approved by: Kiersten Sy MD on 05/16/2021 3:20 PM [facility] Station ID: [id number]
--- NOTE | 2021-05-16 15:21 | XRAY Report ---
PROCEDURE: Thoracic Spine 2 View INDICATIONS: ABDOMINAL PAIN TECHNIQUE: 3 views of the thoracic spine were acquired. COMPARISON: None. FINDINGS: Bones: No fractures or dislocations. No suspicious bony lesions. Visualized ribs are intact. Mild m ultilevel disc space narrowing and endplate osteophyte formation. Soft tissues: No paravertebral stripe thickening. IMPRESSION: Multilevel degenerative disc disease. No acute fracture. No osseous lesion. If symptoms and/or clinic al suspicion for pathology continue, further assessment with repeat plain films, or advanced imaging (e.g., CT, MRI, or bone scan) is recommended for further assessment. Reviewed by: Kiersten Sy MD on 05/16/2021 3:19 PM PST Approved by: Kiersten Sy MD on 05/16/2021 3:19 PM PST Station ID: [id number]
== END 2021-05-16 12:36 | disposition home or self-care (01) ==
LOC: DI.N 12:35
PROVIDERS: ATTEND Physician Assistant Medical
DX: R10.9 Unspecified abdominal pain (principal); M51.34 Other intervertebral disc degeneration, thoracic region; M47.816 Spondylosis without myelopathy or radiculopathy, lumbar region; M51.36 Other intervertebral disc degeneration, lumbar region

== ENCOUNTER 2021-05-18 11:08 | Outpatient (CLI) | payer MEDICARE, OTHER ==
--- NOTE | 2021-05-18 12:09 | XRAY Report ---
PROCEDURE: Abdomen Acute INDICATIONS: NAUSEA VOMITTING ABD PAIN TECHNIQUE: One view chest and two views of the abdomen were acquired. COMPARISON: CT abdomen pelvis 05/09/2021 FINDINGS: Surgical changes and devices: Cholecystectomy clips. Chest: Lungs are clear. Heart size is normal. No pleural effusions. No pneumoperitoneum. Abdomen: Bowel gas pattern is nonobstructive. Moderate right colonic stool is present. No suspicious calcifications. Visualized solid organ contours appear normal. Bones: No suspicious bony lesions. IMPRESSION: 1. No obstruction or free air. 2. Moderate right colonic stool. The above findings were discussed with Sherrie AUGUST on 05/18/2021 at 12:05 PM. Reviewed by: Jackelyn Bryant MD on 05/18/2021 12:07 PM PST Approved by: Jackelyn Bryant MD on 05/18/2021 12:07 PM [facility] Station ID: [id number]
== END 2021-05-18 11:09 | disposition home or self-care (01) ==
LOC: DI 11:08
PROVIDERS: ATTEND Nurse Practitioner
DX: R10.9 Unspecified abdominal pain (principal); R11.2 Nausea with vomiting, unspecified

== ENCOUNTER 2021-06-12 07:19 | Outpatient (CLI) | payer MEDICARE, OTHER ==
--- NOTE | 2021-06-12 08:53 | MRI Report ---
PROCEDURE: Thoracic Spine W/O INDICATIONS: LUMBAR BACK PAIN, THORACIC BACK PAIN TECHNIQUE: Noncontrast sagittal T1 spine echo and T2 fast spin echo, sagittal STIR, axial T1 and T2 fast spin ec ho through the thoracic spine. COMPARISON: None. FINDINGS: Image quality: Excellent. Alignment and Curvature: There is normal bony alignment. Bone Marrow: Marrow is of normal overall signal. No acute vertebral body compression fractures. Spinal Cord: Visualized spinal cord is normal in size and signal. Paraspinous Soft Tissues: No paravertebral masses. Miscellaneous: On axial images, central canal and foramina appear widely patent at all scanned level s. IMPRESSION: Negative thoracic spine MRI. No neural impingement. Reviewed by: Kiersten Sy MD on 06/12/2021 8:52 AM PST Approved by: Kiersten Sy MD on 06/12/2021 8:52 AM PST Station ID: [id number]
--- NOTE | 2021-06-12 09:01 | MRI Report ---
PROCEDURE: Lumbar Spine W/O INDICATIONS: LUMBAR BACK PAIN, THORACIC BACK PAIN TECHNIQUE: Noncontrast sagittal T1 spin echo and T2 fast echo, sagittal STIR, axial T1 and T2 fast spin echo thr ough the lumbar spine. In cases with scoliosis, additional coronal T2 fast spin echo may be performe d. COMPARISON: Plain films dated 05/16/2021. FINDINGS: Image quality: Excellent. Alignment and Curvature: 5 lumbar type vertebral bodies are present by plain film. Mild grade 1 retro listhesis of L5 on S1. Bone Marrow: Marrow is of normal overall signal. No acute vertebral body com pression fractures. Mild reactive signal within the end plates adjacent to the L1-L2 and L5-S1 inter vertebral discs. Spinal Cord: Conus medullaris terminates at the mid L1 level. Visualized cord demonstrates normal s ignal and size. Paraspinous Soft Tissues: No paravertebral masses. Mild ectasia of the infrarenal abdominal aorta m easuring 25 mm short axis. T12-L1: Mild disc desiccation. No significant canal, nor foraminal stenosis. L1-L2: Mild disc desiccation. Mild facet and ligament flavum hypertrophy. No significant canal, no r foraminal stenosis. L2-L3: Mild facet and ligament flavum hypertrophy. No significant canal, nor foraminal stenosis. L3-L4: Mild disc desiccation. Mild facet and ligament flavum hypertrophy. Mild diffuse disc bulge. Mild canal stenosis. Mild bilateral foraminal stenosis. L4-L5: Mild bilateral facet hypertrophy. No significant canal, nor foraminal stenosis. L5-S1: Severe disc height loss and desiccation. Mild bilateral facet hypertrophy. No significant ca nal stenosis. Mild bilateral foraminal stenosis. IMPRESSION: 1. Multilevel degenerative disc and facet disease, in addition to epidural lipomatosis and ligamentum flavum hypertrophy. 2. Mild multilevel canal and foraminal stenoses. 3. Mild ectasia of the infrarenal abdominal aorta. Annual sonographic surveillance is recommended. Reviewed by: Kiersten Sy MD on 06/12/2021 9:00 AM PST Approved by: Kiersten Sy MD on 06/12/2021 9:00 AM PST Station ID: [id number]
== END 2021-06-12 07:20 | disposition home or self-care (01) ==
LOC: DI 07:19
PROVIDERS: ATTEND Physician Assistant Medical
DX: E88.2 Lipomatosis, not elsewhere classified (principal); I77.811 Abdominal aortic ectasia; M47.816 Spondylosis without myelopathy or radiculopathy, lumbar region; M51.36 Other intervertebral disc degeneration, lumbar region; M48.061 Spinal stenosis, lumbar region without neurogenic claudication

== ENCOUNTER 2021-11-25 08:00 | Outpatient (CLI) | payer MEDICARE, OTHER ==
[2021-11-25 12:18] LABS: BASOPHILS % (AUTO) 0.9 %; EOSINOPHILS % (AUTO) 9.1 %; HCT - HEMATOCRIT 34.6 % (42.0-52.0); HGB - HEMOGLOBIN 11.3 g/dL (14.0-18.0); LYMPHOCYTES % (AUTO) 16.2 %; MEAN CORPUSCULAR HGB CONC 32.7 g/dL (32.0-36.0); MEAN CORPUSCULAR VOLUME 91.8 fL (80.0-94.0); MEAN PLATELET VOLUME 9.5 fL (7.4-11.4); MONOCYTES % (AUTO) 9.7 %; NEUTROPHILS % (AUTO) 63.5 %; PLT - PLATELET COUNT 637 10^3/uL (130-450); RED BLOOD COUNT 3.77 10^6/uL (4.70-6.10); RED CELL DISTRIBUTION WIDTH 13.7 % (12.0-15.0); WHITE BLOOD COUNT 12.6 x10^3/uL (4.8-10.8)
[2021-11-25 12:21] LABS: SLIDE REVIEW? Indicated
[2021-11-25 12:22] LABS: ABNORMAL LYMPHS % (MANUAL) 0 %
[2021-11-25 12:34] LABS: ALBUMIN 3.7 g/dL (3.2-5.5); BILIRUBIN,TOTAL 0.7 mg/dL (0.2-1.0); CALCIUM 9.3 mg/dL (8.5-10.3); CREATININE 1.1 mg/dL (0.6-1.2); POTASSIUM 4.6 mmol/L (3.5-5.0); TOTAL PROTEIN 7.5 g/dL (6.7-8.2)
[2021-11-25 13:16] LABS: BAND NEUTROPHILS % (MANUAL) 3 %; BASOPHILS # (MANUAL) 0.1 10^3/uL (0-0.1); BASOPHILS % (MANUAL) 1 %; EOSINOPHILS # (MANUAL) 1.1 10^3/uL (0-0.7); LYMPHOCYTES # (MANUAL) 2.5 10^3/uL (1.5-3.5); LYMPHOCYTES % (MANUAL) 14 %; MONOCYTES # (MANUAL) 0.8 10^3/uL (0.0-1.0); NEUTROPHILS # (MANUAL) 8.1 10^3/uL (1.5-6.6); REACTIVE LYMPHS % (MANUAL) 6 %
[2021-11-25 13:18] LABS: DIFFERENTIAL COMMENT MANUAL DIFFERENTIAL
== END 2021-11-25 23:59 | disposition home or self-care (01) ==
LOC: LAB 08:00
PROVIDERS: ATTEND Nurse Practitioner
DX: N18.31 Chronic kidney disease, stage 3a (principal); R73.9 Hyperglycemia, unspecified; D64.9 Anemia, unspecified
CPT/HCPCS: 36415; 80053; 82728; 83540; 84466; 85025

== ENCOUNTER 2021-11-25 12:20 | Outpatient (CLI) | payer MEDICARE, OTHER ==
--- NOTE | 2021-11-25 16:20 | XRAY Report ---
PROCEDURE: Chest 2 View X-Ray INDICATIONS: ABNORMAL CHEST XRAY TECHNIQUE: 2 view(s) of the chest. COMPARISON: 05/06/2021 chest x-ray FINDINGS: Surgical changes and devices: Median sternotomy. Lungs and pleura: No pleural effusions or pneumothorax. Lungs are clear. Mediastinum: Mediastinal contours are normal. Heart size is normal. Bones and chest wall: No suspicious bony abnormalities. Soft tissues appear unremarkable. IMPRESSION: No acute process. Reviewed by: Kiersten Sy MD on 11/25/2021 4:18 PM PDT Approved by: Kiersten Sy MD on 11/25/2021 4:18 PM PDT Station ID: [id number]
== END 2021-11-25 12:21 | disposition home or self-care (01) ==
LOC: DI 12:20
PROVIDERS: ATTEND Nurse Practitioner
DX: R91.8 Other nonspecific abnormal finding of lung field (principal); J90 Pleural effusion, not elsewhere classified; I51.7 Cardiomegaly; N18.31 Chronic kidney disease, stage 3a; R73.9 Hyperglycemia, unspecified; D64.9 Anemia, unspecified
CPT/HCPCS: 36415; 80053; 82728; 83540; 84466; 85025

== ENCOUNTER 2023-08-24 10:17 | Outpatient (CLI) | payer MEDICARE, OTHER | END 2023-08-24 23:59 | disposition critical access hospital (66) | LOC: EMS 10:17 | DX: R10.84 Generalized abdominal pain (principal); M25.511 Pain in right shoulder; Z95.1 Presence of aortocoronary bypass graft | CPT/HCPCS: A0425; A0429 ==

== ENCOUNTER 2023-08-24 10:52 | Emergency (ER) | payer MEDICARE, OTHER ==
[2023-08-24] MEDS ORDERED: iohexoL-300 100 ML VIAL ONE (11:45)
--- NOTE | 2023-08-24 11:46 | ED Physician Documentation ---
PD HPI ABD PAIN - Stated complaint Stated Complaint: CHEST PX - Chief complaint Chief Complaint: Abd Pain - History obtained from History obtained from: Patient - Additional information Additional information: This is a 72-year-old gentleman with history of chronic abdominal pain. The cause of the abdominal pain was not clear, but had some abnormal heart testing and ended up having at least a three-vessel bypass about 2 years ago at [facility]. That improved his pain for some time, but did not resolve it and now it has been worse again lately. He is also had extensive workup including upper and lower endoscopy for this, and a cholecystectomy. It is thought that it may be from prior scarring of the liver due to treated hepatitis C. He has the pain all day and every day, it does not seem to improve or worsen after eating. 2 days ago he had nausea and vomiting without diarrhea and subsequently his cramping central abdominal pain got worse. Starting today after a [place] at 8 AM it radiated up into his chest which is not normal for him. There is no radiation to the back. After some aspirin now the chest pain part is gone but he still having his usual abdominal pain. Denies shortness of breath, pedal edema, calf pain, recent travel. PD PAST MEDICAL HISTORY - Past Medical History Past Medical History: Yes Cardiovascular: None Respiratory: None Neuro: None Endocrine/Autoimmune: None GI: GERD, C.difficile, Hepatitis : None HEENT: None Psych: Anxiety Musculoskeletal: None, Other Derm: None - Past Surgical History Past Surgical History: Yes General: Cholecystectomy, Colonoscopy, Other Ortho: Arthroscopic surgery - Present Medications Home Medications: Ambulatory Orders Medication Instructions Recorded Confirmed Acetaminophen [Tylenol] 650 mg PO Q4HR PRN tablet 05/01/21 08/24/23 Aspirin Chewable [St Ángel 81 mg PO DAILY #30 tablet 05/10/21 08/24/23 Aspirin] Amoxicillin 2 tab PO TID #30 cap 08/24/23 Azithromycin [Zithromax] 1 tab PO DAILY #4 tab 08/24/23 Metoprolol Succinate [Toprol Xl] 1 tab PO DAILY 08/24/23 08/24/23 Rosuvastatin Calcium [Crestor] 1 tab PO DAILY 08/24/23 08/24/23 atenoloL [Tenormin] 1 tab PO DAILY 08/24/23 08/24/23 - Allergies Allergies/Adverse Reactions: Allergies Allergy/AdvReac Type Severity Reaction Status Date / Time No Known Drug Allergies Allergy Verified 08/24/23 11:06 - Social History Does the pt smoke?: No Smoking Status: Never smoker Does the pt drink ETOH?: No Does the pt have substance abuse?: No - Immunizations Immunizations are current?: Yes - POLST Patient has POLST: No PD ED PE NORMAL - Vitals Vital signs reviewed: Yes - General General: Alert and oriented X 3, No acute distress - Neck Neck: Supple, no meningeal sign, No bony TTP - Cardiac Cardiac: RRR, No murmur - Respiratory Respiratory: No respiratory distress, Clear bilaterally - Abdomen Abdomen: Normal bowel sounds, Soft, Non tender - Back Back: No CVA TTP, No spinal TTP - Derm Derm: Normal color, Warm and dry - Extremities Extremities: No edema, No calf tenderness / cord - Neuro Neuro: Alert and oriented X 3, Normal speech Results - Vitals Vitals: Vital Signs - 24 hr 08/24/23 08/24/23 11:01 13:37 Temperature 36.0 C L Heart Rate 63 71 Respiratory 11 L 22 Rate Blood Pressure 155/102 H 149/121 H O2 Saturation 96 94 Oxygen O2 Source Room air - EKG (time done) 1104 EKG releavant findings:: EKG personally interpreted by author of this note. Relevant findings are: Rate: Rate (enter#) (62) Rhythm: NSR, LAE [place]: Normal Intervals: Normal MD Ischemia: T wave inversion Compare to prior EKG: Changed from prior EKG Computer interpretation: Agree with computer - Labs Labs: Laboratory Tests 08/24/23 08/24/23 11:55 11:55 WBC 11.9 H RBC 5.52 Hgb 15.7 Hct 49.1 MCV 88.9 MCH 28.4 MCHC 32.0 RDW 12.7 Plt Count 257 MPV 10.7 Neut # (Auto) 8.5 H Lymph # (Auto) 2.0 [place] # (Auto) 1.2 H Eos # (Auto) 0.1 Baso # (Auto) 0.1 Absolute Nucleated RBC 0.00 Nucleated RBC % 0.0 Sodium 137 Potassium 4.0 Chloride 104 Carbon Dioxide 26 Anion Gap 7.0 BUN 25 H Creatinine 1.0 Estimated GFR (MDRD) 73 L Glucose 109 H Calcium 9.5 Total Bilirubin 1.1 H AST 17 ALT 19 Alkaline Phosphatase 62 Troponin I High Sens 6.6 Total Protein 7.1 Albumin 4.2 Globulin 2.9 Albumin/Globulin Ratio 1.4 Lipase 14 PD Medical Decision Making - ED course ED course: 72-year-old gentleman with an exacerbation of chronic abdominal pain now radiating into the chest but resolved today. Differential diagnosis would include gastritis, ulcer, liver issue, [place], or vascular emergency. He appears comfortable here with but does want something for pain. His EKG does demonstrate new deeply inverted T waves especially in V1 through V4 which is new compared to prior EKG done here in April 2021 albeit we do not have an EKG here since his bypass and I will ask the health control panel operator crude unit to try to get 1 from [facility]. We trialed a GI cocktail since gastritis or ulcer disease is on the differential which made no substantial change in his pain. This was followed by 0.5 mg of Dilaudid IV. Departure - Departure Disposition: Home, Self Care Clinical Impression: Abdominal pain Qualifiers: Abdominal location: upper abdomen, unspecified Qualified Code(s): R10.10 - Upper abdominal pain, unspecified Chest pain Qualifiers: Chest pain type: unspecified Qualified Code(s): R07.9 - Chest pain, unspecified Pneumonia Qualifiers: Pneumonia type: due to unspecified organism Laterality: right Lung location: middle lobe of lung Qualified Code(s): J18.9 - Pneumonia, unspecified organism Condition: Good Record reviewed to determine appropriate education?: Yes Instructions: ED Abdominal Pain Unkn Cause Male Prescriptions: Amoxicillin 2 tab PO TID #30 cap Azithromycin [Zithromax] 1 tab PO DAILY #4 tab Comments: As discussed, there is no abnormal finding suggest the cause of your chronic abdominal pain. For the more acute chest pain it looks like you have a mild pneumonia in the right middle lobe associated with a mild elevation in your white count to 11.9. There is no evidence of active heart issue. I sent your prescription electronically to the [facility] in [place]. Call your doctor to arrange a follow-up appointment, make the next available appointment. In the interim, return anytime if worse or if new symptoms develop. Forms: PCP List
[2023-08-24] MEDS: LIDOCAINE VISCOUS 2% 15 ML UDC MM STA (11:57)
[2023-08-24] MEDS: MAG HYDROX/AL HYDROX/SIMETH 30 ML UDC PO STA (11:57)
[2023-08-24 12:02] LABS: BASOPHILS # (AUTO) 0.1 10^3/uL (0.0-0.1); BASOPHILS % (AUTO) 0.4 %; EOSINOPHILS # (AUTO) 0.1 10^3/uL (0.0-0.7); EOSINOPHILS % (AUTO) 0.8 %; HCT - HEMATOCRIT 49.1 % (42.0-52.0); HGB - HEMOGLOBIN 15.7 g/dL (14.0-18.0); LYMPHOCYTES % (AUTO) 17.1 %; MEAN CORPUSCULAR HEMOGLOBIN 28.4 pg (27.0-31.0); MEAN CORPUSCULAR VOLUME 88.9 fL (80.0-94.0); MEAN PLATELET VOLUME 10.7 fL (7.4-11.4); MONOCYTES # (AUTO) 1.2 10^3/uL (0.0-1.0); MONOCYTES % (AUTO) 10.1 %; NEUTROPHILS # (AUTO) 8.5 10^3/uL (1.5-6.6); NEUTROPHILS % (AUTO) 71.3 %; PLT - PLATELET COUNT 257 10^3/uL (130-450); RED BLOOD COUNT 5.52 10^6/uL (4.70-6.10); RED CELL DISTRIBUTION WIDTH 12.7 % (12.0-15.0); WHITE BLOOD COUNT 11.9 x10^3/uL (4.8-10.8)
[2023-08-24 12:16] LABS: ALBUMIN 4.2 g/dL (3.2-5.5); ALBUMIN/GLOBULIN RATIO 1.4 (1.0-2.2); BILIRUBIN,TOTAL 1.1 mg/dL (0.2-1.0); CALCIUM 9.5 mg/dL (8.5-10.3); TOTAL PROTEIN 7.1 g/dL (6.4-8.9)
[2023-08-24 12:21] LABS: TROPONIN I HIGH SENSITIVITY 6.6 ng/L (2.3-19.7)
[2023-08-24] MEDS: HYDROmorphone 1 MG/ML CARPUJECT IVP STA (12:40)
--- NOTE | 2023-08-24 13:49 | CT Report ---
PROCEDURE: Angio Abdomen/Pelvis INDICATIONS: Abdominal and chest pain, aorta protocol CONTRAST: 100 cc TECHNIQUE: After the administration of intravenous contrast, 2.5 mm thick sections acquired from the diaphragm t o the symphysis. 10 mm maximum-intensity projection (MIP) reformats were then acquired. For radiati on dose reduction, the following was used: automated exposure control, adjustment of mA and/or kV ac cording to patient size. COMPARISON: CT angiogram chest 12/20/2023, CT abdomen pelvis 05/09/2021 FINDINGS: Image quality: Excellent. Aorta: No hemodynamically significant stenosis, vascular occlusion, aneurysmal dilation or dissectio n. Ectasia is present in the infrarenal abdominal aorta. Atherosclerotic calcifications are present. Mesenteric arteries: Celiac trunk, superior and inferior mesenteric arteries appear patent. Right pelvic arteries: Patent. Left pelvic arteries: Patent. Extravascular soft tissues: Lung bases are clear. Heart size is normal. Liver and spleen are oscar l in size and enhancement. Gallbladder removed.. Biliary system is non dilated. Pancreas enhances normally. No adrenal nodules. Kidneys are normal in size and enhancement, without hydronephrosis. Non opacified bowel loops are normal in wall thickness and caliber. Diverticula are present without inflammatory change. No free fluid or air. No retroperitoneal or mesenteric adenopathy. No ventral hernias. No suspicious bony lesions. No vertebral body compression fractures. Degenerative changes are present within the lumbar spine. Fat containing inguinal hernias. IMPRESSION: Aorta demonstrates atherosclerotic calcifications without hemodynamically significant stenosis, vascu lar occlusion, aneurysmal dilation or dissection. Reviewed by: Jackelyn Bryant MD on 08/24/2023 1:47 PM PDT Approved by: Jackelyn Bryant MD on 08/24/2023 1:47 PM PDT Station ID: [id number]
--- NOTE | 2023-08-24 14:04 | CT Report ---
PROCEDURE: Angio Chest INDICATIONS: Abdominal and chest pain, aorta protocol CONTRAST: 100 TECHNIQUE: After the administration of intravenous contrast, 2 mm axial images were acquired from the pulmonary apices to the posterior costophrenic angles during the arterial phase. In addition, 1 mm lung kernel and 5 mm soft tissue kernel reconstructions were performed. 3-dimensional coronal oblique maximum int ensity projection (MIP) reformats, 8 mm axial MIP, and 5 mm coronal and sagittal MPR reformats were t hen performed through the thorax. For radiation dose reduction, the following was used: automated exp osure control, adjustment of mA and/or kV according to patient size. COMPARISON: CT abdomen pelvis 08/24/2023, chest x-ray 11/25/2021 FINDINGS: Image quality: Excellent. Large vessels: No filling defects within the opacified pulmonary arteries, accounting for motion and contrast timing. No evidence of acute aortic syndrome or aortic aneurysm. Lungs and pleura: Small patchy opacity is present within the right middle lobe. No pleural effusions. No pneumothorax. No suspicious pulmonary nodules which require follow up. Mediastinum: Heart size is normal. No pericardial effusion. No large vessel abnormality. No mediastin al adenopathy by size criteria. Chest wall and lower neck: Thyroid is unremarkable. No axillary or supraclavicular adenopathy by size . Bones: No aggressive osseous abnormality. Upper Abdomen: Unremarkable. IMPRESSION: No pulmonary embolus. Small patchy opacity in the right middle lobe. This could represent atelectasis. However, developing airspace disease cannot be excluded. Recommend interval follow-up to document resolution and exclude presence of underlying mass lesion. Aorta demonstrates no areas of hemodynamically significant stenosis, vascular occlusion or aneurysmal dilation. Reviewed by: Jackelyn Bryant MD on 08/24/2023 2:02 PM PDT Approved by: Jackelyn Bryant MD on 08/24/2023 2:02 PM PDT Station ID: [id number]
[2023-08-24] MEDS: AZITHROMYCIN 250 MG TABLET PO STA (14:49)
[2023-08-24] MEDS: AMOXICILLIN 250 MG CAPSULE PO STA (14:49)
[2023-08-24] MEDS: iohexoL-300 100 ML VIAL IVP ONE (14:51)
[2023-08-24 15:05] VITALS: BP 148/101; O2SAT 100
== END 2023-08-24 15:01 | disposition home or self-care (01) ==
LOC: EDUNIT# → ED 10:52
DX: J18.9 Pneumonia, unspecified organism (principal); R10.10 Upper abdominal pain, unspecified; R07.9 Chest pain, unspecified; Z79.899 Other long term (current) drug therapy; Z79.82 Long term (current) use of aspirin
CPT/HCPCS: 36415; 71275; 74174; 80053; 83690; 84484; 85025; 93005; 96374; 99284; A9270; J1170; Q9967

== ENCOUNTER 2023-11-15 08:59 | Emergency (ER) | payer MEDICARE, OTHER ==
--- NOTE | 2023-11-15 09:26 | ED Physician Documentation ---
PD HPI Fall - Stated complaint Stated Complaint: FELL DOWN STAIRS - Chief complaint Chief Complaint: Trauma Ch/Bk - History obtained from History obtained from: Patient - History of Present Illness Mechanism of injury: Slipped (going down stairs with socks on wood steps and slipped, falling backward. Pain left flank and lower ribs area and peeled skin lac left forearm but good ROM without pain.) Injury(ies) location: Back. No: Head, Neck, Chest, Abdomen PD PAST MEDICAL HISTORY - Past Medical History Past Medical History: Yes Cardiovascular: Hypertension, High cholesterol, Coronary artery disease Respiratory: None Neuro: None Endocrine/Autoimmune: None GI: GERD, C.difficile, Hepatitis : None HEENT: None Psych: Anxiety Musculoskeletal: Osteoarthritis, Other Derm: None - Past Surgical History Past Surgical History: Yes General: Cholecystectomy, Colonoscopy, Other Ortho: Arthroscopic surgery Cardiovascular: CABG - Present Medications Home Medications: Ambulatory Orders Medication Instructions Recorded Confirmed Aspirin Chewable [St Ángel 81 mg PO DAILY #30 tablet 05/10/21 11/15/23 Aspirin] Metoprolol Succinate [Toprol Xl] 25 mg PO DAILY 08/24/23 11/15/23 Escitalopram Oxalate 2.5 mg PO DAILY 11/15/23 11/15/23 Lidocaine Patch 5% [Lidoderm Patch] 1 patch TOP DAILY PRN #10 patch 11/15/23 Meloxicam [Mobic] 7.5 mg PO BID 10 Days #30 tablet 11/15/23 Oxycodone HCl/Acetaminophen 1 each PO Q6H PRN #20 tablet 11/15/23 [Percocet 5-325 mg Tablet] Rosuvastatin Calcium [Crestor] 40 mg PO DAILY 11/15/23 11/15/23 - Allergies Allergies/Adverse Reactions: Allergies Allergy/AdvReac Type Severity Reaction Status Date / Time No Known Drug Allergies Allergy Verified 11/15/23 09:15 - Social History Does the pt smoke?: No Smoking Status: Former smoker Does the pt drink ETOH?: No Does the pt have substance abuse?: No - Immunizations Immunizations are current?: Yes - POLST Patient has POLST: No PD ED PE NORMAL - Vitals Vital signs reviewed: Yes - General General: Alert and oriented X 3, Well developed/nourished - HEENT HEENT: Atraumatic - Neck Neck: Supple, no meningeal sign, No bony TTP - Cardiac Cardiac: RRR, No murmur - Respiratory Respiratory: No respiratory distress, Clear bilaterally - Abdomen Abdomen: Soft, Other (mild tender LUQ without guarding nor percussion tender. ) - Back Back: Other (tender in left flank and lower ribs posterolateral area. ) - Derm Derm: Normal color, Warm and dry - Extremities Extremities: Other (lef forearm with 5-6 cm area of peeled skin partial thickness without FB nor curent bleeding. No bony tnederness and food ROM of elbow and wrist. ) - Neuro Neuro: Alert and oriented X 3, No motor deficit, No sensory deficit Results - Vitals Vitals: Oxygen O2 Source Room air - Labs Labs: Laboratory Tests 11/15/23 11/15/23 09:35 09:35 WBC 8.7 RBC 4.60 L Hgb 13.4 L Hct 41.4 L MCV 90.0 MCH 29.1 MCHC 32.4 RDW 12.3 Plt Count 209 MPV 10.9 Neut # (Auto) 5.6 Lymph # (Auto) 2.0 [place] # (Auto) 0.8 Eos # (Auto) 0.2 Baso # (Auto) 0.0 Absolute Nucleated RBC 0.00 Nucleated RBC % 0.0 Sodium 138 Potassium 4.2 Chloride 106 Carbon Dioxide 29 Anion Gap 3.0 L BUN 16 Creatinine 1.0 Estimated GFR (MDRD) 73 L Glucose 95 Calcium 9.1 - Rads (name of study) abd/pelvic CT Relevant Findings:: Prelim report reviewed, EMP independent interpretation of test (no organ injury, 11th rib fracture noted. ) PD Medical Decision Making - ED course Complexity details: reviewed results (no organ injury, free fluid. Has 11th rib fracture, to account for area and degree of pain. ), re-evaluated patient (pain meds of IV dilaudid and Toradol. IV for fluids and use for CT. No complications.), considered differential (fall backward with pain left flank. Also arm peeled skin lac. Due to concern for kidney/spleen as well as ribs/oung, will get CT rather than plain image.), d/w patient Departure - Departure Disposition: 01 Home, Self Care Clinical Impression: Fall down stairs, Forearm laceration, Back contusion, Rib fracture Condition: Stable Record reviewed to determine appropriate education?: Yes Instructions: ED Fx Rib Follow-Up: Sherrie Ruiz ARNP [Primary Care Provider] - Prescriptions: Lidocaine Patch 5% [Lidoderm Patch] 1 patch TOP DAILY PRN #10 patch PRN Reason: pain Meloxicam [Mobic] 7.5 mg PO BID 10 Days #30 tablet Oxycodone HCl/Acetaminophen [Percocet 5-325 mg Tablet] 1 each PO Q6H PRN #20 tablet PRN Reason: pain Comments: Your CT scan shows a single broken rib on the left lower, rib #11. Its minimally displaced. It should heal up okay in this position. There should be a decrease in pain notably over the first few days as the initial swelling and muscle bruising and such decrease. After that the healing rib will have enough new bone growth to "stick together" with a less movement of the bone ends at about 1-1/2 to 2 weeks. However will be about 4 to 6 weeks to be fully healed. Activity as tolerated. We think of trying to treat these through multiple approaches of anti-inflammatory and topical lidocaine patches, potentially muscle relaxants if you are having stiffness or spasms. To that add Tylenol/acetaminophen 4 times regularly for the next several days to week. In addition then add the opiate pain medicine every 4-6 hours as needed for worse pain. I sent prescriptions to your preferred pharmacy. Activity as tolerated as I mentioned above. In particular you will notice pains with movement and twisting and lifting as the lower ribs are anchor points for some of the rotational muscles. Recheck if not improving in an expected fashion. Regarding your forearm, it should heal over with skin in a slow fashion, likely a couple of weeks or so. Clean it at least daily and apply ointment of some sort daily lightly to the area. Otherwise keep it covered and clean and dry. Recheck if signs of infection. Forms: PCP List Discharge Date/Time: 11/15/23 12:58
[2023-11-15 09:39] LABS: BASOPHILS % (AUTO) 0.5 %; EOSINOPHILS # (AUTO) 0.2 10^3/uL (0.0-0.7); EOSINOPHILS % (AUTO) 2.3 %; HCT - HEMATOCRIT 41.4 % (42.0-52.0); HGB - HEMOGLOBIN 13.4 g/dL (14.0-18.0); LYMPHOCYTES % (AUTO) 23.2 %; MEAN CORPUSCULAR HEMOGLOBIN 29.1 pg (27.0-31.0); MEAN CORPUSCULAR HGB CONC 32.4 g/dL (32.0-36.0); MEAN PLATELET VOLUME 10.9 fL (7.4-11.4); MONOCYTES # (AUTO) 0.8 10^3/uL (0.0-1.0); MONOCYTES % (AUTO) 9.2 %; NEUTROPHILS # (AUTO) 5.6 10^3/uL (1.5-6.6); NEUTROPHILS % (AUTO) 64.3 %; PLT - PLATELET COUNT 209 10^3/uL (130-450); RED CELL DISTRIBUTION WIDTH 12.3 % (12.0-15.0); WHITE BLOOD COUNT 8.7 x10^3/uL (4.8-10.8)
[2023-11-15] MEDS: KETOROLAC 15 MG/ML VIAL IVP STA (09:40)
[2023-11-15] MEDS: BACITRACIN ZINC OINT 1 PACKET TOP STA (09:40)
[2023-11-15 09:56] LABS: CALCIUM 9.1 mg/dL (8.5-10.3); POTASSIUM 4.2 mmol/L (3.5-4.5)
[2023-11-15] MEDS ORDERED: iohexoL-300 100 ML VIAL ONE (10:31)
--- NOTE | 2023-11-15 11:03 | CT Report ---
PROCEDURE: Abdomen/Pelvis W INDICATIONS: fell backward. Pain left flank/thoracolumbar CONTRAST: 100ml Omni 300 TECHNIQUE: After the administration of intravenous contrast, a CT scan of the abdomen and pelvis was performed. Images were recorded and evaluated at appropriate window settings. Reformats: coronal and sagittal. F or radiation dose reduction, the following was used: automated exposure control, adjustment of mA and /or kV according to patient size. COMPARISON: 08/24/2023 FINDINGS: Image quality: Diagnostic. Lower chest: Unremarkable. Liver: No solid mass. Gallbladder: Surgically absent. Biliary tree: No intrahepatic or extrahepatic dilation, accounting for age. Spleen: No splenomegaly. Pancreas: No pancreatic ductal dilation. Adrenals: No adrenal nodule. Kidneys and ureters: No hydronephrosis. No renal cystic lesion which requires follow up. No solid mas s. Stomach, bowel and peritoneum: No gastric or small bowel dilation. No abnormal wall thickening. No pa thologic free fluid. Diverticulosis without evidence of diverticulitis. Normal appendix. Lymph nodes: No central or retroperitoneal adenopathy. Vessels: No infrarenal aortic aneurysm. Atherosclerotic vascular opacifications. Patent portal vein. PELVIS Reproductive organs: Unremarkable. Bladder: No abnormal wall thickening, accounting for underdistention. Pelvic lymph nodes: No pelvic adenopathy by size criteria. Bones: No aggressive osseous abnormality. Other: Small left inguinal hernia containing fat. IMPRESSION: No acute traumatic injury within the abdomen or pelvis. Reviewed by: Gui Auguste MD on 11/15/2023 10:02 AM A[facility] Approved by: Gui Auguste MD on 11/15/2023 10:02 AM A[facility]RE[facility] Station ID: [id number]
[2023-11-15] MEDS: HYDROmorphone 1 MG/ML CARPUJECT IVP STA ×2 (11:29→12:47)
[2023-11-15] MEDS: LIDOCAINE PATCH 5% TOP STA (12:47)
[2023-11-15] MEDS: ACETAMINOPHEN 500 MG TABLET PO STA (12:47)
[2023-11-15] MEDS: iohexoL-300 100 ML VIAL IVP ONE (13:02)
[2023-11-15 13:08] VITALS: BP 123/108; O2SAT 97
== END 2023-11-15 12:58 | disposition home or self-care (01) ==
LOC: ED 08:59
DX: S30.0XXA Contusion of lower back and pelvis, initial encounter (principal); S51.812A Laceration without foreign body of left forearm, initial encounter; S22.32XA Fracture of one rib, left side, initial encounter for closed fracture; W10.9XXA Fall (on) (from) unspecified stairs and steps, initial encounter; Z87.891 Personal history of nicotine dependence
CPT/HCPCS: 36415; 74177; 80048; 85025; 96374; 96375; 96376; 99284; A9270; J1170; Q9967

== ENCOUNTER 2023-11-26 14:11 | Outpatient (CLI) | payer MEDICARE, OTHER ==
--- NOTE | 2023-11-26 21:02 | CT Report ---
PROCEDURE: Chest WO INDICATIONS: ABN CHEST CT TECHNIQUE: A CT scan of the chest was performed. Intravenous contrast media was not administered. Images were re corded and evaluated at appropriate window settings. Reformats: axial MIP of the chest, coronal and s agittal. For radiation dose reduction, the following was used: automated exposure control, adjustment of mA and/or kV according to patient size. COMPARISON: CT chest 08/24/2023 FINDINGS: Image quality: Diagnostic. Chest wall and lower neck: No thyroid nodule which requires sonographic follow up. No axillary or sup raclavicular adenopathy by size. Lungs and pleura: No consolidation. No pleural effusions. No pneumothorax. No suspicious pulmonary n odules which require follow up. Improved appearance of previously identified patchy areas of opacity within the right middle lobe. Minimal streaky opacities persist likely related to scarring. Mediastinum: Heart size is normal. No pericardial effusion. No large vessel abnormality. No mediastin al adenopathy by size criteria. Bones: No aggressive osseous abnormality. Upper Abdomen: Unremarkable. IMPRESSION: Near complete interval resolution of previous right middle lobe opacities now demonstrating minimal s treaky opacities likely related to scarring. Reviewed by: Jackelyn Bryant MD on 11/26/2023 9:01 PM PDT Approved by: Jackelyn Bryant MD on 11/26/2023 9:01 PM PDT Station ID: [id number]
== END 2023-11-26 14:12 | disposition home or self-care (01) ==
LOC: DI 14:11
PROVIDERS: ATTEND Nurse Practitioner
DX: R91.8 Other nonspecific abnormal finding of lung field (principal)

== ENCOUNTER 2024-01-01 09:54 | Outpatient (CLI) | payer MEDICARE, OTHER | END 2024-01-01 09:55 | disposition EMS.NT | LOC: EMS 09:54 | DX: R06.02 Shortness of breath (principal); R07.9 Chest pain, unspecified; F41.9 Anxiety disorder, unspecified; R11.0 Nausea; R42 Dizziness and giddiness ==